=== PATIENT | female | born 1935 | race Caucasian/White ===

== ENCOUNTER 2020-10-19 20:23 | Inpatient (IN) ==
[2020-10-19 21:44] LABS: Hematocrit (blood only) 42.7 % (37-47); Hemoglobin 13.8 g/dL (12.0-16.0); Mean Corpuscular Hgb Conc 32.3 g/dL (32-36); Mean Corpuscular Volume 92.8 fL (80-100); Mean Platelet Volume 11.5 fL (7.4-10.4); Platelet Count 209 K/uL (130-400); RDW Standard Deviation 50.9 fL (36.4-46.3); White Blood Count 23.14 K/uL (4.8-10.8)
[2020-10-19 22:01] LABS: Albumin Level 3.1 gm/dl (3.4-5.0); BUN Creatinine Ratio 32.9 (10-20); Calcium 8.9 mg/dl (8.5-10.1); Creatinine Clr Calc Pharmacy 46.8 ml/min; Est GFR (African American) 79.7 ml/min; Est GFR (Non-African American) 68.7 ml/min; Magnesium 2.1 mg/dl (1.8-2.4); Potassium 4.2 mmol/L (3.5-5.1)
[2020-10-19 22:12] LABS: Albumin Globulin Ratio 0.8 (0.9-2); Bilirubin,Total 0.8 mg/dl (0.2-1); Globulin 3.7 gm/dl (2.5-4.0); Thyroid Stimulating Hormone 1.01 uIu/ml (0.300-4.500); Total Protein 6.8 gm/dl (6.4-8.2); Troponin I 0.015 ng/ml (0-0.045)
[2020-10-19 23:11] LABS: Appearance Urine Clear (Clear); Bacteria Urine Automated 4+ (Negative); Bilirubin Urine Negative (Negative); Blood Urine Negative (Negative); Color Urine Yellow; Epithelial Cell Urine Auto >30 /lpf (0-5); Glucose Urine UA Negative (Negative); Ketones Urine Negative (Negative); Leukocyte Esterase Urine Negative (Negative); Nitrite Urine Positive (Negative); Protein Urine Trace (Negative); RBC Urine Automated 0-4 /hpf (0-4); Specific Gravity Urine 1.022 (1.000-1.030); Urobilinogen Urine Negative (Negative)
[2020-10-19 23:17] LABS: Basophils # (auto) 0.03 K/uL (0-0.2); Basophils % (auto) 0.1 %; Eosinophils # (auto) 0.02 K/uL (0-0.5); Eosinophils % (auto) 0.1 %; Immature Granulocytes # (auto) 0.23 K/uL (0.00-0.02); Lymphocytes % (auto) 3.5 %; Monocytes # (auto) 0.57 K/uL (0.11-0.59); Monocytes % (auto) 2.5 %; Neutrophils # (auto) 21.49 K/uL (1.4-6.5); Neutrophils % (auto) 92.8 %
[2020-10-19] MEDS ORDERED: OPTIRAY 320 125ml IV ONE (23:33)
[2020-10-19] MEDS ORDERED: Heparin IV Adult Wt-Based Standard WITH Bolus Protocol IV STA (23:48)
--- NOTE | 2020-10-19 23:57 | Emergency Department Note ---
Impression & Plan Weakness, Bilateral lower extremity edema, Lumbar stenosis with neurogenic claudication, Pulmonary embolism, Hypoxia ED Provider Note Provider: Isiah Contreras MD DATE OF SERVICE: 10/19/2020 CHIEF COMPLAINT: Weakness HISTORY OF PRESENT ILLNESS: Patient is a 85-year-old female history of chronic lower leg edema and venous stasis and lumbar stenosis recently on a steroid burst to help with neural claudication presenting today with reports that she has had developed weakness in her right leg today has been unable to walk. Was able to get out to dinner but was not able to get back of the truck and fell onto her buttocks and. Denies striking her head. Denies pain in her head, chest, or abdomen. Denies significant back pain. Reports weakness in her legs. Unchanged numbness in legs. States normally she is able to walk but her right leg is now giving out on her. States she has chronic swelling here. Finished her steroids 2 days ago for her back no history of back surgery. REVIEW OF SYSTEMS: A total of 10 review of systems was obtained and negative except as stated above in the HPI. PAST MEDICAL HISTORY: As noted above MEDICATIONS: Reviewed home medication list recently finished a burst of steroid SOCIAL HISTORY: Lives at home with , non-smoker PHYSICAL EXAM: GENERAL: alert and oriented in no acute distress on stretcher but appears somewhat fatigued. Head: normocephalic and atraumatic EYES: No injection, discharge or icterus. NECK: Trachea midline. Supple. LUNGS: Airway patent. No retractions. Breath sounds clear anteriorly HEART: Regular rate and rhythm. No chest wall tenderness ABDOMEN: Soft and non-tender, without guarding or rebound. BACK: No bilateral flank tenderness. SKIN: Acyanotic, warm, dry, without rashes EXTREMITIES: 3+ bilateral lower extremity edema with chronic stasis changes. Minimal tenderness on exam. NEUROLOGICAL: No aphasia. No facial droop or slurred speech. Decreased ability for straight leg raise in the right and left lower legs. Decrease sensation on the right and left lower legs although patient states this is baseline. EK bpm normal sinus rhythm with sinus arrhythmia. No PVC. QTC 43. No ST segment elevation or depression with some baseline artifact present. CONTINUOUS CARDIAC MONITORING: was ordered and showed a heart rate of 60s to 80s bpm in normal sinus rhythm with sinus arrhythmia GCS 15. Patient's laboratory studies and imaging reviewed. Differential includes Infection, dehydration, metabolic abnormality, hypo/hyperglycemia, electrolyte disturbance, anemia, hypoxia, cardiac sources, i ntracerebral event, toxicologic, neurologic, as well as other pathologies. IMPRESSION/MEDICAL DECISION MAKING: Patient not on blood thinners and reports he did not strike her head. No to be a bit hypoxic here on room air. Denies a history of smoking. Chest x-ray that clear evidence of pneumonia. Little bit of possible haziness in the lower right lung base. Recent MRI several weeks ago. Patient states right leg has been giving out on her more. On reevaluation later she states her strength in her leg has returned some. CT of the lumbar spine did not show acute fracture. Significant chronic lower extremity swelling she is reports is at baseline. Blood work with a significant leukocytosis but was just on a steroid burst. Urine not that convincing for infection but will be sent for culture. Legs erythematous but not distally convince for bilateral leg cellulitis. CT scan later completed of the lungs given her borderline hypoxia here with evidence of PEs. Patient will need Dopplers of the legs but requires anticoagulated with heparin given the PEs at this point and will defer to inpatient care. Patient not having chest pain and without significant ischemic changes on the EKG or significant troponin elevation. Covid test was negative. Given that she is hypoxic in the high 80s here on room air at rest with the PEs feel that anticoagulation and further care here at the hospital is indicated. Patient also a fall risk given her weakness. Lower suspicion at this time for acute cauda equina or spinal infection. Patient does not appear septic. Hospitalist contacted DIAGNOSIS: Weakness, hypoxia, PEs, leg edema DISPOSITION: Hospitalist will evaluate Patient was agreeable with this plan. Preliminary Findings Only See Final Report For Complete Findings CTA CHEST: Acute pulmonary emboli within multiple right middle and lower lobar, segmental and subsegmental branches. No central pulmonary embolism. Ectatic central pulmonary arteries, suggesting pulmonary arterial hypertension. Mild cardiomegaly. RV/LV ratio is approximately 1 which may indicate mild right heart strain. Mild pericardial effusion. Aberrant right subclavian artery. Small bilateral pleural effusions. Mild bibasilar compressive atelectasis. No definite acute consolidation or pulmonary infarct. No pathologic intrathoracic lymphadenopathy. No acute osseous abnormality. Radiologist: Amish Delacruz M.D. Past Med/Surg History Medical History Basal cell carcinoma Chronic venous stasis dermatitis of both lower extremities DJD (degenerative joint disease) H/O fracture of hip H/O mitral valve prolapse Non-healing surgical wound Osteopenia Rheumatoid arthritis Surgical History H/O foot surgery H/O wrist surgery S/P appendectomy S/P cholecystectomy Family History Father COPD (chronic obstructive pulmonary disease) Silicosis Mother , age 97 No problems noted. Social History Smoking Status: Never smoker Hx Alcohol Use: No Hx Substance Use: No Communication Ability: Effective Visual Impairment: Limited Hearing Ability: Normal Beliefs That Will Affect Care: None marital status: Current Living Situation: Spouse current occupational status: retired Feels Safe at Home: Yes Allergies Allergies Allergy/AdvReac Type Severity Reaction Status Date / Time No Known Allergies Allergy Verified 10/19/20 22:18 Home Meds Home Medications Medication Instructions Recorded Confirmed leflunomide 20 mg tablet (Arava) 20 mg PO DAILY 03/04/19 10/19/20 alendronate 70 mg tablet 70 mg PO WK 10/19/20 10/19/20 furosemide 20 mg tablet 20 mg PO DAILY 10/19/20 10/19/20 oxybutynin chloride 5 mg tablet 5 mg PO BID PRN 10/19/20 10/19/20 prednisone 1 mg tablet See Rx Instructions .ROUTE .COMPLEX 10/19/20 10/19/20 Results & Data (ED) Vital Signs Vital Signs - 24 hr 10/19/20 20:33 10/19/20 20:43 10/19/20 21:00 Temperature 37.5 C Temperature Source Oral Pulse Rate 80 Pulse Rate [Apical] 78 Respiratory Rate 18 18 Blood Pressure 164/78 H Blood Pressure [Left Arm] 151/53 H Blood Pressure Mean 106 Blood Pressure Mean [Left Arm] 85 Pulse Oximetry 87 L 93 92 Oxygen Delivery Method Room Air Nasal Cannula Nasal Cannula Oxygen Flow Rate 2 2 Sepsis Recent Fever Within 48 Hours No Sepsis New/Unexplained Change in Mental Status N/A Sepsis Action Taken by Nursing No Action Required 10/19/20 21:20 10/19/20 23:01 10/20/20 00:00 Temperature Temperature Source Pulse Rate Pulse Rate [Apical] 81 71 Respiratory Rate 18 18 Blood Pressure Blood Pressure [Left Arm] 153/79 H 153/69 H Blood Pressure Mean Blood Pressure Mean [Left Arm] 103 97 Pulse Oximetry 90 92 99 Oxygen Delivery Method Nasal Cannula Room Air Nasal Cannula Oxygen Flow Rate 2 4 Sepsis Recent Fever Within 48 Hours Sepsis New/Unexplained Change in Mental Status Sepsis Action Taken by Nursing Laboratory Data Result diagrams: 10/19/20 21:31 10/19/20 21:31 Lab Results 10/19/20 10/19/20 10/19/20 Range/Units 21:31 21:31 21:31 WBC 23.14 H (4.8-10.8) K/uL RBC 4.60 (4.2-5.4) M/uL Hgb 13.8 (12.0-16.0) g/dL Hct 42.7 (37-47) % MCV 92.8 (80-100) fL MCH 30.0 (25-34) pg MCHC 32.3 (32-36) g/dL RDW Std Deviation 50.9 H (36.4-46.3) fL RDW Coeff of Cherie 15.0 H (11.5-14.5) % Plt Count 209 (130-400) K/uL MPV 11.5 H (7.4-10.4) fL Immature Gran % (Auto) 1.0 % Neut % (Auto) 92.8 % Lymph % (Auto) 3.5 % [place] % (Auto) 2.5 % Eos % (Auto) 0.1 % Baso % (Auto) 0.1 % Neut # (Auto) 21.49 H (1.4-6.5) K/uL Lymph # (Auto) 0.80 L (1.2-3.4) K/uL [place] # (Auto) 0.57 (0.11-0.59) K/uL Eos # (Auto) 0.02 (0-0.5) K/uL Baso # (Auto) 0.03 (0-0.2) K/uL Immature Gran # (Auto) 0.23 H (0.00-0.02) K/uL APTT 22.8 (21.0-31.0) Seconds PTT Ratio 0.9 Sodium 141 (136-145) mmol/L Potassium 4.2 (3.5-5.1) mmol/L Chloride 108 H (98-107) mmol/L Carbon Dioxide 29 (21-32) mmol/L Anion Gap 4.0 (3-11) BUN 26 H (7-18) mg/dl Creatinine 0.79 (0.6-1.2) mg/dl Est Cr Clr Drug Dosing 46.8 ml/min Est GFR ( Amer) 79.7 ml/min Est GFR (Non-Af Amer) 68.7 ml/min BUN/Creatinine Ratio 32.9 H (10-20) Glucose 158 H (70-99) mg/dl Calcium 8.9 (8.5-10.1) mg/dl Magnesium 2.1 (1.8-2.4) mg/dl Total Bilirubin 0.8 (0.2-1) mg/dl AST 29 (15-37) U/L ALT 37 (12-78) U/L Alkaline Phosphatase 88 (45-117) U/L Troponin I 0.015 (0-0.045) ng/ml Total Protein 6.8 (6.4-8.2) gm/dl Albumin 3.1 L (3.4-5.0) gm/dl Globulin 3.7 (2.5-4.0) gm/dl Albumin/Globulin Ratio 0.8 L (0.9-2) TSH 1.010 (0.300-4.500) uIu/ml Urine Color Urine Appearance (Clear) Urine pH (4.5-7.5) Ur Specific [place] (1.000-1.030) Urine Protein (Negative) Urine Glucose (UA) (Negative) Urine Ketones (Negative) Urine Blood (Negative) Urine Nitrite (Negative) Urine Bilirubin (Negative) Urine Urobilinogen (Negative) Ur Leukocyte Esterase (Negative) Urine WBC (Auto) (0-5) /hpf Urine RBC (Auto) (0-4) /hpf U Hyaline Cast (Auto) (0-5) /lpf U Epithel Cells (Auto) (0-5) /lpf Urine Bacteria (Auto) (Negative) COVID-19 Eval Order SARS-CoV-2 (PCR) (Negative) 10/19/20 10/19/20 10/19/20 Range/Units 22:27 22:27 22:55 WBC (4.8-10.8) K/uL RBC (4.2-5.4) M/uL Hgb (12.0-16.0) g/dL Hct (37-47) % MCV (80-100) fL MCH (25-34) pg MCHC (32-36) g/dL RDW Std Deviation (36.4-46.3) fL RDW Coeff of Cherie (11.5-14.5) % Plt Count (130-400) K/uL MPV (7.4-10.4) fL Immature Gran % (Auto) % Neut % (Auto) % Lymph % (Auto) % [place] % (Auto) % Eos % (Auto) % Baso % (Auto) % Neut # (Auto) (1.4-6.5) K/uL Lymph # (Auto) (1.2-3.4) K/uL [place] # (Auto) (0.11-0.59) K/uL Eos # (Auto) (0-0.5) K/uL Baso # (Auto) (0-0.2) K/uL Immature Gran # (Auto) (0.00-0.02) K/uL APTT (21.0-31.0) Seconds PTT Ratio Sodium (136-145) mmol/L Potassium (3.5-5.1) mmol/L Chloride (98-107) mmol/L Carbon Dioxide (21-32) mmol/L Anion Gap (3-11) BUN (7-18) mg/dl Creatinine (0.6-1.2) mg/dl Est Cr Clr Drug Dosing ml/min Est GFR ( Amer) ml/min Est GFR (Non-Af Amer) ml/min BUN/Creatinine Ratio (10-20) Glucose (70-99) mg/dl Calcium (8.5-10.1) mg/dl Magnesium (1.8-2.4) mg/dl Total Bilirubin (0.2-1) mg/dl AST (15-37) U/L ALT (12-78) U/L Alkaline Phosphatase (45-117) U/L Troponin I (0-0.045) ng/ml Total Protein (6.4-8.2) gm/dl Albumin (3.4-5.0) gm/dl Globulin (2.5-4.0) gm/dl Albumin/Globulin Ratio (0.9-2) TSH (0.300-4.500) uIu/ml Urine Color Yellow Urine Appearance Clear (Clear) Urine pH 5.0 (4.5-7.5) Ur Specific [place] 1.022 (1.000-1.030) Urine Protein Trace H (Negative) Urine Glucose (UA) Negative (Negative) Urine Ketones Negative (Negative) Urine Blood Negative (Negative) Urine Nitrite Positive A (Negative) Urine Bilirubin Negative (Negative) Urine Urobilinogen Negative (Negative) Ur Leukocyte Esterase Negative (Negative) Urine WBC (Auto) 5-10 H (0-5) /hpf Urine RBC (Auto) 0-4 (0-4) /hpf U Hyaline Cast (Auto) 1-5 (0-5) /lpf U Epithel Cells (Auto) >30 H (0-5) /lpf Urine Bacteria (Auto) 4+ H (Negative) COVID-19 Eval Order Covid19 at [facility] SARS-CoV-2 (PCR) NEGATIVE (Negative) Administered Medications Discontinued Medications Ioversol (Optiray 320 125ml) 125 ml IV ONCE ONE Stop: 10/19/20 23:34 Last Admin: 10/19/20 23:33 Dose: 93 ml Documented by: [id number] Discharge Plan Visit Data Chief Complaint: Leg Weakness, Bilateral Stated Complaint: LEG WEAKNESS ED Provider: Isiah Contreras Discharge Problem: Weakness, Bilateral lower extremity edema, Lumbar stenosis with neurogenic claudication, Pulmonary embolism, Hypoxia Patient Disposition: Admitted As Inpatient Forms Stand Alone Forms: My [facility] Prescriptions Prescriptions: No Action leflunomide [Arava] 20 mg tablet 20 mg PO DAILY RF: 0 alendronate 70 mg tablet 70 mg PO WK RF: 0 oxybutynin chloride 5 mg tablet 5 mg PO BID PRN (Reason: urinary discomfort) RF: 0 prednisone 1 mg tablet See Rx Instructions .ROUTE .COMPLEX RF: 0 furosemide 20 mg tablet 20 mg PO DAILY RF: 0 Referrals Referrals: Nael Senior MD [Primary Care Provider] -
[2020-10-20] MEDS ORDERED: HEPARIN SOD (PORCINE) 1000 UNIT/ML IV ONE ×2 (00:03→08:30)
[2020-10-20] MEDS ORDERED: HEPARIN SODIUM/DEXTROSE 25,000 UNITS/500 ML BAG IV SCH (00:15)
[2020-10-20] MEDS ORDERED: Heparin IV Adult Wt-Based Low-Dose *NO* Bolus Protocol IV STA (01:09)
[2020-10-20] MEDS ORDERED: FUROSEMIDE 40 MG/4 ML VIAL IV STA (01:11)
[2020-10-20 01:12] LABS: Partial Thromboplastin Ratio 0.9; Partial Thromboplastin Time 22.8 Seconds (21.0-31.0)
[2020-10-20] MEDS ORDERED: HEPARIN 25000 UNIT/500 ML D5W IV ONE (01:35)
[2020-10-20] MEDS: HEPARIN SODIUM/DEXTROSE 25,000 UNITS/500 ML BAG IV SCH ×2 (01:54→02:45)
[2020-10-20] MEDS ORDERED: VANCOMYCIN CONSULT ACTIVE PRN (02:43)
[2020-10-20] MEDS ORDERED: ONDANSETRON INJ 2 MG/ML 2 ML VIAL IV PRN (02:43)
[2020-10-20] MEDS ORDERED: ACETAMINOPHEN 325 MG TAB PO PRN (02:43)
[2020-10-20] MEDS ORDERED: VANCOMYCIN HCL 1,500 MG in SODIUM CHLORIDE 0.9% 500 ML IV ONE (03:15)
--- NOTE | 2020-10-20 06:01 | History & Physical Report ---
Date of Service October 20, 2020 Assessment & Plan (1) Pulmonary embolism: Plan: Pulmonary embolism involving right middle lobe and right lower lobe- Start heparin IV low-dose no bolus. Longer term anticoagulation can be discussed in the a.m. (2) Bilateral lower extremity edema: Plan: Bilateral lower extremity edema/acute worsening chronic venous insufficiency- Hold oral furosemide. Give furosemide 40 mg IV x1 in the ED, then 20 mg IV every morning (3) Chronic venous insufficiency: Plan: See above (4) Chronic venous stasis dermatitis of both lower extremities: Plan: Consult wound care, was taking care of her in the past (5) Cellulitis of both lower extremities: Plan: Recent culture positive for MSSA, only resistant to erythromycin- Placed on vancomycin IV and ceftriaxone IV (6) Urinary tract infection: Plan: Follow urine culture sensitivity antibiotic coverage as above History of Present Illness Chief Complaint: The patient presents to the emergency department with complaint regarding worsening lower extremity weakness, right worse than left, and decreased ability to walk. Primary Care Provider: Nael Senior MD The patient is a 85-year-old female with a past medical history including lumbar stenosis with neurogenic claudication, venous stasis ulcer, osteoporosis, bladder spasm, bilateral lower extremity edema, chronic venous insufficiency, chronic venous stasis dermatitis and nonhealing surgical wound. She presents to the emergency department with decreased ability to walk, and with multiple other concerns. Allergies Allergy/AdvReac Type Severity Reaction Status Date / Time No Known Allergies Allergy Verified 10/19/20 22:18 Home Medications Medication Instructions Recorded Confirmed Type leflunomide 20 mg tablet (Arava) 20 mg PO DAILY 03/04/19 10/19/20 History alendronate 70 mg tablet 70 mg PO WK 10/19/20 10/19/20 History furosemide 20 mg tablet 20 mg PO DAILY 10/19/20 10/19/20 History oxybutynin chloride 5 mg tablet 5 mg PO BID PRN 10/19/20 10/19/20 History prednisone 1 mg tablet See Rx Instructions .ROUTE .COMPLEX 10/19/20 10/19/20 History Past Med/Surg History Medical History Basal cell carcinoma Chronic venous stasis dermatitis of both lower extremities DJD (degenerative joint disease) H/O fracture of hip H/O mitral valve prolapse Non-healing surgical wound Osteopenia Rheumatoid arthritis Surgical History H/O foot surgery H/O wrist surgery S/P appendectomy S/P cholecystectomy Family History Father COPD (chronic obstructive pulmonary disease) Silicosis Mother , age 97 No problems noted. Social History Smoking Status: Never smoker Hx Alcohol Use: No Hx Substance Use: No Preferred Language: Kittitian Communication Ability: Effective Visual Impairment: Limited Hearing Ability: Normal Outdoor Recreation Specialist Required: No Beliefs That Will Affect Care: None marital status: Current Living Situation: Spouse current occupational status: retired Other Information That Helps Us Care for You: No Feels Safe at Home: Yes Safety Concerns: Feels Safe At This Time Assistive Devices: Denture - Upper and Denture - Lower Review of Systems Review of Systems: The patient denies chest pain, palpitations, cough, sore throat, fevers, chills, sweats, nausea, vomiting, diarrhea , constipation, abdominal pain, pelvic pain, blood in urine or stool, dysuria, urinary frequency or urgency, loss of consciousness, rash, abnormal bruising or bleeding, focal weakness, numbness or tingling in arms, generalized arthralgias or myalgias, back or neck pain, or night sweats. The review of systems is otherwise negative other than for that already noted above, and at least 10 systems have been reviewed. Physical Exam Physical Exam: The patient is awake, alert and oriented 3, well developed and well nourished, normocephalic and atraumatic, lying in bed and in no acute distress. HEENT--PERRL, EOMI, mucous membranes and oropharynx normal. Neck--supple. No JVD. No bruits. Thyroid normal, trachea midline, no adenopathy. Heart--normal S1 and S2. No murmurs, rubs or gallops. Lungs--clear bilaterally, no respiratory distress, no accessory muscle use. Abdomen--normal bowel sounds and soft. Nontender. Nondistended, no hernias or masses, no organomegaly. Extremities--no cyanosis or clubbing. 2+ bilateral pretibial and pedal pitting edema. Moderate erythema bilaterally, right worse than left with mild scaling. Dermatologic--normal skin turgor, normal color, no abnormal lymph nodes, no r torito. Neurologic--cranial nerves II through XII grossly intact. Rheumatologic--normal range of motion. Psychiatric--normal affect. Results & Data Results & Data ([facility]) Vital Signs (Past 12 Hours) Vital Signs Temp Pulse Pulse Resp BP BP Pulse Ox 10/20/20 00:00 71 18 153/69 H 99 10/19/20 23:01 81 18 153/79 H 92 10/19/20 21:20 90 10/19/20 21:00 78 18 151/53 H 92 10/19/20 20:43 93 10/19/20 20:33 99.5 F 80 18 164/78 H 87 L Laboratory Results Laboratory Results WBC 23.14 K/uL (4.8-10.8) H 10/19/20 21:31 RBC 4.60 M/uL (4.2-5.4) 10/19/20 21: Hgb 13.8 g/dL (12.0-16.0) 10/19/20 21: Hct 42.7 % (37-47) 10/19/20 21: MCV 92.8 fL (80-100) 10/19/20 21: MCH 30.0 pg (25-34) 10/19/20 21: MCHC 32.3 g/dL (32-36) 10/19/20 21:31 RDW Std Deviation 50.9 fL (36.4-46.3) H 10/19/20 21: RDW Coeff of Cherie 15.0 % (11.5-14.5) H 10/19/20 21: Plt Count 209 K/uL (130-400) 10/19/20 21: MPV 11.5 fL (7.4-10.4) H 10/19/20 21: Immature Gran % (Auto) 1.0 % 10/19/20 21: Neut % (Auto) 92.8 % 10/19/20 21: Lymph % (Auto) 3.5 % 10/19/20 21: [place] % (Auto) 2.5 % 10/19/20 21: Eos % (Auto) 0.1 % 10/19/20 21:31 Baso % (Auto) 0.1 % 10/19/20 21:31 Neut # (Auto) 21.49 K/uL (1.4-6.5) H 10/19/20 21:31 Lymph # (Auto) 0.80 K/uL (1.2-3.4) L 10/19/20 21:31 [place] # (Auto) 0.57 K/uL (0.11-0.59) 10/19/20 21:31 Eos # (Auto) 0.02 K/uL (0-0.5) 10/19/20 21:31 Baso # (Auto) 0.03 K/uL (0-0.2) 10/19/20 21:31 Immature Gran # (Auto) 0.23 K/uL (0.00-0.02) H 10/19/20 21:31 APTT 22.8 Seconds (21.0-31.0) 10/19/20 21: PTT Ratio 0.9 10/19/20 21:31 Sodium 141 mmol/L (136-145) 10/19/20 21:31 Potassium 4.2 mmol/L (3.5-5.1) 10/19/20 21: Chloride 108 mmol/L (98-107) H 10/19/20 21:31 Carbon Dioxide 29 mmol/L (21-32) 10/19/20 21:31 Anion Gap 4.0 (3-11) 10/19/20 21:31 BUN 26 mg/dl (7-18) H 10/19/20 21:31 Creatinine 0.79 mg/dl (0.6-1.2) 10/19/20 21:31 Est Cr Clr Drug Dosing 46.8 ml/min 10/19/20 21:31 Est GFR ( Amer) 79.7 ml/min 10/19/20 21:31 Est GFR (Non-Af Amer) 68.7 ml/min 10/19/20 21:31 BUN/Creatinine Ratio 32.9 (10-20) H 10/19/20 21:31 Glucose 158 mg/dl (70-99) H 10/19/20 21:31 Calcium 8.9 mg/dl (8.5-10.1) 10/19/20 21:31 Magnesium 2.1 mg/dl (1.8-2.4) 10/19/20 21: Total Bilirubin 0.8 mg/dl (0.2-1) 10/19/20 21: AST 29 U/L (15-37) 10/19/20 21: ALT 37 U/L (12-78) 10/19/20 21: Alkaline Phosphatase 88 U/L (45-117) 10/19/20 21: Troponin I 0.015 ng/ml (0-0.045) 10/19/20 21: Total Protein 6.8 gm/dl (6.4-8.2) 10/19/20: Albumin 3.1 gm/dl (3.4-5.0) L 10/19/20: Globulin 3.7 gm/dl (2.5-4.0) 10/19/20 21: Albumin/Globulin Ratio 0.8 (0.9-2) L 10/19/20: TSH 1.010 uIu/ml (0.300-4.500) 10/19/20 21: Urine Color Yellow 10/19/20 22:55 Urine Appearance Clear (Clear) 10/19/20 22:55 Urine pH 5.0 (4.5-7.5) 10/19/20 22:55 Ur Specific [place] 1.022 (1.000-1.030) 10/19/20 22:55 Urine Protein Trace (Negative) H 10/19/20 22:55 Urine Glucose (UA) Negative (Negative) 10/19/20 22:55 Urine Ketones Negative (Negative) 10/19/20 22:55 Urine Blood Negative (Negative) 10/19/20 22:55 Urine Nitrite Positive (Negative) A 10/19/20 22:55 Urine Bilirubin Negative (Negative) 10/19/20 22:55 Urine Urobilinogen Negative (Negative) 10/19/20 22:55 Ur Leukocyte Esterase Negative (Negative) 10/19/20 22:55 Urine WBC (Auto) 5-10 /hpf (0-5) H 10/19/20 22:55 Urine RBC (Auto) 0-4 /hpf (0-4) 10/19/20 22:55 U Hyaline Cast (Auto) 1-5 /lpf (0-5) 10/19/20 22:55 U Epithel Cells (Auto) >30 /lpf (0-5) H 10/19/20 22:55 Urine Bacteria (Auto) 4+ (Negative) H 10/19/20 22:55 COVID-19 Eval Order Covid19 at [facility] 10/19/20 22:27 SARS-CoV-2 (PCR) NEGATIVE (Negative) 10/19/20 22:27 Code Status & VTE Plan Code Status Full code VTE Prophylaxis Plan VTE Prophylaxis will be ordered: Yes PG Care Time/CCT Total # of Minutes Spent Total Time Spent with Patient: Total time spent is greater than 50% in coordination of care (as documented) at patient's floor/unit and/or counseling patient: Coding Level of Care Code 19837 Initial Inpt Care Lvl 3 Diagnoses Pulmonary embolism I26.99 Acute cor pulmonale presence: without acute cor pulmonale Chronicity: acute Pulmonary embolism type: other Bilateral lower extremity edema R60.0 Chronic venous insufficiency I87.2 Chronic venous stasis dermatitis of both lower extremities I87.2 Cellulitis of both lower extremities L03.115; L03.116 Urinary tract infection N39.0 (1) Pulmonary embolism Acute cor pulmonale presence: without acute cor pulmonale Chronicity: acute Pulmonary embolism type: other Qualified Code(s): I26.99 - Other pulmonary embolism without acute cor pulmonale
--- NOTE | 2020-10-20 06:39 | Ultrasound Report ---
BILATERAL LOWER EXTREMITY VENOUS DOPPLER HISTORY: Acute pain and swelling of the lower extremities edema, PE COMPARISON STUDY: 01/16/2019. FINDINGS: There is normal compressibility, flow, and augmentation within the bilateral lower extremit y deep venous systems. Subcutaneous edema of the lower legs. IMPRESSION: No DVT within the right or left lower extremity. ACT 112: Negative or not required by law. Electronically signed by: Jason Edwards M.D. 10/20/2020 6:38 AM
[2020-10-20 07:48] LABS: Partial Thromboplastin Ratio 1.3; Partial Thromboplastin Time 34.1 Seconds (21.0-31.0)
[2020-10-20] MEDS ORDERED: PNEUMOCOCCAL Polysaccharide Vaccine 25mcg/0.5mL vial/Syr IM ONE (08:00)
--- NOTE | 2020-10-20 08:10 | XRay Report ---
XR chest 1V portable CLINICAL HISTORY: weakness COMPARISON STUDY: Chest radiograph February 23, 2010. FINDINGS: There is no pneumothorax. Note is made of moderate cardiomegaly. There are trace bilateral pleural effusions. There is pulmonary vascular congestion without overt pulmonary edema. IMPRESSION: 1. Cardiomegaly. Pulmonary vascular congestion without overt pulmonary edema. 2. Trace bilateral pleural effusions. ACT 112: Negative or not required by law. Electronically signed by: Mahin Brewster M.D. 10/20/2020 8:08 AM
[2020-10-20 08:11] LABS: Creatinine Clr Calc Pharmacy 71.2 ml/min; Est GFR (African American) 101.7 ml/min; Est GFR (Non-African American) 87.7 ml/min
--- NOTE | 2020-10-20 08:18 | CT Scan Report ---
CT ANGIOGRAPHY OF THE CHEST, PULMONARY EMBOLUS PROTOCOL CLINICAL HISTORY: PE, hypoxia, leg swelling COMPARISON STUDY: Chest radiograph performed earlier today. TECHNIQUE: Following IV administration of 93 mL of Optiray, helical axial images of the chest were ob tained utilizing the pulmonary embolus protocol. Maximal intensity projections and sagittal and mariana nal reformats were viewed on an independent 3D workstation. IV contrast was administered without com plication. Automated exposure control was utilized for the study. A dose lowering technique was uti lized adhering to the principles of ALARA. CT DOSE: 233.95 mGy.cm FINDINGS: There are numerous acute segmental pulmonary emboli within the right upper, right middle a nd right lower lobes. The heart is moderately enlarged. Small right and trace left pleural effusions are noted. Lungs are suboptimally assessed due to respiratory motion. There is no thoracic lymphadeno gordon. Multiple old right-sided rib fractures are noted. IMPRESSION: 1. Numerous acute segmental pulmonary emboli within the right upper, right middle and right lower lob es. 2. Small right and trace left pleural effusions. 3. Cardiomegaly. ACT 112: Negative or not required by law. Electronically signed by: Mahin Brewster M.D. 10/20/2020 8:16 AM
[2020-10-20] MEDS: LEFLUNOMIDE 10 MG TAB PO SCH (08:34)
[2020-10-20] MEDS: predniSONE 1 MG TAB PO SCH (08:35)
--- NOTE | 2020-10-20 08:35 | CT Scan Report ---
CT OF THE LUMBAR SPINE CLINICAL HISTORY: Fall. COMPARISON STUDY: Lumbar spine MRI September 03, 2020. TECHNIQUE: Helical axial images of the lumbar spine were obtained. Sagittal and coronal reconstruct ions were viewed. Automated exposure control was utilized for the study. A dose lowering technique was utilized adhering to the principles of ALARA. FINDINGS: For purposes of numbering on this exam, the L5-S1 disc space is assigned to axial image 257 of 323. Note is made of S-shaped scoliosis of the lumbar spine. Severe multilevel degenerative pani[place] es within lumbar spine are noted with facet arthrosis and degenerative disc disease. The central fina l and neural foramen are suboptimally assessed by CT. Severe multilevel central canal and neural fora eliana stenosis is better depicted on recent MRI of September 03, 2020. No acute lumbar spine fracture is n oted. There is mild buckling of the anterior cortex of S2 shown on sagittal reconstruction. This is n ew since MRI of September 03, 2020. There is a healing fracture of the right transverse process of L1. The re is a healing right rib fracture. IMPRESSION: 1. No acute lumbar spine fracture. 2. Mild buckling of the anterior cortex of the S2 vertebral body which is new since MRI of 09/03/2020. This represents an acute to subacute nondisplaced fracture. This finding will be called/faxed to the ordering provider at time of dictation. 3. Severe multilevel degenerative disc disease and facet arthrosis within the lumbar spine. Central c anal and neural foraminal stenosis is better depicted on recent MRI of 09/03/2020. ACT 112: Negative or not required by law. Electronically signed by: Mahin Brewster M.D. 10/20/2020 8:34 AM
[2020-10-20] MEDS: cefTRIAXone SODIUM 1,000 MG in DEXTROSE 5% 50 ML IV SCH (08:39)
[2020-10-20] MEDS: FUROSEMIDE 20 MG in SYRINGE 0 ML IV SCH (08:39)
--- NOTE | 2020-10-20 08:45 | Electrocardiogram Report ---
Test Reason : Blood Pressure : / mmHG Vent. Rate : 067 BPM Atrial Rate : 067 BPM P-R Int : 122 ms QRS Dur : 190 ms QT Int : 458 ms P-R-T Axes : 062 062 062 degrees QTc Int : 483 ms Poor data quality, interpretation may be adversely affected Normal sinus rhythm with frequent Premature atrial complexes Non-specific intra-ventricular conduction block Abnormal ECG When compared with ECG of 23-FEB-2010 13:02, Nonspecific ST abnormality Inferior leads no longer present Confirmed by Danny Magallanes ([id number]) on 10/20/2020 8:44:55 AM Referred By: REFERRED SELF Confirmed By:Danny Magallanes
--- NOTE | 2020-10-20 08:46 | Electrocardiogram Report ---
Test Reason : Blood Pressure : / mmHG Vent. Rate : 062 BPM Atrial Rate : 062 BPM P-R Int : 132 ms QRS Dur : 086 ms QT Int : 410 ms P-R-T Axes : 065 072 049 degrees QTc Int : 416 ms Normal sinus rhythm with sinus arrhythmia Normal ECG When compared with ECG of 19-OCT-2020 20:32, No significant change Confirmed by Danny Magallanes ([id number]) on 10/20/2020 8:45:42 AM Referred By: REFERRED SELF Confirmed By:Danny Magallanes
[2020-10-20] MEDS ORDERED: FUROSEMIDE 40 MG/4 ML VIAL IV SCH (09:00)
--- NOTE | 2020-10-20 09:48 | Pharmacy Report ---
Pharmacy Abx Dose Short Note - Date of Service October 20, 2020 - Assessment & Plan Assessment 85 year old F started on vancomycin and rocephin for lower extremity cellulitis. 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 Hx of MSSA from previous leg cx's. Cultures pending. Plan Vancomycin * Received loading dose of vancomycin 1500 mg x 1 (~23 mg/kg/dose) * Started on vancomycin 1000 mg iv q 16 hrs to achieve estimated level ~15 mcg/ml for cellulitis. A less than traditional dosing selected due to advanced age. Based dosing on baseline Scr of ~0.6-0.7 mg/dL. Estimated t 1/2 ~15 hrs, ke~0.04 hr-1 * Unclear from notes if area is purulent/non-purulent or if patient has risk factors for MRSA. However, patient with leukocytosis on admission. Will continue to follow and deescalate when appropriate * Plan to order vanco level if continued >48 hrs Pharmacy will continue to follow and will adjust dose/frequency as necessary. Thank you.
--- NOTE | 2020-10-20 10:08 | XCELERA ---
[id number] \\[id number]
[2020-10-20 16:03] LABS: Partial Thromboplastin Time 53.2 Seconds (21.0-31.0)
[2020-10-20] MEDS: VANCOMYCIN HCL 1,000 MG in SODIUM CHLORIDE 0.9% 250 ML IV SCH (17:56)
--- NOTE | 2020-10-20 20:09 | Hospitalist Progress Note ---
Date of Service October 20, 2020 Assessment & Plan (1) Pulmonary embolism: Plan: Pulmonary emboli involving right middle lobe and right lower lobe- Remains on heparin IV. Suspect that she may be a DOAC candidate. Would investigate marifer alex in am. Suspect the cause of her VTE event is immobility - her lumbar spinal stenosis with severe rle radicular issues has been hampering her mobliity. Thus, this event was probably provoked by such. of note - b/l LE venous dopplers neg for DVT (2) Bilateral lower extremity edema: Plan: Bilateral lower extremity edema/acute worsening chronic venous insufficiency. Can continue IV lasix daily as long as BUN and Cr remain stable. BMP am. (3) Chronic venous insufficiency: Plan: this is a risk factor in and of itself for DVT would benefit from compression stockings (4) Chronic venous stasis dermatitis of both lower extremities: (5) Cellulitis of both lower extremities: Plan: Currently on vancomycin IV and ceftriaxone IV for such but most of what I see today appears chronic in nature due to her venous insufficiency. Would stop IV abx soon and narrow the coverage. (6) Urinary tract infection: Plan: 2nd GNR rocephin should suffice follow culture (7) Acute respiratory failure with hypoxia: Plan: 2nd PEs cont NC O2 (8) Elevated troponin: Plan: minimal myocardial demand ischemia in setting of decent PE clot burden no ACS (9) Lumbar stenosis with neurogenic claudication: Plan: severe with resulting RLE radicular symptoms & weakness interfering w/ mobility PT, OT while here (10) Rheumatoid arthritis: Plan: noted in her record Plan: updated at bedside Admission and Anticipated Discharge Date Admission Date: October 20, 2020 Subjective patient resting in bed eating her meal uneventful day - states she just rested remains on NC O2 no dyspnea at rest, no chest pain, no abd pain at bedside both state that her main issue of late is that of back pain with radicular pain of right leg sees pain management, but neither can remember who she is seeing (at Dr Ennis's office??) her right leg has been weak, and it has been difficult for her to ambulate because of this admits to being much more sedentary than prior no recent surgeries no recent travel no recent COVID infection she did have a broken left arm but this was treated conservatively with splinting and now an arm brace no other recent changes in health Review of Systems Review of Systems: gen - no weight loss of late pulm - no cough cardio - no chest pain abd - no pain, nausea or emesis Physical Exam Physical Exam: gen - NAD neck - no JVD heart - RRR, s1 s2 lungs - CTA b/l abd - soft NT BS+ ext - 2+ edema b/l, chronic venous stasis changes b/l shins, pulses 2+ b/l skin - no cellulitis either cagle - chronic appearing erythema with scale neuro - left leg 5/5 strength; right leg 4/5 strength; b/l arm strength 5/5 Results & Data Results & Data ([facility]) Vital Signs (Past 12 Hours) Vital Signs Temp Pulse Pulse Resp BP BP Pulse Ox 10/20/20 19:18 37.2 C 64 18 132/70 94 10/20/20 15:27 37.2 C 56 L 17 133/60 96 10/20/20 11:30 36.5 C 59 L 20 113/61 97 10/20/20 09:29 62 Laboratory Results Laboratory Results - last 24 hr 10/19/20 10/19/20 10/19/20 21:31 21:31 21:31 WBC 23.14 H RBC 4.60 Hgb 13.8 Hct 42.7 MCV 92.8 MCH 30.0 MCHC 32.3 RDW Std Deviation 50.9 H RDW Coeff of Cherie 15.0 H Plt Count 209 MPV 11.5 H Immature Gran % (Auto) 1.0 Neut % (Auto) 92.8 Lymph % (Auto) 3.5 [place] % (Auto) 2.5 Eos % (Auto) 0.1 Baso % (Auto) 0.1 Neut # (Auto) 21.49 H Lymph # (Auto) 0.80 L [place] # (Auto) 0.57 Eos # (Auto) 0.02 Baso # (Auto) 0.03 Immature Gran # (Auto) 0.23 H APTT 22.8 PTT Ratio 0.9 Sodium 141 Potassium 4.2 Chloride 108 H Carbon Dioxide 29 Anion Gap 4.0 BUN 26 H Creatinine 0.79 Est Cr Clr Drug Dosing 46.8 Est GFR ( Amer) 79.7 Est GFR (Non-Af Amer) 68.7 BUN/Creatinine Ratio 32.9 H Glucose 158 H Calcium 8.9 Magnesium 2.1 Total Bilirubin 0.8 AST 29 ALT 37 Alkaline Phosphatase 88 Troponin I 0.015 Total Protein 6.8 Albumin 3.1 L Globulin 3.7 Albumin/Globulin Ratio 0.8 L TSH 1.010 Urine Color Urine Appearance Urine pH Ur Specific Alva Urine Protein Urine Glucose (UA) Urine Ketones Urine Blood Urine Nitrite Urine Bilirubin Urine Urobilinogen Ur Leukocyte Esterase Urine WBC (Auto) Urine RBC (Auto) U Hyaline Cast (Auto) U Epithel Cells (Auto) Urine Bacteria (Auto) COVID-19 Eval Order SARS-CoV-2 (PCR) 10/19/20 10/19/20 10/19/20 22:27 22:27 22:55 WBC RBC Hgb Hct MCV MCH MCHC RDW Std Deviation RDW Coeff of Cherie Plt Count MPV Immature Gran % (Auto) Neut % (Auto) Lymph % (Auto) [place] % (Auto) Eos % (Auto) Baso % (Auto) Neut # (Auto) Lymph # (Auto) [place] # (Auto) Eos # (Auto) Baso # (Auto) Immature Gran # (Auto) APTT PTT Ratio Sodium Potassium Chloride Carbon Dioxide Anion Gap BUN Creatinine Est Cr Clr Drug Dosing Est GFR ( Amer) Est GFR (Non-Af Amer) BUN/Creatinine Ratio Glucose Calcium Magnesium Total Bilirubin AST ALT Alkaline Phosphatase Troponin I Total Protein Albumin Globulin Albumin/Globulin Ratio TSH Urine Color Yellow Urine Appearance Clear Urine pH 5.0 Ur Specific Alva 1.022 Urine Protein Trace H Urine Glucose (UA) Negative Urine Ketones Negative Urine Blood Negative Urine Nitrite Positive A Urine Bilirubin Negative Urine Urobilinogen Negative Ur Leukocyte Esterase Negative Urine WBC (Auto) 5-10 H Urine RBC (Auto) 0-4 U Hyaline Cast (Auto) 1-5 U Epithel Cells (Auto) >30 H Urine Bacteria (Auto) 4+ H COVID-19 Eval Order Covid19 at [facility] SARS-CoV-2 (PCR) NEGATIVE 10/20/20 10/20/20 10/20/20 07:21 07:21 07:21 WBC RBC Hgb Hct MCV MCH MCHC RDW Std Deviation RDW Coeff of Cherie Plt Count MPV Immature Gran % (Auto) Neut % (Auto) Lymph % (Auto) [place] % (Auto) Eos % (Auto) Baso % (Auto) Neut # (Auto) Lymph # (Auto) [place] # (Auto) Eos # (Auto) Baso # (Auto) Immature Gran # (Auto) APTT 34.1 H PTT Ratio 1.3 Sodium Potassium Chloride Carbon Dioxide Anion Gap BUN Creatinine 0.52 L Est Cr Clr Drug Dosing 71.2 Est GFR ( Amer) 101.7 Est GFR (Non-Af Amer) 87.7 BUN/Creatinine Ratio Glucose Calcium Magnesium Total Bilirubin AST ALT Alkaline Phosphatase Troponin I 0.050 H* Total Protein Albumin Globulin Albumin/Globulin Ratio TSH Urine Color Urine Appearance Urine pH Ur Specific Alva Urine Protein Urine Glucose (UA) Urine Ketones Urine Blood Urine Nitrite Urine Bilirubin Urine Urobilinogen Ur Leukocyte Esterase Urine WBC (Auto) Urine RBC (Auto) U Hyaline Cast (Auto) U Epithel Cells (Auto) Urine Bacteria (Auto) COVID-19 Eval Order SARS-CoV-2 (PCR) 10/20/20 10/20/20 15:02 15:02 WBC RBC Hgb Hct MCV MCH MCHC RDW Std Deviation RDW Coeff of Cherie Plt Count MPV Immature Gran % (Auto) Neut % (Auto) Lymph % (Auto) [place] % (Auto) Eos % (Auto) Baso % (Auto) Neut # (Auto) Lymph # (Auto) [place] # (Auto) Eos # (Auto) Baso # (Auto) Immature Gran # (Auto) APTT 53.2 H* PTT Ratio 2.0 Sodium Potassium Chloride Carbon Dioxide Anion Gap BUN Creatinine Est Cr Clr Drug Dosing Est GFR ( Amer) Est GFR (Non-Af Amer) BUN/Creatinine Ratio Glucose Calcium Magnesium Total Bilirubin AST ALT Alkaline Phosphatase Troponin I 0.035 Total Protein Albumin Globulin Albumin/Globulin Ratio TSH Urine Color Urine Appearance Urine pH Ur Specific Alva Urine Protein Urine Glucose (UA) Urine Ketones Urine Blood Urine Nitrite Urine Bilirubin Urine Urobilinogen Ur Leukocyte Esterase Urine WBC (Auto) Urine RBC (Auto) U Hyaline Cast (Auto) U Epithel Cells (Auto) Urine Bacteria (Auto) COVID-19 Eval Order SARS-CoV-2 (PCR) Diagnostic Findings Chest X-Ray 10/19/20 21:17 XR chest 1V portable CLINICAL HISTORY: weakness COMPARISON STUDY: Chest radiograph February 23, 2010. FINDINGS: There is no pneumothorax. Note is made of moderate cardiomegaly. There are trace bilateral pleural effusions. There is pulmonary vascular congestion without overt pulmonary edema. IMPRESSION: 1. Cardiomegaly. Pulmonary vascular congestion without overt pulmonary edema. 2. Trace bilateral pleural effusions. ACT 112: Negative or not required by law. Electronically signed by: Mahin Brewster M.D. 10/20/2020 8:[address] 10/19/20 21:42 CT OF THE LUMBAR SPINE CLINICAL HISTORY: Fall. COMPARISON STUDY: Lumbar spine MRI September 03, 2020. TECHNIQUE: Helical axial images of the lumbar spine were obtained. Sagittal and coronal reconstructions were viewed. Automated exposure control was utilized for the study. A dose lowering technique was utilized adhering to the principles of ALARA. FINDINGS: For purposes of numbering on this exam, the L5-S1 disc space is assign ed to axial image 257 of 323. Note is made of S-shaped scoliosis of the lumbar spine. Severe multilevel degenerative changes within lumbar spine are noted with facet arthrosis and degenerative disc disease. The central canal and neural foramen are suboptimally assessed by CT. Severe multilevel central canal and neural foraminal stenosis is better depicted on recent MRI of September 03, 2020. No acute lumbar spine fracture is noted. There is mild buckling of the anterior cortex of S2 shown on sagittal reconstruction. This is new since MRI of September 03, 2020. There is a healing fracture of the right transverse process of L1. There is a healing right rib fracture. IMPRESSION: 1. No acute lumbar spine fracture. 2. Mild buckling of the anterior cortex of the S2 vertebral body which is new since MRI of 09/03/2020. This represents an acute to subacute nondisplaced fracture. This finding will be called/faxed to the ordering provider at time of dictation. 3. Severe multilevel degenerative disc disease and facet arthrosis within the lumbar spine. Central canal and neural foraminal stenosis is better depicted on recent MRI of 09/03/2020. ACT 112: Negative or not required by law. Electronically signed by: Mahin Brewster M.D. 10/20/2020 8:34 AM Chest CTA 10/19/20 23:04 CT ANGIOGRAPHY OF THE CHEST, PULMONARY EMBOLUS PROTOCOL CLINICAL HISTORY: PE, hypoxia, leg swelling COMPARISON STUDY: Chest radiograph performed earlier today. TECHNIQUE: Following IV administration of 93 mL of Optiray, helical axial images of the chest were obtained utilizing the pulmonary embolus protocol. Maximal intensity projections and sagittal and coronal reformats were viewed on an independent 3D workstation. IV contrast was administered without complication. Automated exposure control was utilized for the study. A dose lowering technique was utilized adhering to the principles of ALARA. CT DOSE: 233.95 mGy.cm FINDINGS: There are numerous acute segmental pulmonary emboli within the right upper, right middle and right lower lobes. The heart is moderately enlarged. Small right and trace left pleural effusions are noted. Lungs are suboptimally assessed due to respiratory motion. There is no thoracic lymphadenopathy. Multiple old right-sided rib fractures are noted. IMPRESSION: 1. Numerous acute segmental pulmonary emboli within the right upper, right middle and right lower lobes. 2. Small right and trace left pleural effusions. 3. Cardiomegaly. ACT 112: Negative or not required by law. Electronically signed by: Mahin Brewster M.D. 10/20/2020 8:16 AM Venous Doppler Study 10/20/20 01:10 BILATERAL LOWER EXTREMITY VENOUS DOPPLER HISTORY: Acute pain and swelling of the lower extremities edema, PE COMPARISON STUDY: 01/16/2019. FINDINGS: There is normal compressibility, flow, and augmentation within the bilateral lower extremity deep venous systems. Subcutaneous edema of the lower legs. IMPRESSION: No DVT within the right or left lower extremity. ACT 112: Negative or not required by law. Electronically signed by: Jason Edwards M.D. 10/20/2020 6:38 AM PG Care Time/CCT Total # of Minutes Spent Total Time Spent with Patient: Total time spent is greater than 50% in coordination of care (as documented) at patient's floor/unit and/or counseling patient: Coding Level of Care Code 53820 Subseq Hosp Care Lvl 3 Diagnoses Pulmonary embolism I26.99 Acute cor pulmonale presence: without acute cor pulmonale Chronicity: acute Pulmonary embolism type: other Bilateral lower extremity edema R60.0 Chronic venous insufficiency I87.2 Chronic venous stasis dermatitis of both lower extremities I87.2 Cellulitis of both lower extremities L03.115; L03.116 Urinary tract infection N39.0 Acute respiratory failure with hypoxia J96.01 Elevated troponin R77.8 Lumbar stenosis with neurogenic claudication M48.062 Rheumatoid arthritis M06.9 (1) Pulmonary embolism Acute cor pulmonale presence: without acute cor pulmonale Chronicity: acute Pulmonary embolism type: other Qualified Code(s): I26.99 - Other pulmonary embolism without acute cor pulmonale
[2020-10-21] MEDS: cefTRIAXone SODIUM 1,000 MG in DEXTROSE 5% 50 ML IV SCH (05:53)
[2020-10-21 05:59] LABS: Basophils # (auto) 0.04 K/uL (0-0.2); Basophils % (auto) 0.4 %; Eosinophils # (auto) 0.51 K/uL (0-0.5); Eosinophils % (auto) 4.6 %; Hematocrit (blood only) 35.9 % (37-47); Hemoglobin 11.6 g/dL (12.0-16.0); Immature Granulocytes # (auto) 0.04 K/uL (0.00-0.02); Immature Granulocytes % (auto) 0.4 %; Lymphocytes # (auto) 0.75 K/uL (1.2-3.4); Lymphocytes % (auto) 6.7 %; Mean Corpuscular Hemoglobin 29.7 pg (25-34); Mean Corpuscular Hgb Conc 32.3 g/dL (32-36); Mean Corpuscular Volume 91.8 fL (80-100); Monocytes # (auto) 1.07 K/uL (0.11-0.59); Monocytes % (auto) 9.6 %; Neutrophils # (auto) 8.72 K/uL (1.4-6.5); Neutrophils % (auto) 78.3 %; Platelet Count 168 K/uL (130-400); RDW Coefficient of Variation 15.1 % (11.5-14.5); RDW Standard Deviation 50.7 fL (36.4-46.3); Red Blood Count 3.91 M/uL (4.2-5.4); White Blood Count 11.13 K/uL (4.8-10.8)
[2020-10-21] MEDS: HEPARIN SODIUM/DEXTROSE 25,000 UNITS/500 ML BAG IV SCH (06:16)
[2020-10-21 06:18] LABS: Partial Thromboplastin Ratio 1.8
[2020-10-21 06:25] LABS: BUN Creatinine Ratio 36.8 (10-20); Calcium 8.1 mg/dl (8.5-10.1); Creatinine Clr Calc Pharmacy 61.3 ml/min; Est GFR (African American) 100.4 ml/min; Est GFR (Non-African American) 86.7 ml/min; Potassium 3.7 mmol/L (3.5-5.1)
[2020-10-21 06:31] LABS: Partial Thromboplastin Time 47.7 Seconds (21.0-31.0)
--- NOTE | 2020-10-21 08:32 | Electrocardiogram Report ---
Test Reason : Blood Pressure : / mmHG Vent. Rate : 056 BPM Atrial Rate : 056 BPM P-R Int : 118 ms QRS Dur : 088 ms QT Int : 420 ms P-R-T Axes : 063 067 047 degrees QTc Int : 405 ms Sinus bradycardia Otherwise normal ECG When compared with ECG of 20-OCT-2020 07:20, No significant change was found Confirmed by Danny Magallanes ([id number]) on 10/21/2020 8:32:12 AM Referred By: REFERRED SELF Confirmed By:Danny Magallanes
[2020-10-21] MEDS: predniSONE 1 MG TAB PO SCH (08:44)
[2020-10-21] MEDS: FUROSEMIDE 20 MG in SYRINGE 0 ML IV SCH (08:44)
[2020-10-21] MEDS: LEFLUNOMIDE 10 MG TAB PO SCH (08:44)
[2020-10-21] MEDS: VANCOMYCIN HCL 1,000 MG in SODIUM CHLORIDE 0.9% 250 ML IV SCH (10:06)
--- NOTE | 2020-10-21 22:12 | Hospitalist Progress Note ---
Date of Service October 21, 2020 Assessment & Plan (1) Pulmonary embolism: Plan: CTA of chest with pulmonary emboli in right middle and right lower lobe. Continues on heparin drip Most likely can change to DOAC Concerned with warfarin management secondary to patient age and mentation Continue to require supplemental oxygen at 3 L/min to maintain SaO2 greater than 90% (2) Bilateral lower extremity edema: Plan: Lower extremity duplex negative for DVT PT/OT to increase ambulation Chronic venous stasis Follow fluid status (3) Chronic venous insufficiency: Plan: Consider KIMBERLY hose on discharge Increase ambulation as tolerated (4) Cellulitis of both lower extremities: Plan: MSSA in March 2020 as well is in 2019 Patient currently has erythema and tenderness to touch Continue vancomycin for now Patient also on ceftriaxone for gram-negative rods in urine (5) Urinary tract infection: Plan: Gram-negative rods in urine Continue ceftriaxone 1 g daily Await ID and sensitivities (6) Acute respiratory failure with hypoxia: Plan: Patient denies prior use of supplemental oxygen at home Most likely etiology is acute pulmonary emboli We will need to step evaluation prior to discharge to rule out need for supplemental oxygen at home (7) Elevated troponin: Plan: Most likely ischemic demand secondary to pulmonary emboli No clear evidence of ACS Monitor on telemetry (8) Ambulatory dysfunction: Plan: Chronic cellulitis of the lower extremities Chronic venous stasis Lumbar stenosis with neurogenic claudication Continue PT/OT treatment while inpatient We will see if patient requires alf or acute inpatient rehab (9) DVT prophylaxis: Plan: Continue anticoagulation with heparin drip Consider changing to DOAC tomorrow Please refer to Dr. Azul's addendum for further corrections or recommendatio ns. Admission and Anticipated Discharge Date Admission Date: October 20, 2020 Subjective Attending: Dr. Azul 85-year-old female that presented the emergency room with inability to walk and complaints of chest pain. CTA revealed pulmonary emboli involving right middle lobe and right lower lobe. Patient was started on a heparin drip. Lower extremity duplex with no DVT in the right or left lower extremity. Urine culture with gram-negative bacilli. Previous wound specimens from right lower extremity grew out MSSA. Patient is somewhat lethargic but able to give some history. Her was present for the entire examination and interview. She denies any current chest pain or tightness. She is unaware of any shortness of breath. She does have a nasal cannula in place. She has no chest pain or tightness. She has no other acute complaints other than weakness. On examination, it should be noted that she had extreme tenderness to the bilateral lower extremities which appear to have cellulitis. No other acute complaints. Review of Systems Review of Systems: All systems reviewed & are unremarkable except as noted in Subjective Physical Exam Physical Exam: GENERAL : No acute distress. Flat affect. Difficult to maintain upright posture EYES: No icterus, gaze conjugate NOSE: No evidence of epistaxis MOUTH: No lesions or candidiasis NECK: Supple LUNGS: Minimal crackles at bilateral bases HEART: Regular, rate controlled. No appreciated murmurs gallops or rubs or ectopy ABDOMEN: Soft, NT, ND, BS Present EXTREMITIES: No LE edema, pedal pulses intact NEURO: A&OX3 Results & Data Results & Data ([facility]) Vital Signs (Past 12 Hours) Vital Signs Temp Pulse Pulse Resp BP Pulse Ox 10/21/20 19:42 36.8 C 56 L 16 106/69 95 10/21/20 16:30 36.7 C 55 L 18 158/71 H 98 10/21/20 14:52 56 L 10/21/20 10:49 36.5 C 64 16 115/70 98 Laboratory Results 10/21/20 05:48 10/21/20 05:48 Diagnostic Findings No new diagnostic testing PG Care Time/CCT Total # of Minutes Spent Total Time Spent with Patient: Total time spent is greater than 50% in coordination of care (as documented) at patient's floor/unit and/or counseling patient: 30 minutes including discussion with patient's with update of condition Coding Level of Care Code 60360 Subseq Hosp Care Lvl 2 Diagnoses Pulmonary embolism I26.99 Acute cor pulmonale presence: without acute cor pulmonale Chronicity: acute Pulmonary embolism type: other Bilateral lower extremity edema R60.0 Chronic venous insufficiency I87.2 Cellulitis of both lower extremities L03.115; L03.116 Urinary tract infection N39.0 Acute respiratory failure with hypoxia J96.01 Elevated troponin R77.8 Ambulatory dysfunction R26.2 DVT prophylaxis Z29.9 Time Spent (min) 30 (1) Pulmonary embolism Acute cor pulmonale presence: without acute cor pulmonale Chronicity: acute Pulmonary embolism type: other Qualified Code(s): I26.99 - Other pulmonary embolism without acute cor pulmonale
[2020-10-22] MEDS: HEPARIN SODIUM/DEXTROSE 25,000 UNITS/500 ML BAG IV SCH (02:40)
[2020-10-22] MEDS: cefTRIAXone SODIUM 1,000 MG in DEXTROSE 5% 50 ML IV SCH (05:59)
[2020-10-22 06:28] LABS: Basophils # (auto) 0.05 K/uL (0-0.2); Basophils % (auto) 0.5 %; Eosinophils # (auto) 0.38 K/uL (0-0.5); Eosinophils % (auto) 4.2 %; Hematocrit (blood only) 36.4 % (37-47); Hemoglobin 11.6 g/dL (12.0-16.0); Immature Granulocytes # (auto) 0.04 K/uL (0.00-0.02); Immature Granulocytes % (auto) 0.4 %; Lymphocytes # (auto) 0.61 K/uL (1.2-3.4); Lymphocytes % (auto) 6.7 %; Mean Corpuscular Hemoglobin 29.7 pg (25-34); Mean Corpuscular Hgb Conc 31.9 g/dL (32-36); Mean Corpuscular Volume 93.1 fL (80-100); Mean Platelet Volume 11.3 fL (7.4-10.4); Monocytes # (auto) 1.06 K/uL (0.11-0.59); Monocytes % (auto) 11.6 %; Neutrophils # (auto) 6.96 K/uL (1.4-6.5); Neutrophils % (auto) 76.6 %; Platelet Count 183 K/uL (130-400); RDW Coefficient of Variation 14.8 % (11.5-14.5); RDW Standard Deviation 50.6 fL (36.4-46.3); Red Blood Count 3.91 M/uL (4.2-5.4)
[2020-10-22 06:47] LABS: Partial Thromboplastin Ratio 1.7
[2020-10-22 07:08] LABS: Partial Thromboplastin Time 45.5 Seconds (21.0-31.0)
[2020-10-22] MEDS: FUROSEMIDE 20 MG in SYRINGE 0 ML IV SCH (08:11)
[2020-10-22] MEDS: LEFLUNOMIDE 10 MG TAB PO SCH (08:12)
[2020-10-22] MEDS: predniSONE 1 MG TAB PO SCH (08:12)
--- NOTE | 2020-10-22 09:55 | Electrocardiogram Report ---
Test Reason : Blood Pressure : / mmHG Vent. Rate : 057 BPM Atrial Rate : 057 BPM P-R Int : 128 ms QRS Dur : 080 ms QT Int : 408 ms P-R-T Axes : 055 064 052 degrees QTc Int : 397 ms Poor data quality, interpretation may be adversely affected Sinus bradycardia Otherwise normal ECG When compared with ECG of 21-OCT-2020 06:01, No significant change was found Confirmed by Danny Magallanes ([id number]) on 10/22/2020 9:55:32 AM Referred By: REFERRED SELF Confirmed By:Danny Magallanes
[2020-10-22 13:11] LABS: Hemoglobin 11.9 g/dL (12.0-16.0); Mean Corpuscular Hemoglobin 29.7 pg (25-34); Mean Corpuscular Hgb Conc 32.2 g/dL (32-36); Mean Corpuscular Volume 92.3 fL (80-100); Mean Platelet Volume 11.4 fL (7.4-10.4); Platelet Count 189 K/uL (130-400); RDW Coefficient of Variation 14.9 % (11.5-14.5); RDW Standard Deviation 50.5 fL (36.4-46.3); Red Blood Count 4.01 M/uL (4.2-5.4); White Blood Count 10.96 K/uL (4.8-10.8)
[2020-10-22 13:20] LABS: Partial Thromboplastin Ratio 1.6; Partial Thromboplastin Time 42.8 Seconds (21.0-31.0)
[2020-10-22 13:42] LABS: BUN Creatinine Ratio 29.5 (10-20); Calcium 8.4 mg/dl (8.5-10.1); Creatinine Clr Calc Pharmacy 55.2 ml/min; Est GFR (Non-African American) 83.7 ml/min; Potassium 4.1 mmol/L (3.5-5.1)
[2020-10-22 20:12] LABS: Partial Thromboplastin Ratio 1.8
[2020-10-22 20:14] LABS: Partial Thromboplastin Time 47.3 Seconds (21.0-31.0)
--- NOTE | 2020-10-22 20:46 | Hospitalist Progress Note ---
Date of Service October 22, 2020 Assessment & Plan (1) Pulmonary embolism: Plan: Pulmonary emboli involving right middle lobe and right lower lobe- Remains on heparin IV. Suspect that she may be a DOAC candidate. Would investigate estherinderjit mary alex in am of 10/23 Suspect the cause of her VTE event is immobility - her lumbar spinal stenosis with severe rle radicular issues has been hampering her mobliity. Thus, this event was probably provoked by such. of note - b/l LE venous dopplers neg for DVT Needs placment (2) Bilateral lower extremity edema: Plan: Bilateral lower extremity edema/acute worsening chronic venous insufficiency. Can continue IV lasix daily as long as BUN and Cr remain stable. BMP am. (3) Chronic venous insufficiency: Plan: this is a risk factor in and of itself for DVT would benefit from compression stockings (4) Chronic venous stasis dermatitis of both lower extremities: (5) Cellulitis of both lower extremities: Plan: Currently on vancomycin IV and ceftriaxone IV for such but most of what I see today appears chronic in nature due to her venous insufficiency. Would stop IV abx soon and narrow the coverage. vanco is stopped. (6) Urinary tract infection: Plan: 2nd GNR rocephin should suffice follow culture (7) Acute respiratory failure with hypoxia: Plan: 2nd PEs cont NC O2 (8) Elevated troponin: Plan: minimal myocardial demand ischemia in setting of decent PE clot burden no ACS (9) Lumbar stenosis with neurogenic claudication: Plan: severe with resulting RLE radicular symptoms & weakness interfering w/ mobility PT, OT while here (10) Rheumatoid arthritis: Plan: noted in her record Plan: updated at bedside Admission and Anticipated Discharge Date Admission Date: October 20, 2020 Subjective Patient reports no new symptoms. Review of Systems Review of Systems: All systems reviewed & are unremarkable except as noted in HPI & below Physical Exam Physical Exam: GENERAL : No acute distress. Flat affect. Difficult to maintain upright posture EYES: No icterus, gaze conjugate NOSE: No evidence of epistaxis MOUTH: No lesions or candidiasis NECK: Supple LUNGS: Minimal crackles at bilateral bases HEART: Regular, rate controlled. No appreciated murmurs gallops or rubs or ectopy ABDOMEN: Soft, NT, ND, BS Present EXTREMITIES: No LE edema, pedal pulses intact NEURO: A&OX3 Results & Data Results & Data ([facility]) Vital Signs (Past 12 Hours) Vital Signs Temp Pulse Pulse Resp BP Pulse Ox 10/22/20 19:22 36.6 C 56 L 20 152/84 H 97 10/22/20 16:40 52 L 10/22/20 15:46 36.6 C 66 20 152/73 H 98 10/22/20 12:08 37.1 C 55 L 18 112/69 95 10/22/20 09:51 57 L PG Care Time/CCT Total # of Minutes Spent Total Time Spent with Patient: Total time spent is greater than 50% in coordination of care (as documented) at patient's floor/unit and/or counseling patient: Coding Level of Care Code 70505 Subseq Hosp Care Lvl 2 Diagnoses Pulmonary embolism I26.99 Acute cor pulmonale presence: without acute cor pulmonale Chronicity: acute Pulmonary embolism type: other Bilateral lower extremity edema R60.0 Chronic venous insufficiency I87.2 Chronic venous stasis dermatitis of both lower extremities I87.2 Cellulitis of both lower extremities L03.115; L03.116 Urinary tract infection N39.0 Acute respiratory failure with hypoxia J96.01 Elevated troponin R77.8 Lumbar stenosis with neurogenic claudication M48.062 Rheumatoid arthritis M06.9 Time Spent (min) 25 (1) Pulmonary embolism Acute cor pulmonale presence: without acute cor pulmonale Chronicity: acute Pulmonary embolism type: other Qualified Code(s): I26.99 - Other pulmonary embolism without acute cor pulmonale
[2020-10-23] MEDS: HEPARIN SODIUM/DEXTROSE 25,000 UNITS/500 ML BAG IV SCH (03:55)
[2020-10-23] MEDS: cefTRIAXone SODIUM 1,000 MG in DEXTROSE 5% 50 ML IV SCH (05:21)
[2020-10-23 08:02] LABS: Partial Thromboplastin Time 52.4 Seconds (21.0-31.0)
[2020-10-23] MEDS: predniSONE 1 MG TAB PO SCH (09:07)
[2020-10-23] MEDS: FUROSEMIDE 20 MG in SYRINGE 0 ML IV SCH (09:07)
[2020-10-23] MEDS: LEFLUNOMIDE 10 MG TAB PO SCH (09:08)
--- NOTE | 2020-10-23 14:40 | Hospitalist Progress Note ---
Date of Service October 23, 2020 Assessment & Plan (1) Pulmonary embolism: Plan: Pulmonary emboli involving right middle lobe and right lower lobe- Remains on heparin IV. switching to Eliquis at PM. 10 MG PO BID. Suspect the cause of her VTE event is immobility - her lumbar spinal stenosis with severe rle radicular issues has been hampering her mobliity. Thus, this event was probably provoked by such. of note - b/l LE venous dopplers neg for DVT Needs placement (2) Bilateral lower extremity edema: Plan: Bilateral lower extremity edema/acute worsening chronic venous insufficiency. Can continue IV lasix daily as long as BUN and Cr remain stable. BMP am. (3) Chronic venous insufficiency: Plan: this is a risk factor in and of itself for DVT would benefit from compression stockings (4) Chronic venous stasis dermatitis of both lower extremities: (5) Cellulitis of both lower extremities: Plan: Currently on vancomycin IV and ceftriaxone IV for such but most of what I see today appears chronic in nature due to her venous insufficiency. Would stop IV abx soon and narrow the coverage. vanco is stopped. (6) Urinary tract infection: Plan: 2nd GNR rocephin should suffice follow culture (7) Acute respiratory failure with hypoxia: Plan: 2nd PEs cont NC O2 (8) Elevated troponin: Plan: minimal myocardial demand ischemia in setting of decent PE clot burden no ACS (9) Lumbar stenosis with neurogenic claudication: Plan: severe with resulting RLE radicular symptoms & weakness interfering w/ mobility PT, OT while here (10) Rheumatoid arthritis: Plan: noted in her record Plan: updated at bedside Admission and Anticipated Discharge Date Admission Date: October 20, 2020 Subjective Patient reports no new symptoms Review of Systems Review of Systems: All systems reviewed & are unremarkable except as noted in HPI & below Physical Exam Physical Exam: GENERAL : No acute distress. Flat affect. Difficult to maintain upright posture EYES: No icterus, gaze conjugate NOSE: No evidence of epistaxis MOUTH: No lesions or candidiasis NECK: Supple LUNGS: Minimal crackles at bilateral bases HEART: Regular, rate controlled. No appreciated murmurs gallops or rubs or ectopy ABDOMEN: Soft, NT, ND, BS Present EXTREMITIES: No LE edema, pedal pulses intact NEURO: A&OX3 Results & Data Results & Data ([facility]) Vital Signs (Past 12 Hours) Vital Signs Temp Pulse Resp BP BP Pulse Ox 10/23/20 11:39 36.8 C 54 L 18 116/64 95 10/23/20 08:00 36.7 C 60 16 136/71 97 10/23/20 03:50 36.8 C 58 L 18 127/66 96 PG Care Time/CCT Total # of Minutes Spent Total Time Spent with Patient: Total time spent is greater than 50% in coordination of care (as documented) at patient's floor/unit and/or counseling patient: Coding Level of Care Code 95837 Subseq Hosp Care Lvl 2 Diagnoses Pulmonary embolism I26.99 Acute cor pulmonale presence: without acute cor pulmonale Chronicity: acute Pulmonary embolism type: other Bilateral lower extremity edema R60.0 Chronic venous insufficiency I87.2 Chronic venous stasis dermatitis of both lower extremities I87.2 Cellulitis of both lower extremities L03.115; L03.116 Urinary tract infection N39.0 Acute respiratory failure with hypoxia J96.01 Elevated troponin R77.8 Lumbar stenosis with neurogenic claudication M48.062 Rheumatoid arthritis M06.9 (1) Pulmonary embolism Acute cor pulmonale presence: without acute cor pulmonale Chronicity: acute Pulmonary embolism type: other Qualified Code(s): I26.99 - Other pulmonary embolism without acute cor pulmonale
[2020-10-23] MEDS: APIXABAN 5 MG TABLET PO SCH (21:45)
[2020-10-24] MEDS: cefTRIAXone SODIUM 1,000 MG in DEXTROSE 5% 50 ML IV SCH (06:14)
[2020-10-24 07:22] LABS: Hematocrit (blood only) 36.1 % (37-47); Hemoglobin 11.8 g/dL (12.0-16.0); Mean Corpuscular Hemoglobin 30.6 pg (25-34); Mean Corpuscular Hgb Conc 32.7 g/dL (32-36); Mean Corpuscular Volume 93.5 fL (80-100); Mean Platelet Volume 11.6 fL (7.4-10.4); Platelet Count 188 K/uL (130-400); RDW Coefficient of Variation 14.7 % (11.5-14.5); Red Blood Count 3.86 M/uL (4.2-5.4); White Blood Count 9.71 K/uL (4.8-10.8)
[2020-10-24 07:47] LABS: BUN Creatinine Ratio 49.1 (10-20); Calcium 8.5 mg/dl (8.5-10.1); Est GFR (African American) 108.3 ml/min; Est GFR (Non-African American) 93.4 ml/min
[2020-10-24] MEDS: APIXABAN 5 MG TABLET PO SCH ×2 (08:10→20:33)
[2020-10-24] MEDS: FUROSEMIDE 20 MG in SYRINGE 0 ML IV SCH (08:12)
[2020-10-24] MEDS: predniSONE 1 MG TAB PO SCH (08:13)
[2020-10-24] MEDS: LEFLUNOMIDE 10 MG TAB PO SCH (08:14)
--- NOTE | 2020-10-24 20:54 | Hospitalist Progress Note ---
Date of Service October 24, 2020 Assessment & Plan (1) Pulmonary embolism: Plan: Pulmonary emboli involving right middle lobe and right lower lobe- Remains on heparin IV. On Eliquis. 10 MG PO BID. (will need to give coupon and check garcía with case management on Sunday) Suspect the cause of her VTE event is immobility - her lumbar spinal stenosis with severe rle radicular issues has been hampering her mobliity. Thus, this event was probably provoked by such. of note - b/l LE venous dopplers neg for DVT Needs placement (2) Bilateral lower extremity edema: Plan: Bilateral lower extremity edema/acute worsening chronic venous insufficiency. Can continue IV lasix daily as long as BUN and Cr remain stable. (3) Chronic venous insufficiency: Plan: this is a risk factor in and of itself for DVT would benefit from compression stockings (4) Chronic venous stasis dermatitis of both lower extremities: (5) Cellulitis of both lower extremities: Plan: Currently on vancomycin IV and ceftriaxone IV for such but most of what I see today appears chronic in nature due to her venous insufficiency. Would stop IV abx soon and narrow the coverage. vanco is stopped. continue ceftriaxone. (6) Urinary tract infection: Plan: 2nd GNR rocephin should suffice follow culture (7) Acute respiratory failure with hypoxia: Plan: 2nd PEs cont NC O2 (8) Elevated troponin: Plan: minimal myocardial demand ischemia in setting of decent PE clot burden no ACS (9) Lumbar stenosis with neurogenic claudication: Plan: severe with resulting RLE radicular symptoms & weakness interfering w/ mobility PT, OT while here (10) Rheumatoid arthritis: Plan: noted in her record Plan: updated at bedside Admission and Anticipated Discharge Date Admission Date: October 20, 2020 Subjective Patient reports no new symptoms. Review of Systems Review of Systems: All systems reviewed & are unremarkable except as noted in HPI & below Physical Exam Physical Exam: GENERAL : No acute distress. Flat affect. Difficult to maintain upright posture EYES: No icterus, gaze conjugate NOSE: No evidence of epistaxis MOUTH: No lesions or candidiasis NECK: Supple LUNGS: Minimal crackles at bilateral bases HEART: Regular, rate controlled. No appreciated murmurs gallops or rubs or ectopy ABDOMEN: Soft, NT, ND, BS Present EXTREMITIES: No LE edema, pedal pulses intact NEURO: A&OX3 Results & Data Results & Data ([facility]) Vital Signs (Past 12 Hours) Vital Signs Temp Pulse Pulse Pulse Resp BP Pulse Ox 10/24/20 19:08 36.6 C 54 L 18 127/71 98 10/24/20 16:11 37.2 C 61 18 115/72 99 10/24/20 16:02 56 L 10/24/20 11:35 36.8 C 58 L 19 137/59 L 96 PG Care Time/CCT Total # of Minutes Spent Total Time Spent with Patient: Total time spent is greater than 50% in coordination of care (as documented) at patient's floor/unit and/or counseling patient: Coding Level of Care Code 19957 Subseq Hosp Care Lvl 2 Diagnoses Pulmonary embolism I26.99 Acute cor pulmonale presence: without acute cor pulmonale Chronicity: acute Pulmonary embolism type: other Bilateral lower extremity edema R60.0 Chronic venous insufficiency I87.2 Chronic venous stasis dermatitis of both lower extremities I87.2 Cellulitis of both lower extremities L03.115; L03.116 Urinary tract infection N39.0 Acute respiratory failure with hypoxia J96.01 Elevated troponin R77.8 Lumbar stenosis with neurogenic claudication M48.062 Rheumatoid arthritis M06.9 Time Spent (min) 25 (1) Pulmonary embolism Acute cor pulmonale presence: without acute cor pulmonale Chronicity: acute Pulmonary embolism type: other Qualified Code(s): I26.99 - Other pulmonary embolism without acute cor pulmonale
[2020-10-25] MEDS: cefTRIAXone SODIUM 1,000 MG in DEXTROSE 5% 50 ML IV SCH (05:20)
[2020-10-25] MEDS: FUROSEMIDE 20 MG in SYRINGE 0 ML IV SCH (08:34)
[2020-10-25] MEDS: APIXABAN 5 MG TABLET PO SCH ×2 (08:34→21:36)
[2020-10-25] MEDS: predniSONE 1 MG TAB PO SCH (08:35)
[2020-10-25] MEDS: LEFLUNOMIDE 10 MG TAB PO SCH (08:35)
--- NOTE | 2020-10-25 17:41 | Hospitalist Progress Note ---
Date of Service October 25, 2020 Assessment & Plan (1) Pulmonary embolism: Plan: Pulmonary emboli involving right middle lobe and right lower lobe. - Suspect the cause of her VTE event is immobility - her lumbar spinal stenosis with severe rle radicular issues has been hampering her mobliity. - Converted to Eliquis 10 mg PO BID until 10/27/2020 -> Then switch to 5 mg PO BID (2) Acute respiratory failure with hypoxia: Plan: Secondary to PEs. - Cont NC O2 (3) Bilateral lower extremity edema: Plan: Bilateral lower extremity edema likely due to acute worsening chronic venous insufficiency. - Continue Lasix 20 mg IV daily from admission. - BUN:Cr stable. (4) Chronic venous insufficiency: Plan: This is a risk factor in and of itself for DVT. - Compression stockings (5) Cellulitis of both lower extremities: Plan: Admitted on vancomycin IV and ceftriaxone IV for concern for cellulitis, but it appears chronic in nature due to her venous insufficiency. - Stopped abx by 10/25. (6) Urinary tract infection: Plan: Urine cx from 10/19 grew alvarado-sensitive E. coli. - Finished ceftriaxone in the hospital. (7) Elevated troponin: Plan: Demand ischemia in setting of PEs. Highest troponin was 0.05. No ACS. - No inpatient needs (8) Lumbar stenosis with neurogenic claudication: Plan: Severe with resulting RLE radicular symptoms & weakness. Interfering w/ mobility. - Plan for SNF if patient is willing. (9) Rheumatoid arthritis: Plan: Noted in her record. - Continue home prednisone 2 mg QOD & 3 mg QOD Admission and Anticipated Discharge Date Admission Date: October 20, 2020 Subjective Feels well. Reports no fevers/chills, chest pain, shortness of breath, abdominal pain, nausea, or vomiting. Physical Exam Constitutional: WD/WN, vitals as above Eyes: EOM intact bilaterally; no conjunctival abnormality ENMT: external ear and nose normal, oropharynx normal Neck: trachea midline, no thyromegaly normal visual inspection Respiratory: normal respiratory effort, lungs clear to auscultation no respiratory distress Cardiovascular: RRR, no murmur, no edema Gastrointestinal (Abdomen): Inspection/Auscultation: abdomen normal to inspection; abdomen not distended Musculoskeletal: no cyanosis or clubbing, extremities motor strength 5/5 Skin: no rashes, warm and dry Neurologic: moves all extremities and awake Psychiatric: Orientation: alert, oriented to person and cooperative Results & Data Results & Data ([facility]) Vital Signs (Past 12 Hours) Vital Signs Temp Pulse Pulse Resp BP BP Pulse Ox 10/25/20 15:42 37.2 C 71 18 116/75 97 10/25/20 15:03 59 L 10/25/20 10:52 36.9 C 53 L 17 113/66 97 10/25/20 10:31 53 L 10/25/20 06:58 36.9 C 52 L 17 131/69 96 PG Care Time/CCT Total # of Minutes Spent Total Time Spent with Patient: Total time spent is greater than 50% in coordination of care (as documented) at patient's floor/unit and/or counseling patient: Coding Level of Care Code 34824 Subseq Hosp Care Lvl 3 Diagnoses Pulmonary embolism I26.99 Acute cor pulmonale presence: without acute cor pulmonale Chronicity: acute Pulmonary embolism type: other Bilateral lower extremity edema R60.0 Chronic venous insufficiency I87.2 Cellulitis of both lower extremities L03.115; L03.116 Urinary tract infection N39.0 Acute respiratory failure with hypoxia J96.01 Elevated troponin R77.8 Lumbar stenosis with neurogenic claudication M48.062 Rheumatoid arthritis M06.9 (1) Pulmonary embolism Acute cor pulmonale presence: without acute cor pulmonale Chronicity: acute Pulmonary embolism type: other Qualified Code(s): I26.99 - Other pulmonary embo lism without acute cor pulmonale
[2020-10-26] MEDS: cefTRIAXone SODIUM 1,000 MG in DEXTROSE 5% 50 ML IV SCH (05:55)
[2020-10-26 08:02] LABS: Hematocrit (blood only) 36.5 % (37-47); Hemoglobin 11.4 g/dL (12.0-16.0); Mean Corpuscular Hemoglobin 29.1 pg (25-34); Mean Corpuscular Hgb Conc 31.2 g/dL (32-36); Mean Corpuscular Volume 93.1 fL (80-100); Mean Platelet Volume 11.8 fL (7.4-10.4); Platelet Count 246 K/uL (130-400); RDW Coefficient of Variation 14.5 % (11.5-14.5); RDW Standard Deviation 49.1 fL (36.4-46.3); Red Blood Count 3.92 M/uL (4.2-5.4); White Blood Count 9.82 K/uL (4.8-10.8)
[2020-10-26] MEDS: APIXABAN 5 MG TABLET PO SCH ×2 (08:26→21:06)
[2020-10-26] MEDS: LEFLUNOMIDE 10 MG TAB PO SCH (08:27)
[2020-10-26] MEDS: FUROSEMIDE 20 MG in SYRINGE 0 ML IV SCH (08:27)
[2020-10-26] MEDS: predniSONE 1 MG TAB PO SCH (08:27)
[2020-10-26 08:30] LABS: BUN Creatinine Ratio 46.8 (10-20); Calcium 8.8 mg/dl (8.5-10.1); Creatinine Clr Calc Pharmacy 62.5 ml/min; Est GFR (African American) 101.1 ml/min; Est GFR (Non-African American) 87.2 ml/min; Magnesium 2.2 mg/dl (1.8-2.4); Potassium 3.9 mmol/L (3.5-5.1)
--- NOTE | 2020-10-26 17:06 | Hospitalist Progress Note ---
Date of Service October 26, 2020 Assessment & Plan (1) Pulmonary embolism: Plan: Pulmonary emboli involving right middle lobe and right lower lobe. - Suspect the cause of her VTE event is immobility - her lumbar spinal stenosis with severe RLE radicular issues has been hampering her mobility. - Converted to Eliquis 10 mg PO BID until 10/27/2020 -> Then switch to 5 mg PO BID - No bleeding; continue with this plan. (2) Acute respiratory failure with hypoxia: Plan: Secondary to PEs. - Cont NC O2 -> Requiring 2L NC presently. (3) Bilateral lower extremity edema: Plan: Bilateral lower extremity edema likely due to acute worsening chronic venous insufficiency. - Was on Lasix 20 mg IV daily. Legs now look significantly less edematous. BUN:Cr stable. - Move toward compression stockings. Monitor legs. (4) Chronic venous insufficiency: Plan: This is a risk factor in and of itself for DVT. - Compression stockings (5) Cellulitis of both lower extremities: Plan: Admitted on vancomycin IV and ceftriaxone IV for concern for cellulitis, but it appears chronic in nature due to her venous insufficiency. - Stopped abx by 10/25. (6) Urinary tract infection: Plan: Urine cx from 10/19 grew alvarado-sensitive E. coli. - Finished ceftriaxone in the hospital. (7) Elevated troponin: Plan: Demand ischemia in setting of PEs. Highest troponin was 0.05. No ACS. - No inpatient needs (8) Lumbar stenosis with neurogenic claudication: Plan: Severe with resulting RLE radicular symptoms & weakness. Interfering w/ mobility. - Plan for SNF if patient is willing. (9) Rheumatoid arthritis: Plan: Noted in her record. - Continue home prednisone 2 mg QOD & 3 mg QOD Admission and Anticipated Discharge Date Admission Date: October 20, 2020 Subjective Feeling well. No major concerns presently. Reports no fevers/chills, chest pain, shortness of breath, abdominal pain, nausea, or vomiting. Physical Exam Constitutional: WD/WN, vitals as above Eyes: EOM intact bilaterally; no conjunctival abnormality ENMT: external ear and nose normal, oropharynx normal Neck: trachea midline, no thyromegaly normal visual inspection Respiratory: normal respiratory effort, lungs clear to auscultation no respiratory distress Cardiovascular: RRR, no murmur, no edema Gastrointestinal (Abdomen): Inspection/Auscultation: abdomen normal to inspection; abdomen not distended Musculoskeletal: no cyanosis or clubbing, extremities motor strength 5/5 Skin: no rashes, warm and dry Neurologic: moves all extremities and awake Psychiatric: Orientation: alert, oriented to person and cooperative Results & Data Results & Data ([facility]) Vital Signs (Past 12 Hours) Vital Signs Temp Pulse Resp BP BP Pulse Ox 10/26/20 15:34 37.2 C 62 18 128/75 93 10/26/20 14:35 92 10/26/20 11:46 37.4 C 60 18 124/70 97 10/26/20 07:27 36.8 C 54 L 17 112/62 96 PG Care Time/CCT Total # of Minutes Spent Total Time Spent with Patient: Total time spent is greater than 50% in key account coordinator rdination of care (as documented) at patient's floor/unit and/or counseling patient: Coding Level of Care Code 79632 Subseq Hosp Care Lvl 2 Diagnoses Pulmonary embolism I26.99 Acute cor pulmonale presence: without acute cor pulmonale Chronicity: acute Pulmonary embolism type: other Acute respiratory failure with hypoxia J96.01 Bilateral lower extremity edema R60.0 Chronic venous insufficiency I87.2 Cellulitis of both lower extremities L03.115; L03.116 Urinary tract infection N39.0 Elevated troponin R77.8 Lumbar stenosis with neurogenic claudication M48.062 Rheumatoid arthritis M06.9 (1) Pulmonary embolism Acute cor pulmonale presence: without acute cor pulmonale Chronicity: acute Pulmonary embolism type: other Qualified Code(s): I26.99 - Other pulmonary embolism without acute cor pulmonale
[2020-10-27 06:52] LABS: Hematocrit (blood only) 36.9 % (37-47); Hemoglobin 11.9 g/dL (12.0-16.0); Mean Corpuscular Hemoglobin 30.1 pg (25-34); Mean Corpuscular Hgb Conc 32.2 g/dL (32-36); Mean Corpuscular Volume 93.2 fL (80-100); Mean Platelet Volume 11.5 fL (7.4-10.4); Platelet Count 300 K/uL (130-400); RDW Coefficient of Variation 14.3 % (11.5-14.5); RDW Standard Deviation 48.8 fL (36.4-46.3); Red Blood Count 3.96 M/uL (4.2-5.4); White Blood Count 8.75 K/uL (4.8-10.8)
[2020-10-27 07:25] LABS: BUN Creatinine Ratio 47.2 (10-20); Calcium 8.7 mg/dl (8.5-10.1); Creatinine Clr Calc Pharmacy 61.3 ml/min; Est GFR (African American) 100.4 ml/min; Est GFR (Non-African American) 86.7 ml/min; Magnesium 2.3 mg/dl (1.8-2.4); Potassium 3.6 mmol/L (3.5-5.1)
[2020-10-27] MEDS: LEFLUNOMIDE 10 MG TAB PO SCH (09:27)
[2020-10-27] MEDS: APIXABAN 5 MG TABLET PO SCH (09:27)
[2020-10-27] MEDS: predniSONE 1 MG TAB PO SCH (09:28)
--- NOTE | 2020-10-27 17:11 | Discharge Summary ---
Date of Service October 27, 2020 Admission HPI Per Admitting Provider The patient is a 85-year-old female with a past medical history including lumbar stenosis with neurogenic claudication, venous stasis ulcer, osteoporosis, bladder spasm, bilateral lower extremity edema, chronic venous insufficiency, chronic venous stasis dermatitis and nonhealing surgical wound. She presents to the emergency department with decreased ability to walk, and with multiple other concerns. Principal Diagnosis Pulmonary embolism Leg swelling and cellulitis Discharge Exam Constitutional WD/WN, vitals as above Eyes EOM intact bilaterally; no conjunctival abnormality ENMT external ear and nose normal, oropharynx normal Neck trachea midline, no thyromegaly normal visual inspection Respiratory normal respiratory effort, lungs clear to auscultation no respiratory distress Cardiovascular RRR, no murmur, no edema Gastrointestinal (Abdomen) Inspection/Auscultation: abdomen normal to inspection; abdomen not distended Musculoskeletal no cyanosis or clubbing, extremities motor strength 5/5 Skin no rashes, warm and dry Neurologic moves all extremities and awake Psychiatric Orientation: alert, oriented to person and cooperative Discharge Data Allergies Allergy/AdvReac Type Severity Reaction Status Date / Time No Known Allergies Allergy Verified 10/19/20 22:18 Consultations 10/19/20 23:48 ED Decision to Admit Stat Ordered Studies 10/19/20 21:42 CT lumbar spine wo con Urgent 10/19/20 23:04 CT angio chest PE protocol Urgent 10/20/20 01:10 US venous doppler [facility] Urgent Hospital Course (1) Pulmonary embolism: Pulmonary emboli involving right middle lobe and right lower lobe. - Suspect the cause of her VTE event is immobility - her lumbar spinal stenosis with severe RLE radicular issues has been hampering her mobility. - Converted to Eliquis 10 mg PO BID until 10/27/2020 -> Then switch to 5 mg PO BID - No bleeding; continue with this plan. (2) Acute respiratory failure with hypoxia: Secondary to PEs. - On room air by discharge with good O2 sat (95%). (3) Bilateral lower extremity edema: Bilateral lower extremity edema likely due to acute worsening chronic venous insufficiency. - Was on Lasix 20 mg IV daily. Legs now look significantly less edematous. BUN:Cr stable. - Move toward compression stockings. Monitor legs. - Continue Lasix 20 mg PO daily on discharge (4) Chronic venous insufficiency: This is a risk factor in and of itself for DVT. - Compression stockings (5) Cellulitis of both lower extremities: Admitted on vancomycin IV and ceftriaxone IV for concern for cellulitis, but it appears chronic in nature due to her venous insufficiency. - Stopped abx by 10/25. No change, improved with reduction in swelling. (6) Urinary tract infection: Urine cx from 10/19 grew alvarado-sensitive E. coli. - Finished ceftriaxone in the hospital. (7) Elevated troponin: Demand ischemia in setting of PEs. Highest troponin was 0.05. No ACS. - No inpatient needs (8) Lumbar stenosis with neurogenic claudication: Severe with resulting RLE radicular symptoms & weakness. Interfering w/ mobility. - Plan for SNF if patient is willing. (9) Rheumatoid arthritis: Noted in her record. No flares while inpatient. - Continue home prednisone 2 mg QOD & 3 mg QOD I certify that this patient is under my care and that I, or a physicians salon assistant working with me, had a face to-face encounter that meets the home health [id number] encounter requirements with this patient. The encounter with the patient was in whole, or in part, for the following medical condition, which is the primary reason for home health care (list medical condition): Pulmonary embolism I certify that, based on my findings, the following services are medically necessary home health services: prison, home PT and home OT. My clinical findings support the need for the above services because: OT Assess ADL Status and Restore Function w ADLs PT Eval for Safety and Mobility Further, I certify that my clinical findings support that this patient is homebound (i.e. absences from home require considerable and taxing effort and are for medical reasons or [facility] or infrequently or of short duration when for other reasons) because: Poor Endurance; SOB Minimal Exertion Certification for Home Health Services: Based on the above findings, I certify that this patient is confined to the home and needs intermittent longterm care, physical therapy and/or speech therapy or continues to need occupational therapy. The patient is under my care, and I have initiated the establishment of the plan of care. This patient will be followed by a physician who will periodically review the plan of care. Total Time Total Time Spent Total Time Spent (In Minutes): 35 Discharge Plan Discharge Items Patient Disposition: Home - Home Health Services Reason For Visit: PE,B/L LE CELL,UTI Discharge Diagnosis: Blood clot in lungs Leg infection Activity: Resume your previous activity Non-emergency contact: Primary Care Provider Call non-emergency contact if: your pain is not controlled and your temperature is above 101 Follow-up/Referrals: Nael Senior MD [Primary Care Provider] - [facility],Home Healthcare [Non-Staff] - [facility],Referral Center [Non-Staff] - Diet: Heart Healthy Addtl Attending Provider Instructions: Ms. Silva, You were admitted to the hospital with a blood clot in your lungs. We used IV medication to help dissolve this, but it will also need an oral medication. Please take the Eliquis (apixaban) twice a day. You will likely need to be on this for at least 3 months, but likely longer as we are concerned that some of your mobility issues were the most likely cause. We also gave you some antibiotics and diuretics for your legs to help reduce the redness in the legs and the swelling. Pending Studies at Discharge: No Stand-Alone Forms: [facility], Smoking Cessation Medications and DC Order Prescriptions: New apixaban 5 mg tablet 5 mg PO BID Qty: 60 RF: 0 Continued leflunomide [Arava] 20 mg tablet 20 mg PO DAILY RF: 0 alendronate 70 mg tablet 70 mg PO WK RF: 0 oxybutynin chloride 5 mg tablet 5 mg PO BID PRN (Reason: urinary discomfort) RF: 0 prednisone 1 mg tablet See Rx Instructions .ROUTE .COMPLEX RF: 0 furosemide 20 mg tablet 20 mg PO DAILY RF: 0 Discharge Orders: Discharge Order (Routine); Ordered 10/27/20 Ordered By: Korey Campbell Admission Data Admit Date/Time: 10/20/20 01:10 Attending Provider: Korey Campbell Admit Provider: Tyson Orozco Primary Care Provider: Nael Senior Other Providers: Korey Campbell ; [facility],Home Healthcare ; Tray Venegas [facility] Other Interventions: Discharge Summary Assessment (RN) Last Done: 10/27/20 16:34 Coding Level of Care Code D/C DAY MANAGEMENT >30 MINS Diagnoses Pulmonary embolism I26.99 Acute cor pulmonale presence: without acute cor pulmonale Chronicity: acute Pulmonary embolism type: other Acute respiratory failure with hypoxia J96.01 Bilateral lower extremity edema R60.0 Chronic venous insufficiency I87.2 Cellulitis of both lower extremities L03.115; L03.116 Urinary tract infection N39.0 Elevated troponin R77.8 Lumbar stenosis with neurogenic claudication M48.062 Rheumatoid arthritis M06.9
== END 2020-10-27 18:11 | disposition home health service (06) | DRG 175 ==
LOC: ED 20:23 → SUATTDRO 10-20 01:10 → 2S 10-20 01:10

== ENCOUNTER 2021-12-07 11:25 | Inpatient (IN) ==
[2021-12-07] MEDS ORDERED: SODIUM CHLORIDE 0.9% 500 ML IV ONE (13:15)
--- NOTE | 2021-12-07 13:22 | Emergency Department Note ---
History of Present Illness General Chief complaint: Leg Injury/Pain Stated complaint: LEGS SWOLLEN, LEAKING, WEAKNESS, POSS CURCULATORY Time Seen by Provider: 12/07/21 12:54 History of Present Illness Maximum Pain Intensity: 0 This 86-year-old female presents emergency department with her daughter complaining of swelling, redness, pain, and weeping of her bilateral lower extremities for the past 2 weeks. All of the symptoms are below the knee on both sides R>L. She rates the pain as sharp and 6/10. She has a history of chronic venous insufficiency as well as history of venous stasis ulcers and infections of her lower extremity. She sees the wound clinic as needed for her legs. She states that its been a while since her last infection. The symptoms have gotten progressively worse and she cannot get into the wound clinic until next week so she presented to the emergency department. She denies any fevers or purulent discharge. She has been sleeping more than usual since the symptoms started. She has also been feeling shaky for the past 2 to 3 days. She tends to be immobile because she has a lots of back pain from her lumbar radiculopathy and rheumatoid arthritis. She is scheduled next week for an epidural steroid injection by pain management. She takes prednisone on a daily basis. She has a history of blood clots in the past when she had similar symptoms. Not currently on any blood thinners. She denies chest pain, shortness of breath, cough, or history of CHF. She denies abdominal pain, nausea, vomiting, urinary symptoms, or changes in her bowel movements. Home Medications Medication Instructions Recorded Confirmed Type leflunomide 20 mg tablet (Arava) 20 mg PO QAM 03/04/19 12/07/21 History prednisone 1 mg tablet 2 mg PO QAM 10/19/20 12/07/21 History multivitamin 1 tab PO QAM 05/16/21 12/07/21 History cholecalciferol (vitamin D3) 75 75 mcg PO QAM 07/06/21 12/07/21 History mcg (3,000 unit) tablet Allergies Allergy/AdvReac Type Severity Reaction Status Date / Time No Known Allergies Allergy Verified 12/07/21 17:12 Past Med/Surg History Medical History Basal cell carcinoma Chronic venous stasis dermatitis of both lower extremities Closed left radial fracture DJD (degenerative joint disease) H/O fracture of hip H/O mitral valve prolapse Lumbar radicular pain Non-healing surgical wound Osteopenia Rheumatoid arthritis Surgical History H/O foot surgery H/O wrist surgery S/P appendectomy S/P cholecystectomy Family History Father COPD (chronic obstructive pulmonary disease) Silicosis Mother , age 97 No problems noted. Social History Smoking Status: Never smoker Hx Alcohol Use: No Hx Substance Use: No Preferred Language: Ivorian Communication Ability: Effective Visual Impairment: Limited Hearing Ability: Normal Creative Arts Therapist Required: No Beliefs That Will Affect Care: None marital status: Current Living Situation: Spouse and Personal Care Facility current occupational status: retired How many Children do You have: 1 Feels Safe at Home: Yes Safety Concerns: Feels Safe At This Time Assistive Devices: Cane, Denture - Upper, Denture - Lower and Glasses Review of Systems See HPI for pertinent positives & negatives. and A total of 10 systems reviewed and were otherwise negative Physical Exam Vital Signs Vital Signs - 24 hr 12/07/21 11:44 12/07/21 14:28 12/07/21 16:12 Temperature 36.5 C Temperature Source Temporal Artery Scan Pulse Rate 63 Pulse Rate [Right Radial] 80 70 Respiratory Rate 20 18 16 Respiratory Effort / Characteristics Non-Labored Spontaneous Respiratory Depth Normal Respiratory Pattern Regular Blood Pressure 146/63 H Blood Pressure [Right Arm] 172/60 H 141/67 H Blood Pressure Mean 90 Blood Pressure Mean [Right Arm] 97 91 Blood Pressure Position Sitting Blood Pressure Position [Right Arm] Lying Pulse Oximetry 97 92 Oxygen Delivery Method Room Air Room Air Room Air Sepsis Recent Fever Within 48 Hours No Sepsis New/Unexplained Change in Mental Status No Sepsis Action Taken by Nursing No Action Required VITALS: Vitals are noted on the nurse's note and reviewed by myself. Vital signs stable. GENERAL: 86-year-old female, in no acute distress, nondiaphoretic, well- developed well-nourished. SKIN: Severe venous insufficiency of the bilateral lower extremities below the knee. There is significant edema, erythema, and serous discharge from the legs. Multiple areas of dry and cracked skin as well. No obvious abscess noted. No lymphatic streaking. No purulent discharge. HEAD: Normocephalic, atraumatic. EARS: External auditory canals clear, tympanic membranes pearly serna without erythema or effusion bilaterally. EYES: PERRLA. EOMI. Conjunctivae without injection, sclerae without icterus. NOSE: Patent without discharge. MOUTH: Mucous membranes moist. Uvula midline. Airway patent. NECK: Supple without nuchal rigidity. HEART: Regular rate and rhythm without murmurs gallops or rubs. LUNGS: Clear to auscultation bilaterally without wheezes, rales or rhonchi. No retractions or accessory muscle use. ABDOMEN: Positive bowel sounds x 4. Normal tympanic percussion. Soft, nontender, without masses or organomegaly. Gonzales sign negative. No guarding or rebound tenderness. No focal RLQ or LLQ tenderness. MUSCULOSKELETAL: She is tender to palpation of the bilateral lower extremities below the knees where the edema and erythema is. Peripheral pulses 2+. She states that she is able to feel normal sensation to the bilateral lower extremities with palpation. NEURO: Patient was alert and oriented to person place and time. Course Administered Medications Enoxaparin Sodium (Enoxaparin Inj 40 Mg/0.4 Ml Syr) 40 mg SQ Q24H SUMAN Stop: 01/06/22 18:59 Last Admin: 12/07/21 20:27 Dose: 40 mg Documented By: Prednisone (Prednisone 1 Mg Tab) 2 mg PO Q2D@0900 SUMAN Stop: 01/06/22 18:59 Last Admin: 12/07/21 20:35 Dose: 2 mg Documented By: Discontinued Medications Furosemide (Furosemide Inj 20 Mg/2 Ml Vial) 20 mg IV ONE ONE Stop: 12/07/21 16:25 Last Admin: 12/07/21 18:16 Dose: 20 mg Documented By: Sodium Chloride (Nss) 500 mls @ 999 mls/hr IV .Q31M ONE Stop: 12/07/21 13:45 Last Infusion: 12/07/21 14:10 Dose: 0 mls/hr Documented By: Admin: 12/07/21 13:33 Dose: 999 mls/hr Documented By: ND Ceftriaxone Sodium (Rocephin) 2,000 mg in 70 mls @ 140 mls/hr IV NOW STA Stop: 12/07/21 16:33 Last Infusion: 12/07/21 18:11 Dose: 0 mls/hr Documented By: Admin: 12/07/21 17:33 Dose: 140 mls/hr Documented By: Morphine Sulfate (Morphine Sulfate 2 Mg/Ml Carp) 2 mg IV NOW STA Stop: 12/07/21 14:05 Last Admin: 12/07/21 14:10 Dose: 2 mg Documented By: JEREMIAH Ondansetron HCl (Ondansetron Inj 2 Mg/Ml 2 Ml Vial) 4 mg IV NOW STA Stop: 12/07/21 14:05 Last Admin: 12/07/21 14:10 Dose: 4 mg Documented By: JEREMIAH Medical Decision Making Differential Diagnosis Differential diagnosis includes cellulitis, abscess, MRSA infection, DVT, necrotizing fasciitis, dermatitis, drug eruption, allergic reaction, CHF, cirrhosis, ascites, as well as other pathologies. Laboratory Data Attestation: I reviewed the patient's lab results. Result diagrams: 12/07/21 13:05 12/07/21 13:05 Lab Results 12/07/21 12/07/21 12/07/21 Range/Units 13:05 13:05 13:05 WBC 10.90 H (4.8-10.8) K/ul RBC 4.26 (3.93-5.22) M/uL Hgb 12.8 (12.0-16.0) g/dl Hct 39.1 (34.1-44.9) % MCV 91.8 (80.0-100.0) fL MCH 30.0 (25.0-34.0) pg MCHC 32.7 (32.0-36.0) g/dL RDW Std Deviation 46.7 H (36.4-46.3) fL RDW Coeff of Cherie 14.0 (11.5-14.5) % Plt Count 296 (130-400) K/uL MPV 10.7 (9.4-12.3) fL Immature Gran % (Auto) 0.5 % Neut % (Auto) 82.3 % Lymph % (Auto) 7.1 % [place] % (Auto) 7.8 % Eos % (Auto) 1.5 % Baso % (Auto) 0.8 % Neut # (Auto) 8.98 H (1.4-6.5) K/uL Lymph # (Auto) 0.77 L (1.2-3.4) K/uL [place] # (Auto) 0.85 H (0.24-0.82) K/uL Eos # (Auto) 0.16 (0-0.50) K/uL Baso # (Auto) 0.09 (0-0.2) K/uL Immature Gran # (Auto) 0.05 H (0.00-0.02) K/uL PT 10.3 (9.0-12.0) Seconds INR 1.0 (0.9-1.1) APTT 24.6 (21.0-31.0) Seconds PTT Ratio 0.9 Sodium 145 (136-145) mmol/L Potassium 4.0 (3.5-5.1) mmol/L Chloride 109 H (98-107) mmol/L Carbon Dioxide 30 (21-32) mmol/L Anion Gap 6 (3-11) BUN 26 H (6-23) mg/dl Creatinine 0.56 L (0.6-1.2) mg/dl Est Cr Clr Drug Dosing Not Reportable Est GFR ( Amer) 98.5 ml/min Est GFR (Non-Af Amer) 85.0 ml/min BUN/Creatinine Ratio 46.4 H (10-20) Glucose 83 (70-99(Fasting)) mg/dl Calcium 9.8 (8.5-10.1) mg/dl Total Bilirubin 0.6 (0.2-1.0) mg/dl AST 27 (13-39) U/L ALT 18 (7-52) U/L Alkaline Phosphatase 74 (34-104) U/L B-Natriuretic Peptide (0-100) pg/ml Total Protein 6.6 (6.0-8.3) gm/dl Albumin 3.7 (3.4-5.0) gm/dl Globulin 2.9 (2.5-4.0) gm/dl Albumin/Globulin Ratio 1.3 (0.9-2) 12/07/21 Range/Units 13:29 WBC (4.8-10.8) K/ul RBC (3.93-5.22) M/uL Hgb (12.0-16.0) g/dl Hct (34.1-44.9) % MCV (80.0-100.0) fL MCH (25.0-34.0) pg MCHC (32.0-36.0) g/dL RDW Std Deviation (36.4-46.3) fL RDW Coeff of Cherie (11.5-14.5) % Plt Count (130-400) K/uL MPV (9.4-12.3) fL Immature Gran % (Auto) % Neut % (Auto) % Lymph % (Auto) % [place] % (Auto) % Eos % (Auto) % Baso % (Auto) % Neut # (Auto) (1.4-6.5) K/uL Lymph # (Auto) (1.2-3.4) K/uL [place] # (Auto) (0.24-0.82) K/uL Eos # (Auto) (0-0.50) K/uL Baso # (Auto) (0-0.2) K/uL Immature Gran # (Auto) (0.00-0.02) K/uL PT (9.0-12.0) Seconds INR (0.9-1.1) APTT (21.0-31.0) Seconds PTT Ratio Sodium (136-145) mmol/L Potassium (3.5-5.1) mmol/L Chloride (98-107) mmol/L Carbon Dioxide (21-32) mmol/L Anion Gap (3-11) BUN (6-23) mg/dl Creatinine (0.6-1.2) mg/dl Est Cr Clr Drug Dosing Est GFR ( Amer) ml/min Est GFR (Non-Af Amer) ml/min BUN/Creatinine Ratio (10-20) Glucose (70-99(Fasting)) mg/dl Calcium (8.5-10.1) mg/dl Total Bilirubin (0.2-1.0) mg/dl AST (13-39) U/L ALT (7-52) U/L Alkaline Phosphatase (34-104) U/L B-Natriuretic Peptide 138 H (0-100) pg/ml Total Protein (6.0-8.3) gm/dl Albumin (3.4-5.0) gm/dl Globulin (2.5-4.0) gm/dl Albumin/Globulin Ratio (0.9-2) Imaging Data Radiologist's Impression: Venous Doppler Study 12/07/21 13:15 BILATERAL LOWER EXTREMITY VENOUS DOPPLER CLINICAL HISTORY: Lower extremity swelling. COMPARISON STUDY: Bilateral lower extremity venous Doppler ultrasound October 20, 2020. TECHNIQUE: Sonography of the deep venous system of the bilateral lower extremities was performed. Compression and augmentation were evaluated. FINDINGS: The bilateral common femoral, superficial femoral and popliteal veins were compressible. Augmentation was normal. Flow was shown within the deep calf vessels. Bilateral lower extremity subcutaneous edema is present. IMPRESSION: No evidence of deep venous thrombus within the bilateral lower extremities. ACT 112: Negative or not required by law. Electronically signed by: Mahin Brewster M.D. 12/07/2021 2:52 PM Chest X-Ray 12/07/21 14:26 XR chest 1V portable CLINICAL HISTORY: eval CHF TECHNIQUE: Single frontal radiograph of the chest was obtained. Comparison: Comparison is made to chest radiograph 04/04/2021 FINDINGS: No lines and tubes are seen. Cardiomegaly is noted. There is prominence and cephalization of the vasculature with Stan B lines seen. There is a small right pleural effusion. IMPRESSION: 1. Cardiomegaly and moderate pulmonary edema, new from prior exam. 2. Small right pleural effusion. ACT 112: Negative or not required by law. Electronically signed by: Remi Cai M.D. 12/07/2021 3:55 PM MDM Narrative I examined the patient. An IV lock was placed and labs were drawn. She was given normal saline solution 500 mL, morphine 2 mg IV, and Zofran 4 mg IV for pain. Wound culture of some of the serous discharge was obtained and is pending. White blood cell count slightly elevated at 10.9 with normal hemoglobin at 12.8. BUN elevated at 26, but creatinine normal at 0.56. Gracy ctrolytes were normal. LFTs were normal. Lactate and procalcitonin were normal. COVID test was negative. Blood cultures are still pending. BNP was slightly elevated at 138. Chest x-ray was reviewed by myself and read by radiology as above and showed cardiomegaly and moderate pulmonary edema which is new from prior exam as well as a small right pleural effusion. Ultrasound of the bilateral lower extremities was reviewed by myself and read by radiology as above and showed no evidence for DVTs. The patient was given Rocephin 2 g IV and Lasix 20 mg IV. The patient was independently evaluated by Dr. Meadows, who agreed with my assessment and treatment plan. Due to the patient's significant edema along with evidence for cellulitis and new pulmonary edema on chest x-ray we felt that admission was warranted. I spoke with Dr. Toledo who accepted admission for this patient. Please refer to his dictation for further details. The patient's care was transferred in stable condition. Impression & Plan Cellulitis of both lower extremities, CHF (congestive heart failure) Discharge Plan Visit Data Chief Complaint: Leg Injury/Pain Stated Complaint: LEGS SWOLLEN, LEAKING, WEAKNESS, POSS CURCULATORY ED Provider: Kojo Meadows ED Midlevel Provider: Brenda Jacinto Discharge Problem: Cellulitis of both lower extremities, CHF (congestive heart failure) Patient Disposition: Admitted As Inpatient Discharge Instructions Interventions: ED Discharge Assessment Last Done: 12/07/21 17:49 : CHF (congestive heart failure) Qualifiers: Heart failure type: unspecified Heart failure chronicity: acute Qualified Code(s): I50.9 - Heart failure, unspecified
[2021-12-07 13:28] LABS: Basophils # (auto) 0.09 K/uL (0-0.2); Basophils % (auto) 0.8 %; Eosinophils # (auto) 0.16 K/uL (0-0.50); Eosinophils % (auto) 1.5 %; Hematocrit (blood only) 39.1 % (34.1-44.9); Hemoglobin 12.8 g/dl (12.0-16.0); Immature Granulocytes # (auto) 0.05 K/uL (0.00-0.02); Immature Granulocytes % (auto) 0.5 %; Lymphocytes # (auto) 0.77 K/uL (1.2-3.4); Lymphocytes % (auto) 7.1 %; Mean Corpuscular Hgb Conc 32.7 g/dL (32.0-36.0); Mean Corpuscular Volume 91.8 fL (80.0-100.0); Mean Platelet Volume 10.7 fL (9.4-12.3); Monocytes # (auto) 0.85 K/uL (0.24-0.82); Monocytes % (auto) 7.8 %; Neutrophils # (auto) 8.98 K/uL (1.4-6.5); Neutrophils % (auto) 82.3 %; Platelet Count 296 K/uL (130-400); RDW Standard Deviation 46.7 fL (36.4-46.3); Red Blood Count 4.26 M/uL (3.93-5.22)
[2021-12-07 13:42] LABS: Partial Thromboplastin Ratio 0.9; Partial Thromboplastin Time 24.6 Seconds (21.0-31.0); Prothrombin Time 10.3 Seconds (9.0-12.0)
[2021-12-07 13:58] LABS: Alanine Aminotransferase 18 U/L (7-52); Albumin Globulin Ratio 1.3 (0.9-2); Albumin Level 3.7 gm/dl (3.4-5.0); Alkaline Phosphatase 74 U/L (34-104); Anion Gap 6 (3-11); Aspartate Aminotransferase 27 U/L (13-39); BUN Creatinine Ratio 46.4 (10-20); Bilirubin,Total 0.6 mg/dl (0.2-1.0); Blood Urea Nitrogen 26 mg/dl (6-23); Calcium 9.8 mg/dl (8.5-10.1); Carbon Dioxide 30 mmol/L (21-32); Chloride 109 mmol/L (98-107); Est GFR (African American) 98.5 ml/min; Globulin 2.9 gm/dl (2.5-4.0); Glucose 83 mg/dl (70-99(Fasting)); Sodium 145 mmol/L (136-145); Total Protein 6.6 gm/dl (6.0-8.3)
[2021-12-07] MEDS ORDERED: ONDANSETRON INJ 2 MG/ML 2 ML VIAL IV STA (14:04)
[2021-12-07] MEDS ORDERED: MoRPHine SULFATE 2 MG/ML CARP IV STA (14:04)
--- NOTE | 2021-12-07 14:53 | Ultrasound Report ---
BILATERAL LOWER EXTREMITY VENOUS DOPPLER CLINICAL HISTORY: Lower extremity swelling. COMPARISON STUDY: Bilateral lower extremity venous Doppler ultrasound October 20, 2020. TECHNIQUE: Sonography of the deep venous system of the bilateral lower extremities was performed. Co mpression and augmentation were evaluated. FINDINGS: The bilateral common femoral, superficial femoral and popliteal veins were compressible. A ugmentation was normal. Flow was shown within the deep calf vessels. Bilateral lower extremity subcut aneous edema is present. IMPRESSION: No evidence of deep venous thrombus within the bilateral lower extremities. ACT 112: Negative or not required by law. Electronically signed by: Mahin Brewster M.D. 12/07/2021 2:52 PM
--- NOTE | 2021-12-07 15:57 | XRay Report ---
XR chest 1V portable CLINICAL HISTORY: eval CHF TECHNIQUE: Single frontal radiograph of the chest was obtained. Comparison: Comparison is made to chest radiograph 04/04/2021 FINDINGS: No lines and tubes are seen. Cardiomegaly is noted. There is prominence and cephalization of the vasc ulature with Stan B lines seen. There is a small right pleural effusion. IMPRESSION: 1. Cardiomegaly and moderate pulmonary edema, new from prior exam. 2. Small right pleural effusion. ACT 112: Negative or not required by law. Electronically signed by: Remi Cai M.D. 12/07/2021 3:55 PM
[2021-12-07] MEDS ORDERED: cefTRIAXone SODIUM 2,000 MG/70 ML BAG IV STA (16:04)
[2021-12-07] MEDS ORDERED: FUROSEMIDE INJ 20 MG/2 ML VIAL IV ONE (16:24)
--- NOTE | 2021-12-07 16:25 | History & Physical Report ---
Date of Service December 07, 2021 Assessment & Plan (1) CHF (congestive heart failure): Plan: Keshia is a 86-year-old female with a past medical history of falls, PE, chronic venous insufficiency, chronic venous stasis, rheumatoid arthritis, ambulatory dysfunction, and MSSA who presents with swelling, redness, and worsening pain and weeping of her legs bilaterally for 2 weeks but more on her right side. She has no history of CHF. ? New diastolic CHF, history of venous stasis - 2 weeks swelling, redness, weeping wounds. Chest x-ray with new moderate pulmonary edema No prior history of CHF, patient does not have any chest pain/chest pressure. She is not sure if she has orthopnea as she cannot lay flat due to discomfort from her lumbar stenosis and RA -BNP is mildly elevated Lasix 20 mg IV ordered Echo pending Dopplers negative for DVT EKG without acute ST segment changes/signs of ischemia Lasix 20 mg IV daily, titrate to goal of around [id number] net output Oxygen levels 92% on room air, does desaturate easily with exertion Continue leg wraps with Lasix, elevate legs at least 3 times daily when unwrapped Superimposed cellulitis on right lower extremity venous stasis/edema Both legs are red, however right is asymmetrically red/warm/tender and this is rapidly increased in the last few days per the patient's normal baseline Reasonable to continue treatment with Rocephin, wound culture/blood cultures pending No fever/chills/sweats RA - Leflunomide held while tx potential cellulitis above - Baseline pred continued, correction use with likely some degree of AI Lumbar stenosis 08/2020 MRI: 1. Severe multilevel degenerative disc disease and facet arthrosis within the lumbar spine. Severe central canal stenosis at L3-L4 and L4-L5 and moderate to severe central canal stenosis at L2-L3. 2. Severe multilevel neural foraminal stenosis, as detail above. 3. Moderate levoscoliosis of the lumbar spine. No red flag symptoms, foot drop, saddle anesthesia, urinary retention but patient does have a stooped gait and periods of pain with radicular pain down into her right leg. Has outpatient follow-up already scheduled for pain management, would keep this DVT prophylaxis: Marisa, MINHs Disposition: Medical with telemetry while CHF evaluation Diet: Low-salt CODE STATUS: DNR/DNI, discussed with patient at bedside (2) Lumbar stenosis with neurogenic claudication: (3) Bilateral lower extremity edema: (4) Chronic venous insufficiency: (5) Lumbar radicular pain: History of Present Illness Primary Care Provider: Nael Senior MD Keshia is a 86-year-old female with a past medical history of falls, PE, chronic venous insufficiency, chronic venous stasis, rheumatoid arthritis, ambulatory dysfunction, and MSSA who presents with swelling, redness, and worsening pain and weeping of her legs bilaterally for 2 weeks but more on her right side. She has no history of CHF. Keshia is seen iwth her husbadn and daughter at the bedside. She reporots she has had pain in her legs R more than the L. Starts at her hip and goes to the ankle and is rheumatoid arthritis and that has not changed. She has had increased swelling in both legs R>l over the last 2 weeks. Has had progressive strength loss and falls/slumps to the ground with fatigue in the last week. Sleeps all th etime. Cannot sleep laying flat due to her RA pain, has not tried in many years so is not sure about orthopnea. Tries to elevate legs occasionally, but rarely can due to her RA pain. On prednisone and leflunomide for RA. Uses compression devices at home BID to try and held with swelling, but recent swelling and pain has prevented their use. Start worsening quickly compared to last 9 months. Does see wound care for chronic stasis ulcers. No chest pain or chest pressure No fevers/chills/sweats No cough, URI symptoms No pain with urination. Has not noticed any chagnes in urination No known diet change, no known salt load include broth/soup/processed meat. Does eat a few crackers for lunch some days, but that has not changed in a long time. Medical History: Reviewed Medications: Reviewed. Took this AM. Surgical History: Reviewed Allergies: Reviewed Social History: No current or former tobacco use, no alcohol use. Code Status: Surrogate DM would be , #[phone] (home), #[phone] (cell). Allergies Allergy/AdvReac Type Severity Reaction Status Date / Time No Known Allergies Allergy Verified 09/29/21 14:27 Home Medications Medication Instructions Recorded Confirmed Type leflunomide 20 mg tablet (Arava) 20 mg PO DAILY 12/10/19 07/07/22 History prednisone 1 mg tablet See Rx Instructions .Route .COMPLEX 10/19/20 09/29/21 History furosemide 20 mg tablet 20 mg PO DAILY #30 tabs 10/27/20 09/29/21 Rx multivitamin 1 tab PO DAILY 05/16/21 09/29/21 History cholecalciferol (vitamin D3) 75 75 mcg PO DAILY 07/06/21 09/29/21 History mcg (3,000 unit) tablet Past Med/Surg History Medical History Basal cell carcinoma Chronic venous stasis dermatitis of both lower extremities Closed left radial fracture DJD (degenerative joint disease) H/O fracture of hip H/O mitral valve prolapse Lumbar radicular pain Non-healing surgical wound Osteopenia Rheumatoid arthritis Surgical History H/O foot surgery H/O wrist surgery S/P appendectomy S/P cholecystectomy Family History Father COPD (chronic obstructive pulmonary disease) Silicosis Mother , age 97 No problems noted. 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 NAD. Cooperative. HEENT: Atraumatic, normocephalic. Vision and hearing grossly intact Pulm: Basilar crackles present. Symmetrical chest rise. No increase in work of breathing. No respiratory distress. Cardiac: RRR, -mrg. Radial pulses intact and symmetrical. Abdominal: Nontender, nondistended, soft. BS present. Extremities: Bilateral pitting edema through the knees. Bilateral venous stasis ulcerations with weeping, there is right greater than left warmth/erythema/tend erness. Sensation of soft touch is intact in the ankles bilaterally. Results & Data Results & Data ([facility]) Vital Signs (Past 12 Hours) Vital Signs Temp Pulse Pulse Resp BP BP Pulse Ox 12/07/21 16:12 70 16 141/67 H 92 12/07/21 14:28 80 18 172/60 H 97 12/07/21 11:44 36.5 C 63 20 146/63 H O2 Del Method 12/07/21 16:12 Room Air 12/07/21 14:28 Room Air 12/07/21 11:44 Room Air PG Care Time/CCT Total # of Minutes Spent Total Time Spent with Patient: Total time spent is greater than 50% in coordination of care (as documented) at patient's floor/unit and/or counseling patient: Coding Level of Care Code 32001 Initial Inpt Care Lvl 2 Diagnoses CHF (congestive heart failure) I50.9 Lumbar stenosis with neurogenic claudication M48.062 Bilateral lower extremity edema R60.0 Chronic venous insufficiency I87.2 Lumbar radicular pain M54.16
--- NOTE | 2021-12-07 16:32 | Emergency Department Note ---
ED Visit Note I was consulted by the Advanced Practice Provider. I saw the patient personally and performed a substantive portion of the visit. This includes aspects of the HPI, MDM, diagnostic interpretations, and disposition/plan. .
[2021-12-07] MEDS ORDERED: ONDANSETRON INJ 2 MG/ML 2 ML VIAL IV PRN (18:14)
[2021-12-07] MEDS ORDERED: predniSONE 1 MG TAB PO SCH (18:14)
[2021-12-07] MEDS ORDERED: MAGNESIUM HYDROXIDE SUSP 30 ML UDC PO PRN (18:14)
[2021-12-07] MEDS ORDERED: POLYETHYLENE (MIRALAX) 17 GM PACK PO PRN (18:14)
[2021-12-07] MEDS: ENOXAPARIN INJ 40 MG/0.4 ML SYR SQ SCH (20:27)
[2021-12-07] MEDS: predniSONE 1 MG TAB PO SCH (20:35)
[2021-12-08 01:12] LABS: Appearance Urine Cloudy (Clear); Bacteria Urine Automated 2+ (Negative); Bilirubin Urine Negative (Negative); Blood Urine Negative (Negative); Color Urine Yellow; Epithelial Cell Urine Auto >30 /lpf (0-5); Glucose Urine UA Negative (Negative); Ketones Urine Trace (Negative); Leukocyte Esterase Urine Trace (Negative); Nitrite Urine Negative (Negative); Protein Urine Negative (Negative); RBC Urine Automated 0-4 /hpf (0-4); Specific Gravity Urine 1.023 (1.000-1.030); Urobilinogen Urine Negative (Negative)
--- NOTE | 2021-12-08 06:28 | Electrocardiogram Report ---
Test Reason : Blood Pressure : / mmHG Vent. Rate : 059 BPM Atrial Rate : 059 BPM P-R Int : 106 ms QRS Dur : 074 ms QT Int : 402 ms P-R-T Axes : 053 069 031 degrees QTc Int : 397 ms Poor data quality, interpretation may be adversely affected Sinus bradycardia with short [place] Borderline ECG When compared with ECG of 04-APR-2021 15:33, No significant change was found Confirmed by Ney Pan ([id number]) on 12/08/2021 6:28:16 AM Referred By: Nael Senior Confirmed By:Ney Pan
--- NOTE | 2021-12-08 08:10 | Hospitalist Progress Note ---
Date of Service December 08, 2021 Assessment & Plan (1) CHF (congestive heart failure): Plan: Keshia is a 86-year-old female with a past medical history of falls, PE, chronic venous insufficiency, chronic venous stasis, rheumatoid arthritis, ambulatory dysfunction, and MSSA who presents with swelling, redness, and worsening pain and weeping of her legs bilaterally for 2 weeks but more on her right side. She has no history of CHF. ? New diastolic CHF, history of venous stasis - 2 weeks swelling, redness, weeping wounds. Chest x-ray with new moderate pulmonary edema No prior history of CHF, patient does not have any chest pain/chest pressure. She is not sure if she has orthopnea as she cannot lay flat due to discomfort from her lumbar stenosis and RA -BNP is mildly elevated Lasix 20 mg IV ordered Echo pending Dopplers negative for DVT EKG without acute ST segment changes/signs of ischemia Lasix 20 mg IV daily, titrate to goal of around [id number] net output Oxygen levels 92% on room air, does desaturate easily with exertion Continue leg wraps with Lasix, elevate legs at least 3 times daily when unwrapped Superimposed cellulitis on right lower extremity venous stasis/edema Both legs are red, however right is asymmetrically red/warm/tender and this is rapidly increased in the last few days per the patient's normal baseline Reasonable to continue treatment with Rocephin, wound culture/blood cultures pending No fever/chills/sweats RA - Leflunomide held while tx potential cellulitis above - Baseline pred continued, alf use with likely some degree of AI Lumbar stenosis 08/2020 MRI: 1. Severe multilevel degenerative disc disease and facet arthrosis within the lumbar spine. Severe central canal stenosis at L3-L4 and L4-L5 and moderate to severe central canal stenosis at L2-L3. 2. Severe multilevel neural foraminal stenosis, as detail above. 3. Moderate levoscoliosis of the lumbar spine. No red flag symptoms, foot drop, saddle anesthesia, urinary retention but patient does have a stooped gait and periods of pain with radicular pain down into her right leg. Has outpatient follow-up already scheduled for pain management, would keep this DVT prophylaxis: Marisa, MINHs Disposition: Medical with telemetry while CHF evaluation Diet: Low-salt CODE STATUS: DNR/DNI, discussed with patient at bedside (2) Lumbar stenosis with neurogenic claudication: (3) Bilateral lower extremity edema: (4) Chronic venous insufficiency: (5) Lumbar radicular pain: Admission and Anticipated Discharge Date Admission Date: December 07, 2021 Review of Systems Review of Systems: Const: HEENT: Resp: Cardio: GI: : MS: Skin: Neuro: Psych: Endo: Engo: Physical Exam Physical Exam: General: A&Ox3. NAD. Cooperative. HEENT: Atraumatic, normocephalic. Vision and hearing grossly intact Pulm: Basilar crackles present. Symmetrical chest rise. No increase in work of breathing. No respiratory distress. Cardiac: RRR, -mrg. Radial pulses intact and symmetrical. Abdominal: Nontender, nondistended, soft. BS present. Extremities: Bilateral pitting edema through the knees. Bilateral venous stasis ulcerations with weeping, there is right greater than left warmth/erythema/tenderness. Sensation of soft touch is intact in the ankles bilaterally. Results & Data Results & Data ([facility]) Vital Signs (Past 12 Hours) Vital Signs Temp Pulse Pulse Resp BP Pulse Ox O2 Del Method 12/08/21 07:17 37.2 C 70 16 160/66 H 90 Room Air 12/08/21 03:40 37 C 69 18 125/74 92 Room Air 12/07/21 23:11 36.9 C 65 18 127/71 90 Room Air 12/07/21 23:04 63 12/07/21 20:36 Room Air 12/07/21 20:36 Room Air
[2021-12-08] MEDS: predniSONE 1 MG TAB PO SCH (08:13)
[2021-12-08] MEDS: FUROSEMIDE INJ 20 MG/2 ML VIAL IV SCH (08:14)
--- NOTE | 2021-12-08 08:26 | Hospitalist Progress Note ---
Date of Service December 08, 2021 Assessment & Plan (1) CHF (congestive heart failure): Plan: Keshia is a 86-year-old female with a past medical history of falls, PE, chronic venous insufficiency, chronic venous stasis, rheumatoid arthritis, ambulatory dysfunction, and MSSA who presents with swelling, redness, and worsening pain and weeping of her legs bilaterally for 2 weeks but more on her right side. She has no history of CHF. Fluid Retention - 2 weeks swelling, redness, weeping wounds. Chest x-ray with new moderate pulmonary edema No prior history of CHF but has chronic LE edema. Patient does not have any chest pain/chest pressure. She is not sure if she has orthopnea as she cannot lay flat due to discomfort from her lumbar stenosis and RA -BNP is mildly elevated (138) Echo: EF>70% without wall motion abnormalities. No LVH, hyperdynamic systolic function Dopplers negative for DVT EKG without acute ST segment changes/signs of ischemia - Etiology most likely a combination of venous insufficiency in addition to mild CHF Lasix 20 mg IV daily, will plan to check a chest x-ray only she appears euvolemic clinically Continue compression dressings as tolerated Chronic Venous Stasis Dermatitis with superimposed cellulitis Both legs are red, however right is asymmetrically red/warm/tender and this is rapidly increased in the last few days per the patient's normal baseline No fever/chills/sweats - Will transition from ceftriaxone to cefazolin RA - Leflunomide held while tx potential cellulitis above - Baseline pred continued, 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 Severe multilevel degenerative disc disease and facet arthrosis within the lumbar spine. Severe central canal stenosis at L3-L4 and L4-L5 and moderate to severe central canal stenosis at L2-L3. 2. Severe multilevel neural foraminal stenosis, as detail above. 3. Moderate levoscoliosis of the lumbar spine. No red flag symptoms, foot drop, saddle anesthesia, urinary retention but patient does have a stooped gait and periods of pain with radicular pain down into her right leg. Has outpatient follow-up already scheduled for pain management, would keep this - tight piriformis on exam; will plan to perform OMT to loosen piriformis tomorrow - Plan for PT moving forward at the [facility]; improving (2) Lumbar stenosis with neurogenic claudication: (3) Bilateral lower extremity edema: (4) Chronic venous insufficiency: (5) Lumbar radicular pain: Admission and Anticipated Discharge Date Admission Date: December 07, 2021 Supervising Physician Co-Signing Physician Notes I personally examined the patient and verified all naqvi points of history and exam, discussed case, and agree with decision making with Dr Shepherd. No shortness of breath. Fatigue. Leg swelling was worse over the last few weeks now improved from yesterday. Hip pain is right lateral. Vitals noted, in general she is awake and alert pleasant no distress. Lungs clear to auscultation bilaterally no rales rhonchi or wheezes somewhat diminished but also moderate effort at best. No accessory muscle use. Musculoskeletal shows tenderness lateral to her right greater trochanter. Bilateral lower extremity edema consistent with venous stasis changes, is red and tenderbut symmetrically red and symmetrically tender. No crepitus. Edema, abnormal chest x-ray, weakness and fatigueacute diastolic CHF versus all venous stasis fluid retention and decreased mobilityfollow closely, diuresis, follow basic metabolic panel, otherwise as above, follow closely. narrow abx today - might not need. DVT proph - lovenox otherwise as above Subjective 86 year old female with a past medical history of PE, chronic venous insufficiency, chronic venous stasis dermatitis, B/L lower extremity edema, RA. She has been having right sided hip and leg pain. She has been having trouble ambulating for the past 2 weeks. She has also been more fatigued and has noticed increased swelling in her legs. Denies chest pain, dyspnea, cough. Sleeps in a recliner secondary to back pain from RA. Review of Systems Review of Systems: As per HPI Physical Exam Physical Exam: Constitutional: well-appearing, no acute distress HEENT: NCAT, no conjunctival injection CV: regular rhythm, no murmur appreciated, extremities well-perfused, +2 pitting edema to mid cagle, mild JVD Resp: CTABL, crackles in the lung bases B/L, no increased work of breathing GI: soft, nondistended, nontender, BS normoactive MSK: no gross deformities appreciated Skin: erythema and chronic venous changes in lower extremity B/L with tenderness Neuro: alert, oriented, no focal neurologic deficit appreciated Results & Data Results & Data ([facility]) Vital Signs (Past 12 Hours) Vital Signs Temp Pulse Pulse Resp BP Pulse Ox O2 Del Method 12/08/21 07:17 37.2 C 70 16 160/66 H 90 Room Air 12/08/21 03:40 37 C 69 18 125/74 92 Room Air 12/07/21 23:11 36.9 C 65 18 127/71 90 Room Air 12/07/21 23:04 63 12/07/21 20:36 Room Air 12/07/21 20:36 Room Air
[2021-12-08 08:51] LABS: Basophils # (auto) 0.09 K/uL (0-0.2); Basophils % (auto) 1.1 %; Eosinophils # (auto) 0.13 K/uL (0-0.50); Eosinophils % (auto) 1.5 %; Hematocrit (blood only) 33.2 % (34.1-44.9); Hemoglobin 10.6 g/dl (12.0-16.0); Immature Granulocytes # (auto) 0.07 K/uL (0.00-0.02); Immature Granulocytes % (auto) 0.8 %; Lymphocytes # (auto) 0.97 K/uL (1.2-3.4); Lymphocytes % (auto) 11.5 %; Mean Corpuscular Hemoglobin 29.2 pg (25.0-34.0); Mean Corpuscular Hgb Conc 31.9 g/dL (32.0-36.0); Mean Corpuscular Volume 91.5 fL (80.0-100.0); Mean Platelet Volume 11.3 fL (9.4-12.3); Monocytes % (auto) 10.6 %; Neutrophils # (auto) 6.31 K/uL (1.4-6.5); Neutrophils % (auto) 74.5 %; Platelet Count 243 K/uL (130-400); RDW Standard Deviation 47.2 fL (36.4-46.3); Red Blood Count 3.63 M/uL (3.93-5.22); White Blood Count 8.47 K/ul (4.8-10.8)
[2021-12-08] MEDS ORDERED: cefTRIAXone SODIUM 1,000 MG in DEXTROSE 5% 50 ML IV SCH (09:00)
[2021-12-08 09:17] LABS: BUN Creatinine Ratio 42.9 (10-20); Calcium 8.2 mg/dl (8.5-10.1); Creatinine Clr Calc Pharmacy 58.1 ml/min; Est GFR (African American) 98.5 ml/min; Potassium 4.1 mmol/L (3.5-5.1)
--- NOTE | 2021-12-08 11:39 | XCELERA ---
[id number]
--- NOTE | 2021-12-08 17:19 | Billing Data ---
Date of Service December 08, 2021 Coding Level of Care Code 02171 Subseq Hosp Care Lvl 3
--- NOTE | 2021-12-08 19:20 | Billing Data ---
Date of Service December 08, 2021 Coding Level of Care Code 52673 Prolonged Care (int'l)
[2021-12-08] MEDS: ENOXAPARIN INJ 40 MG/0.4 ML SYR SQ SCH (19:56)
[2021-12-09 07:06] LABS: Hematocrit (blood only) 35.7 % (34.1-44.9); Hemoglobin 11.4 g/dl (12.0-16.0); Mean Corpuscular Hemoglobin 29.4 pg (25.0-34.0); Mean Corpuscular Hgb Conc 31.9 g/dL (32.0-36.0); Platelet Count 197 K/uL (130-400); RDW Coefficient of Variation 14.1 % (11.5-14.5); Red Blood Count 3.88 M/uL (3.93-5.22); White Blood Count 8.82 K/ul (4.8-10.8)
[2021-12-09 07:27] LABS: Albumin Globulin Ratio 1.2 (0.9-2); Albumin Level 2.9 gm/dl (3.4-5.0); BUN Creatinine Ratio 40.7 (10-20); Bilirubin,Total 0.7 mg/dl (0.2-1.0); Calcium 8.5 mg/dl (8.5-10.1); Creatinine Clr Calc Pharmacy 60.2 ml/min; Est GFR (African American) 99.7 ml/min; Globulin 2.4 gm/dl (2.5-4.0); Total Protein 5.3 gm/dl (6.0-8.3)
[2021-12-09] MEDS: FUROSEMIDE INJ 20 MG/2 ML VIAL IV SCH (07:39)
[2021-12-09] MEDS ORDERED: ceFAZolin 2000MG 2,000 MG/15 ML SYR IV SCH (08:00)
[2021-12-09] MEDS: predniSONE 1 MG TAB PO SCH (09:29)
--- NOTE | 2021-12-09 13:30 | Hospitalist Progress Note ---
Date of Service December 09, 2021 Assessment & Plan (1) CHF (congestive heart failure): Plan: Keshia is a 86-year-old female with a past medical history of falls, PE, chronic venous insufficiency, chronic venous stasis, rheumatoid arthritis, ambulatory dysfunction, and MSSA who presents with swelling, redness, and worsening pain and weeping of her legs bilaterally for 2 weeks but more on her right side. She has no history of CHF. Fluid Retention - 2 weeks swelling, redness, weeping wounds. Chest x-ray with new moderate pulmonary edema No prior history of CHF but has chronic LE edema. Patient does not have any chest pain/chest pressure. She is not sure if she has orthopnea as she cannot lay flat due to discomfort from her lumbar stenosis and RA -BNP is mildly elevated (138) Echo: EF>70% without wall motion abnormalities. No LVH, hyperdynamic systolic function Dopplers negative for DVT EKG without acute ST segment changes/signs of ischemia - Etiology most likely a combination of venous insufficiency in addition to mild CHF Lasix 20 mg IV daily, will plan to check a chest x-ray only she appears euvolemic clinically Continue compression dressings as tolerated Chronic Venous Stasis Dermatitis with superimposed cellulitis Both legs are red, however right is asymmetrically red/warm/tender and this is rapidly increased in the last few days per the patient's normal baseline No fever/chills/sweats - Will transition from ceftriaxone to cefazolin - Improving RA - Leflunomide held while tx potential cellulitis above - Baseline pred continued, intermediate use with likely some degree of AI - Chronic steroid use, consider calcium supplementation as outpatient Lumbar stenosis 08/2020 MRI:1. Severe multilevel degenerative disc disease and facet arthrosis within the lumbar spine. Severe central canal stenosis at L3-L4 and L4-L5 and moderate to severe central canal stenosis at L2-L3. 2. Severe multilevel neural foraminal stenosis, as detail above. 3. Moderate levoscoliosis of the lumbar spine. No red flag symptoms, foot drop, saddle anesthesia, urinary retention but patient does have a stooped gait and periods of pain with radicular pain down into her right leg. Has outpatient follow-up already scheduled for pain management, would keep this - tight piriformis on exam; will plan to perform OMT to loosen piriformis tomorrow - Plan for PT moving forward at the [facility]; improving (2) Lumbar stenosis with neurogenic claudication: (3) Bilateral lower extremity edema: (4) Chronic venous insufficiency: (5) Lumbar radicular pain: Admission and Anticipated Discharge Date Admission Date: December 07, 2021 Supervising Physician Co-Signing Physician Notes I personally examined the patient and verified all naqvi points of history and exam, discussed case, and agree with decision making with Dr Shepherd. legs improving. no breathing trouble Vitals noted, in general she is awake and alert pleasant no distress. breathing unlabored no accesosry muscles good effort b/l LE edema improving, erythema still about the same, tenderness symmetric and about the same - with improved edema overall much improved Edema, abnormal chest x-ray, weakness and fatigueacute diastolic CHF versus all venous stasis fluid retention and decreased mobilityfollow closely, continue diuresis, follow basic metabolic panel, otherwise as above, follow closely. highly doubt infection - stop abx and follow DVT proph - lovenox otherwise as above Subjective Keshia is a pleasant 86 year old female with a past medical history of PE, chronic venous insufficiency, chronic venous stasis dermatitis, B/L lower extremity edema, and RA. She had been having trouble ambulating for the past 2 weeks and came to the hospital due to increasing leg pain, swelling, and falls. Additionally, she noticed serous discharge on her lower legs bilaterally and increased fatigue. She denies chest pain, dyspnea, or cough. She sleeps in a recliner secondary to back pain from RA. Today, she stated that she felt better. The pain in her legs has decreased and she no longer has pain in her abdomen. She is alert and oriented today as well, which improved from yesterday. On exam, the swelling on her lower legs has decreased significantly. There is no more serous discharge. 2+ edema is present at her ankles but resolves by mid- cagle. Erythema has decreased. Her legs are stave planer tender to touch. In summary, Keshia is an 86 year old female with a past medical history of PE, chronic venous insufficiency, chronic venous stasis dermatitis, B/L lower extremity edema, and RA who presented to the ED with a chief concern of increased leg pain, swelling, and falls. The pain and edema in her legs has decreased with diuretics and she is feeling better. Review of Systems Review of Systems: Const: Pleasant. NAD. HEENT: No headaches, dizziness, or blurred vision. Resp: No SOB or TRIMBLE. Cardio: No chest pain or pressure. GI: No nausea, vomiting, or diarrhea. : No dysuria. MS: No muscle pain or restricted motion. Skin: Legs, see HPI. Rest noncontributory. Neuro: No weakness. Psych: No homicidal or suicidal ideation. Endo: No polyphagia or polydipsia. Physical Exam Constitutional: WD/WN, vitals as above Eyes: PERRL, conjunctivae normal, anicteric sclerae Neck: trachea midline, no thyromegaly Respiratory: normal respiratory effort, lungs clear to auscultation Cardiovascular: RRR, no murmur, no edema Gastrointestinal (Abdomen): nontender Musculoskeletal: equal ROM bilaterally Skin: see HPI Neurologic: no focal neurologic deficits Psychiatric: A+Ox3, euthymic affect Results & Data Results & Data ([facility]) Vital Signs (Past 12 Hours) Vital Signs Temp Pulse Resp BP Pulse Ox O2 Del Method 12/09/21 11:41 37.0 C 62 18 118/67 93 Room Air 12/09/21 07:43 36.9 C 60 18 137/69 91 Room Air 12/09/21 04:21 36.9 C 60 18 144/70 H 92 Room Air
--- NOTE | 2021-12-09 16:17 | Billing Data ---
Date of Service December 09, 2021 Coding Level of Care Code 98963 Subseq Hosp Care Lvl 3
[2021-12-09] MEDS: ACETAMINOPHEN 325 MG TAB PO PRN (18:08)
[2021-12-09] MEDS: ENOXAPARIN INJ 40 MG/0.4 ML SYR SQ SCH (20:00)
[2021-12-10 06:59] LABS: Hematocrit (blood only) 35.6 % (34.1-44.9); Hemoglobin 11.3 g/dl (12.0-16.0); Mean Corpuscular Hemoglobin 29.4 pg (25.0-34.0); Mean Corpuscular Hgb Conc 31.7 g/dL (32.0-36.0); Mean Corpuscular Volume 92.7 fL (80.0-100.0); Mean Platelet Volume 10.6 fL (9.4-12.3); Platelet Count 239 K/uL (130-400); RDW Coefficient of Variation 13.9 % (11.5-14.5); Red Blood Count 3.84 M/uL (3.93-5.22); White Blood Count 7.72 K/ul (4.8-10.8)
--- NOTE | 2021-12-10 07:03 | Hospitalist Progress Note ---
Date of Service December 10, 2021 Assessment & Plan (1) CHF (congestive heart failure): Plan: Keshia is a 86-year-old female with a past medical history of falls, PE, chronic venous insufficiency, chronic venous stasis, rheumatoid arthritis, ambulatory dysfunction, and MSSA who presents with swelling, redness, and worsening pain and weeping of her legs bilaterally for 2 weeks but more on her right side.She has no history of CHF. Fluid Retention - 2 weeks swelling, redness, weeping wounds. Chest x-ray with new moderate pulmonary edema No prior history of CHF but has chronic LE edema. Patient does not have any chest pain/chest pressure. She is not sure if she has orthopnea as she cannot lay flat due to discomfort from her lumbar stenosis and RA -BNP is mildly elevated (138) Echo: EF>70% without wall motion abnormalities. 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 Severe multilevel degenerative disc disease and facet arthrosis within the lumbar spine. Severe central canal stenosis at L3-L4 and L4-L5 and moderate to severe central canal stenosis at L2-L3. 2. Severe multilevel neural foraminal stenosis, as detail above. 3. Moderate levoscoliosis of the lumbar spine. No red flag symptoms, foot drop, saddle anesthesia, urinary retention but patient does have a stooped gait and periods of pain with radicular pain down into her right leg. Has outpatient follow-up already scheduled for pain management, would keep this - tight piriformis on exam; - Plan for PT moving forward at the [facility]; improving (2) Lumbar stenosis with neurogenic claudication: (3) Bilateral lower extremity edema: (4) Chronic venous insufficiency: (5) Lumbar radicular pain: Admission and Anticipated Discharge Date Admission Date: December 07, 2021 Supervising Physician Co-Signing Physician Notes I personally examined the patient and verified all naqvi points of history and exam, discussed case, and agree with decision making with Dr Aragon. legs ongoing improvement. Vitals noted, in general she is awake and alert pleasant no distress. breathing unlabored no accesosry muscles good effort b/l LE edema improving, erythema fading - improving further Edema, abnormal chest x-ray, weakness and fatigueacute diastolic CHF versus all venous stasis fluid retention and decreased mobilityfollow closely, continue diuresis, follow basic metabolic panel, otherwise as above, follow closely. highly doubt infection - off abx showing improvement still. repeat CXR likely tomorrow DVT proph - lovenox otherwise as above Vi Schmitt is a pleasant 86 year old female with a past medical history of PE, chronic venous insufficiency, chronic venous stasis dermatitis, B/L lower extremity edema, and RA. She had been having trouble ambulating for the past 2 weeks and came to the hospital due to increasing leg pain, swelling, and falls. Additionally, she noticed serous discharge on her lower legs bilaterally and increased fatigue. She denies chest pain, dyspnea, or cough. She sleeps in a recliner secondary to back pain from RA. The patient notes that she is doing well today. No CP or SOB. She is peeing out a good amount of fluid. No concerns Physical Exam Physical Exam: Constitutional: well-appearing, no acute distress HEENT: NCAT, no conjunctival injection CV: regular rhythm, no murmur appreciated, Resp: Diminished breath sounds bilateral bases. MSK: no gross deformities appreciated Skin: erythema and chronic venous changes in lower extremity B/L with tenderness Neuro: alert, oriented, no focal neurologic deficit appreciated Results & Data Results & Data ([facility]) Vital Signs (Past 12 Hours) Vital Signs Temp Pulse Pulse Resp BP Pulse Ox O2 Del Method 12/10/21 03:21 36.6 C 59 L 18 160/70 H 92 Room Air 12/09/21 22:10 62 12/09/21 22:25 36.6 C 60 18 112/64 93 Room Air 12/09/21 20:07 37 C 60 18 130/68 93 Room Air Laboratory Results 12/10/21 12/10/21 Range/Units 06:45 06:45 WBC 7.72 (4.8-10.8) K/ul RBC 3.84 L (3.93-5.22) M/uL Hgb 11.3 L (12.0-16.0) g/dl Hct 35.6 (34.1-44.9) % MCV 92.7 (80.0-100.0) fL MCH 29.4 (25.0-34.0) pg MCHC 31.7 L (32.0-36.0) g/dL RDW Std Deviation 47.0 H (36.4-46.3) fL RDW Coeff of Cherie 13.9 (11.5-14.5) % Plt Count 239 (130-400) K/uL MPV 10.6 (9.4-12.3) fL Sodium 141 (136-145) mmol/L Potassium 3.9 (3.5-5.1) mmol/L Chloride 106 (98-107) mmol/L Carbon Dioxide 30 (21-32) mmol/L Anion Gap 5 (3-11) BUN 19 (6-23) mg/dl Creatinine 0.49 L (0.6-1.2) mg/dl Est Cr Clr Drug Dosing 66.4 ml/min Est GFR ( Amer) 103.0 ml/min Est GFR (Non-Af Amer) 88.8 ml/min BUN/Creatinine Ratio 38.8 H (10-20) Glucose 84 (70-99(Fasting)) mg/dl Calcium 8.5 (8.5-10.1) mg/dl Total Bilirubin 0.6 (0.2-1.0) mg/dl AST 24 (13-39) U/L ALT 13 (7-52) U/L Alkaline Phosphatase 73 (34-104) U/L Total Protein 5.3 L (6.0-8.3) gm/dl Albumin 2.9 L (3.4-5.0) gm/dl Globulin 2.4 L (2.5-4.0) gm/dl Albumin/Globulin Ratio 1.2 (0.9-2) Resident Activity Tracking Resident Involvement: Resident Care Provided Care Provided: [facility]
[2021-12-10 07:49] LABS: Albumin Globulin Ratio 1.2 (0.9-2); Albumin Level 2.9 gm/dl (3.4-5.0); BUN Creatinine Ratio 38.8 (10-20); Bilirubin,Total 0.6 mg/dl (0.2-1.0); Calcium 8.5 mg/dl (8.5-10.1); Creatinine Clr Calc Pharmacy 66.4 ml/min; Est GFR (Non-African American) 88.8 ml/min; Globulin 2.4 gm/dl (2.5-4.0); Potassium 3.9 mmol/L (3.5-5.1); Total Protein 5.3 gm/dl (6.0-8.3)
[2021-12-10] MEDS: predniSONE 1 MG TAB PO SCH (08:30)
[2021-12-10] MEDS: FUROSEMIDE INJ 20 MG/2 ML VIAL IV SCH (08:31)
--- NOTE | 2021-12-10 14:50 | Billing Data ---
Date of Service December 10, 2021 Coding Level of Care Code 56514 Subseq Hosp Care Lvl 3
--- NOTE | 2021-12-10 14:50 | Billing Data ---
Date of Service December 10, 2021 Coding Level of Care Code 07356 Subseq Hosp Care Lvl 3
[2021-12-10] MEDS: ENOXAPARIN INJ 40 MG/0.4 ML SYR SQ SCH (18:32)
[2021-12-10] MEDS: ACETAMINOPHEN 325 MG TAB PO PRN (18:33)
[2021-12-11 05:56] LABS: Hemoglobin 11.8 g/dl (12.0-16.0); Mean Corpuscular Hemoglobin 29.6 pg (25.0-34.0); Mean Corpuscular Hgb Conc 32.8 g/dL (32.0-36.0); Mean Corpuscular Volume 90.5 fL (80.0-100.0); Mean Platelet Volume 10.7 fL (9.4-12.3); Platelet Count 260 K/uL (130-400); RDW Coefficient of Variation 13.9 % (11.5-14.5); RDW Standard Deviation 46.5 fL (36.4-46.3); Red Blood Count 3.98 M/uL (3.93-5.22); White Blood Count 7.73 K/ul (4.8-10.8)
[2021-12-11 06:26] LABS: Albumin Globulin Ratio 1.3 (0.9-2); BUN Creatinine Ratio 42.9 (10-20); Bilirubin,Total 0.5 mg/dl (0.2-1.0); Calcium 8.6 mg/dl (8.5-10.1); Creatinine Clr Calc Pharmacy 66.4 ml/min; Est GFR (Non-African American) 88.8 ml/min; Globulin 2.4 gm/dl (2.5-4.0); Magnesium 2.1 mg/dl (1.7-2.4); Total Protein 5.4 gm/dl (6.0-8.3)
--- NOTE | 2021-12-11 06:45 | Hospitalist Progress Note ---
Date of Service December 11, 2021 Assessment & Plan (1) CHF (congestive heart failure): (2) Lumbar stenosis with neurogenic claudication: (3) Bilateral lower extremity edema: (4) Chronic venous insufficiency: (5) Lumbar radicular pain: Plan Keshia is a 86 y/o female with a past medical history of falls, PE, chronic venous insufficiency, chronic venous stasis, rheumatoid arthritis, ambulatory dysfunction, and MSSA who presents with swelling, redness, and worsening pain and weeping of her legs bilaterally for 2 weeks but more on her right side admitted for fluid retention and cellulitis who is significantly clinically improved and ready for discharge - awaiting placement in SNF at the [facility]. Fluid Retention Patient presented with 2 weeks swelling, redness, weeping wounds on her BLE R>L. No formal diagnosis of HF but has chronic BLE edema. CXR showed new moderate pulmonary edema. No CP/pressure. Uncertain if she has orthopnea as she is unable to lay flat 2/2 lumbar stenosis and RA. BNP mildly elevated at 138 on admission. Chest x-ray with new moderate pulmonary edema. Echo: EF>70% without wall motion abnormalities. No LVH, hyperdynamic systolic function. Doppler's negative for DVT. EKG without acute ST segment changes/signs of ischemia Etiology most likely a combination of venous insufficiency in addition to mild CHF. Lasix 20 mg IV daily. Continue compression dressings as tolerated Patient has been diuresed with significant improvement in leg swelling. Repeat CXR to eval pulmonary edema showed resolution of previous pulmonary edema, with continued small pleural effusions. Her fluid retention may be related to some degree of HF. Her EF is >70% and she has no formal diagnosis of heart failure. Recommended a CXR in one month, low sodium diet, and edema management with wound. There is no need for ongoing Lasix at this time. 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 Per the patient this was rapidly increasing over a few days prior to hospitalization to above her baseline. At the time of discharge her symptoms had improved significantly with resolution of her pain. RA Leflunomide held while tx potential cellulitis above. Baseline prednisone continued, care home use with likely some degree of AI. Resume home meds on discharge. Lumbar stenosis 08/2020 MRI: 1. Severe multilevel degenerative disc disease and facet arthrosis within the lumbar spine. Severe central canal stenosis at L3-L4 and L4-L5 and moderate to severe central canal stenosis at L2-L3. 2. Severe multilevel neural foraminal stenosis, as detail above. 3. Moderate levoscoliosis of the lumbar spine. No red flag symptoms, foot drop, saddle anesthesia, urinary retention but sarah salgado does have a stooped gait and periods of pain with radicular pain down into her right leg.Has outpatient follow-up already scheduled for pain management, would keep this. Plan for PT moving forward at the [facility] Diet: Heart Healthy VTE ppx: Lovenox Dispo: SNF at the [facility], Case management aware. Admission and Anticipated Discharge Date Admission Date: December 07, 2021 Supervising Physician Co-Signing Physician Notes I personally examined the patient and verified all naqvi points of history and exam, discussed case, and agree with decision making with Dr Aragon. legs doing well. Vitals noted, in general she is awake and alert pleasant no distress. breathing unlabored no accesosry muscles good effort b/l LE edema improving, erythema fading - improving further Edema, abnormal chest x-ray, weakness and fatigueacute diastolic CHF versus all venous stasis fluid retention and decreased mobilityCXR w improved edema, effusion persists - check as outpt. hold further diuresis - start compression at wound clinic appt sunday. DVT proph - lovenox otherwise as above, stable for [facility] as [facility] can accept Subjective Keshia is a pleasant 86 year old female with a past medical history of PE, chronic venous insufficiency, chronic venous stasis dermatitis, B/L lower extremity edema, and RA. She had been having trouble ambulating for the past 2 weeks and came to the hospital due to increasing leg pain, swelling, and falls. Additionally, she noticed serous discharge on her lower legs bilaterally and increased fatigue. She denies chest pain, dyspnea, or cough. She sleeps in a recliner secondary to back pain from RA. The patient notes that she is doing well today. No CP or SOB. No concerns. She would [facility] to go back [facility] the [facility]. Review of Systems Review of Systems: See above. Physical Exam Physical Exam: Constitutional: well-appearing, no acute distress HEENT: NCAT, no conjunctival injection CV: regular rhythm, no murmur appreciated, Resp: Diminished breath sounds bilateral bases. MSK: no gross deformities appreciated Skin: erythema and chronic venous changes in BLEs significantly improved. Neuro: alert, oriented, no focal neurologic deficit appreciated Results & Data Results & Data ([facility]) Vital Signs (Past 12 Hours) Vital Signs Temp Pulse Pulse Resp BP Pulse Ox O2 Del Method 12/11/21 03:34 36.7 C 65 18 173/67 H 93 Room Air 12/11/21 03:30 70 12/10/21 22:44 36.7 C 66 18 128/65 93 Room Air 12/10/21 19:15 36.3 C L 69 18 136/70 94 Room Air Laboratory Results 12/11/21 12/11/21 12/10/21 Range/Units 05:34 05:34 06:45 WBC 7.73 (4.8-10.8) K/ul RBC 3.98 (3.93-5.22) M/uL Hgb 11.8 L (12.0-16.0) g/dl Hct 36.0 (34.1-44.9) % MCV 90.5 (80.0-100.0) fL MCH 29.6 (25.0-34.0) pg MCHC 32.8 (32.0-36.0) g/dL RDW Std Deviation 46.5 H (36.4-46.3) fL RDW Coeff of Cherie 13.9 (11.5-14.5) % Plt Count 260 (130-400) K/uL MPV 10.7 (9.4-12.3) fL Sodium 141 141 (136-145) mmol/L Potassium 4.0 3.9 (3.5-5.1) mmol/L Chloride 106 106 (98-107) mmol/L Carbon Dioxide 32 30 (21-32) mmol/L Anion Gap 3 5 (3-11) BUN 21 19 (6-23) mg/dl Creatinine 0.49 L 0.49 L (0.6-1.2) mg/dl Est Cr Clr Drug Dosing 66.4 66.4 ml/min Est GFR ( Amer) 103.0 103.0 ml/min Est GFR (Non-Af Amer) 88.8 88.8 ml/min BUN/Creatinine Ratio 42.9 H 38.8 H (10-20) Glucose 88 84 (70-99(Fasting)) mg/dl Calcium 8.6 8.5 (8.5-10.1) mg/dl Magnesium 2.1 (1.7-2.4) mg/dl Total Bilirubin 0.5 0.6 (0.2-1.0) mg/dl AST 24 24 (13-39) U/L ALT 14 13 (7-52) U/L Alkaline Phosphatase 75 73 (34-104) U/L Total Protein 5.4 L 5.3 L (6.0-8.3) gm/dl Albumin 3.0 L 2.9 L (3.4-5.0) gm/dl Globulin 2.4 L 2.4 L (2.5-4.0) gm/dl Albumin/Globulin Ratio 1.3 1.2 (0.9-2) 12/10/21 Range/Units 06:45 WBC 7.72 (4.8-10.8) K/ul RBC 3.84 L (3.93-5.22) M/uL Hgb 11.3 L (12.0-16.0) g/dl Hct 35.6 (34.1-44.9) % MCV 92.7 (80.0-100.0) fL MCH 29.4 (25.0-34.0) pg MCHC 31.7 L (32.0-36.0) g/dL RDW Std Deviation 47.0 H (36.4-46.3) fL RDW Coeff of Cherie 13.9 (11.5-14.5) % Plt Count 239 (130-400) K/uL MPV 10.6 (9.4-12.3) fL Sodium (136-145) mmol/L Potassium (3.5-5.1) mmol/L Chloride (98-107) mmol/L Carbon Dioxide (21-32) mmol/L Anion Gap (3-11) BUN (6-23) mg/dl Creatinine (0.6-1.2) mg/dl Est Cr Clr Drug Dosing ml/min Est GFR ( Amer) ml/min Est GFR (Non-Af Amer) ml/min BUN/Creatinine Ratio (10-20) Glucose (70-99(Fasting)) mg/dl Calcium (8.5-10.1) mg/dl Magnesium (1.7-2.4) mg/dl Total Bilirubin (0.2-1.0) mg/dl AST (13-39) U/L ALT (7-52) U/L Alkaline Phosphatase (34-104) U/L Total Protein (6.0-8.3) gm/dl Albumin (3.4-5.0) gm/dl Globulin (2.5-4.0) gm/dl Albumin/Globulin Ratio (0.9-2) Diagnostic Findings CXR 12/11/21 FINDINGS: No lines and tubes are seen. The cardiomediastinal silhouette is normal. The lungs are clear. Small bilateral pleural effusions are seen. IMPRESSION: 1. Small bilateral pleural effusions are similar to prior exam. 2. Interval resolution of previously noted pulmonary edema. Resident Activity Tracking Resident Involvement: Resident Care Provided Care Provided: Adult Hospital Medicine
[2021-12-11] MEDS: FUROSEMIDE INJ 20 MG/2 ML VIAL IV SCH (07:09)
[2021-12-11] MEDS: predniSONE 1 MG TAB PO SCH (07:11)
--- NOTE | 2021-12-11 11:57 | XRay Report ---
XR chest 2V PA/lateral CLINICAL HISTORY: pulmonary edema TECHNIQUE: 2 views of the chest were obtained. Comparison: Comparison is made to chest radiograph 12/07/2021 FINDINGS: No lines and tubes are seen. The cardiomediastinal silhouette is normal. The lungs are clear. Small b ilateral pleural effusions are seen. IMPRESSION: 1. Small bilateral pleural effusions are similar to prior exam. 2. Interval resolution of previously noted pulmonary edema. ACT 112: Negative or not required by law. Electronically signed by: Remi Cai M.D. 12/11/2021 11:55 AM
[2021-12-11] MEDS: ENOXAPARIN INJ 40 MG/0.4 ML SYR SQ SCH (18:12)
--- NOTE | 2021-12-11 18:25 | Billing Data ---
Date of Service December 11, 2021 Coding Level of Care Code 42753 Subseq Hosp Care Lvl 2
--- NOTE | 2021-12-12 06:59 | Hospitalist Progress Note ---
Date of Service December 12, 2021 Assessment & Plan (1) CHF (congestive heart failure): (2) Lumbar stenosis with neurogenic claudication: (3) Bilateral lower extremity edema: (4) Chronic venous insufficiency: (5) Lumbar radicular pain: Plan Keshia is a 86 y/o female with a past medical history of falls, PE, chronic venous insufficiency, chronic venous stasis, rheumatoid arthritis, ambulatory dysfunction, and MSSA who presents with swelling, redness, and worsening pain and weeping of her legs bilaterally for 2 weeks but more on her right side admitted for fluid retention and cellulitis who is significantly clinically improved and ready for discharge - awaiting placement in SNF at the [facility]. Fluid Retention Patient presented with 2 weeks swelling, redness, weeping wounds on her BLE R>L. No formal diagnosis of HF but has chronic BLE edema. CXR showed new moderate pulmonary edema. No CP/pressure. Uncertain if she has orthopnea as she is unable to lay flat 2/2 lumbar stenosis and RA. BNP mildly elevated at 138 on admission. Chest x-ray with new moderate pulmonary edema. Echo: EF>70% without wall motion abnormalities. No LVH, hyperdynamic systolic function. Doppler's negative for DVT. EKG without acute ST segment changes/signs of ischemia. Etiology most likely a combination of venous insufficiency in addition to mild CHF. Lasix 20 mg IV daily. Continue compression dressings as tolerated Patient has been diuresed with significant improvement in leg swelling. Repeat CXR to eval pulmonary edema showed resolution of previous pulmonary edema, with continued small pleural effusions. Her fluid retention may be related to some degree of HF. Her EF is >70% and she has no formal diagnosis of heart failure. Recommended a CXR in one month, low sodium diet, and edema management with wound. There is no need for ongoing Lasix at this time. May consider PO lasix 20mg on discharge. 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 Per the patient this was rapidly increasing over a few days prior to hospitalization to above her baseline. At the time of discharge her symptoms had improved significantly with resolution of her pain. RA Leflunomide held while tx potential cellulitis above. Baseline prednisone continued, terminal makeup operator use with likely some degree of AI. Resume home meds on discharge. Lumbar stenosis 08/2020 MRI: 1. Severe multilevel degenerative disc disease and facet arthrosis within the lumbar spine. Severe central canal stenosis at L3-L4 and L4-L5 and moderate to severe central canal stenosis at L2-L3. 2. Severe multilevel neural foraminal stenosis, as detail above. 3. Moderate levoscoliosis of the lumbar spine. No red flag symptoms, foot drop, saddle anesthesia, urinary retention but patient does have a stooped gait and periods of pain with radicular pain down into her right leg.Has outpatient follow-up already scheduled for pain managem ent, would keep this. Plan for PT moving forward at the [facility] Diet: Heart Healthy VTE ppx: Lovenox Dispo: SNF at the [facility], Case management states a bed is available, awaiting auth and COVID test. Admission and Anticipated Discharge Date Admission Date: December 07, 2021 Vi Schmitt is a pleasant 86 year old female with a past medical history of PE, chronic venous insufficiency, chronic venous stasis dermatitis, B/L lower extremity edema, and RA. She had been having trouble ambulating for the past 2 weeks and came to the hospital due to increasing leg pain, swelling, and falls. Additionally, she noticed serous discharge on her lower legs bilaterally and i ncreased fatigue. She denies chest pain, dyspnea, or cough. She sleeps in a recliner secondary to back pain from RA. The patient was seen and examined at bedside. Today she notes she is doing well, states she is not having pain or weeping from the legs. Denies any chest pain, SOB, dizziness. Today she states she is ready to go back to [place]. Review of Systems Review of Systems: As per HPI Physical Exam Skin: Erythema on bilateral lower extremities, chronic venous changes. No weeping or fluid leakage. Nonpitting edema. Results & Data Results & Data ([facility]) Vital Signs (Past 12 Hours) Vital Signs Temp Pulse Pulse Resp BP Pulse Ox O2 Del Method 12/12/21 02:50 36.9 C 71 18 123/63 91 Room Air 12/11/21 22:21 36.8 C 67 18 134/66 94 Room Air 12/11/21 22:57 59 L 12/11/21 19:26 36.8 C 69 18 111/68 94 Room Air Resident Activity Tracking Resident Involvement: Resident Care Provided Care Provided: Adult [facility] Medicine
[2021-12-12] MEDS: FUROSEMIDE INJ 20 MG/2 ML VIAL IV SCH (08:45)
[2021-12-12] MEDS: predniSONE 1 MG TAB PO SCH (08:48)
--- NOTE | 2021-12-12 13:08 | Discharge Summary ---
Date of Service December 12, 2021 Admission HPI Per Admitting Provider Keshia is a 86-year-old female with a past medical history of falls, PE, chronic venous insufficiency, chronic venous stasis, rheumatoid arthritis, ambulatory dysfunction, and MSSA who presents with swelling, redness, and worsening pain and weeping of her legs bilaterally for 2 weeks but more on her right side. She has no history of CHF. Keshia is seen with her and daughter at the bedside. She reporots she has had pain in her legs R more than the L. Starts at her hip and goes to the ankle and is rheumatoid arthritis and that has not changed. She has had increased swelling in both legs R>l over the last 2 weeks. Has had progressive strength loss and falls/slumps to the ground with fatigue in the last week. Sleeps all th etime. Cannot sleep laying flat due to her RA pain, has not tried in many years so is not sure about orthopnea. Tries to elevate legs occasionally, but rarely can due to her RA pain. On prednisone and leflunomide for RA. Uses compression devices at home BID to try and held with swelling, but recent swelling and pain has prevented their use. Start worsening quickly compared to last 9 months. Does see wound care for chronic stasis ulcers. No chest pain or chest pressure No fevers/chills/sweats No cough, URI symptoms No pain with urination. Has not noticed any chagnes in urination No known diet change, no known salt load include broth/soup/processed meat. Does eat a few crackers for lunch some days, but that has not changed in a long time. Medical History: Reviewed Medications: Reviewed. Took this AM. Surgical History: Reviewed Allergies: Reviewed Social History: No current or former tobacco use, no alcohol use. Code Status: Surrogate DM would be , #[phone] (home), #[phone] (cell). Admission Exam Per Admitting Provider General: A&Ox3. NAD. Cooperative. HEENT: Atraumatic, normocephalic. Vision and hearing grossly intact Pulm: Basilar crackles present. Symmetrical chest rise. No increase in work of breathing. No respiratory distress. Cardiac: RRR, -mrg. Radial pulses intact and symmetrical. Abdominal: Nontender, nondistended, soft. BS present. Extremities: Bilateral pitting edema through the knees. Bilateral venous stasis ulcerations with weeping, there is right greater than left warmth/erythema/tenderness. Sensation of soft touch is intact in the ankles bilaterally. Principal Diagnosis Fluid overload/CHF Discharge Exam Constitutional WD/WN, vitals as above Neck normal visual inspection Respiratory normal respiratory effort some diminished breath sounds in bilateral lung bases Cardiovascular RRR, no murmur, no edema Vessels: no JVD Gastrointestinal (Abdomen) Percussion/Palpation: abdomen soft; abdomen nontender Skin Chronic venous changes and some erythema on bilateral lower extremities, no weeping or fluid leakage. Discharge Data Allergies Allergy/AdvReac Type Severity Reaction Status Date / Time No Known Allergies Allergy Verified 12/07/21 17:12 Consultations 12/07/21 16:25 ED Decision to Admit Stat Ordered Studies 12/07/21 13:15 US venous doppler LE Stat Hospital Course (1) CHF (congestive heart failure): (2) Lumbar stenosis with neurogenic claudication: (3) Bilateral lower extremity edema: (4) Chronic venous insufficiency: (5) Lumbar radicular pain: Leanne Schmitt is a 86 y/o female with a past medical history of falls, PE, chronic venous insufficiency, chronic venous stasis, rheumatoid arthritis, ambulatory dysfunction, and MSSA who presents with swelling, redness, and worsening pain and weeping of her legs bilaterally for 2 weeks but more on her right side admitted for fluid retention and cellulitis who is significantly clinically improved and ready for discharge - awaiting placement in SNF at the [facility]. Acute HFpEF Patient presented with 2 weeks swelling, redness, weeping wounds on her BLE R>L. No formal diagnosis of HF but has chronic BLE edema. CXR showed new moderate pulmonary edema. No CP/pressure. Uncertain if she has orthopnea as she is unable to lay flat 2/2 lumbar stenosis and RA. BNP mildly elevated at 138 on admission. Chest x-ray with new moderate pulmonary edema. Echo: EF>70% without wall motion abnormalities. No LVH, hyperdynamic systolic function. Doppler's negative for DVT. EKG without acute ST segment changes/signs of ischemia. Etiology most likely a combination of venous insufficiency in addition to mild CHF. Patient has been diuresed with significant improvement in leg swelling with Lasix 20 mg IV daily and compression dressings. She appears euvolemic, no JVD or crackles on lung auscultation on day of discharge. CXR showed improvement in pulmonary edema. She will start PO lasix 20mg on discharge (first dose tomorrow 12/13), recommend repeat BMP 1-2 weeks after discharge. 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 Per the patient this was rapidly increasing over a few days prior to hospitalization to above her baseline. At the time of discharge her symptoms had improved significantly with resolution of her pain. Was treated with 3 days of ceftriaxone and then cefazolin for 1 day until antibiotics were discontinued as infection seemed less likely due to her improvement with diuresis. RA Leflunomide held while tx potential cellulitis above. 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 Resume home meds on discharge. Lumbar stenosis 08/2020 MRI: 1. Severe multilevel degenerative disc disease and facet arthrosis within the lumbar spine. Severe central canal stenosis at L3-L4 and L4-L5 and moderate to severe central canal stenosis at L2-L3. 2. Severe multilevel neural foraminal stenosis, as detail above. 3. Moderate levoscoliosis of the lumbar spine. No red flag symptoms, foot drop, saddle anesthesia, urinary retention but patient does have a stooped gait and periods of pain with radicular pain down into her right leg.Has outpatient follow-up already scheduled for pain management, would keep this. Plan for PT moving forward at the [facility] Diet: Heart Healthy VTE ppx: Lovenox Total Time Total Time Spent Total Time Spent (In Minutes): . Discharge Plan Discharge Items Patient Disposition: Transfer Assisted Fac Reason For Visit: CHF/VOLUME OVERLOAD, CELLULITIS Discharge Diagnosis: CHF/volume overload, cellulitis Activity: Per Instructions section Non-emergency contact: Primary Care Provider Call non-emergency contact if: your symptoms worsen and your temperature is above 101 Follow-up/Referrals: Nael Senior MD [Primary Care Provider] - Diet: Heart Healthy Addtl Attending Provider Instructions: Keshia is a 86 y/o female with a past medical history of falls, PE, chronic venous insufficiency, chronic venous stasis, rheumatoid arthritis, ambulatory dysfunction, and MSSA who presents with swelling, redness, and worsening pain and weeping of her legs bilaterally for 2 weeks but more on her right side admitted for fluid retention and cellulitis who is significantly clinically improved and ready for discharge - (the [facility]) SNF at the [facility]. Fluid Retention Patient presented with 2 weeks swelling, redness, weeping wounds on her BLE R>L. No formal diagnosis of HF but has chronic BLE edema. CXR showed new moderate pulmonary edema. No CP/pressure. Uncertain if she has orthopnea as she is unable to lay flat 2/2 lumbar stenosis and RA. BNP mildly elevated at 138 on admission. Chest x-ray with new moderate pulmonary edema. Echo: EF>70% without wall motion abnormalities. No LVH, hyperdynamic systolic function. Doppler's negative for DVT. EKG without acute ST segment changes/signs of ischemia. Today she appears euvolemic. Etiology most likely a combination of venous insufficiency in addition to mild CHF. Lasix 20 mg IV daily. Continue compression dressings as tolerated. Sent prescription for Lasix 20mg PO, first dose tomorrow 12/13. Patient has been diuresed with significant improvement in leg swelling. Repeat CXR to eval pulmonary edema showed resolution of previous pulmonary edema, with continued small pleural effusions. Her fluid retention may be related to some degree of HF. Her EF is >70% and she has no formal diagnosis of heart failure. Recommended a CXR in one month, low sodium diet, and edema management with wound. 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 Per the patient this was rapidly increasing over a few days prior to hospitalization to above her baseline. At the time of discharge her symptoms had improved significantly with resolution of her pain. Was treated with 3 days of ceftriaxone and then cefazolin for 1 day until antibiotics were discontinued as infection seemed less likely due to her improvement with diuresis. RA Leflunomide held while tx potential cellulitis above. Baseline prednisone continued, [facility] use with likely some degree of AI. Resume home meds on discharge. Lumbar stenosis 08/2020 MRI: 1. Severe multilevel degenerative disc disease and facet arthrosis within the lumbar spine. Severe central canal stenosis at L3-L4 and L4-L5 and moderate to severe central canal stenosis at L2-L3. 2. Severe multilevel neural foraminal stenosis, as detail above. 3. Moderate levoscoliosis of the lumbar spine. No red flag symptoms, foot drop, saddle anesthesia, urinary retention but patient does have a stooped gait and periods of pain with radicular pain down into her right leg.Has outpatient follow-up already scheduled for pain management, would keep this. Plan for PT moving forward at the [facility] -Continue eating low sodium diet -Sent prescription for po lasix, will start first dose tomorrow morning (12/13) -Continue home medications -Follow up with PCP within 1 week of discharge from SNF Pending Studies at Discharge: No Stand-Alone Forms: My [facility] Skilled Items Patient informed of condition?: Yes DNR: Yes Discharge Level of Care: Skilled Communicable Disease: No Discharge Prognosis: Stable Lines: None Urinary Catheter: No Medications and DC Order Prescriptions: New furosemide [Lasix] 20 mg tablet 20 mg PO DAILY Qty: 14 0RF Continued leflunomide [Arava] 20 mg tablet 20 mg PO QAM cholecalciferol (vitamin D3) 75 mcg (3,000 unit) tablet 75 mcg PO QAM multivitamin Tablet 1 tab PO QAM prednisone 1 mg tablet 2 mg PO QAM Discharge Orders: Discharge Order (Routine); Ordered 12/12/21 Ordered By: Alva Suarez/Other Patient Handouts: Taking a Diuretic, Cellulitis Dc, ED Leg Swellin g in Both Legs Admission Data Admit Date/Time: 12/07/21 16:27 Attending Provider: Didi Escalante Admit Provider: Jono Toledo Primary Care Provider: Nael Senior Other Providers: Jono Toledo ; Kojo Escobar Other Interventions: Discharge Summary Assessment (RN) Last Done: 12/12/21 13:58 Supervising Physician Co-Signing Physician Notes Resident Physician Supervision Note: I independently interviewed and examined the patient and verified the naqvi history and physical, reviewed labs and image studies and agree with resident findings and care plan.
== END 2021-12-12 16:18 | DRG 292 ==
LOC: ED 11:25 → SUATTDRO 16:27 → 2N 16:27
DX: M48.062 Spinal stenosis, lumbar region with neurogenic claudication; I83.212 Varicose veins of right lower extremity with both ulcer of calf and inflammation; R26.9 Unspecified abnormalities of gait and mobility; L97.229 Non-pressure chronic ulcer of left calf with unspecified severity; Z91.81 History of falling; Z66 Do not resuscitate; Z86.19 Personal history of other infectious and parasitic diseases; L97.219 Non-pressure chronic ulcer of right calf with unspecified severity; Z79.52 Long term (current) use of systemic steroids; L03.115 Cellulitis of right lower limb; M06.9 Rheumatoid arthritis, unspecified; Z79.899 Other long term (current) drug therapy; I83.222 Varicose veins of left lower extremity with both ulcer of calf and inflammation; Z86.711 Personal history of pulmonary embolism; I50.31 Acute diastolic (congestive) heart failure

== ENCOUNTER 2022-08-12 12:43 | Inpatient (IN) ==
--- NOTE | 2022-08-12 12:46 | Emergency Department Note ---
Impression & Plan Chronic venous stasis dermatitis of both lower extremities, Acute respiratory failure with hypoxia, Dyspnea ED Provider Note NAME: ISAURA STACY AGE: 87 SEX: F : 1935 ARRIVES VIA: Ambulance INFORMANT: Patient, ED PROVIDER(S): Prashant Donald MD CHIEF COMPLAINT: Shortness of breath MEDICAL DECISION MAKING: Patient presents due to concern for worsening shortness of breath. IV was established blood work is obtained along with a BNP chest x-ray and the patient was placed on supplemental nasal cannula as the patient's baseline oxygen saturation on room air was in the low 80s. Patient is a normal white count H&H and platelet count with normal kidney function and electrolytes. Patient's BNP is elevated 149 chest x-ray does show pulmonary edema. The patient was ordered IV Lasix. Patient does have redness of bilateral lower extremities which does not appear significantly changed per family at bedside. Will defer antibiotic treatment to the inpatient service. I did speak the on-call hospitalist Dr. Toledo and the patient was admitted to the medicine service. Critical Care: I have personally spent 42 minutes of critical care time in direct management of this patient. This includes bedside care, interpretation of diagnostic studies, and testing, discussion with consultants, patient, and family members, and other require inpatient management activities. This 42 minutes is in excess of all separately billable procedures. Prior /Outside records reviewed: I did review the patient's medication list from the [facility]. Differential diagnosis: Reactive airway disease, pneumonia, pneumothorax, COPD, CHF, infections, cardiac ischemia, pulmonary embolism, musculoskeletal, gastrointestinal, as well as other pathologies. Diagnostics, as interpreted by me: ECG: Sinus, rate of 74 normal intervals normal axis no obvious ST elevations, T wave version in V3 Cardiac monitoring: An order was placed for continuous cardiac monitoring. The monitor shows a rate of 75 with sinus rhythm. Patient was placed on pulse oximetry Medical decision rules: None Imaging studies: See below HPI: Patient presents due to concern for increasing shortness of breath over the last 2 days. The patient was noted to be hypoxemic. Patient denies any cough or fever. Patient does have a known history of heart failure. Reportedly the patient has not been taking her diuretic medication for the last several days. The patient is to be taking Lasix. No recent falls or trauma. Patient does hav e leg swelling. Patient denies any fevers or chills and has no chest pain or pressure. Patient has noticed mild increase in her leg swelling. Patient denies any pain in the legs. No known sick contacts. [facility] [place] [facility] PAST MEDICAL HISTORY: See Below PAST SURGICAL HISTORY: See Below SOCIAL HISTORY: See Below HOME MEDICATIONS: See Below ALLERGIES: See Below VITALS: See Below PHYSICAL EXAMINATION: GENERAL: Nontoxic, nasal cannula in place EYE EXAM: Normal conjunctiva. PERRL, no anisocoria and EOM's grossly intact w/o pain. NECK: Supple, no nuchal rigidity, no adenopathy, non-tender. No signs of meningismus. FROM of the neck with good chin to chest and neck extension. No stridor. LUNGS: Decreased breath sounds at the bilateral bases with crackles noted normal chest wall mechanics. HEART: NSR, no MRG. ABDOMEN: Abdomen soft, non-tender, no masses, no rebound or guarding. BACK: No CVA TTP. SKIN: No rashes and no bruising. UPPER EXTREMITIES: Upper extremities are grossly normal. LOWER EXTREMITIES: Grossly normal, 2+ bilateral lower extremity edema with bilateral erythema. No calf pain NEURO EXAM: A&O x3, cranial nerves II-XII grossly intact, normal speech, moves all 4 extremities. Past Med/Surg History Medical History Basal cell carcinoma Chronic venous stasis dermatitis of both lower extremities Closed left radial fracture DJD (degenerative joint disease) H/O fracture of hip H/O mitral valve prolapse Lumbar radicular pain Non-healing surgical wound Osteopenia Rheumatoid arthritis Somnolence Surgical History H/O foot surgery H/O wrist surgery S/P appendectomy S/P cholecystectomy Family History Father COPD (chronic obstructive pulmonary disease) Silicosis Mother , age 97 No problems noted. Social History Smoking Status: Never smoker Second Hand Exposure: No; Do You Dip or Chew Tobacco: No; Tobacco Cessation Education Requested by Patient: No Hx Alcohol Use: No Hx Substance Use: No Preferred Language: Sinhala Communication Ability: Effective Visual Impairment: Limited Hearing Ability: Normal Utilization Review Nurse Required: No Beliefs That Will Affect Care: None marital status: Current Living Situation: Spouse Current Living Situation Comment: Lives w/ at [facility] in independent living current occupational status: retired How many Children do You have: 1 Other Information That Helps Us Care for You: No Feels Safe at Home: Yes Safety Concerns: Feels Safe At This Time Diet: regular Assistive Devices: Cane, Denture - Upper, Denture - Lower and Walker Allergies Allergies Allergy/AdvReac Type Severity Reaction Status Date / Time No Known Allergies Allergy Verified 08/12/22 16:51 Home Meds Home Medications Medication Instructions Recorded Confirmed leflunomide 20 mg tablet (Arava) 20 mg PO QAM 03/04/19 08/12/22 acetaminophen 650 mg 0 mg PO Q8 PRN Pain 08/12/22 08/12/22 tablet,extended release (Tylenol Arthritis Pain) cholecalciferol (vitamin D3) 50 50 mcg PO DAILY 08/12/22 08/12/22 mcg (2,000 unit) tablet (Vitamin D3) ibuprofen 200 mg tablet 400 - 600 mg PO Q6H PRN Pain 08/12/22 08/12/22 metronidazole 1 % topical gel 1 applic topical DAILY PRN .. 08/12/22 08/12/22 (Metrogel) multivitamin 1 tab PO DAILY 08/12/22 08/12/22 oxybutynin chloride 5 mg tablet 5 mg PO DIRECTED PRN .urinary 08/12/22 08/12/22 pain prednisone 1 mg tablet 2 - 3 mg PO DIRECTED 08/12/22 08/12/22 Previous Rx's Medication Instructions Recorded furosemide 20 mg tablet (Lasix) 20 mg PO DAILY #14 tabs 12/12/21 nortriptyline 10 mg capsule 10 mg PO .QHS #30 caps 07/05/22 Results & Data (ED) Vital Signs Vital Signs - 24 hr 08/12/22 12:57 08/12/22 12:59 08/12/22 13:23 Temperature 36.7 C Temperature Source Oral Pulse Rate 86 79 Pulse Rate [Apical] Pulse Rhythm [Apical] Pulse Strength [Apical] Respiratory Rate 24 Respiratory Effort / Characteristics Short of Breath Spontaneous Short of Breath Respiratory Depth Normal Normal Respiratory Pattern Regular Blood Pressure 154/71 H Blood Pressure [Right Arm] Blood Pressure Mean 98 Blood Pressure Mean [Right Arm] Blood Pressure Position Lying Blood Pressure Position [Right Arm] Pulse Oximetry 83 L Oxygen Delivery Method Room Air Nasal Cannula Oxygen Flow Rate Sepsis New/Unexplained Change in Mental Status N/A Sepsis Action Taken by Nursing No Action Required 08/12/22 13:08/12/22 14:43 Temperature Temperature Source Pulse Rate Pulse Rate [Apical] 65 Pulse Rhythm [Apical] Regular Pulse Strength [Apical] Normal Respiratory Rate 22 Respiratory Effort / Characteristics Non-Labored Short of Breath Respiratory Depth Normal Respiratory Pattern Regular Blood Pressure Blood Pressure [Right Arm] 159/81 H Blood Pressure Mean Blood Pressure Mean [Right Arm] 107 Blood Pressure Position Blood Pressure Position [Right Arm] Lying Pulse Oximetry 92 Oxygen Delivery Method Nasal Cannula Nasal Cannula Oxygen Flow Rate 3 Sepsis New/Unexplained Change in Mental Status Sepsis Action Taken by [facility] Medications Current Medication List: was personally reviewed by me Laboratory Data Attestation: I reviewed the patient's lab results. 08/12/22 13:09 08/12/22 13:09 Lab Results 08/12/22 08/12/22 08/12/22 Range/Units 13:09 13:09 13:09 WBC 7.35 (4.8-10.8) K/ul RBC 4.11 L (4.20-5.40) M/uL Hgb 12.1 (12.0-16.0) g/dl Hct 37.1 (37.0-47.0) % MCV 90.3 (80.0-100.0) fL MCH 29.4 (25.0-34.0) pg MCHC 32.6 (32.0-36.0) g/dL RDW Std Deviation 46.2 (36.4-46.3) fL RDW Coeff of Cherie 13.9 (11.5-14.5) % Plt Count 382 (130-400) K/uL MPV 10.4 (9.4-12.4) fL Immature Gran % (Auto) 0.4 % Neut % (Auto) 69.7 % Lymph % (Auto) 10.7 % Norman % (Auto) 10.9 % Eos % (Auto) 6.9 % Baso % (Auto) 1.4 % Neut # (Auto) 5.12 (1.40-6.50) K/uL Lymph # (Auto) 0.79 L (1.2-3.4) K/uL Norman # (Auto) 0.80 H (0.11-0.59) K/uL Eos # (Auto) 0.51 H (0-0.50) K/uL Baso # (Auto) 0.10 (0-0.2) K/uL Immature Gran # (Auto) 0.03 (0.01-0.20) K/uL PT 11.1 (9.0-12.0) Seconds INR 1.0 (0.9-1.1) APTT 28.3 (21.0-31.0) Seconds PTT Ratio 1.0 VBG pH (7.36-7.41) VBG pCO2 (38-50) mmHg VBG pO2 mmHg VBG HCO3 mmol/L VBG O2 Saturation % VBG Base Excess mEq/L Sodium (136-145) mmol/L Potassium (3.5-5.1) mmol/L Chloride (98-107) mmol/L Carbon Dioxide (21-32) mmol/L Anion Gap (3-11) BUN (6-23) mg/dl Creatinine (0.6-1.2) mg/dl Est Cr Clr Drug Dosing Est GFR ( Amer) ml/min Est GFR (Non-Af Amer) ml/min BUN/Creatinine Ratio (10-20) Glucose (70-99(Fasting)) mg/dl Calcium (8.6-10.3) mg/dl Magnesium (1.7-2.4) mg/dl Total Bilirubin (0.2-1.0) mg/dl AST (13-39) U/L ALT (7-52) U/L Alkaline Phosphatase (34-104) U/L Troponin I High Sens (0-14) pg/ml B-Natriuretic Peptide 149 H (0-100) pg/ml Total Protein (6.0-8.3) gm/dl Albumin (3.4-5.0) gm/dl Globulin (2.5-4.0) gm/dl Albumin/Globulin Ratio (0.9-2) Adenovirus (PCR) (NotDetected) B. pertussis DNA (PCR) (NotDetected) B.parapertussis DNA PCR (NotDetected) C. pneumoniae DNA (PCR) (NotDetected) Coronavirus OC43 (PCR) (NotDetected) Coronavirus HKU1 (PCR) (NotDetected) Coronavirus 229E (PCR) (NotDetected) SARS-CoV-2 (PCR) (NotDetected) Coronavirus NL63 (PCR) (NotDetected) Human Metapneumovir PCR (NotDetected) Influenza Type A (PCR) (NotDetected) Influenza Type B (PCR) (NotDetected) M. pneumoniae (PCR) (NotDetected) Parainfluenza 1 (PCR) (NotDetected) Parainfluenza 2 (PCR) (NotDetected) Parainfluenza 3 (PCR) (NotDetected) Parainfluenza 4 (PCR) (NotDetected) RSV (PCR) (NotDetected) Entero/Rhino (PCR) (NotDetected) 08/12/22 08/12/22 08/12/22 Range/Units 13:09 13:24 13:35 WBC (4.8-10.8) K/ul RBC (4.20-5.40) M/uL Hgb (12.0-16.0) g/dl Hct (37.0-47.0) % MCV (80.0-100.0) fL MCH (25.0-34.0) pg MCHC (32.0-36.0) g/dL RDW Std Deviation (36.4-46.3) fL RDW Coeff of Cherie (11.5-14.5) % Plt Count (130-400) K/uL MPV (9.4-12.4) fL Immature Gran % (Auto) % Neut % (Auto) % Lymph % (Auto) % Norman % (Auto) % Eos % (Auto) % Baso % (Auto) % Neut # (Auto) (1.40-6.50) K/uL Lymph # (Auto) (1.2-3.4) K/uL Norman # (Auto) (0.11-0.59) K/uL Eos # (Auto) (0-0.50) K/uL Baso # (Auto) (0-0.2) K/uL Immature Gran # (Auto) (0.01-0.20) K/uL PT (9.0-12.0) Seconds INR (0.9-1.1) APTT (21.0-31.0) Seconds PTT Ratio VBG pH 7.44 H (7.36-7.41) VBG pCO2 39 (38-50) mmHg VBG pO2 41 mmHg VBG HCO3 27 mmol/L VBG O2 Saturation 71.9 % VBG Base Excess 2.3 mEq/L Sodium 143 (136-145) mmol/L Potassium 3.6 (3.5-5.1) mmol/L Chloride 110 H (98-107) mmol/L Carbon Dioxide 27 (21-32) mmol/L Anion Gap 6 (3-11) BUN 19 (6-23) mg/dl Creatinine 0.70 (0.6-1.2) mg/dl Est Cr Clr Drug Dosing Not Reportable Est GFR ( Amer) 90.9 ml/min Est GFR (Non-Af Amer) 78.5 ml/min BUN/Creatinine Ratio 27.1 H (10-20) Glucose 102 H (70-99(Fasting)) mg/dl Calcium 8.7 (8.6-10.3) mg/dl Magnesium 1.9 (1.7-2.4) mg/dl Total Bilirubin 0.5 (0.2-1.0) mg/dl AST 25 (13-39) U/L ALT 12 (7-52) U/L Alkaline Phosphatase 88 (34-104) U/L Troponin I High Sens 12.8 (0-14) pg/ml B-Natriuretic Peptide (0-100) pg/ml Total Protein 6.2 (6.0-8.3) gm/dl Albumin 3.0 L (3.4-5.0) gm/dl Globulin 3.2 (2.5-4.0) gm/dl Albumin/Globulin Ratio 0.9 (0.9-2) Adenovirus (PCR) Not Detected (NotDetected) B. pertussis DNA (PCR) Not Detected (NotDetected) B.parapertussis DNA PCR Not Detected (NotDetected) C. pneumoniae DNA (PCR) Not Detected (NotDetected) Coronavirus OC43 (PCR) Not Detected (NotDetected) Coronavirus HKU1 (PCR) Not Detected (NotDetected) Coronavirus 229E (PCR) Not Detected (NotDetected) SARS-CoV-2 (PCR) Not Detected (NotDetected) Coronavirus NL63 (PCR) Not Detected (NotDetected) Human Metapneumovir PCR Not Detected (NotDetected) Influenza Type A (PCR) Not Detected (NotDetected) Influenza Type B (PCR) Not Detected (NotDetected) M. pneumoniae (PCR) Not Detected (NotDetected) Parainfluenza 1 (PCR) Not Detected (NotDetected) Parainfluenza 2 (PCR) Not Detected (NotDetected) Parainfluenza 3 (PCR) Not Detected (NotDetected) Parainfluenza 4 (PCR) Not Detected (NotDetected) RSV (PCR) Not Detected (NotDetected) Entero/Rhino (PCR) Not Detected (NotDetected) Administered Medications Enoxaparin Sodium (Enoxaparin Inj 40 Mg/0.4 Ml Syr) 40 mg SQ Q24H SUMAN Stop: 09/11/22 15:42 Last Admin: 08/12/22 21:15 Dose: 40 mg Documented By: NINA Nortriptyline HCl (Nortriptyline Hcl 10 Mg Cap) 10 mg PO HS SUMAN Stop: 09/11/22 20:59 Last Admin: 08/12/22 21:15 Dose: 10 mg Documented By: NINA Potassium Chloride (Potassium Chloride Crtab 20 Meq Tabcr) 20 meq PO BID SUMAN Stop: 09/11/22 15:14 Last Admin: 08/12/22 16:24 Dose: 20 meq Documented By: RICKEY Discontinued Medications Furosemide (Furosemide 40 Mg/4 Ml Vial) 40 mg IV ONE ONE Stop: 08/12/22 14:36 Last Admin: 08/12/22 14:50 Dose: 40 mg Documented By: RICKEY Miscellaneous (Patient's Height &/Or Weight Needed) 1 each N/A NOW STA Stop: 08/12/22 16:14 Last Admin: 08/12/22 19:37 Dose: 1 each Documented By: NINA Imaging Data Radiologist's Impression: Chest X-Ray 08/12/22 13:13 XR chest 1V portable HISTORY: Dyspnea COMPARISON: Chest 12/11/2021. FINDINGS: No pneumothorax. Rotated study. The cardiac silhouette is enlarged. This has increased in size. Interval progression of the pulmonary edema and small to moderate bilateral pleural effusions. Bibasilar densities are noted. IMPRESSION: 1. Interval progression of the pulmonary edema and small to moderate bilateral pleural effusions. 2. Bibasilar densities have also progressed and favor atelectasis from the pleural effusions. ACT 112: Negative or not required by law. Electronically signed by: Collin Sprague M.D. 08/12/2022 2:05 PM Discharge Plan Visit Data Chief Complaint: Shortness of Breath/Dyspnea Stated Complaint: shortness of breath since yesterday ED Provider: Prashant Donald Discharge Problem: Chronic venous stasis dermatitis of both lower extremities, Acute respiratory failure with hypoxia, Dyspnea Patient Disposition: Admitted As Inpatient Discharge Instructions Interventions: ED Discharge Assessment Last Done: 08/12/22 15:37
[2022-08-12 13:28] LABS: Basophils % (auto) 1.4 %; Eosinophils # (auto) 0.51 K/uL (0-0.50); Eosinophils % (auto) 6.9 %; Hematocrit (blood only) 37.1 % (37.0-47.0); Hemoglobin 12.1 g/dl (12.0-16.0); Immature Granulocytes # (auto) 0.03 K/uL (0.01-0.20); Immature Granulocytes % (auto) 0.4 %; Lymphocytes # (auto) 0.79 K/uL (1.2-3.4); Lymphocytes % (auto) 10.7 %; Mean Corpuscular Hemoglobin 29.4 pg (25.0-34.0); Mean Corpuscular Hgb Conc 32.6 g/dL (32.0-36.0); Mean Corpuscular Volume 90.3 fL (80.0-100.0); Mean Platelet Volume 10.4 fL (9.4-12.4); Monocytes % (auto) 10.9 %; Neutrophils # (auto) 5.12 K/uL (1.40-6.50); Neutrophils % (auto) 69.7 %; Platelet Count 382 K/uL (130-400); RDW Coefficient of Variation 13.9 % (11.5-14.5); RDW Standard Deviation 46.2 fL (36.4-46.3); Red Blood Count 4.11 M/uL (4.20-5.40); White Blood Count 7.35 K/ul (4.8-10.8)
[2022-08-12 13:39] LABS: Base Excess VBG 2.3 mEq/L; HCO3 VBG 27 mmol/L; Oxygen Saturation VBG 71.9 %; PCO2 VBG 39 mmHg (38-50); PO2 VBG 41 mmHg; pH VBG 7.44 (7.36-7.41)
[2022-08-12 13:45] LABS: Alanine Aminotransferase 12 U/L (7-52); Albumin Globulin Ratio 0.9 (0.9-2); Alkaline Phosphatase 88 U/L (34-104); Anion Gap 6 (3-11); Aspartate Aminotransferase 25 U/L (13-39); BUN Creatinine Ratio 27.1 (10-20); Bilirubin,Total 0.5 mg/dl (0.2-1.0); Blood Urea Nitrogen 19 mg/dl (6-23); Calcium 8.7 mg/dl (8.6-10.3); Carbon Dioxide 27 mmol/L (21-32); Chloride 110 mmol/L (98-107); Est GFR (African American) 90.9 ml/min; Est GFR (Non-African American) 78.5 ml/min; Globulin 3.2 gm/dl (2.5-4.0); Glucose 102 mg/dl (70-99(Fasting)); Magnesium 1.9 mg/dl (1.7-2.4); Potassium 3.6 mmol/L (3.5-5.1); Sodium 143 mmol/L (136-145); Total Protein 6.2 gm/dl (6.0-8.3)
[2022-08-12 13:50] LABS: Troponin I High Sensitivity 12.8 pg/ml (0-14)
[2022-08-12 14:04] LABS: Partial Thromboplastin Time 28.3 Seconds (21.0-31.0); Prothrombin Time 11.1 Seconds (9.0-12.0)
--- NOTE | 2022-08-12 14:06 | XRay Report ---
XR chest 1V portable HISTORY: Dyspnea COMPARISON: Chest 12/11/2021. FINDINGS: No pneumothorax. Rotated study. The cardiac silhouette is enlarged. This has increased in s ize. Interval progression of the pulmonary edema and small to moderate bilateral pleural effusions. B ibasilar densities are noted. IMPRESSION: 1. Interval progression of the pulmonary edema and small to moderate bilateral pleural effusions. 2. Bibasilar densities have also progressed and favor atelectasis from the pleural effusions. ACT 112: Negative or not required by law. Electronically signed by: Collin Sprague M.D. 08/12/2022 2:05 PM
--- NOTE | 2022-08-12 14:25 | History & Physical Report ---
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 No valvular abnormalities appreciated. Small pericardial effusion noted, mild pulmonary hypertension RVSP 43 mmHg Baseline EKG 11/2021 sinus bradycardia with short NE of 106, QTc 397, no T wave inversions or ST abnormalities. Admitting EKG: Sinus with short NE of 110 ms, QTc 404, no T wave inversions or acute ST segment changes. Prominent physiologic arrhythmia versus PACs, suspect sinus arrhythmia with tachypnea Bio fire negative Lasix BID17, titrate for net output of 1.5 L daily Strict ins and outs Low-salt diet History of venous stasis With increased risk for infection due to weeping lower extremity wounds and venous stasis. 4/ cultures positive for Proteus mirabilis, 9/ cultures positive for corynebacterium. 1/22 cultures positive for MSSA with clindamycin/erythromycin resistance 11/2020 positive for Serratia marcescens, 09/2020 positive for pansensitive E. coli. 2 other episodes of MSSA noted in 2019 and 2018 Vascular duplex 06/2022 with noncompressible ABIs likely due to calcifications, multiphasic waveforms of all 4 pedal pulses, stable from prior On clinical exam has some erythema, but they are not warm/tender and with no purulence. Findings are symmetrical. With normal leukocytosis, low suspicion for cellulitis will defer antibiotics. Procalcitonin is pending. RA Leflunomide continued, hold if cellulitis is suspected Ambulatory dysfunction, lumbar radiculopathy Last steroid burst 03/2022 then decreased to 2 mg daily dose. Saw pain clinic 07/05. Nortriptyline with concern for excessive morning somnolence, dose was decreased to 10 mg at that time but patient was instructed may increase back to 25 if needed at that time. Pending next follow-up in 3-4 months At baseline at time of admission, no acute radicular symptoms Disposition: Medical telemetry for acute CHF CODE STATUS: DNR/DNI Diet: Low-salt DVT prophylaxis: Lovenox (2) (HFpEF) heart failure with preserved ejection fraction: (3) Venous stasis ulcers of both lower extremities: (4) Rheumatoid arthritis: History of Present Illness Primary Care Provider: Nael Senior MD Keshia is an 87-year-old female with a past medical history of diastolic CHF, mild pulmonary hypertension, chronic leg edema with chronic venous insufficiency s/p venous ablation, and rheumatoid arthritis who presents by ambulance for evaluation of acute hypoxic respiratory failure and shortness of breath. Keshia is seen with her daughter and at the bedside. Daughter reports she was SoB on the phone x2 days, came to visit today and noted that Keshia was having much more exercise fatigue, shortness of breath, and difficulty breathing than normal. No chest pain or chest pressure. No fevers/chills/sweats. Gets cold easily. +chronic venous stasis with L>R leg swelling at baseline. +increase in swelling bilaterally, no significant chagne in asymmetry per pt and daughter. No calf pain. No LE pain. Has been followed by wound care for weeping LE. Daughter lives in [place], Keshia lives in [facility] independent living. No other sick contacts. +weight gain, unsure of how much. +fatigue with some lightheadedness with ambulation last 2 days. No syncope. Has had falls due to R leg giving out chronically, no recent change. Per her they do not follow salt at home, does have at least 1 can of Progresso soup per day which is not specifically low-salt Medical History: Reviewed Medications: Reviewed Surgical History: Reviewed Family history: Reviewed Allergies: Reviewed Social History: No tobacco, etoh. Code Status: DNR/DNI Allergies Allergy/AdvReac Type Severity Reaction Status Date / Time No Known Allergies Allergy Verified 08/04/22 13:11 Home Medications Medication Instructions Recorded Confirmed Type leflunomide 20 mg tablet (Arava) 20 mg PO QAM 03/04/19 08/04/22 History prednisone 1 mg tablet 2 mg PO QAM 10/19/20 08/04/22 History cholecalciferol (vitamin D3) 75 75 mcg PO QAM 07/06/21 08/04/22 History mcg (3,000 unit) tablet furosemide 20 mg tablet (Lasix) 20 mg PO DAILY #14 tabs 12/12/21 08/04/22 Rx nortriptyline 10 mg capsule 10 mg PO .QHS #30 caps 07/05/22 08/04/22 Rx ammonium lactate 5 % lotion 1 applic topical DAILY 30 days 07/21/22 07/21/22 Rx (Lac-Hydrin Five) #226 grams Past Med/Surg History Medical History Basal cell carcinoma Chronic venous stasis dermatitis of both lower extremities Closed left radial fracture DJD (degenerative joint disease) H/O fracture of hip H/O mitral valve prolapse Lumbar radicular pain Non-healing surgical wound Osteopenia Rheumatoid arthritis Somnolence Surgical History H/O foot surgery H/O wrist surgery S/P appendectomy S/P cholecystectomy Family History Father COPD (chronic obstructive pulmonary disease) Silicosis Mother , age 97 No problems noted. Social History Smoking Status: Never smoker Hx Alcohol Use: No Hx Substance Use: No Preferred Language: Guyanese Communication Ability: Effective Visual Impairment: Limited Hearing Ability: Normal Element Burner Required: No Beliefs That Will Affect Care: None marital status: Current Living Situation: Spouse and Personal Care Facility Current Living Situation Comment: Pt and spouse live at [facility] at [facility] current occupational status: retired How many Children do You have: 1 Feels Safe at Home: Yes Diet: regular Assistive Devices: Cane Review of Systems Review of Systems: All systems reviewed & are unremarkable except as noted in HPI & below Physical Exam Physical Exam: General: A&Ox3. NAD. Cooperative. HEENT: Atraumatic, normocephalic. Vision/hearing intact Pulm: Diminished bibasilarly, basilar rales bilaterally symmetrical chest rise. No increased work of breathing. No respiratory distress. Cardiac: RRR, +sm. Radial pulses intact and symmetrical. Abdominal: Nontender, nondistended, soft. BS present. Ext: Bilateral lower extremity pitting edema through the knee. Chronic venous stasis changes, mild erythema of the lower extremities bilaterally but this is not tender or warm, and is symmetrical. No purulence Results & Data Results & Data Vital Signs (Past 12 Hours) Vital Signs Temp Pulse Resp BP Pulse Ox O2 Del Method 08/12/22 13:23 Nasal Cannula 08/12/22 13:23 Nasal Cannula 08/12/22 12:59 79 08/12/22 12:57 36.7 C 86 24 154/71 H 83 L Room Air PG Care Time/CCT Total # of Minutes Spent Total Time Spent with Patient: Total time spent is greater than 50% in coordination of care (as documented) at patient's floor/unit and/or counseling patient: Coding Level of Care Code 40480 INT INP/OBS CARE 3/75MIN Diagnoses Acute respiratory failure with hypoxia J96.01 (HFpEF) heart failure with preserved ejection fraction I50.30 Venous stasis ulcers of both lower extremities I83.019; I83.029; L97.919; L97.929 Rheumatoid arthritis M06.9
[2022-08-12 14:35] LABS: Adenovirus PCR Not Detected (NotDetected); Bordetella parapertussis PCR Not Detected (NotDetected); Bordetella pertussis PCR Not Detected (NotDetected); Chlamydia pneumoniae PCR Not Detected (NotDetected); Coronavirus 229E PCR Not Detected (NotDetected); Coronavirus CoV-2 (COVID19)PCR Not Detected (NotDetected); Coronavirus HKU1 PCR Not Detected (NotDetected); Coronavirus NL63 PCR Not Detected (NotDetected); Coronavirus OC43PCR Not Detected (NotDetected); Human Metapneumovirus PCR Not Detected (NotDetected); Influenza A PCR Not Detected (NotDetected); Influenza B PCR Not Detected (NotDetected); Mycoplasma pneumoniae PCR Not Detected (NotDetected); Parainfluenza Virus 1 PCR Not Detected (NotDetected); Parainfluenza Virus 2 PCR Not Detected (NotDetected); Parainfluenza Virus 3 PCR Not Detected (NotDetected); Parainfluenza Virus 4 PCR Not Detected (NotDetected); Respiratory Syncytial VirusPCR Not Detected (NotDetected); Rhinovirus/Enterovirus PCR Not Detected (NotDetected)
[2022-08-12] MEDS ORDERED: FUROSEMIDE 40 MG/4 ML VIAL IV ONE (14:35)
[2022-08-12] MEDS ORDERED: Patient's HEIGHT &/or WEIGHT Needed STA (16:13)
[2022-08-12] MEDS: POTASSIUM CHLORIDE CRTAB 20 MEQ TABCR PO SCH (16:24)
--- NOTE | 2022-08-12 16:24 | Electrocardiogram Report ---
Test Reason : Blood Pressure : / mmHG Vent. Rate : 074 BPM Atrial Rate : 074 BPM P-R Int : 110 ms QRS Dur : 084 ms QT Int : 364 ms P-R-T Axes : 038 069 024 degrees QTc Int : 404 ms Sinus rhythm with Premature atrial complexes Low voltage QRS Borderline ECG When compared with ECG of 07-DEC-2021 12:53, Premature atrial complexes are now Present Confirmed by Dmitriy Redd ([id number]) on 08/12/2022 4:23:32 PM Referred By: REFERRED SELF Confirmed By:Chon Redd
[2022-08-12 19:51] LABS: Appearance Urine Clear (Clear); Bilirubin Urine Negative (Negative); Blood Urine Negative (Negative); Color Urine Yellow; Glucose Urine UA Negative (Negative); Ketones Urine Negative (Negative); Leukocyte Esterase Urine Negative (Negative); Nitrite Urine Negative (Negative); Protein Urine Negative (Negative); Specific Gravity Urine 1.008 (1.000-1.030); Urobilinogen Urine Negative (Negative)
[2022-08-12] MEDS: ENOXAPARIN INJ 40 MG/0.4 ML SYR SQ SCH ×2 (20:17→21:15)
[2022-08-12] MEDS: NORTRIPTYLINE HCL 10 MG CAP PO SCH (21:15)
[2022-08-13] MEDS: FUROSEMIDE 40 MG/4 ML VIAL IV SCH ×2 (07:30→16:16)
[2022-08-13] MEDS: predniSONE 1 MG TAB PO SCH (07:32)
[2022-08-13] MEDS: LEFLUNOMIDE 10 MG TAB PO SCH (07:32)
[2022-08-13] MEDS: POTASSIUM CHLORIDE CRTAB 20 MEQ TABCR PO SCH ×2 (07:36→20:27)
[2022-08-13 08:20] LABS: Basophils # (auto) 0.09 K/uL (0-0.2); Basophils % (auto) 1.1 %; Eosinophils # (auto) 0.44 K/uL (0-0.50); Eosinophils % (auto) 5.6 %; Hematocrit (blood only) 39.2 % (37.0-47.0); Hemoglobin 12.8 g/dl (12.0-16.0); Immature Granulocytes # (auto) 0.04 K/uL (0.01-0.20); Immature Granulocytes % (auto) 0.5 %; Lymphocytes # (auto) 0.82 K/uL (1.2-3.4); Lymphocytes % (auto) 10.4 %; Mean Corpuscular Hemoglobin 28.8 pg (25.0-34.0); Mean Corpuscular Hgb Conc 32.7 g/dL (32.0-36.0); Mean Corpuscular Volume 88.1 fL (80.0-100.0); Mean Platelet Volume 10.4 fL (9.4-12.4); Monocytes # (auto) 0.73 K/uL (0.11-0.59); Monocytes % (auto) 9.3 %; Neutrophils # (auto) 5.75 K/uL (1.40-6.50); Neutrophils % (auto) 73.1 %; Platelet Count 376 K/uL (130-400); RDW Coefficient of Variation 13.6 % (11.5-14.5); RDW Standard Deviation 43.8 fL (36.4-46.3); Red Blood Count 4.45 M/uL (4.20-5.40); White Blood Count 7.87 K/ul (4.8-10.8)
[2022-08-13 08:40] LABS: Calcium 8.6 mg/dl (8.6-10.3); Creatinine Clr Calc Pharmacy 45.3 ml/min; Est GFR (African American) 93.6 ml/min; Est GFR (Non-African American) 80.8 ml/min; Potassium 4.1 mmol/L (3.5-5.1)
--- NOTE | 2022-08-13 13:22 | Hospitalist Progress Note ---
Date of Service August 13, 2022 Assessment & Plan (1) Acute respiratory failure with hypoxia: Plan: Continue oxygen per nasal cannula to maintain saturation greater than 90%. Wean off as tolerated as CHF improves. (2) (HFpEF) heart failure with preserved ejection fraction: Plan: Acute diastolic CHF present on admission. Continue Lasix diuresis. Monitor intake and output. We will repeat portable chest x-ray tomorrow, August 14 (3) Venous stasis ulcers of both lower extremities: Plan: Contributing to chronic edema. Support measures (4) Rheumatoid arthritis: Plan: Prednisone dependent (5) Ambulatory dysfunction: Plan: OT and PT assessments requested (6) Acute diastolic CHF (congestive heart failure): Plan: Continue parenteral Lasix diuresis. Monitor intake and output. Serial chest x- ray every 2 days Plan To be determined by OT and PT assessments. Hopefully she can go home but she may need SNF placement temporarily Admission and Anticipated Discharge Date Admission Date: August 12, 2022 Subjective Alert and oriented. No acute distress. Good diuretic response thus far to parenteral Lasix. Last cardiac echo was in the fall 2021 which revealed normal ejection fraction. This appears to be acute diastolic CHF. Continue oxygen per nasal cannula to maintain saturation greater than 90%. Wean off as tolerated. We will repeat portable chest x-ray tomorrow, August 14 Review of Systems Review of Systems: Constitutional-no fever or chills ENT-no blurred vision, no double vision, no epistaxis, no sore throat Respiratory-no cough, no wheezing. Dyspnea on exertion Cardiac-no palpitations, no chest pain, no syncope GI-no nausea, vomiting, diarrhea, melena, hematochezia -no urinary retention, no urinary incontinence, no dysuria, no hematuria Musculoskeletal-no joint pain, no muscle tenderness Skin-no bruising, no rashes, no pruritus Neuro-no isolated weakness, no paresthesia, no weakness Psych-no depression, no anxiety Physical Exam Physical Exam: General-alert and oriented x3, no fevers, no chills HEENT-head atraumatic and normocephalic, pupils equal and reactive to light, extraocular muscles intact Neck-no lymphadenopathy or thyromegaly, trachea midline Chest-bibasilar inspiratory rales. No wheezing. No rhonchi Cardiac-regular rate and rhythm, normal S1 and S2 Abdomen-normal bowel sounds, nontender, no hepatosplenomegaly Extremities-mild peripheral edema both legs below the knees Neuro-cranial nerves II through XII intact, motor and sensory function within normal limits, strength symmetrical, no focal deficits Psych-normal affect, normal mood Results & Data Results & Data Vital Signs (Past 12 Hours) Vital Signs Temp Pulse Pulse Resp BP Pulse Ox O2 Del Method 08/13/22 11:12 37.0 C 65 20 114/65 90 Nasal Cannula 08/13/22 09:00 Nasal Cannula 08/13/22 07:22 37.0 C 69 18 147/68 H 90 Nasal Cannula 08/13/22 07:19 67 08/13/22 04:00 36.6 C 70 18 132/69 92 Nasal Cannula O2 Flow Rate 08/13/22 11:12 3.5 08/13/22 09:00 3.5 08/13/22 07:22 3.5 08/13/22 07:19 08/13/22 04:00 3 Laboratory Results 08/13/22 07:51 08/13/22 07:51 PG Care Time/CCT Total # of Minutes Spent Total Time Spent with Patient: Total time spent is greater than 50% in coordination of care (as documented) at patient's floor/unit and/or counseling patient: Coding Level of Care Code 12490 SUB INP/OBS CARE 3/50MIN Diagnoses Acute respiratory failure with hypoxia J96.01 (HFpEF) heart failure with preserved ejection fraction I50.30 Venous stasis ulcers of both lower extremities I83.019; I83.029; L97.919; L97.929 Rheumatoid arthritis M06.9 Ambulatory dysfunction R26.2 Acute diastolic CHF (congestive heart failure) I50.31
[2022-08-13] MEDS: ENOXAPARIN INJ 40 MG/0.4 ML SYR SQ SCH (16:16)
--- NOTE | 2022-08-13 16:53 | XCELERA ---
[id number]
[2022-08-13] MEDS: NORTRIPTYLINE HCL 10 MG CAP PO SCH (20:27)
[2022-08-14 07:52] LABS: Basophils # (auto) 0.08 K/uL (0-0.2); Basophils % (auto) 0.9 %; Eosinophils % (auto) 4.5 %; Hematocrit (blood only) 39.8 % (37.0-47.0); Hemoglobin 12.8 g/dl (12.0-16.0); Immature Granulocytes # (auto) 0.05 K/uL (0.01-0.20); Immature Granulocytes % (auto) 0.6 %; Lymphocytes # (auto) 0.83 K/uL (1.2-3.4); Lymphocytes % (auto) 9.4 %; Mean Corpuscular Hemoglobin 28.7 pg (25.0-34.0); Mean Corpuscular Hgb Conc 32.2 g/dL (32.0-36.0); Mean Corpuscular Volume 89.2 fL (80.0-100.0); Mean Platelet Volume 10.4 fL (9.4-12.4); Monocytes % (auto) 10.2 %; Neutrophils % (auto) 74.4 %; Platelet Count 375 K/uL (130-400); RDW Coefficient of Variation 13.9 % (11.5-14.5); Red Blood Count 4.46 M/uL (4.20-5.40); White Blood Count 8.86 K/ul (4.8-10.8)
[2022-08-14 08:38] LABS: BUN Creatinine Ratio 24.7 (10-20); Calcium 8.6 mg/dl (8.6-10.3); Creatinine Clr Calc Pharmacy 39.7 ml/min; Est GFR (African American) 86.4 ml/min; Est GFR (Non-African American) 74.6 ml/min
[2022-08-14] MEDS: POTASSIUM CHLORIDE CRTAB 20 MEQ TABCR PO SCH ×2 (08:48→20:47)
[2022-08-14] MEDS: predniSONE 1 MG TAB PO SCH (08:48)
[2022-08-14] MEDS: LEFLUNOMIDE 10 MG TAB PO SCH (08:48)
[2022-08-14] MEDS: FUROSEMIDE 40 MG/4 ML VIAL IV SCH ×2 (08:48→16:56)
--- NOTE | 2022-08-14 09:21 | XRay Report ---
XR chest 1V portable CLINICAL HISTORY: CHF COMPARISON STUDY: Chest CT October 19, 2020. Chest radiograph August 12, 2022. FINDINGS: Moderate left and [id number] right pleural effusions are similar to prior exam. Ther e are associated bibasilar opacities. There is persistent pulmonary edema. Cardiomegaly is unchanged. There is no pneumothorax. There has been no significant change in appearance of the chest. IMPRESSION: No significant change in appearance of the chest. Persistent pulmonary edema with moderat e left and [id number] right pleural effusions with associated bibasilar opacities. ACT 112: Negative or not required by law. Electronically signed by: Mahin Brewster M.D. 08/14/2022 9:19 AM
--- NOTE | 2022-08-14 10:04 | Hospitalist Progress Note ---
Date of Service August 14, 2022 Assessment & Plan (1) Acute respiratory failure with hypoxia: Plan: Acute Continue oxygen per nasal cannula to maintain saturation greater than 90%. Wean off as tolerated as CHF improves. Currently on 3L and saturating in low 90s (2) (HFpEF) heart failure with preserved ejection fraction: Plan: Acute diastolic CHF present on admission. Echo revealed - No significant valvular heart disease, EF 60-65%, Large left pleural effusion. Continue Lasix diuresis. Monitor intake and output. Repeat CXR with no significant change in pulmonary edema. Images look slightly improved when compared to 08/12/22. Echo revealed No significant valvular heart disease, EF 60-65%, Large left pleural effusion. Per patient she feels her breathing has improved and per her dtr who was at bedside stated her mother did nt seem nearly as SOB as she did prior to admission. Discussed her large left pleural effusion and possible need for a thoracentesis if increased or had worsening SOB and Dyspnea but since her symptoms are improving will continue to diurese. (3) Venous stasis ulcers of both lower extremities: Plan: Chronic Contributing to chronic edema. Support measures (4) Rheumatoid arthritis: Plan: Chronic and stable Prednisone dependent (5) Ambulatory dysfunction: Plan: OT and PT assessments requested (6) Acute diastolic CHF (congestive heart failure): Plan: Continue parenteral Lasix diuresis. Monitor intake and output. Serial chest x- ray every 2 days Plan To be determined by OT and PT assessments. Hopefully she can go home but she may need SNF placement temporarily Admission and Anticipated Discharge Date Admission Date: August 12, 2022 Subjective Alert and oriented. No acute distress. Good diuretic response thus far to parenteral Lasix. Currently on O2 3L/min and saturating in low 90s. Wean off as tolerated. Review of Systems Review of Systems: Constitutional-no fever or chills ENT-no blurred vision, no double vision, no epistaxis, no sore throat Respiratory-no cough, no wheezing. Dyspnea on exertion Cardiac-no palpitations, no chest pain, no syncope GI-no nausea, vomiting, diarrhea, melena, hematochezia -no urinary retention, no urinary incontinence, no dysuria, no hematuria Musculoskeletal-no joint pain, no muscle tenderness Skin-no bruising, no rashes, no pruritus Neuro-no isolated weakness, no paresthesia, no weakness Psych-no depression, no anxiety Results & Data Results & Data Vital Signs (Past 12 Hours) Vital Signs Temp Pulse Pulse Resp BP Pulse Ox O2 Del Method 08/14/22 08:00 Nasal Cannula 08/14/22 09:30 69 08/14/22 07:39 36.8 C 67 18 129/74 91 Nasal Cannula 08/14/22 03:20 37 C 71 16 118/73 91 Nasal Cannula 08/13/22 23:03 37 C 71 16 119/64 90 Nasal Cannula 08/13/22 22:03 69 O2 Flow Rate 08/14/22 08:00 3 08/14/22 09:30 08/14/22 07:39 3.5 08/14/22 03:20 3 08/13/22 23:03 3.5 08/13/22 22:03 PG Care Time/CCT Total # of Minutes Spent Total Time Spent with Patient: Total time spent is greater than 50% in coordination of care (as documented) at patient's floor/unit and/or counseling patient: Coding Level of Care Code 43810 SUB INP/OBS CARE 2/35MIN Diagnoses Acute respiratory failure with hypoxia J96.01 (HFpEF) heart failure with preserved ejection fraction I50.30 Venous stasis ulcers of both lower extremities I83.019; I83.029; L97.919; L97.929 Rheumatoid arthritis M06.9 Ambulatory dysfunction R26.2 Acute diastolic CHF (congestive heart failure) I50.31
[2022-08-14] MEDS: ENOXAPARIN INJ 40 MG/0.4 ML SYR SQ SCH (16:54)
[2022-08-14] MEDS: NORTRIPTYLINE HCL 10 MG CAP PO SCH (20:47)
[2022-08-15 07:17] LABS: Calcium 9.2 mg/dl (8.6-10.3); Potassium 4.3 mmol/L (3.5-5.1)
[2022-08-15 07:23] LABS: BUN Creatinine Ratio 32.4 (10-20); Creatinine Clr Calc Pharmacy 42.7 ml/min; Est GFR (African American) 91.8 ml/min; Est GFR (Non-African American) 79.2 ml/min
[2022-08-15 07:50] LABS: Hematocrit (blood only) 41.7 % (37.0-47.0); Hemoglobin 13.7 g/dl (12.0-16.0); Mean Corpuscular Hgb Conc 32.9 g/dL (32.0-36.0); Mean Corpuscular Volume 88.2 fL (80.0-100.0); Platelet Count 287 K/uL (130-400); RDW Coefficient of Variation 13.9 % (11.5-14.5); RDW Standard Deviation 44.4 fL (36.4-46.3); Red Blood Count 4.73 M/uL (4.20-5.40); White Blood Count 7.57 K/ul (4.8-10.8)
[2022-08-15 07:51] LABS: Basophils # (auto) 0.09 K/uL (0-0.2); Basophils % (auto) 1.2 %; Echinocytes 2+; Eosinophils # (auto) 0.39 K/uL (0-0.50); Eosinophils % (auto) 5.2 %; Immature Granulocytes # (auto) 0.06 K/uL (0.01-0.20); Immature Granulocytes % (auto) 0.8 %; Lymphocytes # (auto) 0.92 K/uL (1.2-3.4); Lymphocytes % (auto) 12.2 %; Monocytes # (auto) 0.83 K/uL (0.11-0.59); Neutrophils # (auto) 5.28 K/uL (1.40-6.50); Neutrophils % (auto) 69.6 %; Platelet Estimate Normal (Normal)
[2022-08-15] MEDS: FUROSEMIDE 40 MG/4 ML VIAL IV SCH ×3 (08:14→17:56)
[2022-08-15] MEDS: LEFLUNOMIDE 10 MG TAB PO SCH (08:14)
[2022-08-15] MEDS: predniSONE 1 MG TAB PO SCH (08:14)
[2022-08-15] MEDS: POTASSIUM CHLORIDE CRTAB 20 MEQ TABCR PO SCH ×2 (08:14→20:45)
[2022-08-15] MEDS ORDERED: HYDROCORTISONE SOD 50 MG in SYRINGE 0 ML IV ONE (13:00)
[2022-08-15] MEDS ORDERED: HYDROCORTISONE SOD SUCCINATE 100 MG/2 ML VIAL IV STA (13:00)
--- NOTE | 2022-08-15 13:02 | Hospitalist Progress Note ---
Date of Service August 15, 2022 Assessment & Plan (1) Acute respiratory failure with hypoxia: Plan: 2nd to #1 Cannot rule out infectious etiology of lungs Checked sed rate and crp - both elevated; may suggest pneumonia Start IV unasyn Cont diuresis (2) (HFpEF) heart failure with preserved ejection fraction: Plan: Continues to examine volume overloaded. Cont IV lasix BID. BUN and Cr stable. TSH wnl. No h/o cirrhosis to add to volume overload. Echo this admission with preserved EF, normal LV wall motion, and normal RV function. Normal valve function as well. No dysrhythmias by history. (3) Somnolence: Plan: Etiology uncertain Checked VBG - no hypercarbia TSH wnl B12 wnl Ammonia wnl CT head negative for acute or chronic findings Sed rate and crp checked -- both elevated Are some of her lung findings due to infectious etiology?? If there is pneumonia component will add IV unasyn Nortriptyline could be contributing to somnolence - consider d/c of such (4) Venous stasis ulcers of both lower extremities: Plan: resolved/healed saw wound care clinic about 10 days ago and was told she can f/u prn (5) Rheumatoid arthritis: Plan: Chronic Prednisone dependent - on 2mg daily Will give a dose of hydrocortisone IV x 1 now for stress dose purposes (6) Ambulatory dysfunction: Plan: Cont PT/OT Lives with her at home who is also having ambulatory difficulties (7) DVT prophylaxis: Plan: lovenox 40mg daily (8) Chronic renal failure (CRF), stage 3b: Plan: CrCl at baseline 30s/low 40s BMP daily due to ongoing lasix diuresis Cr thus far stable Plan extensively updated at bedside Admission and Anticipated Discharge Date Admission Date: August 12, 2022 Subjective during the visit the patient was fast asleep she did wake up when I called her name she stated "I feel fine" and quickly would fall back asleep was at bedside he reports for several months she has had dramatic episodes of falling asleep when she does she is hard to wake she often sleeps 12+ hours each day since hospital admission her eating has been poor pt's denies any recent or current cough patient was able to tell me she does not feel short of breath tele overnight NSR pt's has not noted any dysphagia or overt signs of aspiration Review of Systems Review of Systems: difficult to obtain full ROS due to sleepiness but denies abd pain, chest pain, dyspnea, feeling poorly Physical Exam Physical Exam: gen - slumped over in bed but does wake up when her name is called; NAD skin - severe seborrhea of scalp, ears, upper chest; dry skin on back eyes - PERRL neck - no obvious JVD heart - RRR, s1 s2 lungs - diffuse rales b/l bases, no increased work of breathing abd - soft but slightly distended, BS+, NT ext - b/l foot deformities; venous stasis changes b/l shins; no open ulcer; 1+ edema b/l; pulses 2+ b/l psych - sleepy but able to answer questions, a/o to person/place/year neuro - no asterixis Results & Data Results & Data Vital Signs (Past 12 Hours) Vital Signs Temp Pulse Pulse Resp BP Pulse Ox O2 Del Method 08/15/22 12:58 56 L 08/15/22 11:31 36.6 C 61 18 121/62 93 Nasal Cannula 08/15/22 07:36 36.6 C 57 L 18 157/68 H 97 Nasal Cannula 08/15/22 07:22 59 L 08/15/22 04:33 36.7 C 64 18 133/70 92 Nasal Cannula O2 Flow Rate 08/15/22 12:58 08/15/22 11:31 2 08/15/22 07:36 2 08/15/22 07:22 08/15/22 04:33 2 Laboratory Results Laboratory Results - last 48 hr 08/15/22 08/15/22 08/15/22 06:14 06:14 10:56 WBC 7.57 RBC 4.73 Hgb 13.7 Hct 41.7 MCV 88.2 MCH 29.0 MCHC 32.9 RDW Std Deviation 44.4 RDW Coeff of Cherie 13.9 Plt Count 287 MPV 12.0 Immature Gran % (Auto) 0.8 Neut % (Auto) 69.6 Lymph % (Auto) 12.2 [place] % (Auto) 11.0 Eos % (Auto) 5.2 Baso % (Auto) 1.2 Neut # (Auto) 5.28 Lymph # (Auto) 0.92 L [place] # (Auto) 0.83 H Eos # (Auto) 0.39 Baso # (Auto) 0.09 Immature Gran # (Auto) 0.06 Platelet Estimate Normal Echinocytes 2+ ESR VBG pH VBG pCO2 VBG pO2 VBG HCO3 VBG O2 Saturation VBG Base Excess Sodium 137 Potassium 4.3 Chloride 100 Carbon Dioxide 31 Anion Gap 6 BUN 22 Creatinine 0.68 Est Cr Clr Drug Dosing 42.7 Est GFR ( Amer) 91.8 Est GFR (Non-Af Amer) 79.2 BUN/Creatinine Ratio 32.4 H Glucose 86 Calcium 9.2 Magnesium Ammonia C-Reactive Protein Vitamin B12 TSH 1.529 08/15/22 08/15/22 08/15/22 14:25 14:25 14:25 WBC RBC Hgb Hct MCV MCH MCHC RDW Std Deviation RDW Coeff of Cherie Plt Count MPV Immature Gran % (Auto) Neut % (Auto) Lymph % (Auto) [place] % (Auto) Eos % (Auto) Baso % (Auto) Neut # (Auto) Lymph # (Auto) [place] # (Auto) Eos # (Auto) Baso # (Auto) Immature Gran # (Auto) Platelet Estimate Echinocytes ESR 79 H VBG pH VBG pCO2 VBG pO2 VBG HCO3 VBG O2 Saturation VBG Base Excess Sodium Potassium Chloride Carbon Dioxide Anion Gap BUN Creatinine Est Cr Clr Drug Dosing Est GFR ( Amer) Est GFR (Non-Af Amer) BUN/Creatinine Ratio Glucose Calcium Magnesium 2.2 Ammonia 36.0 C-Reactive Protein 7.13 H Vitamin B12 TSH 08/15/22 08/15/22 14:25 14:25 WBC RBC Hgb Hct MCV MCH MCHC RDW Std Deviation RDW Coeff of Cherie Plt Count MPV Immature Gran % (Auto) Neut % (Auto) Lymph % (Auto) [place] % (Auto) Eos % (Auto) Baso % (Auto) Neut # (Auto) Lymph # (Auto) [place] # (Auto) Eos # (Auto) Baso # (Auto) Immature Gran # (Auto) Platelet Estimate Echinocytes ESR VBG pH 7.49 H VBG pCO2 50 VBG pO2 54 VBG HCO3 38 VBG O2 Saturation 83.3 VBG Base Excess 12.8 Sodium Potassium Chloride Carbon Dioxide Anion Gap BUN Creatinine Est Cr Clr Drug Dosing Est GFR ( Amer) Est GFR (Non-Af Amer) BUN/Creatinine Ratio Glucose Calcium Magnesium Ammonia C-Reactive Protein Vitamin B12 > 1500 H TSH PG Care Time/CCT Total # of Minutes Spent Total Time Spent with Patient: Total time spent is greater than 50% in coordination of care (as documented) at patient's floor/unit and/or counseling patient: Coding Level of Care Code 46058 SUB INP/OBS CARE 3/50MIN Diagnoses Acute respiratory failure with hypoxia J96.01 (HFpEF) heart failure with preserved ejection fraction I50.30 Somnolence R40.0 Venous stasis ulcers of both lower extremities I83.019; I83.029; L97.919; L97.929 Rheumatoid arthritis M06.9 Ambulatory dysfunction R26.2 DVT prophylaxis Z29.9 Chronic renal failure (CRF), stage 3b N18.32
[2022-08-15 14:40] LABS: Base Excess VBG 12.8 mEq/L; HCO3 VBG 38 mmol/L; Oxygen Saturation VBG 83.3 %; PCO2 VBG 50 mmHg (38-50); PO2 VBG 54 mmHg; pH VBG 7.49 (7.36-7.41)
[2022-08-15 15:02] LABS: Magnesium 2.2 mg/dl (1.7-2.4)
[2022-08-15 15:07] LABS: C Reactive Protein 7.13 mg/dl (0-0.5)
--- NOTE | 2022-08-15 17:17 | CT Scan Report ---
CT head/brain wo con CLINICAL HISTORY: lethargy, altered MS Technique: Contiguous axial CT images of the head were acquired from the base of the skull to the rowdy geraldo without intravenous contrast administration. Images were viewed in brain, subdural and [facility]. Automated dose lowering techniques and/or adjustment according to patient size were utilized for this exam. Comparison: Comparison is made to CT head 04/04/2021 Findings: Areas of decreased attenuation are present in the periventricular and subcortical white matter bilate rally consistent with small vessel ischemic disease. Generalized cerebral atrophy with commensurate e nlargement of the ventricles, sulci, and cisterns is also present. There is no acute intracranial hem orrhage or evidence of acute territorial infarction. No shift of the midline structures, mass effect, or extra-axial abnormalities are shown. Atherosclerotic calcifications are present in the intracran ial segments of the internal carotid arteries. Imaged portions of the paranasal sinuses and mastoid air cells are clear. The orbits appear normal. There are no acute fractures of the calvaria or scalp swelling. Impression: No acute intracranial hemorrhage, no evidence of acute territorial infarction or other acute intracra nial disease process. ACT 112: Negative or not required by law. Electronically signed by: Remi Cai M.D. 08/15/2022 5:16 PM
[2022-08-15] MEDS: ENOXAPARIN INJ 40 MG/0.4 ML SYR SQ SCH (17:48)
[2022-08-15] MEDS: AMPICILLIN/SULBACTAM SOD 3,000 MG in 0.9 % SODIUM CHLORIDE 100 ML IV SCH (20:45)
[2022-08-15] MEDS: NORTRIPTYLINE HCL 10 MG CAP PO SCH (20:45)
[2022-08-16] MEDS: AMPICILLIN/SULBACTAM SOD 3,000 MG in 0.9 % SODIUM CHLORIDE 100 ML IV SCH ×4 (01:38→20:12)
[2022-08-16 08:25] LABS: BUN Creatinine Ratio 32.9 (10-20); Calcium 8.9 mg/dl (8.6-10.3); Creatinine Clr Calc Pharmacy 39.7 ml/min; Est GFR (African American) 86.4 ml/min; Est GFR (Non-African American) 74.6 ml/min; Potassium 3.8 mmol/L (3.5-5.1)
[2022-08-16] MEDS: predniSONE 1 MG TAB PO SCH (09:04)
[2022-08-16] MEDS: LEFLUNOMIDE 10 MG TAB PO SCH (09:04)
[2022-08-16] MEDS: FUROSEMIDE 40 MG/4 ML VIAL IV SCH ×2 (09:05→16:38)
[2022-08-16] MEDS: POTASSIUM CHLORIDE CRTAB 20 MEQ TABCR PO SCH ×2 (09:05→20:11)
[2022-08-16] MEDS ORDERED: predniSONE 20 MG TAB PO STA (13:45)
[2022-08-16] MEDS ORDERED: OPTIRAY 320 500ml IV ONE (15:42)
--- NOTE | 2022-08-16 16:01 | CT Scan Report ---
CHEST CTA for PULMONARY ARTERIES CT DOSE: HISTORY: hypoxia, h/o rheumatoid, h/o CHF TECHNIQUE: Multiaxial CT images of the chest were performed following the intravenous administration of contrast to evaluate the pulmonary arteries. Maximal intensity projection images were also obtaine d. A dose lowering technique was utilized adhering to the principles of ALARA. COMPARISON STUDY: Chest x-ray 08/14/2022. Chest CTA 10/19/2020. FINDINGS: Normal caliber thoracic aorta with no evidence for a dissection. 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 The heart remains enlarged. There are moderate bilateral pleural effu sions. No significant pericardial effusion. No filling defects within the pulmonary arteries to sugge st a pulmonary embolus. No mediastinal or hilar lymphadenopathy. Normal esophagus. Limited views of t he upper abdomen demonstrate normal liver and spleen. No acute fractures identified. Consolidation wi thin the majority of the bilateral lower lobes and upper lobes posteriorly likely represents compress miki atelectasis from the pleural effusions. There is a round 2.5 cm hypodensity within the base the r ight lower lobe on image 103. This may represent an area of pneumonia. A pulmonary lesion could also have a similar appearance. Therefore, follow-up chest CT in 3 months is recommended to ensure resolut ion of this abnormality. No pneumothorax. Mild interlobular septal thickening consistent with pulmona ry edema. There is a 6 mm nodule within the right lower lobe on image 195. This is new from the prior study. IMPRESSION: 1. No evidence for a pulmonary embolus. 2. Cardiomegaly, mild pulmonary edema, and moderate bilateral pleural effusions. 3. There is a 6 mm nodule within the right lower lobe. Attention at follow-up recommended. 4. Consolidation with the majority the bilateral lower lobes and upper lobes posteriorly likely repre sents compressive atelectasis from the pleural effusions. A pneumonia is considered less likely but n ot entirely excluded. 5. A 2.5 cm round hypodensity within the base of the right lower lobe which may represent an area of pneumonia. A pulmonary lesion could also have a similar appearance. Therefore, follow-up chest CT in 3 months is recommended to ensure resolution. ACT 112: Positive. There are findings on this exam that require communication between the performing entity and the patient following Patient Test Result Information Act ([place] Act 112) guidelines. Electronically signed by: Collin Sprague M.D. 08/16/2022 3:59 PM
[2022-08-16] MEDS: ENOXAPARIN INJ 40 MG/0.4 ML SYR SQ SCH (16:38)
[2022-08-16] MEDS: NORTRIPTYLINE HCL 10 MG CAP PO SCH (20:11)
--- NOTE | 2022-08-16 21:18 | Hospitalist Progress Note ---
Date of Service August 16, 2022 Assessment & Plan (1) Acute respiratory failure with hypoxia: Plan: 2nd to #2 Cannot rule out infectious etiology of lungs Checked sed rate and crp - both elevated; concerning perhaps for pneumonia Thus, started IV unasyn yesterday - day #2 of such Cont diuresis Discussed with obtaining a CT chest to further delineate her respiratory issues, r/o PE, etc (2) (HFpEF) heart failure with preserved ejection fraction: Plan: Continues to examine volume overloaded. Cont IV lasix BID. BUN and Cr stable. TSH wnl. No h/o cirrhosis to add to volume overload. Echo this admission with preserved EF, normal LV wall motion, and normal RV function. Normal valve function as well. No dysrhythmias by history. Tele stable again overnight. BMP am. (3) Somnolence: Plan: Etiology uncertain -- due to developing dementia?? Lewy-body dementia has dramatic fluctuations in sleep/wake cycle Checked VBG - no hypercarbia TSH wnl B12 wnl [address]mon[address] w[address] head negative for acute or chronic findings Sed rate and crp checked -- both elevated - see #1 Are some of her lung findings due to infectious etiology?? Nortriptyline could be contributing to somnolence - consider d/c of such (4) Venous stasis ulcers of both lower extremities: Plan: resolved/healed saw wound care clinic about 10 days ago and was told she can f/u prn (5) Rheumatoid arthritis: Plan: Chronic Prednisone dependent - on 2mg daily Gave hydrocortisone IV x 1 yesterday Will change PO prednisone to 20mg/day today and continue this for a few days then perform taper (6) Ambulatory dysfunction: Plan: Cont PT/OT Lives with her at home who is also having ambulatory difficulties (7) DVT prophylaxis: Plan: lovenox 40mg daily (8) Chronic renal failure (CRF), stage 3b: Plan: CrCl at baseline 30s/low 40s BMP daily due to ongoing lasix diuresis Cr thus far stable Plan extensively updated at bedside making slow progress Admission and Anticipated Discharge Date Admission Date: August 12, 2022 Subjective patient was more awake today than yesterday's visit again at bedside reports that after I had seen her yesterday she suddenly awoke stayed up for about 1 hour ate some food, then quickly went back to sleep today she has been more awake/alert throughout the morning relays that for some time she has had memory difficulties she also has very erratic sleeping habits as previously described eating today has been improved he still has not noted any cough tele overnight wnl Review of Systems Review of Systems: cv - denies pain pulm - denies dyspnea GI - denies pain ; per staff had bowel movement this am Physical Exam Physical Exam: gen - more awake/alert today, oriented to person/place - but thought it was 1922 skin - severe seborrhea of scalp, ears, upper chest; dry skin on back - no change neck - no obvious JVD heart - RRR, s1 s2, no murmur lungs - rales b/l bases, no increased work of breathing abd - soft, remains modestly distended, BS+, NT ext - b/l foot deformities; venous stasis changes b/l shins; no open ulcer; 1+ edema b/l; pulses 2+ b/l Results & Data Results & Data Vital Signs (Past 12 Hours) Vital Signs Temp Pulse Pulse Resp BP Pulse Ox O2 Del Method 08/16/22 19:00 37.1 C 57 L 18 125/72 92 Room Air 08/16/22 15:30 55 L 08/16/22 16:09 36.6 C 56 L 18 129/63 92 Nasal Cannula 08/16/22 11:27 36.7 C 59 L 18 125/71 92 Nasal Cannula O2 Flow Rate 08/16/22 19:00 08/16/22 15:30 08/16/22 16:09 2 08/16/22 11:27 2 Laboratory Results Laboratory Results - last 24 hr 08/16/22 07:06 Sodium 141 Potassium 3.8 Chloride 101 Carbon Dioxide 35 H Anion Gap 5 BUN 24 H Creatinine 0.73 Est Cr Clr Drug Dosing 39.7 Est GFR ( Amer) 86.4 Est GFR (Non-Af Amer) 74.6 BUN/Creatinine Ratio 32.9 H Glucose 91 Calcium 8.9 PG Care Time/CCT Total # of Minutes Spent Total Time Spent with Patient: Total time spent is greater than 50% in coordination of care (as documented) at patient's floor/unit and/or counseling patient: Coding Level of Care Code 58233 SUB INP/OBS CARE 2/35MIN Diagnoses Acute respiratory failure with hypoxia J96.01 (HFpEF) heart failure with preserved ejection fraction I50.30 Somnolence R40.0 Venous stasis ulcers of both lower extremities I83.019; I83.029; L97.919; L97.929 Rheumatoid arthritis M06.9 Ambulatory dysfunction R26.2 DVT prophylaxis Z29.9 Chronic renal failure (CRF), stage 3b N18.32
[2022-08-16] MEDS: HYDROCORTISONE 2.5% CR 30 GM TUBE EXT SCH (22:31)
[2022-08-16] MEDS: EUCERIN CR 120 GM JAR EXT SCH (22:31)
[2022-08-17] MEDS: AMPICILLIN/SULBACTAM SOD 3,000 MG in 0.9 % SODIUM CHLORIDE 100 ML IV SCH ×4 (03:04→20:59)
[2022-08-17 06:12] LABS: BUN Creatinine Ratio 32.1 (10-20); Calcium 8.8 mg/dl (8.6-10.3); Creatinine Clr Calc Pharmacy 35.8 ml/min; Est GFR (African American) 76.2 ml/min; Est GFR (Non-African American) 65.8 ml/min; Potassium 4.1 mmol/L (3.5-5.1)
[2022-08-17] MEDS: HYDROCORTISONE 2.5% CR 30 GM TUBE EXT SCH ×3 (09:11→21:01)
[2022-08-17] MEDS: EUCERIN CR 120 GM JAR EXT SCH ×2 (09:11→21:02)
[2022-08-17] MEDS: LEFLUNOMIDE 10 MG TAB PO SCH (09:12)
[2022-08-17] MEDS: predniSONE 20 MG TAB PO SCH (09:12)
[2022-08-17] MEDS: POTASSIUM CHLORIDE CRTAB 20 MEQ TABCR PO SCH ×2 (09:16→21:04)
[2022-08-17] MEDS: FUROSEMIDE 40 MG/4 ML VIAL IV SCH ×2 (09:16→16:27)
[2022-08-17] MEDS: THIAMINE HCL 100 MG TAB PO SCH ×2 (09:49→21:02)
[2022-08-17] MEDS: ENOXAPARIN INJ 40 MG/0.4 ML SYR SQ SCH (16:27)
[2022-08-17] MEDS: SALICYLIC ACID EXT SCH (18:16)
[2022-08-17] MEDS: [UNRECOGNIZED DRUG - OTHER] EXT SCH (18:16)
--- NOTE | 2022-08-17 18:38 | Hospitalist Progress Note ---
Date of Service August 17, 2022 Assessment & Plan (1) Acute respiratory failure with hypoxia: Plan: 2nd to decompensated CHF + probabl pneumonia Cont abx Cont diuresis wean o2 as tolerated (2) (HFpEF) heart failure with preserved ejection fraction: Plan: Continues to examine volume overloaded. Cont IV lasix BID. BUN and Cr stable. TSH wnl. No h/o cirrhosis. Echo this admission with preserved EF, normal LV wall motion, and normal RV function. Normal valve function as well. BMP am. (3) Somnolence: Plan: Etiology uncertain -- due to developing dementia?? Lewy-body dementia has dramatic fluctuations in sleep/wake cycle Checked VBG - no hypercarbia TSH wnl B12 wnl Ammonia wnl CT head negative for acute or chronic findings stop nortriptyline - not sure why she is on such steroid burst helping a little with energy B1 level pending - place on empiric thiamine 200mg BID while awaiting level (4) Venous stasis ulcers of both lower extremities: Plan: resolved/healed saw wound care clinic about 10 days ago and was told she can f/u prn (5) Rheumatoid arthritis: Plan: Chronic Prednisone dependent - on 2mg daily chronically Cont prednisone 20mg/day today and continue this for a few days then perform taper (6) Ambulatory dysfunction: Plan: Cont PT/OT Lives with her at home who is also having ambulatory difficulties But will go to [facility] at d/c (7) DVT prophylaxis: Plan: lovenox 40mg daily (8) Chronic renal failure (CRF), stage 3b: Plan: CrCl at baseline 30s/low 40s BMP daily due to ongoing lasix diuresis Cr thus far stable (9) Seborrhea: Plan: severe brought nizoral shampoo ordered for 3x/week (10) Depression: Plan: question of ? stop nortriptyline consider more activating med - SSRI, etc Plan extensively updated at bedside making slow progress Admission and Anticipated Discharge Date Admission Date: August 12, 2022 Subjective no events overnight tele - NSR patient offers no history - she is quite quiet with flat affect never complaints of anything including cough or dyspnea brought in nizoral shampoo for her severe seborrhea Review of Systems Review of Systems: gen - eating better cv - no chest pain pulm - no dyspnea at rest; no cough GI - no abd pain Physical Exam Physical Exam: gen - awake/alert, flat affect skin - severe seborrhea of scalp, ears, upper chest; dry skin on back - no change neck - no obvious JVD heart - RRR, s1 s2, no murmur lungs - rales b/l bases, no increased work of breathing, decreased BS bases abd - soft, BS+, NT ext - b/l foot deformities; venous stasis changes b/l shins; no open ulcer; trace edema b/l; pulses 2+ b/l psych - very flat affect - expressionless Results & Data Results & Data Vital Signs (Past 12 Hours) Vital Signs Temp Pulse Pulse Resp BP BP Pulse Ox 08/17/22 17:00 52 L 08/17/22 14:41 36.7 C 59 L 14 122/73 97 08/17/22 11:56 36.7 C 60 19 102/66 95 08/17/22 09:00 08/17/22 07:53 36.6 C 55 L 18 137/68 91 08/17/22 07:20 56 L O2 Del Method O2 Flow Rate 08/17/22 17:00 08/17/22 14:41 Nasal Cannula 3.5 08/17/22 11:56 Nasal Cannula 2 08/17/22 09:00 Nasal Cannula 2 08/17/22 07:53 Nasal Cannula 2 08/17/22 07:20 Laboratory Results Laboratory Results - last 24 hr 08/17/22 08/17/22 05:43 05:43 Sodium 141 Potassium 4.1 Chloride 99 Carbon Dioxide 37 H Anion Gap 5 BUN 26 H Creatinine 0.81 Est Cr Clr Drug Dosing 35.8 Est GFR ( Amer) 76.2 Est GFR (Non-Af Amer) 65.8 BUN/Creatinine Ratio 32.1 H Glucose 104 H Calcium 8.8 Vitamin B1 Pending PG Care Time/CCT Total # of Minutes Spent Total Time Spent with Patient: Total time spent is greater than 50% in coordination of care (as documented) at patient's floor/unit and/or counseling patient: Coding Level of Care Code 34063 SUB INP/OBS CARE 2/35MIN Diagnoses Acute respiratory failure with hypoxia J96.01 (HFpEF) heart failure with preserved ejection fraction I50.30 Somnolence R40.0 Venous stasis ulcers of both lower extremities I83.019; I83.029; L97.919; L97.929 Rheumatoid arthritis M06.9 Ambulatory dysfunction R26.2 DVT prophylaxis Z29.9 Chronic renal failure (CRF), stage 3b N18.32 Seborrhea L21.9 Depression F32.A
[2022-08-17] MEDS ORDERED: KETOCONAZOLE 2% SHAMPOO 120 ML BTL EXT SCH (19:00)
[2022-08-17] MEDS: NORTRIPTYLINE HCL 10 MG CAP PO SCH (21:02)
[2022-08-18] MEDS: AMPICILLIN/SULBACTAM SOD 3,000 MG in 0.9 % SODIUM CHLORIDE 100 ML IV SCH ×4 (01:36→19:16)
[2022-08-18 07:59] LABS: Calcium 8.9 mg/dl (8.6-10.3); Creatinine Clr Calc Pharmacy 38.7 ml/min; Est GFR (African American) 83.7 ml/min; Est GFR (Non-African American) 72.2 ml/min; Potassium 4.6 mmol/L (3.5-5.1)
[2022-08-18] MEDS: HYDROCORTISONE 2.5% CR 30 GM TUBE EXT SCH ×3 (08:19→20:17)
[2022-08-18] MEDS: THIAMINE HCL 100 MG TAB PO SCH ×2 (08:20→20:17)
[2022-08-18] MEDS: LEFLUNOMIDE 10 MG TAB PO SCH (08:20)
[2022-08-18] MEDS: predniSONE 20 MG TAB PO SCH (08:20)
[2022-08-18] MEDS: EUCERIN CR 120 GM JAR EXT SCH ×2 (08:20→20:17)
[2022-08-18] MEDS: FUROSEMIDE 40 MG/4 ML VIAL IV SCH ×2 (08:23→16:18)
[2022-08-18] MEDS: POTASSIUM CHLORIDE CRTAB 20 MEQ TABCR PO SCH (08:23)
[2022-08-18] MEDS ORDERED: SERTRALINE HCL 50 MG TABLET PO ONE (09:48)
[2022-08-18] MEDS: ENOXAPARIN INJ 40 MG/0.4 ML SYR SQ SCH (16:18)
--- NOTE | 2022-08-18 19:10 | Hospitalist Progress Note ---
Date of Service August 18, 2022 Assessment & Plan (1) Acute respiratory failure with hypoxia: Plan: 2nd to decompensated CHF + probable pneumonia Cont abx Cont diuresis wean o2 as tolerated - I took her NC O2 from 4 L to 2 L (2) (HFpEF) heart failure with preserved ejection fraction: Plan: Continues to examine volume overloaded but volume status IS improving. Cont IV lasix BID. BUN and Cr stable. TSH wnl. No h/o cirrhosis. Echo this admission with preserved EF, normal LV wall motion, and normal RV function. Normal valve function as well. BMP am. (3) Pneumonia: Plan: as seen on CT chest day #4 unasyn can perhaps transition to PO augmentin tomorrow overall her clinical status IS improving (4) Somnolence: Plan: Etiology uncertain -- due to developing dementia?? Lewy-body dementia has dramatic fluctuations in sleep/wake cycle Some of the somnolence may have been due to pneumonia and metabolic encephalopathy from such Checked VBG - no hypercarbia TSH wnl B12 wnl Ammonia wnl CT head negative for acute or chronic findings stop nortriptyline - not sure why she is on such steroid burst helping a little with energy B1 level pending - place on empiric thiamine 200mg BID while awaiting level (5) Venous stasis ulcers of both lower extremities: Plan: resolved/healed saw wound care clinic about 10 days ago and was told she can f/u prn (6) Rheumatoid arthritis: Plan: Chronic Prednisone dependent - on 2mg daily chronically Cont prednisone 20mg/day today and tomorrow, then wean thereafter (7) Ambulatory dysfunction: Plan: Cont PT/OT Lives with her at home who is also having ambulatory difficulties But will go to [facility] at d/c (8) DVT prophylaxis: Plan: lovenox 40mg daily (9) Chronic renal failure (CRF), stage 3b: Plan: CrCl at baseline 30s/low 40s BMP daily due to ongoing lasix diuresis Cr remains stable (10) Seborrhea: Plan: severe nizoral shampoo 3x/week hydrocortisone 2.5% with eucerin cream to dry skin on back, torso, etc (11) Depression: Plan: question of ? stop nortriptyline add zoloft 25mg qam x 1 week, then titrate to 50mg thereafter Plan extensively updated at bedside once again toda making slow progress Admission and Anticipated Discharge Date Admission Date: August 12, 2022 Subjective tele overnight - sinus diana only patient sitting in chair during the visit much more awake, alert today than any previous visit at bedside she is eating better today than previous she offers no complaints did have BM early this AM and staff confirm they used nizoral shampoo for severe seborrhea of scalp Review of Systems Review of Systems: cv - denies pain pulm - denies dyspnea GI - denies pain Physical Exam Physical Exam: gen - awake/alert, flat affect , sitting in chair comfortably skin - severe seborrhea of scalp, ears, upper chest; dry skin on back - slightly better neck - no obvious JVD heart - RRR, s1 s2, no murmur lungs - rales b/l bases improved, no wheezes; no increased work of breathing; decreased BS bases abd - soft, BS+, NT, ND ext - b/l foot deformities; venous stasis changes b/l shins; no open ulcer; no edema b/l; pulses 2+ b/l psych - very flat affect - expressionless Results & Data Results & Data Vital Signs (Past 12 Hours) Vital Signs Temp Pulse Pulse Resp BP BP Pulse Ox 08/18/22 16:00 55 L 08/18/22 15:38 36.7 C 57 L 18 122/64 96 08/18/22 11:53 36.6 C 55 L 16 111/69 99 08/18/22 08:00 48 L 08/18/22 08:00 08/18/22 08:21 36.6 C 18 146/73 H 96 O2 Del Method O2 Flow Rate 08/18/22 16:00 08/18/22 15:38 Nasal Cannula 2 08/18/22 11:53 Nasal Cannula 4 08/18/22 08:00 08/18/22 08:00 Nasal Cannula 5 08/18/22 08:21 Nasal Cannula 5 Laboratory Results Laboratory Results - last 24 hr 08/18/22 06:35 Sodium 141 Potassium 4.6 Chloride 99 Carbon Dioxide 37 H Anion Gap 5 BUN 24 H Creatinine 0.75 Est Cr Clr Drug Dosing 38.7 Est GFR ( Amer) 83.7 Est GFR (Non-Af Amer) 72.2 BUN/Creatinine Ratio 32.0 H Glucose 81 Calcium 8.9 PG Care Time/CCT Total # of Minutes Spent Total Time Spent with Patient: Total time spent is greater than 50% in coordination of care (as documented) at patient's floor/unit and/or counseling patient: Coding Level of Care Code 86959 SUB INP/OBS CARE 2/35MIN Diagnoses Acute respiratory failure with hypoxia J96.01 (HFpEF) heart failure with preserved ejection fraction I50.30 Pneumonia J18.9 Somnolence R40.0 Venous stasis ulcers of both lower extremities I83.019; I83.029; L97.919; L97.929 Rheumatoid arthritis M06.9 Ambulatory dysfunction R26.2 DVT prophylaxis Z29.9 Chronic renal failure (CRF), stage 3b N18.32 Seborrhea L21.9 Depression F32.A
[2022-08-19] MEDS: AMPICILLIN/SULBACTAM SOD 3,000 MG in 0.9 % SODIUM CHLORIDE 100 ML IV SCH ×4 (01:10→20:19)
[2022-08-19] MEDS: POTASSIUM CHLORIDE 10 MEQ TABCR PO SCH (08:11)
[2022-08-19] MEDS: FUROSEMIDE 40 MG/4 ML VIAL IV SCH (08:11)
[2022-08-19] MEDS: HYDROCORTISONE 2.5% CR 30 GM TUBE EXT SCH ×3 (08:12→22:12)
[2022-08-19] MEDS: EUCERIN CR 120 GM JAR EXT SCH ×2 (08:12→22:12)
[2022-08-19] MEDS: SALICYLIC ACID EXT SCH (08:13)
[2022-08-19] MEDS: [UNRECOGNIZED DRUG - OTHER] EXT SCH (08:13)
[2022-08-19] MEDS: THIAMINE HCL 100 MG TAB PO SCH ×2 (08:14→20:30)
[2022-08-19] MEDS: LEFLUNOMIDE 10 MG TAB PO SCH (08:15)
[2022-08-19] MEDS: SERTRALINE HCL 50 MG TABLET PO SCH (08:16)
[2022-08-19] MEDS: predniSONE 20 MG TAB PO SCH (08:16)
[2022-08-19 08:28] LABS: BUN Creatinine Ratio 38.9 (10-20); Calcium 8.8 mg/dl (8.6-10.3); Creatinine Clr Calc Pharmacy 40.3 ml/min; Est GFR (African American) 87.9 ml/min; Est GFR (Non-African American) 75.8 ml/min; Magnesium 2.3 mg/dl (1.7-2.4)
[2022-08-19] MEDS: acetaZOLAMIDE 250 MG TAB PO SCH ×2 (10:37→16:52)
--- NOTE | 2022-08-19 13:44 | Hospitalist Progress Note ---
Date of Service August 19, 2022 Assessment & Plan (1) Acute respiratory failure with hypoxia: Plan: 2nd to decompensated CHF + probable pneumonia improved I took her NC O2 off today during the visit -- stayed about 94% in room air Cont abx Cont diuresis (2) (HFpEF) heart failure with preserved ejection fraction: Plan: Overall clinically improved but developing contraction alkalosis. add diamox 250mg BID x 2 days. cut back lasix from BID to once daily dosing. BUN and Cr stable. TSH wnl. No h/o cirrhosis. Echo this admission with preserved EF, normal LV wall motion, and normal RV function. Normal valve function as well. BMP am. (3) Pneumonia: Plan: as seen on CT chest day #5 unasyn can perhaps transition to PO augmentin tomorrow improving as evidenced by more energy, better appetite, etc (4) Somnolence: Plan: Etiology uncertain -- due to developing dementia?? Lewy-body dementia has dramatic fluctuations in sleep/wake cycle Some of the somnolence may have been due to pneumonia and metabolic encephalopathy from such Checked VBG - no hypercarbia TSH wnl B12 wnl Ammonia wnl CT head negative for acute or chronic findings stopped nortriptyline - not sure why she was on such - this med causes sedation especially in seniors steroid burst helping a little with energy B1 level pending - placed on empiric thiamine 200mg BID while awaiting level (5) Venous stasis ulcers of both lower extremities: Plan: resolved/healed saw wound care clinic about 10 days ago and was told she can f/u prn (6) Rheumatoid arthritis: Plan: Chronic Prednisone dependent - on 2mg daily chronically Cont prednisone - wean to 15mg starting tomorrow (7) Ambulatory dysfunction: Plan: Cont PT/OT Lives with her at home who is also having ambulatory difficulties But will go to [facility] at d/c Will need insurance auth (8) DVT prophylaxis: Plan: lovenox 40mg daily (9) Chronic renal failure (CRF), stage 3b: Plan: CrCl at baseline 30s/low 40s BMP daily due to ongoing lasix diuresis Cr remains stable (10) Seborrhea: Plan: severe nizoral shampoo 3x/week hydrocortisone 2.5% with eucerin cream to dry skin on back, torso, etc improved (11) Depression: Plan: question of ? stopped nortriptyline added zoloft 25mg qam x 1 week, then titrate to 50mg thereafter Plan extensively updated at bedside once again check an x-ray today - assess size of effusions dc tele - move to med/surg Admission and Anticipated Discharge Date Admission Date: August 12, 2022 Subjective tele stable overnight - NSR or SB (50s) patient sitting in chair comfortably most awake and alert she has been all week even offered conversation without prompting eating is better - taking about 50% of meals at bedside no new issues Review of Systems Review of Systems: gen - eating improved, more energy cv - denies chest pain pulm - no dyspnea at rest GI - no nausea/emesis skin - scalp flaking improved s/p nizoral shampoo Physical Exam Physical Exam: gen - awake/alert, sitting in chair comfortably skin - seborrhea of scalp, ears, upper chest improved; dry skin on back improved neck - no obvious JVD heart - RRR, s1 s2, no murmur lungs - rales b/l bases improved, no wheezes; no increased work of breathing; ongoing decreased BS bases both bases worse on left abd - soft, BS+, NT, ND ext - b/l foot deformities; venous stasis changes b/l shins; no open ulcer; no edema b/l; pulses 2+ b/l psych - a little more animated today Results & Data Results & Data Vital Signs (Past 12 Hours) Vital Signs Temp Pulse Pulse Pulse Resp BP Pulse Ox 08/19/22 11:59 36.6 C 58 L 14 108/68 94 08/19/22 10:38 36.8 C 53 L 16 136/62 92 08/19/22 08:00 53 L 08/19/22 09:24 55 L 14 93 08/19/22 03:25 36.6 C 59 L 17 131/70 94 O2 Del Method O2 Flow Rate 08/19/22 11:59 Nasal Cannula 2 08/19/22 10:38 Nasal Cannula 2 08/19/22 08:00 08/19/22 09:24 Nasal Cannula 2 08/19/22 03:25 Nasal Cannula 3 Laboratory Results Laboratory Results - last 24 hr 08/19/22 07:52 Sodium 143 Potassium 4.0 Chloride 99 Carbon Dioxide 40 H Anion Gap 4 BUN 28 H Creatinine 0.72 Est Cr Clr Drug Dosing 40.3 Est GFR ( Amer) 87.9 Est GFR (Non-Af Amer) 75.8 BUN/Creatinine Ratio 38.9 H Glucose 87 Calcium 8.8 Magnesium 2.3 PG Care Time/CCT Total # of Minutes Spent Total Time Spent with Patient: Total time spent is greater than 50% in coordination of care (as documented) at patient's floor/unit and/or counseling patient: Coding Level of Care Code 30591 SUB INP/OBS CARE 2/35MIN Diagnoses Acute respiratory failure with hypoxia J96.01 (HFpEF) heart failure with preserved ejection fraction I50.30 Pneumonia J18.9 Somnolence R40.0 Venous stasis ulcers of both lower extremities I83.019; I83.029; L97.919; L97.929 Rheumatoid arthritis M06.9 Ambulatory dysfunction R26.2 DVT prophylaxis Z29.9 Chronic renal failure (CRF), stage 3b N18.32 Seborrhea L21.9 Depression F32.A
--- NOTE | 2022-08-19 14:46 | XRay Report ---
XR chest 2V PA/lateral HISTORY: Shortness of breath. CHF, effusions b/l, interval change COMPARISON: Chest 08/14/2022. FINDINGS: Rotated study. No pneumothorax. Cardiomegaly, bilateral pleural effusions, and pulmonary ed melissa again noted. This has slightly improved. IMPRESSION: Slight improvement in the pulmonary edema. The cardiomegaly and bilateral pleural effusions persist. ACT 112: Negative or not required by law. Electronically signed by: Collin Sprague M.D. 08/19/2022 2:45 PM
[2022-08-19] MEDS: ENOXAPARIN INJ 40 MG/0.4 ML SYR SQ SCH (15:47)
[2022-08-20] MEDS: AMPICILLIN/SULBACTAM SOD 3,000 MG in 0.9 % SODIUM CHLORIDE 100 ML IV SCH ×2 (01:14→07:26)
[2022-08-20] MEDS: acetaZOLAMIDE 250 MG TAB PO SCH ×2 (08:41→19:46)
[2022-08-20] MEDS: FUROSEMIDE 40 MG/4 ML VIAL IV SCH (08:42)
[2022-08-20] MEDS: EUCERIN CR 120 GM JAR EXT SCH ×2 (08:42→19:42)
[2022-08-20] MEDS: HYDROCORTISONE 2.5% CR 30 GM TUBE EXT SCH ×3 (08:43→19:42)
[2022-08-20] MEDS: LEFLUNOMIDE 10 MG TAB PO SCH (08:43)
[2022-08-20] MEDS: POTASSIUM CHLORIDE 10 MEQ TABCR PO SCH (08:43)
[2022-08-20] MEDS: SERTRALINE HCL 50 MG TABLET PO SCH (08:44)
[2022-08-20] MEDS: THIAMINE HCL 100 MG TAB PO SCH ×3 (08:44→19:40)
[2022-08-20 09:30] LABS: BUN Creatinine Ratio 33.8 (10-20); C Reactive Protein 2.43 mg/dl (0-0.5); Calcium 8.9 mg/dl (8.6-10.3); Creatinine Clr Calc Pharmacy 40.9 ml/min; Est GFR (African American) 89.4 ml/min; Est GFR (Non-African American) 77.1 ml/min; Potassium 3.7 mmol/L (3.5-5.1)
[2022-08-20] MEDS: predniSONE 5 MG TAB PO SCH (09:37)
[2022-08-20] MEDS: ADVANCED PROBIOTIC 1250 MG CAPSULE PO SCH (11:52)
[2022-08-20] MEDS: ENOXAPARIN INJ 40 MG/0.4 ML SYR SQ SCH (15:45)
--- NOTE | 2022-08-20 18:14 | Hospitalist Progress Note ---
Date of Service August 20, 2022 Assessment & Plan (1) Acute respiratory failure with hypoxia: Plan: 2nd to decompensated CHF + probable pneumonia stable; improved Cont abx Cont diuresis (2) (HFpEF) heart failure with preserved ejection fraction: Plan: Overall clinically improved but developing contraction alkalosis. added diamox 250mg BID x 2 days - day #2 of 2 today. cont lasix qdaily IV. BUN and Cr stable. TSH wnl. No h/o cirrhosis. Echo this admission with preserved EF, normal LV wall motion, and normal RV function. Normal valve function as well. BMP am. Of note - patient has b/l pleural effusions, worse on left. cxr on 08/19 without much improvement in these effusions. will she need thoracentesis ?? discussed this with pt's and pt today will re-eval tomorrow for need for thoracentesis (3) Pneumonia: Plan: as seen on CT chest day #6 of abx - change unasyn to augmentin improving as evidenced by a little more energy, somewhat better appetite, improvement in CRP, etc (4) Somnolence: Plan: Etiology uncertain -- due to developing dementia?? Lewy-body dementia has dramatic fluctuations in sleep/wake cycle Some of the somnolence may have been due to pneumonia and metabolic encephalopathy Checked VBG - no hypercarbia TSH wnl B12 wnl Ammonia wnl CT head negative for acute or chronic findings stopped nortriptyline - not sure why she was on such - this med causes sedation especially in seniors steroid burst helping a little with energy - now down to 15mg/day B1 level pending - placed on empiric thiamine 200mg BID while awaiting level today she had an episode of hypersomnolence - checked BSG and it was >100 shortly after being in the deep sleep she awakened and was alert consider EEG to r/o subclinical seizures but doubt such (5) Venous stasis ulcers of both lower extremities: Plan: resolved/healed saw wound care clinic about 10 days ago and was told she can f/u prn (6) Rheumatoid arthritis: Plan: Chronic Prednisone dependent - on 2mg daily chronically Cont prednisone - weaned to 15mg today Wean every 2 days (7) Ambulatory dysfunction: Plan: Cont PT/OT Lives with her at home who is also having ambulatory difficulties But will go to [facility] at d/c Will need insurance auth (8) DVT prophylaxis: Plan: lovenox 40mg daily (9) Chronic renal failure (CRF), stage 3b: Plan: CrCl at baseline 30s/low 40s BMP daily due to ongoing lasix diuresis Cr remains stable (10) Seborrhea: Plan: severe nizoral shampoo 3x/week hydrocortisone 2.5% with eucerin cream to dry skin on back, torso, etc improved (11) Depression: Plan: question of ? stopped nortriptyline added zoloft 25mg qam x 1 week, then titrate to 50mg thereafter day #2 of zoloft low-dose tolerating such watch BMP to ensure no SIADH from SSRI Plan extensively updated at bedside today Admission and Anticipated Discharge Date Admission Date: August 12, 2022 Subjective patient sitting in chair by window during the visit offers little history voluntarily smiled 1x present both had just finished eating lunch she ate about 50% of lunch O2 had been weaned off yesterday, but the O2 is now back on Review of Systems Review of Systems: cv - no chest pain pulm - no cough, no dyspnea GI - no abd pain; had large BM per staff Physical Exam Physical Exam: gen - awake/alert, sitting in chair by window, NAD skin - seborrhea of scalp, ears improved neck - no JVD heart - RRR, s1 s2, no murmur lungs - decreased breath sounds bases - L>R; no wheeze; no rales; no increased work of breathing abd - soft, BS+, NT, ND ext - venous stasis changes b/l shins; no open ulcer; no edema b/l; pulses 2+ b/l psych - mental status same as yesterday Results & Data Results & Data Vital Signs (Past 12 Hours) Vital Signs Temp Pulse Resp BP Pulse Ox O2 Del Method O2 Flow Rate 08/20/22 15:38 37.0 C 56 L 16 148/65 H 97 Nasal Cannula 2 08/20/22 09:00 Nasal Cannula 2 08/20/22 07:37 36.8 C 62 16 119/55 L 93 Nasal Cannula 2 Laboratory Results Laboratory Results - last 24 hr 08/20/22 08/20/22 09:04 17:03 Sodium 136 Potassium 3.7 Chloride 100 Carbon Dioxide 32 Anion Gap 4 BUN 24 H Creatinine 0.71 Est Cr Clr Drug Dosing 40.9 Est GFR ( Amer) 89.4 Est GFR (Non-Af Amer) 77.1 BUN/Creatinine Ratio 33.8 H Glucose 92 POC Glucose 128 H Calcium 8.9 C-Reactive Protein 2.43 H PG Care Time/CCT Total # of Minutes Spent Total Time Spent with Patient: Total time spent is greater than 50% in coordination of care (as documented) at patient's floor/unit and/or counseling patient: Coding Level of Care Code 20107 SUB INP/OBS CARE 2/35MIN Diagnoses Acute respiratory failure with hypoxia J96.01 (HFpEF) heart failure with preserved ejection fraction I50.30 Pneumonia J18.9 Somnolence R40.0 Venous stasis ulcers of both lower extremities I83.019; I83.029; L97.919; L97.929 Rheumatoid arthritis M06.9 Ambulatory dysfunction R26.2 DVT prophylaxis Z29.9 Chronic renal failure (CRF), stage 3b N18.32 Seborrhea L21.9 Depression F32.A
[2022-08-20] MEDS: AMOXICILLIN/CLAVULANATE 875 MG TAB PO SCH ×2 (19:29→19:40)
[2022-08-21 06:20] LABS: Hematocrit (blood only) 41.4 % (37.0-47.0); Hemoglobin 13.7 g/dl (12.0-16.0); Mean Corpuscular Hgb Conc 33.1 g/dL (32.0-36.0); Mean Corpuscular Volume 87.5 fL (80.0-100.0); Mean Platelet Volume 10.4 fL (9.4-12.4); Platelet Count 405 K/uL (130-400); RDW Coefficient of Variation 13.2 % (11.5-14.5); RDW Standard Deviation 42.5 fL (36.4-46.3); Red Blood Count 4.73 M/uL (4.20-5.40); White Blood Count 10.87 K/ul (4.8-10.8)
[2022-08-21 06:55] LABS: Calcium 9.1 mg/dl (8.6-10.3); Potassium 3.6 mmol/L (3.5-5.1)
[2022-08-21 07:01] LABS: BUN Creatinine Ratio 33.3 (10-20); Creatinine Clr Calc Pharmacy 40.3 ml/min; Est GFR (African American) 87.9 ml/min; Est GFR (Non-African American) 75.8 ml/min
--- NOTE | 2022-08-21 08:48 | Pulmonary Consultation ---
Date of Consultation August 21, 2022 Assessment & Plan (1) Acute diastolic CHF (congestive heart failure): (2) Rheumatoid arthritis: (3) Acute respiratory failure with hypoxia: (4) Pleural effusion: Plan CT chest 08/16/2022 personally reviewed: Bilateral pleural effusion moderate to large with dependent atelectasis Cardiomegaly No significant mediastinal lymphadenopathy 2D echo 08/13/2022: EF 60-65%, RV normal in size and function -- Bilateral pleural effusion Etiology is likely cardiac in origin along with low albumin BNP 149 Respiratory bio fire negative for everything on 08/12/2022 --Acute respiratory failure with hypoxia Likely from bilateral pleural effusion and dependent atelectasis Treated with diuresis --Rheumatoid arthritis On leflunomide --DNR/DNI Plan: In/out: -700, -7 L since coming to the hospital Patient is in no acute distress on physical exam, she states that she is feeling better. Pleural effusion seems to be getting better on the bedside ultrasound. She still has moderate left-sided pleural effusion and small right-sided. Right side also has some fibrin strands. Given the improvement I would recommend to continue with diuretics as she is tolerating it well. We will hold back on any pulmonary procedure for the time being Continue with incentive spirometry Case was discussed with at bedside as well as Please note the above document was generated using voice recognition software. It may contain grammatical, syntax or spelling errors.Any formal questions or concerns about the content, text or information contained within the body of this dictation should be directly addressed to the provider for clarification. History of Present Illness Attending Physician: Nael Peraza MD History of Present Illness 87-year-old female present to the hospital because of shortness of breath Past medical history: Rheumatoid arthritis on leflunomide, diastolic CHF Pulmonary consulted for bilateral pleural effusion Patient was admitted on 08/12/2022 and she has been getting diuresis since then. She has made good amount of urine and she is -7 L since coming to the hospital At the time of examination patient says that she is feeling better while being in the hospital Denies any chest pain, shortness of breath is improved Denies any headache, no blurry vision No nausea vomiting Fair appetite. She is not on oxygen at home. Denies any cough, no chest congestion. 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 No birds or poultry nearby. Allergies Allergy/AdvReac Type Severity Reaction Status Date / Time No Known Allergies Allergy Verified 08/12/22 16:51 Home Medications Medication Instructions Recorded Confirmed Type leflunomide 20 mg tablet (Arava) 20 mg PO QAM 03/04/19 08/12/22 History furosemide 20 mg tablet (Lasix) 20 mg PO DAILY #14 tabs 12/12/21 08/12/22 Rx nortriptyline 10 mg capsule 10 mg PO .QHS #30 caps 07/05/22 08/12/22 Rx acetaminophen 650 mg 0 mg PO Q8 PRN Pain 08/12/22 08/12/22 History tablet,extended release (Tylenol Arthritis Pain) cholecalciferol (vitamin D3) 50 50 mcg PO DAILY 08/12/22 08/12/22 History mcg (2,000 unit) tablet (Vitamin D3) ibuprofen 200 mg tablet 400 - 600 mg PO Q6H PRN Pain 08/12/22 08/12/22 History metronidazole 1 % topical gel 1 applic topical DAILY PRN .. 08/12/22 08/12/22 History (Metrogel) multivitamin 1 tab PO DAILY 08/12/22 08/12/22 History oxybutynin chloride 5 mg tablet 5 mg PO DIRECTED PRN .urinary 08/12/22 08/12/22 History pain prednisone 1 mg tablet 2 - 3 mg PO DIRECTED 08/12/22 08/12/22 History Patient History Medical History Basal cell carcinoma Chronic venous stasis dermatitis of both lower extremities Closed left radial fracture DJD (degenerative joint disease) H/O fracture of hip H/O mitral valve prolapse Lumbar radicular pain Non-healing surgical wound Osteopenia Rheumatoid arthritis Somnolence Surgical History H/O foot surgery H/O wrist surgery S/P appendectomy S/P cholecystectomy Family History Father COPD (chronic obstructive pulmonary disease) Silicosis Mother , age 97 No problems noted. Social History Smoking Status: Never smoker Second Hand Exposure: No; Do You Dip or Chew Tobacco: No; Tobacco Cessation Education Requested by Patient: No Hx Alcohol Use: No Hx Substance Use: No Preferred Language: [place] Citizen Communication Ability: Impaired Visual Impairment: Limited Hearing Ability: Normal Telephone Maintainer Required: No Beliefs That Will Affect Care: None marital status: Current Living Situation: Spouse Current Living Situation Comment: Lives w/ at [facility] in independent living current occupational status: retired How many Children do You have: 1 Other Information That Helps Us Care for You: No Feels Safe at Home: Yes Safety Concerns: Feels Safe At This Time Diet: regular Assistive Devices: Cane and Walker Review of Systems Review of Systems: All systems reviewed & are unremarkable except as noted in HPI & below Physical Exam Physical Exam: Constitutional: No acute distress HEENT: EOMI, PERRLA, frail-appearing Respiratory system: Decreased air entry bilaterally, no wheeze, no rhonchi, mild crackles bilaterally CVS: S1-S2 positive Abdomen: Soft, nontender, nondistended, positive bowel sounds x4 Extremities: +2 pulses bilaterally radialis/ dorsalis pedis, no cyanosis, no edema Neuro: Awake alert oriented to self and place Psych: Normal mood and affect G/U: Positive Singer Musculoskeletal: Thoracic kyphosis Skin: no rashes, warm and dry Lymphatic: no cervical or axillary lymphadenopathy Results & Data Results & Data Vital Signs (Past 12 Hours) Vital Signs Temp Pulse Resp BP Pulse Ox O2 Del Method O2 Flow Rate 08/21/22 07:30 36.7 C 54 L 16 139/64 96 Nasal Cannula 2 08/20/22 22:49 36.7 C 63 18 120/51 L 97 Nasal Cannula 2 Laboratory Results 08/21/22 05:54 08/21/22 05:47 PG Care Time/CCT Total # of Minutes Spent Total Time Spent with Patient: Total time spent is greater than 50% in coordination of care (as documented) at patient's floor/unit and/or counseling patient: Coding Level of Care Code 75760 INT INP/OBS CARE 3/75MIN Diagnoses Acute diastolic CHF (congestive heart failure) I50.31 Rheumatoid arthritis M06.9 Acute respiratory failure with hypoxia J96.01 Pleural effusion J90
[2022-08-21] MEDS: AMOXICILLIN/CLAVULANATE 875 MG TAB PO SCH ×2 (09:15→17:08)
[2022-08-21] MEDS: SERTRALINE HCL 50 MG TABLET PO SCH (09:15)
[2022-08-21] MEDS: ADVANCED PROBIOTIC 1250 MG CAPSULE PO SCH (09:15)
[2022-08-21] MEDS: LEFLUNOMIDE 10 MG TAB PO SCH (09:15)
[2022-08-21] MEDS: THIAMINE HCL 100 MG TAB PO SCH ×2 (09:15→21:43)
[2022-08-21] MEDS: predniSONE 5 MG TAB PO SCH (09:16)
[2022-08-21] MEDS: HYDROCORTISONE 2.5% CR 30 GM TUBE EXT SCH ×3 (09:25→21:44)
[2022-08-21] MEDS: EUCERIN CR 120 GM JAR EXT SCH ×2 (09:25→21:44)
[2022-08-21] MEDS: POTASSIUM CHLORIDE 10 MEQ TABCR PO SCH (10:09)
[2022-08-21] MEDS: FUROSEMIDE 40 MG/4 ML VIAL IV SCH (10:09)
--- NOTE | 2022-08-21 11:51 | Procedure Note ---
Procedure Note Date of Service August 21, 2022 Note Bedside Ultrasound: Lung: Right:-Small right-sided pleural effusion with fibrin strands Left:-Moderate left-sided pleural effusion with dependent atelectasis Heart: Good ejection fraction, no pericardial effusion Please note the above document was generated using voice recognition software. It may contain grammatical, syntax or spelling errors.Any formal questions or concerns about the content, text or information contained within the body of this dictation should be directly addressed to the provider for clarification. Coding CPT Codes Pulmonary/Thoracic - Pulmonary and Thoracic: 01618 US, Chest, real time with imaging documentation ([id number]) [facility] Procedure Codes (Charges) Pulmonary/Thoracic Procedure 1: Pulmonary and Thoracic: 86670 US, Chest, real time with imaging documentation
[2022-08-21] MEDS: ENOXAPARIN INJ 40 MG/0.4 ML SYR SQ SCH ×2 (14:45→17:09)
--- NOTE | 2022-08-21 19:40 | Hospitalist Progress Note ---
Date of Service August 21, 2022 Assessment & Plan (1) Acute respiratory failure with hypoxia: Plan: 2nd to decompensated CHF + probable pneumonia stable; improved; on minimal amount of NC O2 Cont abx Has finished abx course (2) (HFpEF) heart failure with preserved ejection fraction: Plan: Clinically improved albeit slowly. Had developed contraction alkalosis a few days ago on BID lasix; diamox given with resolution. Lasix cut back to once daily dosing. BUN and Cr stable on lasix 40mg IV daily. Echo this admission with preserved EF, normal LV wall motion, and normal RV function. Normal valve function as well. TSH wnl and No h/o cirrhosis to contribute to volume overload. Albumin 3 at admission. BMP am. (3) Pleural effusion: Plan: b/l - L>R - 2nd to #2 last cxr still with moderate sized effusions despite 7+ days of IV diuresis consulted Dr Correia from [facility] Pulm - bedside u/s performed today --> small effusion on R, moderate on L he advises ongoing diuresis for now (4) Pneumonia: Plan: as seen on CT chest completed 7 days of IV unasyn then PO augmentin she is now off antibiotics improving as evidenced by a little more energy, somewhat better appetite, improvement in CRP, etc (5) Somnolence: Plan: Etiology uncertain but I suspect it is mainly due to a developing dementia process. Lewy-body dementia has dramatic fluctuations in sleep/wake cycle. Some of the somnolence may have been due to pneumonia and metabolic encephalopathy as well but the somnolence has been chronic per She has had these dramatic episodes of hypersomnolence nearly daily since admission Checked VBG - no hypercarbia TSH wnl B12 wnl Ammonia wnl CT head negative for acute or chronic findings stopped nortriptyline - not sure why she was on such - this med causes sedation especially in seniors steroid burst helping a little with energy - now down to 15mg/day B1 level pending - placed on empiric thiamine 200mg BID while awaiting level could consider EEG to r/o subclinical seizures but doubt such thus defer for now (6) Venous stasis ulcers of both lower extremities: Plan: resolved/healed saw wound care clinic about 10 days ago and was told she can f/u prn (7) Rheumatoid arthritis: Plan: Chronic Prednisone dependent - on 2mg daily chronically Cont prednisone - weaned to 10mg tomorrow Wean every ~2 days (8) Ambulatory dysfunction: Plan: Cont PT/OT Lives with her at home who is also having ambulatory difficulties But will go to [facility] at d/c Will need insurance auth (9) DVT prophylaxis: Plan: lovenox 40mg daily (10) Chronic renal failure (CRF), stage 3b: Plan: CrCl at baseline 30s/low 40s BMP daily due to ongoing lasix diuresis Cr remains stable (11) Seborrhea: Plan: severe nizoral shampoo 3x/week (nurses have been performing) hydrocortisone 2.5% with eucerin cream to dry skin on back, torso, etc improved (12) Depression: Plan: question of ? stopped nortriptyline added zoloft 25mg qam x 1 week, then titrate to 50mg thereafter day #3 of zoloft low-dose tolerating such watch BMP to ensure no SIADH from SSRI (13) Dementia: Plan: reports memory loss of at least 6-12 months duration even when awake/alert she offers little conversation, has parkinsonian like masked facies, has dramatic episodes of hypersomnolence and then will simply wake up randomly, etc. I recommended to her that she have neurology referral post discharge for this cont supportive care Plan extensively updated at bedside once again today dispo - [facility] - date of d/c uncertain Admission and Anticipated Discharge Date Admission Date: August 12, 2022 Subjective patient resting in bed during the visit at bedside seen by Dr Correia from pulmonary - bedside u/s performed of b/l pleural effusions -- small on right, moderate on left -- he advises ongoing diuresis for now no new issues overnight patient had large BM prior to my arrival eating about 25-50% of meals per "still having long stretches of being asleep" this has been her pattern all week Review of Systems Review of Systems: cv - pt denies chest pain; no orthopnea pulm - no dyspnea; no cough GI - no abd pain/nausea/emesis - urinary incontinence Physical Exam Physical Exam: gen - initially with eyes closed, resting in bed; easily awoke for me; NAD skin - seborrhea of scalp, ears improving albeit slowly neck - no JVD heart - RRR, s1 s2, no murmur lungs - decreased breath sounds bases - L>R; no wheeze; no rales; no increased work of breathing abd - soft, BS+, NT, ND musculo - kyphosis of back - severe neuro - very flat affect/parkinsonian like masked facies ext - venous stasis changes b/l shins; no open ulcer; no edema b/l; pulses 2+ b/l psych - mental status same as previous days; knows she is in hospital, but rarely volunteers any discussion on her own accord Results & Data Results & Data Vital Signs (Past 12 Hours) Vital Signs Temp Pulse Resp BP Pulse Ox O2 Del Method O2 Flow Rate 08/21/22 15:28 36.6 C 57 L 16 120/62 91 Nasal Cannula 2 Laboratory Results Laboratory Results - last 24 hr 08/21/22 08/21/22 05:47 05:54 WBC 10.87 H RBC 4.73 Hgb 13.7 Hct 41.4 MCV 87.5 MCH 29.0 MCHC 33.1 RDW Std Deviation 42.5 RDW Coeff of Cherie 13.2 Plt Count 405 H MPV 10.4 Sodium 137 Potassium 3.6 Chloride 102 Carbon Dioxide 29 Anion Gap 6 BUN 24 H Creatinine 0.72 Est Cr Clr Drug Dosing 40.3 Est GFR ( Amer) 87.9 Est GFR (Non-Af Amer) 75.8 BUN/Creatinine Ratio 33.3 H Glucose 80 Calcium 9.1 PG Care Time/CCT Total # of Minutes Spent Total Time Spent with Patient: Total time spent is greater than 50% in coordination of care (as documented) at patient's floor/unit and/or counseling patient: Coding Level of Care Code 50775 SUB INP/OBS CARE 2/35MIN Diagnoses Acute respiratory failure with hypoxia J96.01 (HFpEF) heart failure with preserved ejection fraction I50.30 Pleural effusion J90 Pneumonia J18.9 Somnolence R40.0 Venous stasis ulcers of both lower extremities I83.019; I83.029; L97.919; L97.929 Rheumatoid arthritis M06.9 Ambulatory dysfunction R26.2 DVT prophylaxis Z29.9 Chronic renal failure (CRF), stage 3b N18.32 Seborrhea L21.9 Depression F32.A Dementia F03.90
[2022-08-22 07:37] LABS: BUN Creatinine Ratio 37.5 (10-20); Calcium 8.8 mg/dl (8.6-10.3); Creatinine Clr Calc Pharmacy 40.3 ml/min; Est GFR (African American) 87.9 ml/min; Est GFR (Non-African American) 75.8 ml/min; Potassium 3.4 mmol/L (3.5-5.1)
[2022-08-22] MEDS: THIAMINE HCL 100 MG TAB PO SCH ×2 (08:09→20:27)
[2022-08-22] MEDS: AMOXICILLIN/CLAVULANATE 875 MG TAB PO SCH (08:10)
[2022-08-22] MEDS: predniSONE 10 MG TABLET PO SCH (08:10)
[2022-08-22] MEDS: LEFLUNOMIDE 10 MG TAB PO SCH (08:10)
[2022-08-22] MEDS: ADVANCED PROBIOTIC 1250 MG CAPSULE PO SCH (08:10)
[2022-08-22] MEDS: SERTRALINE HCL 50 MG TABLET PO SCH (08:10)
[2022-08-22] MEDS: SALICYLIC ACID EXT SCH (08:11)
[2022-08-22] MEDS: EUCERIN CR 120 GM JAR EXT SCH ×2 (08:11→20:29)
[2022-08-22] MEDS: HYDROCORTISONE 2.5% CR 30 GM TUBE EXT SCH ×3 (08:11→20:29)
[2022-08-22] MEDS: [UNRECOGNIZED DRUG - OTHER] EXT SCH (08:11)
[2022-08-22] MEDS: POTASSIUM CHLORIDE 10 MEQ TABCR PO SCH (08:14)
[2022-08-22] MEDS: FUROSEMIDE 40 MG/4 ML VIAL IV SCH (08:14)
--- NOTE | 2022-08-22 09:27 | Pulmonology Progress Note ---
Date of Service August 22, 2022 Assessment & Plan (1) Acute diastolic CHF (congestive heart failure): (2) Rheumatoid arthritis: (3) Acute respiratory failure with hypoxia: (4) Pleural effusion: Plan CT chest 08/16/2022 personally reviewed: Bilateral pleural effusion moderate to large with dependent atelectasis Cardiomegaly No significant mediastinal lymphadenopathy 2D echo 08/13/2022: EF 60-65%, RV normal in size and function -- Bilateral pleural effusion Etiology is likely cardiac in origin along with low albumin BNP 149 Respiratory bio fire negative for everything on 08/12/2022 Bedside US 08/21/22: Pleural effusion seems to be getting better on the bedside ultrasound. She still has moderate left-sided pleural effusion and small right-sided. Right side also has some fibrin strands. --Acute respiratory failure with hypoxia Likely from bilateral pleural effusion and dependent atelectasis Treated with diuresis --Rheumatoid arthritis On leflunomide --DNR/DNI Plan: In/out: -400, -7.4 L since coming to the hospital Given the improvement I would recommend to continue with diuretics as she is tolerating it well. Would hold back on any pulmonary procedure for the time being Continue with incentive spirometry No further recommendation from pulmonary perspective. We will sign off Please call directly with any questions Please note the above document was generated using voice recognition software. It may contain grammatical, syntax or spelling errors.Any formal questions or concerns about the content, text or information contained within the body of this dictation should be directly addressed to the provider for clarification. Admission and Anticipated Discharge Date Admission Date: August 12, 2022 Subjective Patient seen and examined at bedside. No acute distress, no adverse events overnight. Patient was saturating 96% on 1 and half liters, I went down to 1 L She denies any chest pain, no headache, no nausea, no vomiting Fair appetite Shortness of breath is significantly improved as per the patient Denies any cough Review of Systems Review of Systems: All systems reviewed & are unremarkable except as noted in Subjective Physical Exam Physical Exam: Constitutional: No acute distress HEENT: EOMI, PERRLA, frail-appearing Respiratory system: Decreased air entry bilaterally, no wheeze, no rhonchi, mild crackles bilaterally CVS: S1-S2 positive, no murmurs or gallops Abdomen: Soft, nontender, nondistended, positive bowel sounds x4 Extremities: +2 pulses bilaterally radialis/ dorsalis pedis, no cyanosis, no edema Neuro: Awake alert oriented to self and place Psych: Normal mood and affect G/U: PureWic catheter Musculoskeletal: Thoracic kyphosis Skin: no rashes, warm and dry Lymphatic: no cervical or axillary lymphadenopathy Results & Data Results & Data Vital Signs (Past 12 Hours) Vital Signs Temp Pulse Resp BP Pulse Ox O2 Del Method O2 Flow Rate 08/22/22 09:02 Nasal Cannula 1 08/22/22 07:30 36.8 C 80 16 112/62 94 Nasal Cannula 2 Laboratory Results 08/21/22 05:54 08/22/22 06:21 PG Care Time/CCT Total # of Minutes Spent Total Time Spent with Patient: Total time spent is greater than 50% in coordination of care (as documented) at patient's floor/unit and/or counseling patient: Coding Level of Care Code 77850 SUB INP/OBS CARE 2/35MIN Diagnoses Acute diastolic CHF (congestive heart failure) I50.31 Rheumatoid arthritis M06.9 Acute respiratory failure with hypoxia J96.01 Pleural effusion J90
[2022-08-22] MEDS: ENOXAPARIN INJ 40 MG/0.4 ML SYR SQ SCH (15:37)
--- NOTE | 2022-08-22 19:05 | Hospitalist Progress Note ---
Date of Service August 22, 2022 Assessment & Plan (1) Acute respiratory failure with hypoxia: Plan: 2nd to decompensated CHF + probable pneumonia stable; improved; on minimal amount of NC O2 Cont abx Has finished abx course Continue diuresis but convert to p.o. Lasix 40 Mg daily on discharge (2) (HFpEF) heart failure with preserved ejection fraction: Plan: Clinically improved Had developed contraction alkalosis a few days ago on BID lasix; diamox given with resolution. Lasix cut back to once daily dosing. BUN and Cr stable on lasix 40mg IV daily. Convert to p.o. Lasix on discharge Echo this admission with preserved EF, normal LV wall motion, and normal RV function. Normal valve function as well. TSH wnl and No h/o cirrhosis to contribute to volume overload. Albumin 3 at admission. BMP am. (3) Pleural effusion: Plan: b/l - L>R - 2nd to #2 last cxr still with moderate sized effusions despite 7+ days of IV diuresis consulted Dr Correia from [facility] [place] Pulm - bedside u/s performed today --> small effusion on R, moderate on L he advises ongoing diuresis for now, no thoracentesis needed (4) Pneumonia: Plan: as seen on CT chest completed 7 days of IV unasyn then PO augmentin she is now off antibiotics improving as evidenced by a little more energy, somewhat better appetite, improvement in CRP, etc, less fatigue (5) Somnolence: Plan: Etiology uncertain but I suspect it is mainly due to a developing dementia process. Lewy-body dementia has dramatic fluctuations in sleep/wake cycle. Some of the somnolence may have been due to pneumonia and metabolic encephalopathy as well but the somnolence has been chronic per She has had these dramatic episodes of hypersomnolence nearly daily since admission-now improved on 08/22 Checked VBG - no hypercarbia TSH wnl B12 wnl Ammonia wnl CT head negative for acute or chronic findings stopped nortriptyline - not sure why she was on such - this med causes sedation especially in seniors steroid burst helping a little with energy - now down to 15mg/day B1 level pending - placed on empiric thiamine 200mg BID while awaiting level could consider EEG to r/o subclinical seizures but doubt such thus defer for now Follow-up with neurology as an outpatient (6) Venous stasis ulcers of both lower extremities: Plan: resolved/healed saw wound care clinic about 10 days ago and was told she can f/u prn (7) Rheumatoid arthritis: Plan: Chronic Prednisone dependent - on 2mg daily chronically Cont prednisone - weaned to 10mg-we will wean to 5 mg on 08/24 Wean every ~2 days (8) Ambulatory dysfunction: Plan: Cont PT/OT Lives with her at home who is also having ambulatory difficulties But will go to [facility] at d/c Will need insurance auth (9) DVT prophylaxis: Plan: lovenox 40mg daily (10) Chronic renal failure (CRF), stage 3b: Plan: CrCl at baseline 30s/low 40s BMP daily due to ongoing lasix diuresis Cr remains stable (11) Seborrhea: Plan: severe nizoral shampoo 3x/week (nurses have been performing) hydrocortisone 2.5% with eucerin cream to dry skin on back, torso, etc improved (12) Depression: Plan: question of ? stopped nortriptyline added zoloft 25mg qam x 1 week, then titrate to 50mg thereafter day #3 of zoloft low-dose tolerating such watch BMP to ensure no SIADH from SSRI-check in 1 week (13) Dementia: Plan: reports memory loss of at least 6-12 months duration even when awake/alert she offers little conversation, has parkinsonian like masked facies, has dramatic episodes of hypersomnolence and then will simply wake up randomly, etc. I recommended to her that she have neurology referral post discharge for this cont supportive care Plan extensively updated at bedside once again today dispo - [facility] -plan for discharge tomorrow Admission and Anticipated Discharge Date Admission Date: August 12, 2022 Anticipated date of discharge: 08/23/22 Subjective Patient has no complaints. Nursing reports she is much more awake today than previously Denies shortness of breath Physical Exam Constitutional: WD/WN, vitals as above Respiratory: normal respiratory effort; no cough and not tachypneic Auscultation: + diminished lung sounds (Bibasilar); no crackles, no rhonchi and no wheezes Cardiovascular: Rate/Rhythm: regular rate and regular rhythm Heart Sounds: no murmur Extremities: + edema (1+ pitting edema with wrinkles in the legs bilaterally) Gastrointestinal (Abdomen): normal bowel sounds, soft, nontender, no hepatosplenomegaly Neurologic: awake (Masked facies); no focal motor deficits and not confused Results & Data Results & Data Vital Signs (Past 12 Hours) Vital Signs Temp Pulse Resp BP Pulse Ox O2 Del Method O2 Flow Rate 08/22/22 15:40 36.7 C 55 L 16 126/64 92 Room Air 08/22/22 09:02 Nasal Cannula 1 08/22/22 07:30 36.8 C 80 16 112/62 94 Nasal Cannula 2 Laboratory Results BMP reviewed, blood cultures negative PG Care Time/CCT Total # of Minutes Spent Total Time Spent with Patient: Total time spent is greater than 50% in coordination of care (as documented) at patient's floor/unit and/or counseling patient: Coding Level of Care Code 60346 SUB INP/OBS CARE 2/35MIN Diagnoses Acute respiratory failure with hypoxia J96.01 (HFpEF) heart failure with preserved ejection fraction I50.30 Pleural effusion J90 Pneumonia J18.9 Somnolence R40.0 Venous stasis ulcers of both lower extremities I83.019; I83.029; L97.919; L97.929 Rheumatoid arthritis M06.9 Ambulatory dysfunction R26.2 DVT prophylaxis Z29.9 Chronic renal failure (CRF), stage 3b N18.32 Seborrhea L21.9 Depression F32.A Dementia F03.90
[2022-08-23] MEDS: THIAMINE HCL 100 MG TAB PO SCH (09:04)
[2022-08-23] MEDS: ADVANCED PROBIOTIC 1250 MG CAPSULE PO SCH (09:04)
[2022-08-23] MEDS: SERTRALINE HCL 50 MG TABLET PO SCH (09:04)
[2022-08-23] MEDS: predniSONE 10 MG TABLET PO SCH (09:04)
[2022-08-23] MEDS: EUCERIN CR 120 GM JAR EXT SCH (09:05)
[2022-08-23] MEDS: LEFLUNOMIDE 10 MG TAB PO SCH (09:05)
[2022-08-23] MEDS: HYDROCORTISONE 2.5% CR 30 GM TUBE EXT SCH (09:05)
[2022-08-23] MEDS: FUROSEMIDE 40 MG/4 ML VIAL IV SCH (09:08)
[2022-08-23] MEDS: POTASSIUM CHLORIDE 10 MEQ TABCR PO SCH (09:08)
--- NOTE | 2022-08-23 11:59 | Discharge Summary ---
Discharge Summary Date of Service August 23, 2022 Notes For Next Care Provider Needs Neurology follow up Check BMP in 1 week Medication Changes From Visit Prednisone taper 5mg daily x 2 more days then down to home dose of 2mg daily Lasix increased to 40mg daily Admission HPI Per Admitting Provider Keshia is an 87-year-old female with a past medical history of diastolic CHF, mild pulmonary hypertension, chronic leg edema with chronic venous insufficiency s/p venous ablation, and rheumatoid arthritis who presents by ambulance for evaluation of acute hypoxic respiratory failure and shortness of breath. Keshia is seen with her daughter and at the bedside. Daughter reports she was SoB on the phone x2 days, came to visit today and noted that Keshia was having much more exercise fatigue, shortness of breath, and difficulty breathing than normal. No chest pain or chest pressure. No fevers/chills/sweats. Gets cold easily. +chronic venous stasis with L>R leg swelling at baseline. +increase in swelling bilaterally, no significant chagne in asymmetry per pt and daughter. No calf pain. No LE pain. Has been followed by wound care for weeping LE. Daughter lives in [place], [facility] No other sick contacts. +weight gain, unsure of how much. +fatigue with some lightheadedness with ambulation last 2 days. No syncope. Has had falls due to R leg giving out chronically, no recent change. Per her they do not follow salt at home, does have at least 1 can of Progresso soup per day which is not specifically low-salt Medical History: Reviewed Medications: Reviewed Surgical History: Reviewed Family history: Reviewed Allergies: Reviewed Social History: No tobacco, etoh. Code Status: DNR/DNI Principal Dx & Hospital Course #1 = Principal Diagnosis (1) Acute respiratory failure with hypoxia: 2nd to decompensated CHF + probable pneumonia stable; improved; on minimal amount of NC O2 Has finished abx course Continue diuresis but convert to p.o. Lasix 40 Mg daily on discharge (2) (HFpEF) heart failure with preserved ejection fraction: Clinically improved Had developed contraction alkalosis a few days ago on BID lasix; diamox given with resolution. Lasix cut back to once daily dosing. BUN and Cr stable on lasix 40mg IV daily. Convert to p.o. Lasix 40 mg daily on discharge which is increased from home dose of 20mg daily Echo this admission with preserved EF, normal LV wall motion, and normal RV function. Normal valve function as well. TSH wnl and No h/o cirrhosis to contribute to volume overload. Albumin 3 at admission. BMP in 1 week to recheck renal function and K+ continue KCl 10 meq po daily for now (3) Pleural effusion: b/l - L>R - 2nd to #2 last cxr still with moderate sized effusions despite 7+ days of IV diuresis consulted Dr Correia from [facility] Pulm - bedside u/s performed --> small effusion on R, moderate on L but smaller than previous he advises ongoing diuresis for now, no thoracentesis needed (4) Pneumonia: as seen on CT chest completed 7 days of IV unasyn then PO augmentin she is now off antibiotics improving as evidenced by a little more energy, somewhat better appetite, improvement in CRP, etc, less fatigue (5) Somnolence: Etiology uncertain but I suspect it is mainly due to a developing dementia process. Lewy-body dementia has dramatic fluctuations in sleep/wake cycle. Some of the somnolence may have been due to pneumonia and metabolic encephalopathy as well but the somnolence has been chronic per She has had these dramatic episodes of hypersomnolence nearly daily since admission-now improved on 08/22 Checked VBG - no hypercarbia TSH wnl B12 wnl Ammonia wnl CT head negative for acute or chronic findings stopped nortriptyline - not sure why she was on such - this med causes sedation especially in seniors steroid burst helping a little with energy - now down to 15mg/day B1 level pending - placed on empiric thiamine 200mg BID while awaiting level could consider EEG to r/o subclinical seizures but doubt such thus defer for now Follow-up with neurology as an outpatient (6) Venous stasis ulcers of both lower extremities: resolved/healed saw wound care clinic about 10 days ago and was told she can f/u prn (7) Rheumatoid arthritis: Chronic Prednisone dependent - on 2mg daily chronically Cont prednisone burst - weaned to 10mg-we will wean to 5 mg on 08/24 x 2 days then back to home dose of 2mg daily (8) Ambulatory dysfunction: Cont PT/OT Lives with her at home who is also having ambulatory difficulties But will go to [facility] at d/c (9) DVT prophylaxis: lovenox 40mg daily was given (10) Chronic renal failure (CRF), stage 3b: CrCl at baseline 30s/low 40s BMP in 1 week (11) Seborrhea: severe nizoral shampoo 3x/week (nurses have been performing) hydrocortisone 2.5% with eucerin cream to dry skin on back, torso, etc improved (12) Depression: question of ? stopped nortriptyline added zoloft 25mg qam x 1 week, then titrate to 50mg thereafter day #4 of zoloft low-dose tolerating such watch BMP to ensure no SIADH from SSRI-check in 1 week (13) Dementia: reports memory loss of at least 6-12 months duration even when awake/alert she offers little conversation, has parkinsonian like masked facies, has dramatic episodes of hypersomnolence and then will simply wake up randomly, etc. I recommended to her that she have neurology referral post discharge for this cont supportive care Plan dispo - [facility] -plan for discharge today Discharge Exam Constitutional WD/WN, vitals as above Respiratory normal respiratory effort; no cough and not tachypneic Auscultation: + diminished lung sounds (Bibasilar); no crackles, no rhonchi and no wheezes Cardiovascular Rate/Rhythm: regular rate and regular rhythm Heart Sounds: no murmur Extremities: + edema (1+ pitting edema with wrinkles in the legs bilaterally) Gastrointestinal (Abdomen) normal bowel sounds, soft, nontender, no hepatosplenomegaly Neurologic awake (Masked facies); no focal motor deficits and not confused Updated Medication List Medication Instructions Recorded Confirmed Type leflunomide 20 mg tablet (Arava) 20 mg PO QAM 03/04/19 08/12/22 History furosemide 20 mg tablet (Lasix) 20 mg PO DAILY #14 tabs 12/12/21 08/12/22 Rx nortriptyline 10 mg capsule 10 mg PO .QHS #30 caps 07/05/22 08/12/22 Rx acetaminophen 650 mg 0 mg PO Q8 PRN Pain 08/12/22 08/12/22 History tablet,extended release (Tylenol Arthritis Pain) cholecalciferol (vitamin D3) 50 50 mcg PO DAILY 08/12/22 08/12/22 History mcg (2,000 unit) tablet (Vitamin D3) ibuprofen 200 mg tablet 400 - 600 mg PO Q6H PRN Pain 08/12/22 08/12/22 History metronidazole 1 % topical gel 1 applic topical DAILY PRN .. 08/12/22 08/12/22 History (Metrogel) multivitamin 1 tab PO DAILY 08/12/22 08/12/22 History oxybutynin chloride 5 mg tablet 5 mg PO DIRECTED PRN .urinary 08/12/22 08/12/22 History pain prednisone 1 mg tablet 2 - 3 mg PO DIRECTED 08/12/22 08/12/22 History furosemide 40 mg tablet 40 mg PO QAM #30 tabs 08/23/22 Rx hydrocortisone 2.5 % topical cream 1 applic EXT BID 2 weeks #20 grams 08/23/22 Rx potassium chloride 10 mEq 10 meq PO QAM #30 tabs 08/23/22 Rx tablet,extended release(part/cryst) prednisone 10 mg tablet 5 mg PO QAM #1 tab 08/23/22 Rx sertraline 50 mg tablet 25 mg PO QAM #30 tabs 08/23/22 Rx thiamine HCl (vitamin B1) 100 mg 200 mg PO BID 30 days #120 tabs 08/23/22 Rx tablet white petrolatum-mineral oil 1 applic EXT BID #454 grams 08/23/22 Rx topical cream (Dermacerin topical cream) Hospital Stay Data Consultations 08/12/22 14:35 ED Decision to Admit Stat 08/21/22 08:31 Consult Pulmonology Routine Procedures Performed ECHO Diagnostic Imagining Performed 08/15/22 13:[address] [CT head/brain wo con] Routine 08/16/22 13:44 CT angio chest PE protocol Routine 08/21/22 08:48 US point of care ultrasound Urgent Pending Results Patient Have Any Pending Studies at Discharge: Yes Discharge Instructions Given to Patient (Per Discharging Provider) You were admitted with low oxygen levels from fluid around the lungs and heart failure. You were given diuretics and had a lot of fluid removed. Please continue taking the lasix orally after discharge. You should follow up with a Neurologist given your possible dementia. Call your Primary Care doctor if any of the following symptoms or problems start or get worse: * Shortness of breath or difficulty breathing * Wake up at night short of breath * Chest pain * Cough * Swelling of your hands, feet, or legs * More fatigued or tired with your normal activity * Palpitations - sudden fast heart beats WEIGHT * Weigh yourself every morning after using the bathroom. * Use the same scale. * Wear the same amount of clothing. * Write your weight down on a chart. * Call your Primary Care doctor if you gain more than 2-3 pounds in 1-2 days. MEDICATIONS * Use this discharge instruction sheet for medication instructions. * Take your medications at the time your doctor ordered. * Do not skip a dose of your medicines. * If you miss a dose of medicine, take it as soon as possible, but DO NOT DOUBLE A DOSE. * Read your medicine information when you get home. * Know all of the side effects of your medicine. If in doubt, ask your pharmacist * Call your Primary Care doctor's office if you have any side effects. * Be sure all of your doctors know what medicine and herbs you take (including cold, flu, and herbal medicine). Take the following with you to your follow-up doctor appointments: * Weight Chart * Medication List * List of questions Do not drink excessive alcohol, beer or wine. Total Time Total Time Spent Total Time Spent (In Minutes): 35 min Coding Level of Care Code 10231 INP/OBS DISCH >30 MIN Diagnoses Acute respiratory failure with hypoxia J96.01 (HFpEF) heart failure with preserved ejection fraction I50.30 Pleural effusion J90 Pneumonia J18.9 Somnolence R40.0 Venous stasis ulcers of both lower extremities I83.019; I83.029; L97.919; L97.929 Rheumatoid arthritis M06.9 Ambulatory dysfunction R26.2 DVT prophylaxis Z29.9 Chronic renal failure (CRF), stage 3b N18.32 Seborrhea L21.9 Depression F32.A Dementia F03.90
[2022-08-24] MEDS ORDERED: FUROSEMIDE 40 MG TAB PO SCH (09:00)
== END 2022-08-23 13:43 | DRG 291 ==
LOC: ED 12:43 → SUATTDRO 15:15 → EDINP 15:15 → 2N 15:37 → 3W 08-19 15:40

== ENCOUNTER 2023-03-23 17:26 | Observation (INO) ==
--- NOTE | 2023-03-23 17:34 | ED Triage Note ---
Date of Service March 23, 2023 Provider in Triage Author: Isiah Contreras History of Present Illness This patient was briefly evaluated while in triage. An abbreviated physical exam was performed. This patient is a 88-year-old Female who presents to the ED for evaluation of ri ght shoulder pain. Lives at [facility]. Had ground level fall today onto right arm. Arrives via EMS. 87% O2 sat for EMS on arrival and was placed on oxygen. Physical Exam Limited Triage Exam: VITALS: Vitals are noted on the nurse's note and reviewed by myself. Vital signs stable. GENERAL: Elderly white female who appears uncomfortable on arrival. She is in a wheelchair. HEART: Regular rate and rhythm LUNGS: Generally clear throughout NEURO: Patient was alert and oriented to person place and time. CN II through XII grossly intact. Initial orders for labs and / or imaging were placed and patient was placed in the waiting area until a bed is available. Please see further documentation for the full ED course. MDM / Impression Impression Impression: Closed right humeral fracture, Hypoxia, Dementia, Pleural effusion on right
--- NOTE | 2023-03-23 18:11 | XRay Report ---
XR chest 1V portable CLINICAL HISTORY: weakness, fall, hyxpoxia TECHNIQUE: Single frontal radiograph of the chest was obtained. Comparison: Comparison is made to chest radiograph 08/19/2022 FINDINGS: No lines and tubes are seen. Cardiomegaly is noted. The aortic arch is calcified. Prominence and ceph alization of the vasculature is seen. Moderate right and small left pleural effusion. IMPRESSION: 1. Cardiomegaly and mild pulmonary edema. 2. Moderate right and small left pleural effusion. ACT 112: Negative or not required by law. Electronically signed by: Remi Cai M.D. 03/23/2023 6:10 PM
--- NOTE | 2023-03-23 18:15 | XRay Report ---
XR shoulder RT min 2V routine CLINICAL HISTORY: fall TECHNIQUE: 3 views of the right shoulder were obtained. Comparison: Comparison is made to right shoulder radiograph 05/17/2021 FINDINGS: There is a fracture of the humeral neck with mild displacement and overriding of fragments. Joint spa adam are well-preserved. Soft tissue swelling is seen about the shoulder. IMPRESSION: Humeral neck fracture is seen. ACT 112: Negative or not required by law. Electronically signed by: Remi Cai M.D. 03/23/2023 6:13 PM
[2023-03-23] MEDS ORDERED: ACETAMINOPHEN 325 MG TAB PO STA (22:16)
--- NOTE | 2023-03-23 22:22 | Emergency Department Note ---
Impression & Plan Closed right humeral fracture, Hypoxia, Dementia, Pleural effusion on right ED Provider Note Provider: Isiah Contreras MD DATE OF SERVICE: 03/23/2023 CHIEF COMPLAINT: Fall HISTORY OF PRESENT ILLNESS: Patient is a 88-year-old female history of CHF, dementia, renal failure and a right rotator cuff injury presenting today after a fall. Anti-HTN was reaching his sweater out of the closet stepped back and fell back and hitting her right shoulder. Denies other pain. Denies use of anticoagulants. Denies shortness of breath. Pain only in the right arm by her report. No hip pain or back pain or chest pain. Again denies feeling short of breath and uses compression stockings. Noted by EMS to be somewhat hypoxic. Denies use of oxygen at home. Denies any significant time on the floor. PAST MEDICAL HISTORY: As noted above MEDICATIONS: Reviewed home medication SOCIAL HISTORY: PHYSICAL EXAM: GENERAL: alert and oriented in no acute distress in wheelchair Head: normocephalic and atraumatic EYES: No injection, discharge or icterus. NECK: Trachea midline. Supple. ENT: Mucous membranes pink and moist. LUNGS: Airway patent. No retractions. Breath sounds coarse with diminished bases HEART: Regular rate and rhythm. No chest wall tenderness ABDOMEN: Soft and non-tender, without guarding or rebound. SKIN: Acyanotic, warm, dry, without rashes EXTREMITIES: 2+ edema compression stockings left lower extremity. Right extremity with pain just below the right shoulder. No tenderness of the right elbow wrist or forearm. No compartment syndrome. 2+ right radial pulse. NEUROLOGICAL: No focal deficits. No aphasia. No facial droop or slurred speech EK bpm normal sinus rhythm. No PVC or PAC. No acute ST segment elevation or depression without speckled T wave inversions. QTc 441 CONTINUOUS CARDIAC MONITORING: was ordered and showed a heart rate of bpm in normal sinus rhythm Patient's laboratory studies and imaging reviewed. Differential includes traumatic injury, intracranial hemorrhage, fracture, dislocation, compartment syndrome, rhabdomyolysis, reactive airway disease, pneumonia, pneumothorax, COPD, CHF, infections, cardiac ischemia, pulmonary embolism, musculoskeletal, gastrointestinal, as well as other pathologies. IMPRESSION/MEDICAL DECISION MAKING: Patient suffered a fall sounds mechanical. Denies presyncopal or dizzy complaints. Denies striking head and not on high risk anticoagulants. Given her age however in the history of dementia we will complete a CT here as well as her cervical spine. Will complete a chest CT given that he is somewhat short of breath. X-ray does show some effusion. Not having significant pain lower suspicion for fracture. Question if he is having some CHF exacerbation. Primarily did note on x-ray right humeral neck fracture by my review as well as radiology report. Neurovascular intact without evidence of other significant traumatic injury to the upper extremities or evidence of compartment syndrome. Given some Tylenol here. Will put in sling for the right upper arm. Pulse ox several times and continues to be somewhat hypoxic. Blood work here without significant chemistry abnormalities signs of new renal dysfunction. No evidence of hepatitis. No significant anemia but a leukocytosis of 14 is noted. Very slight BNP elevation but do not feel this is significant. Troponin very slightly elevated from prior baseline but only 21. Not having active chest pain. Doubt acute ACS. Doubt PE. Large right pleural effusion noted on review of the CT of the chest I do not believe is traumatic given how well she looks. Likely chronically accumulated do question some CHF and given extra dose of some diuretic. Will bring to the hospital given hypoxia for treatment with diuresis and possible evaluation by pulmonary for thoracentesis. Again sling to the right upper arm. Patient and updated. Hospitalist contacted. CT reports from radiology of the head, cervical spine, and chest were reviewed. DIAGNOSIS: Fall, right humeral neck fracture, hypoxia, right pleural effusion DISPOSITION: Hospitalist will evaluate Patient was agreeable with this plan. Past Med/Surg History Medical History (HFpEF) heart failure with preserved ejection fraction Basal cell carcinoma Chronic renal failure (CRF), stage 3b Chronic venous stasis dermatitis of both lower extremities Closed left radial fracture DJD (degenerative joint disease) H/O fracture of hip H/O mitral valve prolapse Lumbar radicular pain Non-healing surgical wound Osteopenia Rheumatoid arthritis Somnolence Surgical History H/O foot surgery H/O wrist surgery S/P appendectomy S/P cholecystectomy Family History Father COPD (chronic obstructive pulmonary disease) Silicosis Mother No problems noted. Social History Smoking Status: Never smoker Second Hand Exposure: No; Do You Dip or Chew Tobacco: No; Hx Alcohol Use: No Hx Substance Use: No Preferred Language: Croatian Communication Ability: Impaired Visual Impairment: Limited Hearing Ability: Normal [employer] Consultant Required: No Beliefs That Will Affect Care: None marital status: Current Living Situation: Spouse Current Living Situation Comment: Lives w/ at [facility] in independent living current occupational status: retired How many Children do You have: 1 Feels Safe at Home: Yes Diet: regular Assistive Devices: Cane and Walker Allergies Allergies Allergy/AdvReac Type Severity Reaction Status Date / Time No Known Allergies Allergy Verified 03/24/23 01:14 Home Meds Home Medications Medication Instructions Recorded Confirmed leflunomide 20 mg tablet (Arava) 20 mg PO QAM 03/04/19 03/24/23 cholecalciferol (vitamin D3) 50 50 mcg PO DAILY 08/12/22 03/24/23 mcg (2,000 unit) tablet (Vitamin D3) metronidazole 1 % topical gel 1 applic topical DAILY PRN .. 08/12/22 03/24/23 (Metrogel) multivitamin 1 tab PO DAILY 08/12/22 03/24/23 acetaminophen 325 mg tablet 650 mg PO Q4 PRN Pain 03/24/23 03/24/23 (Tylenol) Previous Rx's Medication Instructions Recorded furosemide 40 mg tablet 40 mg PO QAM #30 tabs 08/23/22 potassium chloride 10 mEq 10 meq PO QAM #30 tabs 08/23/22 tablet,extended release(part/cryst) prednisone 1 mg tablet 2 mg (2 x 1 mg) PO DAILY #60 tabs 08/23/22 sertraline 50 mg tablet 25 mg (1/2 x 50 mg) PO QAM #30 tabs 08/23/22 Results & Data (ED) Vital Signs Vital Signs - 24 hr 03/23/23 17:32 03/23/23 21:50 03/23/23 21:50 Temperature 36.4 C L Temperature Source Temporal Artery Scan Pulse Rate 66 Pulse Rate [Finger] 69 Pulse Rhythm Regular Pulse Strength Normal Respiratory Rate 20 18 Respiratory Effort / Characteristics Non-Labored Spontaneous Non-Labored Spontaneous Respiratory Depth Normal Normal Respiratory Pattern Regular Regular Blood Pressure 186/79 H Blood Pressure [Left Arm] 143/72 H Blood Pressure Mean 114 Blood Pressure Mean [Left Arm] 95 Blood Pressure Position Sitting Blood Pressure Position [Left Arm] Sitting Pulse Oximetry 93 95 95 Oxygen Delivery Method Room Air Room Air Room Air Sepsis Recent Fever Within 48 Hours No Sepsis New/Unexplained Change in Mental Status No Sepsis Action Taken by Nursing No Action Required Laboratory Data 03/23/23 21:54 03/23/23 21:54 Lab Results 03/23/23 03/23/23 Range/Units 21:52 21:54 WBC 14.83 H (4.8-10.8) K/ul RBC 4.86 (4.20-5.40) M/uL Hgb 14.5 (12.0-16.0) g/dl Hct 43.3 (37.0-47.0) % MCV 89.1 (80.0-100.0) fL MCH 29.8 (25.0-34.0) pg MCHC 33.5 (32.0-36.0) g/dL RDW Std Deviation 48.4 H (36.4-46.3) fL RDW Coeff of Cherie 14.9 H (11.5-14.5) % Plt Count 323 (130-400) K/uL MPV 10.7 (9.4-12.4) fL Immature Gran % (Auto) 0.5 % Neut % (Auto) 90.0 % Lymph % (Auto) 4.0 % Whitfield % (Auto) 4.8 % Eos % (Auto) 0.2 % Baso % (Auto) 0.5 % Neut # (Auto) 13.36 H (1.40-6.50) K/uL Lymph # (Auto) 0.59 L (1.20-3.40) K/uL Whitfield # (Auto) 0.71 H (0.11-0.59) K/uL Eos # (Auto) 0.03 (0.00-0.50) K/uL Baso # (Auto) 0.07 (0.00-0.20) K/uL Immature Gran # (Auto) 0.07 (0.01-0.20) K/uL Sodium 139 (136-145) mmol/L Potassium 4.1 (3.5-5.1) mmol/L Chloride 102 (98-107) mmol/L Carbon Dioxide 29 (21-32) mmol/L Anion Gap 8 (3-11) BUN 22 (6-23) mg/dl Creatinine 0.82 (0.6-1.2) mg/dl Est Cr Clr Drug Dosing 40.0 ml/min Est GFR ( Amer) 74.6 ml/min Est GFR (Non-Af Amer) 64.3 ml/min BUN/Creatinine Ratio 26.8 H (10-20) Glucose 124 H (70-99(Fasting)) mg/dl Calcium 9.3 (8.6-10.3) mg/dl Magnesium 2.2 (1.7-2.4) mg/dl Total Bilirubin 0.7 (0.2-1.0) mg/dl AST 32 (13-39) U/L ALT 18 (7-52) U/L Alkaline Phosphatase 100 (34-104) U/L Troponin I High Sens 21.7 H (0-14) pg/ml B-Natriuretic Peptide 148 H (0-100) pg/ml Total Protein 7.9 (6.0-8.3) gm/dl Albumin 3.7 (3.4-5.0) gm/dl Globulin 4.2 H (2.5-4.0) gm/dl Albumin/Globulin Ratio 0.9 (0.9-2) TSH 2.810 (0.300-4.500) uIu/ml Adenovirus (PCR) Not Detected (NotDetected) B. pertussis DNA (PCR) Not Detected (NotDetected) B.parapertussis DNA PCR Not Detected (NotDetected) C. pneumoniae DNA (PCR) Not Detected (NotDetected) Coronavirus OC43 (PCR) Not Detected (NotDetected) Coronavirus HKU1 (PCR) Not Detected (NotDetected) Coronavirus 229E (PCR) Not Detected (NotDetected) SARS-CoV-2 (PCR) Not Detected (NotDetected) Coronavirus NL63 (PCR) Not Detected (NotDetected) Human Metapneumovir PCR Not Detected (NotDetected) Influenza Type A (PCR) Not Detected (NotDetected) Influenza Type B (PCR) Not Detected (NotDetected) M. pneumoniae (PCR) Not Detected (NotDetected) Parainfluenza 1 (PCR) Not Detected (NotDetected) Parainfluenza 2 (PCR) Not Detected (NotDetected) Parainfluenza 3 (PCR) Not Detected (NotDetected) Parainfluenza 4 (PCR) Not Detected (NotDetected) RSV (PCR) Not Detected (NotDetected) Entero/Rhino (PCR) Not Detected (NotDetected) Imaging Data Radiologist's Impression: Chest X-Ray 03/23/23 17:34 XR chest 1V portable CLINICAL HISTORY: weakness, fall, hyxpoxia TECHNIQUE: Single frontal radiograph of the chest was obtained. Comparison: Comparison is made to chest radiograph 08/19/2022 FINDINGS: No lines and tubes are seen. Cardiomegaly is noted. The aortic arch is calcified. Prominence and cephalization of the vasculature is seen. Moderate right and small left pleural effusion. IMPRESSION: 1. Cardiomegaly and mild pulmonary edema. 2. Moderate right and small left pleural effusion. ACT 112: Negative or not required by law. Electronically signed by: Remi Cai M.D. 03/23/2023 6:10 PM Shoulder X-Ray 03/23/23 17:34 XR shoulder RT min 2V routine CLINICAL HISTORY: fall TECHNIQUE: 3 views of the right shoulder were obtained. Comparison: Comparison is made to right shoulder radiograph 05/17/2021 FINDINGS: There is a fracture of the humeral neck with mild displacement and overriding of fragments. Joint spaces are well-preserved. Soft tissue swelling is seen about the shoulder. IMPRESSION: Humeral neck fracture is seen. ACT 112: Negative or not required by law. Electronically signed by: Remi Cai M.D. 03/23/2023 6:[address] 03/23/23 22:16 Exam(s): CT C SPINE EXAM: CT Cervical Spine Without Intravenous Contrast CLINICAL HISTORY: Reason for exam: fall. TECHNIQUE: Axial computed tomography images of the cervical spine without intravenous contrast. CTDI is 17.33 mGy and DLP is 278.62 mGy-cm. Automated exposure control was utilized for the study. A dose lowering technique was utilized adhering to the principles of ALARA. COMPARISON: No relevant prior studies available. FINDINGS: Vertebrae: Spondylolisthesis at C3-4, C4-5 and C5-6. No acute fracture. Discs/spinal canal/neural foramina: No acute findings. No spinal canal stenosis. Soft tissues: Unremarkable. IMPRESSION: No evidence of acute cervical spine pathology. Electronically signed by: Susie Zhang MD 03/24/23 01:[address] 03/23/23 22:16 Exam(s): CT HEAD Without Contrast EXAM: CT Head Without Intravenous Contrast CLINICAL HISTORY: Reason for exam: fall. TECHNIQUE: Axial computed tomography images of the head/brain without intravenous contrast. CTDI is 23.31 mGy and DLP is 417.02 mGy-cm. Automated exposure control was utilized for the study. A dose lowering technique was utilized adhering to the principles of ALARA. COMPARISON: Comparison made to prior head CT from August 15, 2022. FINDINGS: Brain: Unremarkable. No hemorrhage. Moderate nonspecific white matter changes. No edema. Ventricles: Mild ventriculomegaly. Bones/joints: Unremarkable. No acute fracture. Soft tissues: Bilateral lens replacements. Sinuses: Unremarkable as visualized. No acute sinusitis. Mastoid air cells: Unremarkable as visualized. No mastoid effusion. IMPRESSION: No evidence of acute intracranial pathology. Electronically signed by: Susie Zhang MD 03/24/23 01:11 AM Discharge Plan Visit Data Chief Complaint: Fall Stated Complaint: GLF, R SHOULDER DEFORMITY ED Provider: Isiah Contreras Discharge Problem: Closed right humeral fracture, Hypoxia, Dementia, Pleural effusion on right Patient Disposition: Being Evaluated by Hospitalist Forms Stand Alone Forms: [facility] Prescriptions Prescriptions: No Action leflunomide [Arava] 20 mg tablet 20 mg PO QAM multivitamin Tablet 1 tab PO DAILY cholecalciferol (vitamin D3) [Vitamin D3] 50 mcg (2,000 unit) Tablet 50 mcg PO DAILY metronidazole [Metrogel] 1 % Gel 1 applic TOPICAL DAILY PRN (Reason: ..) Rx Instructions: unknown strength sertraline 50 mg Tablet 25 mg PO QAM Qty: 30 0RF Rx Instructions: x 3 more days then increase to 50mg daily furosemide 40 mg Tablet 40 mg PO QAM Qty: 30 0RF potassium chloride 10 mEq Tablet,Er Particles/Crystals 10 meq PO QAM Qty: 30 0RF prednisone 1 mg tablet 2 mg PO DAILY Qty: 60 0RF Rx Instructions: Take 3 tabs on odd days, 2 tabs on even days. acetaminophen [Tylenol] 325 mg Tablet 650 mg PO Q4 PRN (Reason: Pain) Referrals Referrals: Nael Senior MD [Physician] -
[2023-03-23 22:26] LABS: Basophils # (auto) 0.07 K/uL (0.00-0.20); Basophils % (auto) 0.5 %; Eosinophils # (auto) 0.03 K/uL (0.00-0.50); Eosinophils % (auto) 0.2 %; Hematocrit (blood only) 43.3 % (37.0-47.0); Hemoglobin 14.5 g/dl (12.0-16.0); Immature Granulocytes # (auto) 0.07 K/uL (0.01-0.20); Immature Granulocytes % (auto) 0.5 %; Lymphocytes # (auto) 0.59 K/uL (1.20-3.40); Mean Corpuscular Hemoglobin 29.8 pg (25.0-34.0); Mean Corpuscular Hgb Conc 33.5 g/dL (32.0-36.0); Mean Corpuscular Volume 89.1 fL (80.0-100.0); Mean Platelet Volume 10.7 fL (9.4-12.4); Monocytes # (auto) 0.71 K/uL (0.11-0.59); Monocytes % (auto) 4.8 %; Neutrophils # (auto) 13.36 K/uL (1.40-6.50); Platelet Count 323 K/uL (130-400); RDW Coefficient of Variation 14.9 % (11.5-14.5); RDW Standard Deviation 48.4 fL (36.4-46.3); Red Blood Count 4.86 M/uL (4.20-5.40); White Blood Count 14.83 K/ul (4.8-10.8)
[2023-03-23 22:44] LABS: Albumin Globulin Ratio 0.9 (0.9-2); Albumin Level 3.7 gm/dl (3.4-5.0); BUN Creatinine Ratio 26.8 (10-20); Bilirubin,Total 0.7 mg/dl (0.2-1.0); Calcium 9.3 mg/dl (8.6-10.3); Est GFR (African American) 74.6 ml/min; Est GFR (Non-African American) 64.3 ml/min; Globulin 4.2 gm/dl (2.5-4.0); Magnesium 2.2 mg/dl (1.7-2.4); Potassium 4.1 mmol/L (3.5-5.1); Total Protein 7.9 gm/dl (6.0-8.3)
[2023-03-23 22:49] LABS: Troponin I High Sensitivity 21.7 pg/ml (0-14)
[2023-03-23] MEDS ORDERED: FUROSEMIDE 40 MG/4 ML VIAL IV ONE (22:56)
[2023-03-23 22:58] LABS: Thyroid Stimulating Hormone 2.81 uIu/ml (0.300-4.500)
[2023-03-23 22:59] LABS: Adenovirus PCR Not Detected (NotDetected); Bordetella parapertussis PCR Not Detected (NotDetected); Bordetella pertussis PCR Not Detected (NotDetected); Chlamydia pneumoniae PCR Not Detected (NotDetected); Coronavirus 229E PCR Not Detected (NotDetected); Coronavirus CoV-2 (COVID19)PCR Not Detected (NotDetected); Coronavirus HKU1 PCR Not Detected (NotDetected); Coronavirus NL63 PCR Not Detected (NotDetected); Coronavirus OC43PCR Not Detected (NotDetected); Human Metapneumovirus PCR Not Detected (NotDetected); Influenza A PCR Not Detected (NotDetected); Influenza B PCR Not Detected (NotDetected); Mycoplasma pneumoniae PCR Not Detected (NotDetected); Parainfluenza Virus 1 PCR Not Detected (NotDetected); Parainfluenza Virus 2 PCR Not Detected (NotDetected); Parainfluenza Virus 3 PCR Not Detected (NotDetected); Parainfluenza Virus 4 PCR Not Detected (NotDetected); Respiratory Syncytial VirusPCR Not Detected (NotDetected); Rhinovirus/Enterovirus PCR Not Detected (NotDetected)
--- OUTSIDE RECORDS SUMMARY | 2023-03-23 23:33 | External Medical Summary | Continuity of Care Document ---
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) - 01/02/23 Seronegative rheumatoid arthritis(Discharge Diagnosis) - 01/02/23 Diastolic heart failure(Discharge Diagnosis) - 01/02/23 Chronic venous stasis(Discharge Diagnosis) - 01/02/23 Degenerative arthritis(Discharge Diagnosis) - 01/02/23 Hypersomnolence(Discharge Diagnosis) - 01/03/23 Discharge Disposition: Home or Self Care Attending Physician: DO Thomas Franklin J Allergies, Adverse Reactions, Alerts Substance Reaction Severity Status Bactrim rash Active Assessment and Plan Extracted from: Title:Office Visit Note Author:DO Miller Clair e S Date:01/03/23 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 Will check CBC. Is scheduled to get RSV, COVID booster, and influenza vaccine at [facility]. 2.Seronegative rheumatoid arthritis Chronic condition, stable Goal:Stability Data:unique tests ordered: _CMP Plan: Continue current medications. Will get updated list from [facility] 3.Diastolic heart failure Chronic condition, stable Goal:Stability Data:unique tests ordered: _CMP Plan: Continue 40mg lasix daily. Follows with cardiology. 4.Chronic venous stasis Chronic condition, stable Goal:Stability Data:_ Plan: Diuretic plan as per above. Follows with cardiology. Immunizations Given and Recorded Vaccine Date Status Refusal Reason influenza virus vaccine, inactivated 12/27/21 Give n influenza virus vaccine, inactivated 12/04/19 Give n influenza virus vaccine, inactivated 01/09/19 Dedrick rded influenza virus vaccine, inactivated 12/25/17 Give n influenza virus vaccine, inactivated 01/11/17 Give n influenza virus vaccine, inactivated 12/15/15 Give n influenza virus vaccine, inactivated 01/07/15 Dedrick rded influenza virus vaccine, inactivated 01/13/14 Give n influenza virus vaccine, inactivated 12/16/12 Give n influenza virus vaccine, inactivated 12/27/11 Give n tetanus/diphtheria/pertuss, acel (Tdap) 1 04/04/21 Recorded tetanus/diphtheria/pertuss, acel (Tdap) 05/12/11 G iven SARS-CoV-2 (COVID-19) mRNA-1273 vaccine 2 03/02/21 Recorded SARS-CoV-2 (COVID-19) mRNA-1273 vaccine 3 05/19/20 Recorded SARS-CoV-2 (COVID-19) mRNA-1273 vaccine 4 04/20/20 Recorded pneumococcal 13-valent vaccine 02/16/14 Given pneumococcal 23-valent vaccine 04/28/02 Recorded pneumococcal 23-valent vaccine 04/28/02 Recorded tetanus toxoids-diphtheria, Td (Adult) 04/04/00 Re corded 1Result Comment: 2021-06-10: Historical information-source unspecified 2Result Comment: 2021-06-10: Historical information-source unspecified 3Result Comment: 2021-06-10: Historical information-source unspecified 4Result Comment: 2020-04-23: Historical information-source unspecified Medications alendronate 70 mg oral tablet Start: 04/23/20 13:15:00 EST, 1 tab, PO, q7days, Disp# 12 tab, Refills: 4, with 6-8 oz plain water,at least 30 minutes before first food, beverage, or medication of the day, Pharmacy: [facility]/pharmacy #[id number] Start Date: 04/23/20 Stop Date: 09/10/20 Status: Ordered furosemide 40 mg oral tablet Start: 01/03/23 11:55:00 EDT Start Date: 01/03/23 Status: Ordered hydrocortisone 2.5% topical lotion Start: 01/03/23 11:54:00 EDT, 1 appl, topical, Daily Start Date: 01/03/23 Status: Ordered leflunomide 20 mg oral tablet Start: 10/05/22 13:29:00 EDT, See Instructions, Disp# 90 tab, Refills: 0, TAKE 1 TABLET BY MOUTH EVERY DAY, Pharmacy: [id number] Start Date: 10/05/22 Status: Ordered metroNIDAZOLE 1% topical gel Start: 01/03/23 11:55:00 EDT, 1 appl, topical, Daily Start Date: 01/03/23 Status: Ordered Multi-Day with Calcium and Extra Iron Start: 05/02/10 16:21:00 Start Date: 05/02/10 Status: Ordered Potassium Chloride (Ipa-Lzoq-Nyo M10) 10 mEq oral tablet, extended release Start: 01/03/23 11:55:00 EDT Start Date: 01/03/23 Status: Ordered predniSONE 1 mg oral tablet Start: 12/01/21 8:08:00 EDT, See Instructions, Disp# 250 tab, Refills: 4, TAKE 3 TABLETS ON ODD DAYS, 2 ON EVEN DAYS, Pharmacy: [facility] Start Date: 12/01/21 Status: Ordered sertraline 50 mg oral tablet Start: 01/03/23 11:54:00 EDT, 1 tab, PO, Daily Start Date: 01/03/23 Status: Ordered Shingrix intramuscular injection Start: 04/19/21 22:04:00 EST, 0.5 mL, IM, ONCE, Disp# 1 each, Refills: 1, repeat dose in 2 to 6 months, Note to Pharmacy: please administer, Pharmacy: [facility]/pharmacy #[id number] Start Date: 04/19/21 Status: Ordered Tylenol 8 HR Arthritis Pain 650 mg oral tablet, extended release Start: 01/23/19 13:26:00 EDT, 2 tab, PO, q8h, Disp# 100 tab, given to patient Start Date: 01/23/19 Status: Suspended Vitamin D3 2000 intl units oral capsule Start: 01/23/19 13:28:00 EDT, 1 cap, PO, Daily, Disp# 100 cap, Refills: 10, given to patient Start Date: 01/23/19 Status: Ordered Mental Status 01/02/23 Barriers to Learning one year None evide nt Mandatory Health Literacy Documentation Yes Health Literacy Communication Barriers N ever Primary Language Portuguese Problem List Condition Confirmation Course Effective Dates Status H ealth Status Informant Lumbar facet arthropathy Confirmed Active High risk for hip fracture Confirmed Active BMI 26.0-26.9,adult Confirmed Active Bilateral cellulitis of lower leg Confirmed Active DDD (degenerative disc disease), lumbar Confirmed Active On corticosteroid therapy 1 Confirmed Active Anticoagulated by anticoagulation treatment Confirmed Active Immunodeficiency due to drugs 2 Confirmed Active Lower extremity edema Confirmed Active Female stress incontinence Confirmed Active History of pulmonary embolism Confirmed 10/19/20 Active Hx of skin malignancy Confirmed Active History of mitral valve prolapse 3 Confirmed 03/26/89 Active History of shingles Confirmed 01/22/00 Active Hypoalbuminemia Confirmed Active Lower back pain Confirmed Active Right lumbar radiculopathy Confirmed Active Lymphopenia Confirmed Active Memory difficulties Confirmed Active Onychomycosis Confirmed Active OSTEOARTHROSIS, LOCALIZED, PRIMARY, INVOLVING OTHER SPECIFIED SITES 4 Confirmed Active Osteoporosis Confirmed Active Encounter for monitoring leflunomide therapy Confirmed Active Pleural scarring 5 Confirmed Active Poor balance Confirmed Active Porokeratosis Confirmed Active Positive PREETHI (antinuclear antibody) 6 Confirmed 05/11/10 Active Recurrent falls Confirmed Active ROSACEA Confirmed Active Pain of right sacroiliac joint Confirmed Active Seborrhea Confirmed Active Senile hyperkeratosis Confirmed Active Seronegative rheumatoid arthritis Confirmed Active Sinus bradycardia Confirmed Active Lumbar spinal stenosis Confirmed Active Tinea corporis Confirmed Active UNSPECIFIED MENOPAUSAL AND POSTMENOPAUSAL DISORDER Confirmed Active 1for RA 2See outside note 12/20/21 On Leflunomide & Prednisone for RA 3MVP and MR by exam, not ECHO (vs opening snap with TR) 4C-spine 5right apex 61:80 Homogenous; neg. Anti-ds DNA Diagnosis Diagnosis Type Effective Dates Health Status Clinical Service Informant Seronegative rheumatoid arthritis Discharge Diagnosis 01/02/23 Immunodeficiency due to drugs Discharge Diagnosis 01/02/23 Chronic venous stasis Discharge Diagnosis 01/02/23 Diastolic heart failure Discharge Diagnosis 01/02/23 Degenerative arthritis Discharge Diagnosis 01/02/23 Non-Specified Hypersomnolence Discharge Diagnosis 01/03/23 Procedures Procedure Date Related Diagnosis Body Site Status Chest X-ray 1 08/12/22 Completed X-ray of right foot 2 04/06/[address] of head/brain w/o contrast 3 04/04/[address] 4 04/04/21 Completed X-ray Humerus 5 04/04/21 Completed Endovenous laser ablation of varicose vein 6 02/23/21 Completed Plain X-ray of right hip 7 01/17/21 Completed X-ray of right knee 8 01/17/21 Com pleted MRI of lumbar spine without contrast 9 09/03/20 Completed Dual energy X-ray absorptiom etry (DEXA) 10 02/06/19 Completed US Venous Doppler Bilateral Lower Extremities 11 01/16/19 Completed Shave biopsy 12 11/27/18 Completed Mammogram 13 12/10/14 Completed DEXA - Dual energy X-ray hilaria ton absorptiometry 14, 15, 16 04/27/14 Comple amilcar Cataract extraction and inse rtion of intraocular lens 17 05/23/11 Completed DEXA - Dual energy X-ray hilaria ton absorptiometry 18 12/21/10 Completed cholecystectomy 2009 Completed DEXA - Dual energy X-ray hilaria ton absorptiometry 19 11/05/08 Completed Colonoscopy normal 20 05/13/07 Com pleted right wrist surgery; followi ng a fracture 1999 Completed left ovary wedge resection 1967 Completed Appendectomy 1964 Completed right tube and ovary removall 1964 Completed Tonsillectomy and adenoidect zohra; younger than age 12 1940 Completed Cataract extraction and inse rtion of intraocular lens Completed external fixation of both wrists 22 Completed 1IMPRESSION: 1. Interval progression of the pulmonary edema and small to moderate bilateral pleural effusions. 2. Bibasilar densities have also progressed and favor atelectasis from the pleural effusions. 2Impression: 1. No acute fracture within the right foot. No radiographic evidence for acute osteomyelitis. Suboptimal evaluation given chronic toe deformities. 2. Hallux valgus, similar to prior exam. Chronic deformities, as described above. 3. Marked dorsal foot soft tissue swelling. 4. Severe midfoot osteoarthritis. 3Impression: No acute intracerebral pathology. Mild cerebral cortical atrophy and remote small vessel disease. 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 Small subgaleal hematoma on the right. 4No acute intracerebral pathology. Mild cerebral cortical atrophy and remote small vessel disease. 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 Small subgaleal hematoma on the right. 5Impression: No acute fracture or dislocation. 6Summery: 1. Successful right GSV ablation with VenaSeal closure system 7IMPRESSION: No evidence of acute bony injury. 8Impression: No evidence of acute osseous injury. 91. Severe multilevel degenerative disc disease and facet arthrosis within the lumbar spine. Severe central canal stenosis at L3-L4 and L4-L5 and moderate to severe central canal stenosis at L2-L3. 2. Severe multilevel neural foraminal stenosis, as detail above. 3. Moderate levoscoliosis of the lumbar spine. 10impression AP spine L1-L4 T-score of -0.8 femur neck left T-score -2.1 femur neck right T-score - 2.2 femur total mean T-score -1.9 z-score 0.1 111. No evidence of deep venous thrombosis 2. Subcutaneous edema in the bilateral lower legs 12A- right cheek B- right lower leg 13No malignancy. One year screening recommended. 14FRAX: 32%/11% 15L Spine -1.7 Femur -1.7 total mean 16--2.4 right femur 17left 18-2.0 LS spine, most improving 19-2.3 , LS spine, -1.5% worse than 2005 20Normal; no more surveillance needed 21with right SO. 22bilateral wrist fractures Vital Signs Most recent to oldest [Reference Range]: 1 Patient Weight 56.4 kg (01/02/23 2:16 PM) Temperature [36.5-37.9 DegC] 37 DegC (01/02/23 2:16 PM) Heart Rate 60 bpm (01/02/23 2:16 PM) Respiratory Rate 18 br/min (01/02/23 2:16 PM) Blood Pressure 122/68mmHg (01/02/23 2:16 PM) Social History Social History Type Response Smoking Status Never smoked cigaret choco Sex Female FCM Outpt Note * DO Thomas Franklin J: MODIFY DO Thomas Franklin J: MODIFY Event Display: FCM Outpt Note Authored Date: Chief Complaint pt here for yealry check, est care with dr. miller. no concerns. History of Present Illness 87 year old female with a past medical history of osteoporosis, seronegative RA, and h/o PE, Chronic Venous Insufficiency s/p Endovenous Ablation, Chronic Venous Stasis, Mild Pulmonary Hypertension, Diastolic CHFpresenting for f/u. Currently [facility]. ([place] No acute complaints today. RA - pain decently well controlled on leflunomide - multiple different medication lists in regards to other medications, will get [facility] to fax current med list - does note that she has had injections for back in past through pain management that have been helpful, last appears to be 01/15 HFpEF, Chronic Venous Stasis - follows with cardiology - most recent cardiology note from 12/16 states she is on 40mg daily, will confirm with current med list at [facility] - swelling is well controlled on this dose Neurology - hypersomnolence was noted on admission in 08/15 and outpatient neurology f/u was suggested Review of Systems As per above. Physical Exam Vitals & Measurements T:37C HR:60(Monitored) RR:18 BP:122/68 SpO2:95% WT:56.4kg WT:56.400kg(Dosing) PHQ2 Data(Data Documented on:01/02/2023 14:14) Emotional health assessment NEGATIVE General:Well-developed, well-nourished patient, in no acute distress, pleasant and normal affect, intact memory. Eyes:No scleral injection or discharge. Lungs:Clear to auscultation bilaterally with good effort. Cardiac:Regular rate and rhythm.No murmurs.Trace extremity edema. 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 Will check CBC. Is scheduled to get RSV, COVID booster, and influenza vaccine at [facility]. 2.Seronegative rheumatoid arthritis Chronic condition, stable Goal:Stability Data:unique tests ordered: _CMP Plan: Continue current medications. Will get updated list from the [facility] 3.Diastolic heart failure Chronic condition, stable Goal:Stability Data:unique tests ordered: _CMP Plan: Continue 40mg lasix daily. Follows with cardiology. 4.Chronic venous stasis Chronic condition, stable Goal:Stability Data:_ Plan: Diuretic plan as per above. Follows with cardiology. Attestation I also saw the patient and confirmed naqvi portions of thehistory and exam. Agree with the impression and plan as noted in the resident documentation above. Problem List/Past Medical History Ongoing Anticoagulated by anticoagulation treatment Bilateral cellulitis of lower leg BMI 26.0-26.9,adult DDD (degenerative disc disease), lumbar Encounter for monitoring leflunomide therapy Female stress incontinence High risk for hip fracture History of mitral valve prolapse History of pulmonary embolism History of shingles Hx of skin malignancy Hypoalbuminemia Immunodeficiency due to drugs Lower back pain Lower extremity edema Lumbar facet arthropathy Lumbar spinal stenosis Lymphopenia Memory difficulties On corticosteroid therapy Onychomycosis OSTEOARTHROSIS, LOCALIZED, PRIMARY, INVOLVING OTHER SPECIFIED SITES Osteoporosis Pain of right sacroiliac joint Pleural scarring Poor balance Porokeratosis Positive PREETHI (antinuclear antibody) Recurrent falls Right lumbar radiculopathy ROSACEA Seborrhea Senile hyperkeratosis Seronegative rheumatoid arthritis Sinus bradycardia Tinea corporis UNSPECIFIED MENOPAUSAL AND POSTMENOPAUSAL DISORDER Historical Changing skin lesion Closed fracture of distal end of left humerus Closed fracture of distal end of left radius Gall stones Medicare annual wellness visit, subsequent Menopausal syndrome Mitral insufficiency Need for extended care facility Need for prophylactic vaccination and inoculation against influenza Osteopenia Paresthesia PERSONAL HISTORY OF OTHER MALIGNANT NEOPLASM OF SKIN Post-menopausal ROUTINE GENERAL MEDICAL EXAMINATION AT A HEALTH CARE FACILITY Tinea Procedure/Surgical History Chest X-ray (08/12/2022)X-ray of right foot (04/06/2022)Head CT (04/04/2021)CT of head/brain w/o contrast (04/04/2021)X-ray Humerus (04/04/2021)Endovenous laser ablation of varicosevein (02/23/2021)Plain X- ray of right hip (01/17/2021)X-ray of right knee (01/17/2021)MRI of lumbar spine without contrast (09/03/2020)Dual energy X-ray absorptiometry (DEXA) (02/06/2019)US Venous Doppler Bilateral Lower Extremities (01/16/2019)Shave biopsy (11/27/2018)Mammogram (12/10/2014)DEXA - Dual energy X-ray photon absorptiometry (04/27/2014)Cataract extraction and insertion of intraocular lens (05/23/2011)DEXA - Dual energy X-ray photon absorptiometry (12/21/2010)cholecystectomy (2009)DEXA - Dual energy X-ray photon absorptiometry (11/05/2008)Colonoscopy normal (05/13/2007)right wrist surgery; following a fracture (1999)left ovary wedge resection (1967)Appendectomy (1964)right tube and ovary removall (1964)Tonsillectomy and adenoidectomy; younger than age 12 (1941)external fixation of both wristsCataract extraction and insertion of intraocular lens Medications alendronate(alendronate 70 mg oral tablet), 70 mg= 1 tab, PO, q7days, 4 refills cholecalciferol(Vitamin D3 2000 intl units oral capsule), 2000 Int_Unit= 1 cap, PO, Daily, 10 refills furosemide(furosemide 40 mg oral tablet) hydrocortisone topical(hydrocortisone 2.5% topical lotion), 1 appl, topical, Daily leflunomide(leflunomide 20 mg oral tablet), See Instructions metroNIDAZOLE topical(metroNIDAZOLE 1% topical gel), 1 appl, topical, Daily multivitamin with minerals(Multi-Day with Calcium and Extra Iron) potassium chloride(Potassium Chloride (Vvq-Ohpg-Gxv M10) 10 mEq oral tablet, extended release) predniSONE(predniSONE 1 mg oral tablet), See Instructions sertraline(sertraline 50 mg oral tablet), 50 mg= 1 tab, PO, Daily zoster vaccine, inactivated(Shingrix intramuscular injection), 0.5 mL, IM, ONCE, 1 refills Allergies Bactrimrash Social History Smoking Status Never smoked cigarettes Alcohol - Denies Alcohol Use 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 Peripheral vascular disease: Father. Silicosis: Father. Health Status Family Member(s) Sister: History is negative Daughter: History is negative Family Member(s) Relationship: Mother, Age: 97 Years, Cause: old age Relationship: Father, Age: 62 Years, Cause: pulmonary embolism; while hospitalized from silicosis/COPD; non-smoker Immunizations Vaccine Date Status influenza virus vaccine, inactivated 12/27/2021 Given tetanus/diphtheria/pertuss, acel (Tdap) 04/04/2021 Recorded Comments : 2021-06-10: Historical information-source unspecified SARS-CoV-2 (COVID-19) mRNA-1273 vaccine 03/02/2021 Recorded Comments : 2021-06-10: Historical information-source unspecified SARS-CoV-2 (COVID-19) mRNA-1273 vaccine 05/19/2020 Recorded Comments : 2021-06-10: Historical information-source unspecified SARS-CoV-2 (COVID-19) mRNA-1273 vaccine 04/20/2020 Recorded Comments : 2020-04-23: Historical information-source unspecified influenza virus vaccine, inactivated 12/04/2019 Given influenza virus vaccine, inactivated 01/09/2019 Recorded influenza virus vaccine, inactivated 12/25/2017 Given influenza virus vaccine, inactivated 01/11/2017 Given influenza virus vaccine, inactivated 12/15/2015 Given influenza virus vaccine, inactivated 01/07/2015 Recorded pneumococcal 13-valent vaccine 02/16/2014 Given influenza virus vaccine, inactivated 01/13/2014 Given influenza virus vaccine, inactivated 12/16/2012 Given influenza virus vaccine, inactivated 12/27/2011 Given tetanus/diphtheria/pertuss, acel (Tdap) 05/12/2011 Given pneumococcal 23-valent vaccine 04/28/2002 Recorded pneumococcal 23-valent vaccine 04/28/2002 Recorded tetanus toxoids-diphtheria, Td (Adult) 04/04/2000 Recorded Recommendations Health Maintenance Pending(in the next year) OverDue Medicare Annual Wellness Visit due04/23/21and every 1year Body Mass Index due07/15/22and every 1year Adult Influenza Vaccine due09/23/22and every 1year Due Adult COVID-19 Vaccination due01/03/23Unknown Frequency Shingles Vaccine due01/03/23One-time only Due In Future Falls Plan of Care not due until09/21/23and every 1year Satisfied(in the past 1 year) There are no satisfied recommendations within the defined date range Electronic Signature on File Electronically Reviewed/Signed by: Lakshmi Miller DO Author Signature Dt/Tm:01/03/2023 04:13 PM Resident Department of Family Medicine Electronically Reviewed/Signed by: George Thomas DO Cosigner Signature Dt/Tm: 01/03/2023 05:50PM Department of Family Medicine CSN Patient Care team information Care Team Personnel Name: MD Parrish, Nael Sim Position: Physician - Family Med Member Role: Lifetime Relationship Address: Address: [address] [place] [address] Name: DO Thomas Franklin J Position: Physician - Family Med Member Role: Lifetime Relationship Address: Address: [address] [place] [address] [place] [address] [place] Name: DO Miller Claire S Position: Resident Member Role: Primary Care Provider Address: Address: [address] [address] [place] Care Team Related Persons Name: SARAI STACY Address: home [address] [place], [place] [id number]
--- NOTE | 2023-03-24 00:25 | History & Physical Report ---
Date of Service March 24, 2023 Assessment & Plan (1) Pleural effusion on right: Plan: Patient found with moderate to large pleural effusion on the right. She has had pleural effusions in the past secondary to heart failure. She does not recall ever having a thoracentesis. Presently saturating well on 2L NC. No respiratory distress -Lasix 40mg IV daily -Repeat CXR -Pulmonary consultation appreciated for possible thoracentesis (2) Closed right humeral fracture: Plan: Ground level fall resulting in right humeral fracture. NV intact. Patient is in considerable pain -Tylenol 1gm PO TID scheduled -Oxycodone PRN -Morphine PRN -Miralax PRN (3) Rheumatoid arthritis: Plan: Chronic. Stable -Continue home Prednisone History of Present Illness Chief Complaint: fall, hypoxia Primary Care Provider: Lakshmi Shepherd DO Keshia Silva is an 88yo female with history of CKD, RA, Dementia presenting from [facility] after a ground level fall. Patient was reaching up and putting on a sweater when she lost her balance and fell. She landed on her right arm. No head trauma or LOC. Patient denies chest pain, cough, SOB. No report of abdominal pain, nausea, vomiting or diarrhea. Patient hypoxic by EMS with saturations 87% on room air. She continue to be hypoxic in the ER. Found to have a moderate right sided pleural effusion. No report of cough, SOB Allergies Allergy/AdvReac Type Severity Reaction Status Date / Time No Known Allergies Allergy Verified 03/24/23 01:14 Home Medications Medication Instructions Recorded Confirmed Type leflunomide 20 mg tablet (Arava) 20 mg PO QAM 03/04/19 03/24/23 History cholecalciferol (vitamin D3) 50 50 mcg PO DAILY 08/12/22 03/24/23 History mcg (2,000 unit) tablet (Vitamin D3) metronidazole 1 % topical gel 1 applic topical DAILY PRN .. 08/12/22 03/24/23 History (Metrogel) multivitamin 1 tab PO DAILY 08/12/22 03/24/23 History furosemide 40 mg tablet 40 mg PO QAM #30 tabs 08/23/22 03/24/23 Rx potassium chloride 10 mEq 10 meq PO QAM #30 tabs 08/23/22 03/24/23 Rx tablet,extended release(part/cryst) prednisone 1 mg tablet 2 mg (2 x 1 mg) PO DAILY #60 tabs 08/23/22 03/24/23 Rx sertraline 50 mg tablet 25 mg (1/2 x 50 mg) PO QAM #30 tabs 08/23/22 03/24/23 Rx acetaminophen 325 mg tablet 650 mg PO Q4 PRN Pain 03/24/23 03/24/23 History (Tylenol) Past Med/Surg History Medical History Chronic renal failure (CRF), stage 3b (HFpEF) heart failure with preserved ejection fraction Somnolence Lumbar radicular pain Closed left radial fracture Basal cell carcinoma Osteopenia Chronic venous stasis dermatitis of both lower extremities Non-healing surgical wound DJD (degenerative joint disease) H/O mitral valve prolapse H/O fracture of hip Rheumatoid arthritis Surgical History H/O foot surgery H/O wrist surgery S/P appendectomy S/P cholecystectomy Family History Father COPD (chronic obstructive pulmonary disease) Silicosis Mother , age 97 No problems noted. Social History Smoking Status: Never smoker Second Hand Exposure: No; Do You Dip or Chew Tobacco: No; Hx Alcohol Use: No Hx Substance Use: No Preferred Language: Scottish Communication Ability: Effective Visual Impairment: Limited Hearing Ability: Normal Client Success Director Required: No Beliefs That Will Affect Care: None marital status: Current Living Situation: Spouse Current Living Situation Comment: Lives w/ at [facility] in independent living current occupational status: retired How many Children do You have: 1 Other Information That Helps Us Care for You: No Feels Safe at Home: Yes Safety Concerns: Feels Safe At This Time Diet: regular Assistive Devices: Denture - Upper, Denture - Lower, Glasses and Walker Review of Systems Review of Systems: All systems reviewed & are unremarkable except as noted in HPI & below Physical Exam Physical Exam: General: patient resting comfortably, NAD, non-toxic in appearance, slow to answer questions Skin: warm, dry, intact, no rashes or lesions HEENT: NC/AT, PERRL, EOMI, anicteric sclera, conjunctiva without injection, external ear normal to inspection and nontender, nares patent, moist mucus membranes, dentition intact, no oropharyngeal lesions, neck supple, trachea midline, no LAD, no thyromegaly, no JVD Heart: +S1/S2, regular, no m/r/g Lungs: equal air entry bilaterally, diminished breath sounds in right base, no rhonchi/wheezes Abd: +BS, soft, NT/ND, no masses/organomegaly/ascites Ext: warm, 2+ pulses in UE/LE bilaterally, no clubbing/cyanosis or edema, RUE in sling, NV intact Neuro: nonfocal, patient AA&O x 4, speech intact, no facial droop, moving all extremities on command with equal strength 5/5 Results & Data Results & Data Vital Signs (Past 12 Hours) Vital Signs Temp Pulse Pulse Resp BP BP Pulse Ox 03/23/23 21:50 95 03/23/23 21:50 69 18 143/72 H 95 03/23/23 17:32 36.4 C L 66 20 186/79 H 93 O2 Del Method 03/23/23 21:50 Room Air 03/23/23 21:50 Room Air 03/23/23 17:32 Room Air Laboratory Results Laboratory Results WBC 14.83 K/ul (4.8-10.8) H 03/23/23 21:54 RBC 4.86 M/uL (4.20-5.40) 03/23/23 21:54 Hgb 14.5 g/dl (12.0-16.0) 03/23/23 21:54 Hct 43.3 % (37.0-47.0) 03/23/23 21:54 MCV 89.1 fL (80.0-100.0) 03/23/23 21:54 MCH 29.8 pg (25.0-34.0) 03/23/23 21:54 MCHC 33.5 g/dL (32.0-36.0) 03/23/23 21:54 RDW Std Deviation 48.4 fL (36.4-46.3) H 03/23/23 21:54 RDW Coeff of Cherie 14.9 % (11.5-14.5) H 03/23/23 21:54 Plt Count 323 K/uL (130-400) 03/23/23 21:54 MPV 10.7 fL (9.4-12.4) 03/23/23 21:54 Immature Gran % (Auto) 0.5 % 03/23/23 21:54 Neut % (Auto) 90.0 % 03/23/23 21:54 Lymph % (Auto) 4.0 % 03/23/23 21:54 [place] % (Auto) 4.8 % 03/23/23 21:54 Eos % (Auto) 0.2 % 03/23/23 21:54 Baso % (Auto) 0.5 % 03/23/23 21:54 Neut # (Auto) 13.36 K/uL (1.40-6.50) H 03/23/23 21:54 Lymph # (Auto) 0.59 K/uL (1.20-3.40) L 03/23/23 21:54 [place] # (Auto) 0.71 K/uL (0.11-0.59) H 03/23/23 21:54 Eos # (Auto) 0.03 K/uL (0.00-0.50) 03/23/23 21:54 Baso # (Auto) 0.07 K/uL (0.00-0.20) 03/23/23 21:54 Immature Gran # (Auto) 0.07 K/uL (0.01-0.20) 03/23/23 21:54 Sodium 139 mmol/L (136-145) 03/23/23 21:54 Potassium 4.1 mmol/L (3.5-5.1) 03/23/23 21:54 Chloride 102 mmol/L (98-107) 03/23/23 21:54 Carbon Dioxide 29 mmol/L (21-32) 03/23/23 21:54 Anion Gap 8 (3-11) 03/23/23 21:54 BUN 22 mg/dl (6-23) 03/23/23 21:54 Creatinine 0.82 mg/dl (0.6-1.2) 03/23/23 21:54 Est Cr Clr Drug Dosing 40.0 ml/min 03/23/23 21:54 Est GFR ( Amer) 74.6 ml/min 03/23/23 21:54 Est GFR (Non-Af Amer) 64.3 ml/min 03/23/23 21:54 BUN/Creatinine Ratio 26.8 (10-20) H 03/23/23 21:54 Glucose 124 mg/dl (70-99(Fasting)) H 03/23/23 21:54 Calcium 9.3 mg/dl (8.6-10.3) 03/23/23 21:54 Magnesium 2.2 mg/dl (1.7-2.4) 03/23/23 21:54 Total Bilirubin 0.7 mg/dl (0.2-1.0) 03/23/23 21:54 AST 32 U/L (13-39) 03/23/23 21:54 ALT 18 U/L (7-52) 03/23/23 21:54 Alkaline Phosphatase 100 U/L (34-104) 03/23/23 21:54 Troponin I High Sens 18.0 pg/ml (0-14) H 03/24/23 00:28 B-Natriuretic Peptide 148 pg/ml (0-100) H 03/23/23 21:54 Total Protein 7.9 gm/dl (6.0-8.3) 03/23/23 21:54 Albumin 3.7 gm/dl (3.4-5.0) 03/23/23 21:54 Globulin 4.2 gm/dl (2.5-4.0) H 03/23/23 21:54 Albumin/Globulin Ratio 0.9 (0.9-2) 03/23/23 21:54 TSH 2.810 uIu/ml (0.300-4.500) 03/23/23 21:54 Urine Color Yellow 03/24/23 01:50 Urine Appearance Clear (Clear) 03/24/23 01:50 Urine pH 7.5 (4.5-7.5) 03/24/23 01:50 Ur Specific [place] 1.008 (1.000-1.030) 03/24/23 01:50 Urine Protein Negative (Negative) 03/24/23 01:50 Urine Glucose (UA) Negative (Negative) 03/24/23 01:50 Urine Ketones Negative (Negative) 03/24/23 01:50 Urine Blood Negative (Negative) 03/24/23 01:50 Urine Nitrite Negative (Negative) 03/24/23 01:50 Urine Bilirubin Negative (Negative) 03/24/23 01:50 Urine Urobilinogen Negative (Negative) 03/24/23 01:50 Ur Leukocyte Esterase Trace (Negative) H 03/24/23 01:50 Urine WBC (Auto) 10-30 /hpf (0-5) H 03/24/23 01:50 Urine RBC (Auto) 0-4 /hpf (0-4) 03/24/23 01:50 U Hyaline Cast (Auto) 0 /lpf (0-5) 03/24/23 01:50 U Epithel Cells (Auto) 10-20 /lpf (0-5) H 03/24/23 01:50 Urine Bacteria (Auto) 2+ (Negative) H 03/24/23 01:50 Urine Yeast Not Reportable 03/24/23 01:50 Adenovirus (PCR) Not Detected (NotDetected) 03/23/23 21:52 B. pertussis DNA (PCR) Not Detected (NotDetected) 03/23/23 21:52 B.parapertussis DNA PCR Not Detected (NotDetected) 03/23/23 21:52 C. pneumoniae DNA (PCR) Not Detected (NotDetected) 03/23/23 21:52 Coronavirus OC43 (PCR) Not Detected (NotDetected) 03/23/23 21:52 Coronavirus HKU1 (PCR) Not Detected (NotDetected) 03/23/23 21:52 Coronavirus 229E (PCR) Not Detected (NotDetected) 03/23/23 21:52 SARS-CoV-2 (PCR) Not Detected (NotDetected) 03/23/23 21:52 Coronavirus NL63 (PCR) Not Detected (NotDetected) 03/23/23 21:52 Human Metapneumovir PCR Not Detected (NotDetected) 03/23/23 21:52 Influenza Type A (PCR) Not Detected (NotDetected) 03/23/23 21:52 Influenza Type B (PCR) Not Detected (NotDetected) 03/23/23 21:52 M. pneumoniae (PCR) Not Detected (NotDetected) 03/23/23 21:52 Parainfluenza 1 (PCR) Not Detected (NotDetected) 03/23/23 21:52 Parainfluenza 2 (PCR) Not Detected (NotDetected) 03/23/23 21:52 Parainfluenza 3 (PCR) Not Detected (NotDetected) 03/23/23 21:52 Parainfluenza 4 (PCR) Not Detected (NotDetected) 03/23/23 21:52 RSV (PCR) Not Detected (NotDetected) 03/23/23 21:52 Entero/Rhino (PCR) Not Detected (NotDetected) 03/23/23 21:52 Impressions Shoulder X-Ray 03/23/23 17:34 XR shoulder RT min 2V routine CLINICAL HISTORY: fall TECHNIQUE: 3 views of the right shoulder were obtained. Comparison: Comparison is made to right shoulder radiograph 05/17/2021 FINDINGS: There is a fracture of the humeral neck with mild displacement and overriding of fragments. Joint spaces are well-preserved. Soft tissue swelling is seen about the shoulder. IMPRESSION: Humeral neck fracture is seen. ACT 112: Negative or not required by law. Electronically signed by: Remi Cai M.D. 03/23/2023 6:[address] 03/23/23 22:16 Exam(s): CT C SPINE EXAM: CT Cervical Spine Without Intravenous Contrast CLINICAL HISTORY: Reason for exam: fall. TECHNIQUE: Axial computed tomography images of the cervical spine without intravenous contrast. CTDI is 17.33 mGy and DLP is 278.62 mGy-cm. Automated exposure control was utilized for the study. A dose lowering technique was utilized adhering to the principles of ALARA. COMPARISON: No relevant prior studies available. FINDINGS: Vertebrae: Spondylolisthesis at C3-4, C4-5 and C5-6. No acute fracture. Discs/spinal canal/neural foramina: No acute findings. No spinal canal stenosis. Soft tissues: Unremarkable. IMPRESSION: No evidence of acute cervical spine pathology. Electronically signed by: Susie Zhang MD 03/24/23 01:[address] 03/23/23 22:16 Exam(s): CT CHEST Without Contrast EXAM: CT Chest Without Intravenous Contrast CLINICAL HISTORY: fall, hypoxia. TECHNIQUE: Axial computed tomography images of the chest without intravenous contrast. CTDI is 23.31 mGy and DLP is 417.02 mGy-cm. Automated exposure control was utilized for the study. A dose lowering technique was utilized adhering to the principles of ALARA. COMPARISON: No relevant prior studies available. FINDINGS: Lungs: Unremarkable. No mass. No consolidation. Pleural space: There is a large volume right pleural effusion noted posteriorly and laterally throughout the right hemithorax. The effusion is hypodense however without evidence for a layering hematocrit. Trace hypodense effusion noted in the posterior costophrenic margin on the left. Near complete collapse of the right lower lobe and in the lateral right middle lobe with subsegmental changes in the right upper lobe. There are subsegmental changes in the left lower lobe adjacent to the pleural effusion. No pneumothorax. Heart: Mild cardiomegaly. Small pericardial effusion. No significant coronary artery calcifications. Mediastinum: No evidence for mediastinal traumatic injury. Bones/joints: There is a displaced proximal diaphyseal fracture involving the right humerus. The humeral head is partially excluded but appears to be aligned. Combination of the posterior glenoid is somewhat age indeterminant. No displaced rib fracture. No thoracic vertebral body fracture. The included shoulders and sternum are otherwise unremarkable. Soft tissues: The soft tissues are partially excluded from the field- of-view. No significant overlying acute soft tissue abnormality. Vasculature: The unenhanced thoracic aorta demonstrates atherosclerotic changes. No obvious acute periaortic abnormality. Incidental aberrant right subclavian artery origin. No thoracic aortic aneurysm. Lymph nodes: Nonspecific subcentimeter lymph nodes. IMPRESSION: 1. There is a displaced proximal diaphyseal fracture involving the right humerus. The humeral head is partially excluded but appears to be aligned. Combination of the posterior glenoid is somewhat age indeterminant. 2. There is a large volume right pleural effusion noted posteriorly and laterally throughout the right hemithorax. The effusion is hypodense however without evidence for a layering hematocrit. Suspect an incidental process of uncertain chronicity. Trace hypodense left pleural effusion noted in the posterior costophrenic margin. 3. Presumed compressive atelectasis of the lungs adjacent to the pleural effusions. Subsegmental changes in the right upper lobe is presumed atelectasis rather than contusive injury. No pneumothorax. 4. Trace pericardial effusion incidentally noted. No acute mediastinal traumatic injury. Electronically signed by: David Dias MD 03/24/23 01:[address] 03/23/23 22:16 Exam(s): CT HEAD Without Contrast EXAM: CT Head Without Intravenous Contrast CLINICAL HISTORY: Reason for exam: fall. TECHNIQUE: Axial computed tomography images of the head/brain without intravenous contrast. CTDI is 23.31 mGy and DLP is 417.02 mGy-cm. Automated exposure control was utilized for the study. A dose lowering technique was utilized adhering to the principles of ALARA. COMPARISON: Comparison made to prior head CT from August 15, 2022. FINDINGS: Brain: Unremarkable. No hemorrhage. Moderate nonspecific white matter changes. No edema. Ventricles: Mild ventriculomegaly. Bones/joints: Unremarkable. No acute fracture. Soft tissues: Bilateral lens replacements. Sinuses: Unremarkable as visualized. No acute sinusitis. Mastoid air cells: Unremarkable as visualized. No mastoid effusion. IMPRESSION: No evidence of acute intracranial pathology. Electronically signed by: Susie Zhang MD 03/24/23 01:11 AM PG Care Time/CCT Total # of Minutes Spent Total Time Spent with Patient: Total time spent is greater than 50% in coordination of care (as documented) at patient's floor/unit and/or counseling patient: Coding Level of Care Code 24985 INT INP/OBS CARE 2/55MIN Diagnoses Pleural effusion on right J90 Closed right humeral fracture S42.301A Rheumatoid arthritis M06.9
--- NOTE | 2023-03-24 01:09 | CT Scan Report ---
Exam(s): CT C SPINE EXAM: CT Cervical Spine Without Intravenous Contrast CLINICAL HISTORY: Reason for exam: fall. TECHNIQUE: Axial computed tomography images of the cervical spine without intravenous contrast. CTDI is 17.33 mGy and DLP is 278.62 mGy-cm. Automated exposure control was utilized for the study. A dose lowering technique was utilized adhering to the principles of ALARA. COMPARISON: No relevant prior studies available. FINDINGS: Vertebrae: Spondylolisthesis at C3-4, C4-5 and C5-6. No acute fracture. Discs/spinal canal/neural foramina: No acute findings. No spinal canal stenosis. Soft tissues: Unremarkable. IMPRESSION: No evidence of acute cervical spine pathology. Electronically signed by: Susie Zhang MD 03/24/23 01:08 AM
--- NOTE | 2023-03-24 01:12 | CT Scan Report ---
Exam(s): CT HEAD Without Contrast EXAM: CT Head Without Intravenous Contrast CLINICAL HISTORY: Reason for exam: fall. TECHNIQUE: Axial computed tomography images of the head/brain without intravenous contrast. CTDI is 23.31 mGy and DLP is 417.02 mGy-cm. Automated exposure control was utilized for the study. A dose lowering technique was utilized adhering to the principles of ALARA. COMPARISON: Comparison made to prior head CT from August 15, 2022. FINDINGS: Brain: Unremarkable. No hemorrhage. Moderate nonspecific white matter changes. No edema. Ventricles: Mild ventriculomegaly. Bones/joints: Unremarkable. No acute fracture. Soft tissues: Bilateral lens replacements. Sinuses: Unremarkable as visualized. No acute sinusitis. Mastoid air cells: Unremarkable as visualized. No mastoid effusion. IMPRESSION: No evidence of acute intracranial pathology. Electronically signed by: Susie Zhang MD 03/24/23 01:11 AM
--- NOTE | 2023-03-24 01:21 | CT Scan Report ---
Exam(s): CT CHEST Without Contrast EXAM: CT Chest Without Intravenous Contrast CLINICAL HISTORY: fall, hypoxia. TECHNIQUE: Axial computed tomography images of the chest without intravenous contrast. CTDI is 23.31 mGy and DLP is 417.02 mGy-cm. Automated exposure control was utilized for the study. A dose lowering technique was utilized adhering to the principles of ALARA. COMPARISON: No relevant prior studies available. FINDINGS: Lungs: Unremarkable. No mass. No consolidation. Pleural space: There is a large volume right pleural effusion noted posteriorly and laterally throughout the right hemithorax. The effusion is hypodense however without evidence for a layering hematocrit. Trace hypodense effusion noted in the posterior costophrenic margin on the left. Near complete collapse of the right lower lobe and in the lateral right middle lobe with subsegmental changes in the right upper lobe. There are subsegmental changes in the left lower lobe adjacent to the pleural effusion. No pneumothorax. Heart: Mild cardiomegaly. Small pericardial effusion. No significant coronary artery calcifications. Mediastinum: No evidence for mediastinal traumatic injury. Bones/joints: There is a displaced proximal diaphyseal fracture involving the right humerus. The humeral head is partially excluded but appears to be aligned. Combination of the posterior glenoid is somewhat age indeterminant. No displaced rib fracture. No thoracic vertebral body fracture. The included shoulders and sternum are otherwise unremarkable. Soft tissues: The soft tissues are partially excluded from the field- of-view. No significant overlying acute soft tissue abnormality. Vasculature: The unenhanced thoracic aorta demonstrates atherosclerotic changes. No obvious acute periaortic abnormality. Incidental aberrant right subclavian artery origin. No thoracic aortic aneurysm. Lymph nodes: Nonspecific subcentimeter lymph nodes. IMPRESSION: 1. There is a displaced proximal diaphyseal fracture involving the right humerus. The humeral head is partially excluded but appears to be aligned. Combination of the posterior glenoid is somewhat age indeterminant. 2. There is a large volume right pleural effusion noted posteriorly and laterally throughout the right hemithorax. The effusion is hypodense however without evidence for a layering hematocrit. Suspect an incidental process of uncertain chronicity. Trace hypodense left pleural effusion noted in the posterior costophrenic margin. 3. Presumed compressive atelectasis of the lungs adjacent to the pleural effusions. Subsegmental changes in the right upper lobe is presumed atelectasis rather than contusive injury. No pneumothorax. 4. Trace pericardial effusion incidentally noted. No acute mediastinal traumatic injury. Electronically signed by: David Dias MD 03/24/23 01:20 AM
[2023-03-24] MEDS ORDERED: FUROSEMIDE 40 MG/4 ML VIAL IV ONE (01:24)
[2023-03-24] MEDS ORDERED: ACETAMINOPHEN 325 MG TAB ONE (01:28)
[2023-03-24] MEDS ORDERED: MoRPHine SULFATE 2 MG/ML CARP IV PRN (01:55)
[2023-03-24] MEDS ORDERED: POLYETHYLENE (MIRALAX) 17 GM PACK PO PRN (01:55)
[2023-03-24] MEDS ORDERED: ONDANSETRON INJ 2 MG/ML 2 ML VIAL IV PRN (01:55)
[2023-03-24] MEDS ORDERED: oxyCODONE HCL IR 5 MG TAB (IMMEDIATE RELEASE) PO PRN (01:55)
[2023-03-24 02:30] LABS: Appearance Urine Clear (Clear); Bilirubin Urine Negative (Negative); Blood Urine Negative (Negative); Cast Urine Automated 0 /lpf (0-5); Color Urine Yellow; Glucose Urine UA Negative (Negative); Ketones Urine Negative (Negative); Leukocyte Esterase Urine Trace (Negative); Nitrite Urine Negative (Negative); Protein Urine Negative (Negative); RBC Urine Automated 0-4 /hpf (0-4); Specific Gravity Urine 1.008 (1.000-1.030); Urobilinogen Urine Negative (Negative); pH Urine 7.5 (4.5-7.5)
[2023-03-24 02:52] LABS: Bacteria Urine Automated 2+ (Negative)
--- NOTE | 2023-03-24 07:03 | XRay Report ---
XR chest 1V portable HISTORY: 88 years-old Female assess right sided effusion acute shortness of breath COMPARISON: Chest radiograph 03/23/[address] 03/23/2023 TECHNIQUE: AP view of the chest FINDINGS: Cardiac silhouette is enlarged. Atherosclerosis of the aorta. Persistent loculated right pleural effu tucker with right lung volume loss and right basilar predominant consolidation, stable from prior. Stab le small left pleural effusion with left basilar opacities. Pulmonary vascular congestion. Degenerati ve changes of the shoulders and spine. Acute, comminuted angulated and displaced right proximal humer al fracture redemonstrated. IMPRESSION: 1. No significant change of the persistent loculated right pleural effusion with right lung volume lo ss and right basilar consolidation. 2. Unchanged small left pleural effusion with mild left basilar opacities. 3. Cardiomegaly with pulmonary vascular congestion. 4. Acute, comminuted, angulated and displaced right proximal humeral fracture. ACT 112: Negative or not required by law. The above report was generated using voice recognition software. It may contain grammatical, syntax o r spelling errors. Electronically signed by: Jason Edwards M.D. 03/24/2023 7:02 AM
--- NOTE | 2023-03-24 07:33 | Pulmonary Consultation ---
Date of Consultation March 24, 2023 Assessment & Plan (1) Pleural effusion on right: (2) Hypoxia: (3) (HFpEF) heart failure with preserved ejection fraction: (4) Pleural effusion: (5) Rheumatoid arthritis: (6) Acute respiratory failure with hypoxia: Plan CT chest 03/23/2023 personally reviewed: Large right-sided pleural effusion with compressive atelectasis of the right lower lobe Dependent atelectasis of the left lower lobe Cardiomegaly No significant mediastinal lymphadenopathy 2D echo 08/13/2022: EF 60-65%, RV normal in size and function -- Right pleural effusion Etiology is likely cardiac in origin along with low albumin BNP 148 Respiratory bio fire negative for everything on 08/12/2022 --Acute respiratory failure with hypoxia Likely from bilateral pleural effusion and dependent atelectasis Treated with diuresis --Rheumatoid arthritis On leflunomide and Prednisone --DNR/DNI on the last admission Plan: For thoracentesis later today Risk and benefit of the procedure explained to the patient as well as patient's daughter on the phone They understand and agree to go ahead with the procedure Consent signed, witnessed and put in the chart Recommend diuresis to keep the patient negative balance Please note the above document was generated using voice recognition software. It may contain grammatical, syntax or spelling errors.Any formal questions or concerns about the content, text or information contained within the body of this dictation should be directly addressed to the provider for clarification. History of Present Illness Attending Physician: Elizabeth Ennis DO History of Present Illness 88-year-old female present to the hospital because of fall Past medical history: Rheumatoid arthritis on leflunomide, diastolic CHF Pulmonary consulted for bilateral pleural effusion Patient was admitted in 07/2022 and she has been getting diuresis since then. At the time of examination patient was saturating 92% on 2 L nasal cannula not in respiratory distress She stated that she was trying to wear her sweater, she turned around, tripped and fell down. Denied any loss of consciousness. No dizziness or palpitation prior to the fall. When it comes to her breathing she says she is doing okay. Does not have any significant shortness of breath Denies any headache, no blurry vision No nausea vomiting Fair appetite. She is not on oxygen at home. Denies any cough, no chest congestion. 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 No birds or poultry nearby. Allergies Allergy/AdvReac Type Severity Reaction Status Date / Time No Known Allergies Allergy Verified 03/24/23 01:14 Home Medications Medication Instructions Recorded Confirmed Type leflunomide 20 mg tablet (Arava) 20 mg PO QAM 03/04/19 03/24/23 History cholecalciferol (vitamin D3) 50 50 mcg PO DAILY 08/12/22 03/24/23 History mcg (2,000 unit) tablet (Vitamin D3) metronidazole 1 % topical gel 1 applic topical DAILY PRN .. 08/12/22 03/24/23 History (Metrogel) multivitamin 1 tab PO DAILY 08/12/22 03/24/23 History furosemide 40 mg tablet 40 mg PO QAM #30 tabs 08/23/22 03/24/23 Rx potassium chloride 10 mEq 10 meq PO QAM #30 tabs 08/23/22 03/24/23 Rx tablet,extended release(part/cryst) prednisone 1 mg tablet 2 mg (2 x 1 mg) PO DAILY #60 tabs 08/23/22 03/24/23 Rx sertraline 50 mg tablet 25 mg (1/2 x 50 mg) PO QAM #30 tabs 08/23/22 03/24/23 Rx acetaminophen 325 mg tablet 650 mg PO Q4 PRN Pain 03/24/23 03/24/23 History (Tylenol) Patient History Medical History Chronic renal failure (CRF), stage 3b (HFpEF) heart failure with preserved ejection fraction Somnolence Lumbar radicular pain Closed left radial fracture Basal cell carcinoma Osteopenia Chronic venous stasis dermatitis of both lower extremities Non-healing surgical wound DJD (degenerative joint disease) H/O mitral valve prolapse H/O fracture of hip Rheumatoid arthritis Surgical History H/O foot surgery H/O wrist surgery S/P appendectomy S/P cholecystectomy Family History Father COPD (chronic obstructive pulmonary disease) Silicosis Mother , age 97 No problems noted. Social History Smoking Status: Never smoker Second Hand Exposure: No; Do You Dip or Chew Tobacco: No; Hx Alcohol Use: No Hx Substance Use: No Preferred Language: Chinese Communication Ability: Effective Visual Impairment: Limited Hearing Ability: Normal Furniture Fabricator Required: No Beliefs That Will Affect Care: None marital status: Current Living Situation: Spouse Current Living Situation Comment: Lives w/ at [facility] in independent living current occupational status: retired How many Children do You have: 1 Other Information That Helps Us Care for You: No Feels Safe at Home: Yes Safety Concerns: Feels Safe At This Time Diet: regular Assistive Devices: Denture - Upper, Denture - Lower, Glasses and Walker Review of Systems 2 Review of Systems: All systems reviewed & are unremarkable except as noted in HPI & below Physical Exam 2 Physical Exam: Constitutional: No acute distress HEENT: EOMI, PERRLA, frail-appearing Respiratory system: Decreased air entry right side, no wheeze, no rhonchi, mild crackles bilaterally CVS: S1-S2 positive Abdomen: Soft, nontender, nondistended, positive bowel sounds x4 Extremities: +2 pulses bilaterally radialis/ dorsalis pedis, no cyanosis, +2 pitting edema bilateral lower extremity Neuro: Awake alert oriented to self and place Psych: Normal mood and affect G/U: No Singer Musculoskeletal: Thoracic kyphosis Skin: no rashes, warm and dry Lymphatic: no cervical or axillary lymphadenopathy Results & Data Results & Data Vital Signs (Past 12 Hours) Vital Signs Temp Pulse Resp BP Pulse Ox O2 Del Method O2 Flow Rate 03/24/23 06:38 36.8 C 61 16 106/61 93 Room Air 2 03/24/23 01:50 Nasal Cannula 2 03/24/23 01:50 36.2 C L 72 18 147/64 H 93 Nasal Cannula 2 03/23/23 21:50 95 Room Air 03/23/23 21:50 69 18 143/72 H 95 Room Air Laboratory Results 03/23/23 21:54 03/23/23 21:54 PG Care Time/CCT Total # of Minutes Spent Total Time Spent with Patient: Total time spent is greater than 50% in coordination of care (as documented) at patient's floor/unit and/or counseling patient: Coding Level of Care Code 11616 INT INP/OBS CARE 3/75MIN Diagnoses Pleural effusion on right J90 Hypoxia R09.02 (HFpEF) heart failure with preserved ejection fraction I50.30 Pleural effusion J90 Rheumatoid arthritis M06.9 Acute respiratory failure with hypoxia J96.01
--- NOTE | 2023-03-24 07:51 | Electrocardiogram Report ---
Test Reason : Blood Pressure : / mmHG Vent. Rate : 069 BPM Atrial Rate : 069 BPM P-R Int : 094 ms QRS Dur : 078 ms QT Int : 412 ms P-R-T Axes : 061 068 012 degrees QTc Int : 441 ms Sinus rhythm with short KS Nonspecific T wave abnormality Inferior leads Abnormal ECG When compared with ECG of 12-AUG-2022 12:51, Premature atrial complexes are no longer Present Inverted T waves have replaced nonspecific T wave abnormality in Inferior leads Confirmed by Danny Magallanes ([id number]) on 03/24/2023 7:50:39 AM Referred By: REFERRED SELF Confirmed By:Danny Magallanes
[2023-03-24] MEDS: LEFLUNOMIDE 10 MG TAB PO SCH (08:38)
[2023-03-24] MEDS: SERTRALINE HCL 50 MG TABLET PO SCH (08:38)
[2023-03-24] MEDS: predniSONE 1 MG TAB PO SCH (08:39)
[2023-03-24] MEDS ORDERED: FUROSEMIDE 40 MG/4 ML VIAL IV SCH (09:00)
[2023-03-24] MEDS: ACETAMINOPHEN 500 MG TAB PO SCH ×2 (10:06→17:29)
--- NOTE | 2023-03-24 11:35 | Orthopedic Consultation ---
Date of Consultation March 24, 2023 Assessment & Plan (1) Closed right humeral fracture: 88-year-old female with minimally displaced right humeral neck fracture -Nonweightbearing right upper extremity -Pain control -Medical management -PT/OT -Patient stable from orthopedic standpoint, we will plan for conservative care with immobilization and nonweightbearing in a simple sling. She may follow-up as an outpatient in 7 to 10 days. We will sign off at this time. History of Present Illness Reason for Consultation: Right humeral neck fracture Attending Physician: Rito Azul History of Present Illness 88-year-old female [id number] presenting after sustaining a ground- level fall onto her right side. Patient was admitted to medical service. In the emergency department she was found to have a minimally displaced right humeral neck fracture. Orthopedics was consulted for management recommendations. Allergies Allergy/AdvReac Type Severity Reaction Status Date / Time No Known Allergies Allergy Verified 03/24/23 01:14 Home Medications Medication Instructions Recorded Confirmed Type leflunomide 20 mg tablet (Arava) 20 mg PO QAM 03/04/19 03/24/23 History cholecalciferol (vitamin D3) 50 50 mcg PO DAILY 08/12/22 03/24/23 History mcg (2,000 unit) tablet (Vitamin D3) metronidazole 1 % topical gel 1 applic topical DAILY PRN .. 08/12/22 03/24/23 History (Metrogel) multivitamin 1 tab PO DAILY 08/12/22 03/24/23 History furosemide 40 mg tablet 40 mg PO QAM #30 tabs 08/23/22 03/24/23 Rx potassium chloride 10 mEq 10 meq PO QAM #30 tabs 08/23/22 03/24/23 Rx tablet,extended release(part/cryst) prednisone 1 mg tablet 2 mg (2 x 1 mg) PO DAILY #60 tabs 08/23/22 03/24/23 Rx sertraline 50 mg tablet 25 mg (1/2 x 50 mg) PO QAM #30 tabs 08/23/22 03/24/23 Rx acetaminophen 325 mg tablet 650 mg PO Q4 PRN Pain 03/24/23 03/24/23 History (Tylenol) Patient History Medical History Chronic renal failure (CRF), stage 3b (HFpEF) heart failure with preserved ejection fraction Somnolence Lumbar radicular pain Closed left radial fracture Basal cell carcinoma Osteopenia Chronic venous stasis dermatitis of both lower extremities Non-healing surgical wound DJD (degenerative joint disease) H/O mitral valve prolapse H/O fracture of hip Rheumatoid arthritis Surgical History H/O foot surgery H/O wrist surgery S/P appendectomy S/P cholecystectomy Family History Father COPD (chronic obstructive pulmonary disease) Silicosis Mother , age 97 No problems noted. Social History Smoking Status: Never smoker Second Hand Exposure: No; Do You Dip or Chew Tobacco: No; Hx Alcohol Use: No Hx Substance Use: No Preferred Language: Polish Communication Ability: Effective Visual Impairment: Limited Hearing Ability: Normal Weatherization Administrator Required: No Beliefs That Will Affect Care: None marital status: Current Living Situation: Spouse Current Living Situation Comment: Lives w/ at [facility] in independent living current occupational status: retired How many Children do You have: 1 Other Information That Helps Us Care for You: No Feels Safe at Home: Yes Safety Concerns: Feels Safe At This Time Diet: regular Assistive Devices: Denture - Upper, Denture - Lower, Glasses and Walker Physical Exam Constitutional: No acute distress, resting in bed Musculoskeletal: Right upper extremity -In simple sling -Mild swelling noted over the proximal h umerus -Painless range of motion of the wrist a nd elbow -silt a/m/r/u -fires wf/we/epl/fpl/charlette -Palpable radial pulse Results & Data Vital Signs (Past 12 Hours) Vital Signs Temp Pulse Resp BP Pulse Ox O2 Del Method O2 Flow Rate 03/24/23 10:29 Nasal Cannula 2 03/24/23 06:38 36.8 C 61 16 106/61 93 Room Air 2 03/24/23 01:50 Nasal Cannula 2 03/24/23 01:50 36.2 C L 72 18 147/64 H 93 Nasal Cannula 2 Diagnostic Findings Radiographs of the right shoulder demonstrate a mildly displaced right humeral neck fracture there is no evidence of dislocation.
--- NOTE | 2023-03-24 13:56 | History & Physical Bridge Note ---
Date of Service March 24, 2023 History & Physical Bridge Note I have examined the patient, reviewed the History & Physical and in the interval since the performance of the History & Physical I have noted the following changes of clinical significance: no changes noted Keshia Silva is a pleasant 88 yo F who was admitted early this AM, shortly after midnight, after sustaining a ground level fall. She was found to have a pulse ox in the 80s upon EMS arrival, ER work up demonstrated a large right pleural eff usion as well as a mildly displaced right humerus fracture for which she was placed in a sling. Pulmonology has been consulted for consideration of thoracentesis, both diagnostic and therapeutic with fluid analysis. She was ordered Lasix 40mg IV and has received 2 doses thus far and is requiring 2L of supplemental oxygen to maintain a pulse ox in the low 90s. She is awake and alert but confused. Offers no complaints. Vitals have been reviewed, BP slightly low following her AM dose of Lasix at 91/57. Not on any other antihypertensives. All other VS are stable. Heart exam is regular, lungs diminished RLL but otherwise clear, legs w/o edema. Await further recommendations from pulmonology, appreciate assistance. D/C Lasix. Appreciate orthopedic consultation for right humerus fracture, to be NWB with sling and outpatient f/u. PT/OT eval and CM to assist in d/c planning. See H&P for additional details. Plan d/w Dr. Azul.
--- NOTE | 2023-03-24 15:01 | Procedure Note ---
Procedure Note Date of Service March 24, 2023 Note Procedure: Diagnostic therapeutic ultrasound-guided catheter thoracentesis Public Health Representative: Dr. Sanna Correia Indication: Right pleural effusion Consent: Signed by patient and verified with timeout prior to procedure Anesthesia: 1% lidocaine without epinephrine local. Procedure: Consent was verified and timeout performed. Appropriate imaging studies were reviewed prior to the procedure. Patient was placed in a seated position and limited thoracic ultrasound was performed of the right chest. See separate imaging. Appropriate site above the diaphragm for thoracentesis was selected. The skin was prepped and draped in normal sterile fashion. Lidocaine was used for local analgesia. Fluid was aspirated via the finder needle. A small skin clarence was made with the scalpel and the catheter over the needle apparatus was advanced over the rib into the pleural space. Using the syringe one-way valve system, a total of 950 mL's of serous fluid was removed. Procedure was terminated due to pain. The catheter was removed and observed to be intact. A sterile dressing was applied. Post procedure chest x-ray was ordered. Fluid was sent for labs, culture and cytology. Complications: None Blood loss: Less than 1 cc Coding CPT Codes Pulmonary/Thoracic - Pulmonary and Thoracic: 33267 Thoracentesis w imaging ([id number]) [facility] [place]odes (Charges) Pulmonary/Thoracic Procedure 1: Pulmonary and Thoracic: 98669 Thoracentesis w imaging
[2023-03-24 15:40] LABS: Albumin Level 2.9 gm/dl (3.4-5.0); Total Protein 6.2 gm/dl (6.0-8.3)
[2023-03-24 15:41] LABS: Appearance Pleural Fluid Hazy; Color Pleural Fluid Yellow; RBC Pleural Fluid Auto < 2000 /uL; Source Pleural Fluid Right Lung; WBC Pleural Fluid Auto 670 /uL
--- NOTE | 2023-03-24 15:43 | XRay Report ---
XR chest 1V portable HISTORY: 88 years-old Female S/P Thoracentesis right thoracentesis COMPARISON: Chest radiograph of same day at 12:37 AM TECHNIQUE: AP view of the chest FINDINGS: Cardiac silhouette is enlarged. Atherosclerosis of the aorta. Decreased size of the loculated right p leural effusion with right lung volume loss and right basilar predominant consolidation, stable from prior. Stable small left pleural effusion with left basilar opacities. Pulmonary vascular congestion. Degenerative changes of the shoulders and spine. Acute, comminuted angulated and displaced right pro ximal humeral fracture redemonstrated. IMPRESSION: 1. Decreased size of the right pleural effusion status post thoracentesis. 2. No pneumothorax identified. 3. Additional findings as above. ACT 112: Negative or not required by law. The above report was generated using voice recognition software. It may contain grammatical, syntax o r spelling errors. Electronically signed by: Jason Edwards M.D. 03/24/2023 3:41 PM
[2023-03-24 15:48] LABS: Total Protein Pleural Fluid 4.5 gm/dl
[2023-03-24 16:00] LABS: Basophils, Fluid 1 %; Eosinophils, Fluid 8 %; Lymphocytes, Fluid 62 %; Mono,Macrophage,Mesothelial 22 %; Neutrophils, Fluid 7 %
[2023-03-25] MEDS: ACETAMINOPHEN 500 MG TAB PO SCH ×3 (02:09→17:35)
[2023-03-25 08:05] LABS: Hematocrit (blood only) 35.7 % (37.0-47.0); Hemoglobin 11.6 g/dl (12.0-16.0); Mean Corpuscular Hemoglobin 28.8 pg (25.0-34.0); Mean Corpuscular Hgb Conc 32.5 g/dL (32.0-36.0); Mean Corpuscular Volume 88.6 fL (80.0-100.0); Mean Platelet Volume 10.9 fL (9.4-12.4); Platelet Count 260 K/uL (130-400); RDW Coefficient of Variation 14.8 % (11.5-14.5); RDW Standard Deviation 47.1 fL (36.4-46.3); Red Blood Count 4.03 M/uL (4.20-5.40); White Blood Count 9.23 K/ul (4.8-10.8)
[2023-03-25 08:11] LABS: BUN Creatinine Ratio 33.8 (10-20); Calcium 8.3 mg/dl (8.6-10.3); Creatinine Clr Calc Pharmacy 50.4 ml/min; Est GFR (African American) 92.5 ml/min; Est GFR (Non-African American) 79.8 ml/min; Potassium 3.4 mmol/L (3.5-5.1)
[2023-03-25] MEDS: LEFLUNOMIDE 10 MG TAB PO SCH (08:48)
[2023-03-25] MEDS: SERTRALINE HCL 50 MG TABLET PO SCH (08:49)
[2023-03-25] MEDS ORDERED: predniSONE 1 MG TAB PO SCH (09:00)
--- NOTE | 2023-03-25 09:13 | Pulmonology Progress Note ---
Date of Service March 25, 2023 Assessment & Plan (1) Pleural effusion on right: (2) Hypoxia: (3) (HFpEF) heart failure with preserved ejection fraction: (4) Pleural effusion: (5) Rheumatoid arthritis: (6) Acute respiratory failure with hypoxia: Plan CT chest 03/23/2023 personally reviewed: Large right-sided pleural effusion with compressive atelectasis of the right lower lobe Dependent atelectasis of the left lower lobe Cardiomegaly No significant mediastinal lymphadenopathy 2D echo 08/13/2022: EF 60-65%, RV normal in size and function -- Right pleural effusion Etiology is likely cardiac in origin along with low albumin BNP 148 Respiratory bio fire negative for everything on 08/12/2022 S/p thoracentesis 03/24/2023, 950 mL of serous fluid removed, lymphocytic, e xudative as per protein Pleural: LDH 116, protein 4.5, pH 7.56 Serum: LDH 225, protein 6.2 --Acute respiratory failure with hypoxia Likely from bilateral pleural effusion and dependent atelectasis Treated with diuresis --Rheumatoid arthritis On leflunomide and Prednisone --DNR/DNI on the last admission Plan: Continue titrate the patient off of oxygen to keep O2 saturation greater than 90 Follow-up cytology of the fluid. Incentive spirometry will be helpful Recommend diuresis to keep the patient negative balance No further recommendation from pulmonary perspective, will sign off Please call directly with any questions Please note the above document was generated using voice recognition software. It may contain grammatical, syntax or spelling errors.Any formal questions or concerns about the content, text or information contained within the body of this dictation should be directly addressed to the provider for clarification. Admission and Anticipated Discharge Date Admission Date: March 24, 2023 Subjective Patient seen and examined at bedside. No acute distress, notable symptoms overnight She was saturating 94% on 2 L nasal cannula. I went down to 1 L She denied any chest pain. When it comes to her breathing she says there is no significant change compared to yesterday. No nausea vomiting Fair appetite Review of Systems 2 Review of Systems: All systems reviewed & are unremarkable except as noted in Subjective Physical Exam 2 Physical Exam: Constitutional: No acute distress HEENT: EOMI, PERRLA, frail-appearing Respiratory system: Decreased air entry right side, no wheeze, no rhonchi, mild crackles bilaterally CVS: S1-S2 positive Abdomen: Soft, nontender, nondistended, positive bowel sounds x4 Extremities: +2 pulses bilaterally radialis/ dorsalis pedis, no cyanosis, +2 pitting edema bilateral lower extremity Neuro: Awake alert oriented to self and place Psych: Normal mood and affect G/U: No Singer Musculoskeletal: Thoracic kyphosis Skin: no rashes, warm and dry Lymphatic: no cervical or axillary lymphadenopathy Results & Data Results & Data Vital Signs (Past 12 Hours) Vital Signs Temp Pulse Pulse Resp BP Pulse Ox O2 Del Method 03/25/23 08:40 95 Nasal Cannula 03/25/23 08:39 36.9 C 57 L 18 111/65 88 L Room Air 03/25/23 02:10 54 L 102/65 92 Room Air 03/24/23 22:35 59 L 95/54 L O2 Flow Rate 03/25/23 08:40 2 03/25/23 08:39 03/25/23 02:10 03/24/23 22:35 Laboratory Results 03/25/23 07:14 03/25/23 07:14 PG Care Time/CCT Total # of Minutes Spent Total Time Spent with Patient: Total time spent is greater than 50% in coordination of care (as documented) at patient's floor/unit and/or counseling patient: Coding Level of Care Code 98754 SUB INP/OBS CARE 235MIN Diagnoses Pleural effusion on right J90 Hypoxia R09.02 (HFpEF) heart failure with preserved ejection fraction I50.30 Pleural effusion J90 Rheumatoid arthritis M06.9 Acute respiratory failure with hypoxia J96.01
[2023-03-25] MEDS ORDERED: POTASSIUM CHLORIDE CRTAB 20 MEQ TABCR PO STA (16:17)
--- NOTE | 2023-03-25 16:19 | Hospitalist Progress Note ---
Date of Service March 25, 2023 Assessment & Plan (1) Pleural effusion on right: Plan: Patient found with moderate to large pleural effusion on the right and acute respiratory failure with hypoxia. She has had pleural effusions in the past secondary to heart failure. She does not recall ever having a thoracentesis. Had thoracentesis on 03/24 to remove 950 mL of serous fluid. Exudative by lights criteria but likely due to chronic nature of effusions secondary to heart failure and hypoalbuminemia as per pulmonology Repeat chest x-ray significantly improved and patient is now weaned off supplemental O2 Pleural fluid culture and AFB pending Pleural fluid cytology pending and should be followed -Resume patient's home Lasix 40 Mg p.o. once daily and replace potassium with potassium chloride 20 mill equivalents p.o. once, follow BMP and magnesium -Pulmonary consultation appreciated -Continue incentive spirometry (2) Closed right humeral fracture: Plan: Ground level fall resulting in right humeral fracture. NV intact. Pain is now controlled with scheduled Tylenol -Oxycodone PRN but is not using -Morphine PRN but is not using -Miralax PRN -Appreciate orthopedics consultation-nonsurgical management, continue sling, nonweightbearing to the right upper extremity, follow-up with orthopedics in 7 to 10 days-Dr. Abrams at [facility] (3) Rheumatoid arthritis: Plan: Chronic. Stable -Continue home Prednisone and leflunomide (4) Hypoxia: Plan: Acute respiratory failure with hypoxia secondary to pleural effusion as above- now resolved Continue supplemental O2 as needed to keep pulse ox greater than 90% (5) (HFpEF) heart failure with preserved ejection fraction: Plan: With acute on chronic HFpEF, given IV Lasix and now convert to p.o. Lasix Pleural effusion drained as above Continue blood pressure control (6) Hypokalemia: Plan: As above Plan DVT prophylaxis-add Lovenox Disposition-medically stable for discharge but [facility] could not [facility]. Plan for discharge in the morning Admission and Anticipated Discharge Date Admission Date: March 24, 2023 Subjective Patient does not have pain in the right upper arm unless she moves it. Otherwise denies any problems. Denies shortness of breath. Is weaned off oxygen to room air. I discussed her care with pulmonology Physical Exam Constitutional: WD/WN, vitals as above Respiratory: normal respiratory effort; no cough Auscultation: + diminished lung sounds (At right base); no crackles and no wheezes Cardiovascular: Rate/Rhythm: regular rate and regular rhythm Heart Sounds: no murmur Gastrointestinal (Abdomen): normal bowel sounds, soft, nontender, no hepatospl enomegaly Musculoskeletal: Extremities: + extremities abnormal to inspection (RUE in sling, ecchymosis upper arm/shoulder) Psychiatric: Orientation: alert, oriented to person, oriented to place and cooperative Results & Data Results & Data Vital Signs (Past 12 Hours) Vital Signs Temp Pulse Resp BP Pulse Ox O2 Del Method O2 Flow Rate 03/25/23 13:40 36.8 C 55 L 16 106/64 91 Room Air 03/25/23 12:42 61 14 91 Room Air 03/25/23 08:45 Nasal Cannula 2 03/25/23 08:40 95 Nasal Cannula 2 03/25/23 08:39 36.9 C 57 L 18 111/65 88 L Room Air Laboratory Results CBC, BMP, LDH, albumin, total protein, pleural fluid studies reviewed Pleural fluid culture and AFB reviewed Urine culture mixed organisms PG Care Time/CCT Total # of Minutes Spent Total Time Spent with Patient: Total time spent is greater than 50% in coordination of care (as documented) at patient's floor/unit and/or counseling patient: Coding Level of Care Code 00954 SUB INP/OBS CARE 235MIN Diagnoses Pleural effusion on right J90 Closed right humeral fracture S42.301A Rheumatoid arthritis M06.9 Hypoxia R09.02 (HFpEF) heart failure with preserved ejection fraction I50.30 Hypokalemia E87.6
[2023-03-25] MEDS ORDERED: ENOXAPARIN INJ 40 MG/0.4 ML SYR SQ SCH (18:30)
[2023-03-26] MEDS: ACETAMINOPHEN 500 MG TAB PO SCH ×2 (01:46→09:34)
[2023-03-26] MEDS ORDERED: FUROSEMIDE 40 MG TAB PO SCH (09:00)
[2023-03-26] MEDS ORDERED: SERTRALINE HCL 50 MG TABLET PO SCH (09:00)
[2023-03-26] MEDS: LEFLUNOMIDE 10 MG TAB PO SCH (09:34)
--- NOTE | 2023-03-26 10:28 | Discharge Summary ---
Discharge Summary Date of Service March 26, 2023 Notes For Next Care Provider Follow up with Ortho in 1 week for humerus fracture Check BMP in 1 week Medication Changes From Visit Tylenol 1000mg po tid scheduled Admission HPI Per Admitting Provider Keshia Silva is an 88yo female with history of CKD, RA, Dementia presenting from [facility] after a ground level fall. Patient was reaching up and putting on a sweater when she lost her balance and fell. She landed on her right arm. No head trauma or LOC. Patient denies chest pain, cough, SOB. No report of abdominal pain, nausea, vomiting or diarrhea. Patient hypoxic by EMS with saturations 87% on room air. She continue to be hypoxic in the ER. Found to have a moderate right sided pleural effusion. No report of cough, SOB Principal Dx & Hospital Course #1 = Principal Diagnosis (1) Pleural effusion on right: Patient found with moderate to large pleural effusion on the right and acute respiratory failure with hypoxia. She has had pleural effusions in the past secondary to heart failure. She does not recall ever having a thoracentesis. Had thoracentesis on 03/24 to remove 950 mL of serous fluid. Exudative by lights criteria but likely due to chronic nature of effusions secondary to heart failure and hypoalbuminemia as per pulmonology Repeat chest x-ray significantly improved and patient is now weaned off supplemental O2 Pleural fluid culture and AFB pending Pleural fluid cytology pending and should be followed after discharge -had IV lasix and then home Lasix 40 Mg p.o. once daily, replace potassium, follow BMP as outpt -Pulmonary consultation appreciated -Continue incentive spirometry (2) Closed right humeral fracture: Ground level fall resulting in right humeral fracture. NV intact. Pain is now controlled with scheduled Tylenol -Appreciate orthopedics consultation-nonsurgical management, continue sling, nonweightbearing to the right upper extremity, follow-up with orthopedics in 7 to 10 days-Dr. Abrams at [facility] (3) Rheumatoid arthritis: Chronic. Stable -Continue home Prednisone and leflunomide (4) Hypoxia: Acute respiratory failure with hypoxia secondary to pleural effusion as above- now resolved Continue supplemental O2 as needed to keep pulse ox greater than 90% (5) (HFpEF) heart failure with preserved ejection fraction: With acute on chronic HFpEF, given IV Lasix and then converted to p.o. Lasix Pleural effusion drained as above Continue blood pressure control (6) Hypokalemia: As above Plan DVT prophylaxis- Lovenox Disposition-medically stable for [facility] Discharge Exam Constitutional WD/WN, vitals as above Respiratory normal respiratory effort; no cough Auscultation: + diminished lung sounds (At right base); no crackles and no wheezes Cardiovascular Rate/Rhythm: regular rate and regular rhythm Heart Sounds: no murmur Gastrointestinal (Abdomen) normal bowel sounds, soft, nontender, no hepatosplenomegaly Musculoskeletal Extremities: + extremities abnormal to inspection (RUE in sling, ecchymosis upper arm/shoulder) Psychiatric Orientation: alert, oriented to person, oriented to place and cooperative Updated Medication List Medication Instructions Recorded Confirmed Type leflunomide 20 mg tablet (Arava) 20 mg PO QAM 03/04/19 03/24/23 History cholecalciferol (vitamin D3) 50 50 mcg PO DAILY 08/12/22 03/24/23 History mcg (2,000 unit) tablet (Vitamin D3) metronidazole 1 % topical gel 1 applic topical DAILY PRN .. 08/12/22 03/24/23 Hi story (Metrogel) multivitamin 1 tab PO DAILY 08/12/22 03/24/23 History furosemide 40 mg tablet 40 mg PO QAM #30 tabs 08/23/22 03/24/23 Rx potassium chloride 10 mEq 10 meq PO QAM #30 tabs 08/23/22 03/24/23 Rx tablet,extended release(part/cryst) prednisone 1 mg tablet 2 mg (2 x 1 mg) PO DAILY #60 tabs 08/23/22 03/24/23 Rx acetaminophen 325 mg tablet 650 mg PO Q4 PRN Pain 03/24/23 03/24/23 History (Tylenol) acetaminophen 500 mg tablet 1,000 mg (2 x 500 mg) PO Q8H #180 03/25/23 Rx (Tylenol Extra Strength) tabs prednisone 1 mg tablet 2 mg (2 x 1 mg) PO Q48H #30 tabs 03/25/23 Rx prednisone 1 mg tablet 3 mg (3 x 1 mg) PO Q48H #45 tabs 03/25/23 Rx sertraline 50 mg tablet 50 mg PO QAM #30 tabs 03/25/23 Rx Hospital Stay Data Consultations 03/24/23 00:00 ED Decision to Admit Stat 03/24/23 00:24 Consult Pulmonology Routine 03/24/23 09:52 Consult Orthopedic Surgery Routine Diagnostic Imagining Performed 03/23/23 22:16 CT cervical spine wo con Stat CT chest diagnostic wo con Stat CT head/brain wo con Stat 03/24/23 07:32 US point of care ultrasound Urgent Pending Results Patient Have Any Pending Studies at Discharge: Yes (Pleural fluid cytology and AFB, culture) Discharge Instructions Given to Patient (Per Discharging Provider) You were admitted with a fall and sustained a fracture to your upper right arm (humerus). This will be managed without surgery and you should not use the arm, keeping it in a sling at all times except bathing. Please follow up with the Orthopedic Surgeon in 1 week. You were found to have a lot of fluid around the lung and this was drained with a procedure by the [employer]. Your oxygen levels improved and you were weaned off supplemental oxygen. Please continue taking lasix daily to prevent recurrence of fluid build up and have your doctor check your kidney function periodically to ensure it remains normal on this medication. Call your Primary Care doctor if any of the following symptoms or problems start or get worse: * Shortness of breath or difficulty breathing * Wake up at night short of breath * Chest pain * Cough * Swelling of your hands, feet, or legs * More fatigued or tired with your normal activity * Palpitations - sudden fast heart beats WEIGHT * Weigh yourself every morning after using the bathroom. * Use the same scale. * Wear the same amount of clothing. * Write your weight down on a chart. * Call your Primary Care doctor if you gain more than 2-3 pounds in 1-2 days. MEDICATIONS * Use this discharge instruction sheet for medication instructions. * Take your medications at the time your doctor ordered. * Do not skip a dose of your medicines. * If you miss a dose of medicine, take it as soon as possible, but DO NOT DOUBLE A DOSE. * Read your medicine information when you get home. * Know all of the side effects of your medicine. If in doubt, ask your pharmacist * Call your Primary Care doctor's office if you have any side effects. * Be sure all of your doctors know what medicine and herbs you take (including cold, flu, and herbal medicine). Take the following with you to your follow-up doctor appointments: * Weight Chart * Medication List * List of questions Do not drink excessive alcohol, beer or wine. Total Time Total Time Spent Total Time Spent (In Minutes): 35 min Coding Level of Care Code 42777 INP/OBS DISCH >30 MIN Diagnoses Pleural effusion on right J90 Closed right humeral fracture S42.301A Rheumatoid arthritis M06.9 Hypoxia R09.02 (HFpEF) heart failure with preserved ejection fraction I50.30 Hypokalemia E87.6
[2023-03-26] MEDS: predniSONE 1 MG TAB PO SCH (10:40)
[2023-03-27] MEDS ORDERED: SERTRALINE HCL 50 MG TABLET PO SCH (09:00)
[2023-03-28] MEDS ORDERED: SERTRALINE HCL 50 MG TABLET PO SCH (09:00)
== END 2023-03-26 13:32 ==
LOC: ED 17:26 → INTOOBSV 03-24 00:24 → SUATTDRO 03-24 00:24 → 3W 03-24 00:24